=== PATIENT | female | born 1955 | race Caucasian/White ===

== ENCOUNTER 2018-03-31 10:48 | Emergency (ER) | payer MEDICAID, OTHER ==
[~2018-03-31] VITALS: Ht 165.1 cm; Wt 61.2 kg
--- NOTE | 2018-03-31 11:08 | ED General ---
General Stated Complaint: WEAKNESS Source of Information: Patient Exam Limitations: No Limitations History of Present Illness Date Seen by Provider: Mar 31, 2018 Time Seen by Provider: 11:06 Initial Comments To ER accompanied by with reports of chills and generalized weakness. This began 2 days ago. She has a chronic unchanged cough. She has not measured any fevers. She does smoke but has not smoked in about 2-3 days. Denies any abdominal pain or dysuria. She states that she's had some constipation but she does take linzess for irritable bowel syndrome with constipation. She just moved here to [place] about 2 weeks ago from [place]. She states that about one month to 6 weeks ago while in [place] she had a similar episode of chills and generalized weakness was given IV fluids and symptoms improved. Timing/Duration: 2-3 Days Severity: Moderate Associated Systoms: Cough (chronic and unchanged), Fever/Chills; No Nausea/ Vomiting (a bit worse than usual); Shortness of Air Allergies and Home Medications Allergies Uncoded Allergies: "opiates" (Allergy, Unknown, 03/31/18) Home Medications Azithromycin 250 Mg Tablet, 250 MG PO UD TAKE 2 TABLETS ON DAY ONE THEN TAKE 1 TABLET DAILY FOR FOUR MORE DAYS Prescribed by: SERAFIN ARREDONDO on 03/31/18 1213 Prednisone 20 Mg Tab, 40 MG PO DAILY Prescribed by: SERAFIN ARREDONDO on 03/31/18 1213 Patient Home Medication List Home Medication List Reviewed: Yes Review of Systems Review of Systems Constitutional: see HPI, chills, malaise, weakness EENTM: see HPI Respiratory: see HPI, cough, short of breath Cardiovascular: no symptoms reported; No chest pain Genitourinary: no symptoms reported Musculoskeletal: no symptoms reported Skin: no symptoms reported Psychiatric/Neurological: No Symptoms Reported Hematologic/Lymphatic: No Symptoms Reported Physical Exam Vital Signs Vital Signs - First Documented 03/31/18 11:13 Temp 97.8 Pulse 69 Resp 20 B/P (MAP) 97/67 (77) Pulse Ox 100 Capillary Refill : Height, Weight, BMI Height: '" Weight: lbs. oz. kg; BMI Method: General Appearance: No Apparent Distress, WD/WN, Other (keeps her eyes closed when talking) Eyes: Bilateral Eye Normal Inspection, Bilateral Eye PERRL HEENT: PERRL/EOMI, TMs Normal Neck: Full Range of Motion, Normal Inspection Respiratory: Normal Breath Sounds, No Accessory Muscle Use, No Respiratory Distress Gastrointestinal: Normal Bowel Sounds, Non Tender, Soft Extremity: Normal Capillary Refill, Normal Inspection Neurologic/Psychiatric: Alert, Oriented x3 Skin: Normal Color, Warm/Dry Progress/Results/Core Measures Suspected Sepsis SIRS Temperature: Pulse: Respiratory Rate: Laboratory Tests 03/31/18 10:54: White Blood Count 8.8 Blood Pressure / Mean: Laboratory Tests 03/31/18 10:54: Creatinine 0.98, Platelet Count 393, Total Bilirubin 0.8 Results/Orders Lab Results Laboratory Tests Test 03/31/18 10:54 03/31/18 10:59 03/31/18 13:50 Range/Units White Blood Count 8.8 4.3-11.0 10^3/uL Red Blood Count 4.42 4.35-5.85 10^6/uL Hemoglobin 14.0 11.5-16.0 G/DL Hematocrit 40 35-52 % Mean Corpuscular Volume 91 80-99 FL Mean Corpuscular Hemoglobin 32 25-34 PG Mean Corpuscular Hemoglobin Concent 35 32-36 G/DL Red Cell Distribution Width 11.7 10.0-14.5 % Platelet Count 393 130-400 10^3/uL Mean Platelet Volume 9.3 7.4-10.4 FL Neutrophils (%) (Auto) 64 42-75 % Lymphocytes (%) (Auto) 27 12-44 % Monocytes (%) (Auto) 8 0-12 % Eosinophils (%) (Auto) 0 0-10 % Basophils (%) (Auto) 1 0-10 % Neutrophils # (Auto) 5.7 1.8-7.8 X 10^3 Lymphocytes # (Auto) 2.4 1.0-4.0 X 10^3 Monocytes # (Auto) 0.7 0.0-1.0 X 10^3 Eosinophils # (Auto) 0.0 0.0-0.3 10^3/uL Basophils # (Auto) 0.0 0.0-0.1 10^3/uL Sodium Level 136 135-145 MMOL/L Potassium Level 3.3 L 3.6-5.0 MMOL/L Chloride Level 100 98-107 MMOL/L Carbon Dioxide Level 23 21-32 MMOL/L Anion Gap 13 5-14 MMOL/L Blood Urea Nitrogen 13 7-18 MG/DL Creatinine 0.98 0.60-1.30 MG/DL Estimat Glomerular Filtration Rate 58 BUN/Creatinine Ratio 13 Glucose Level 103 70-105 MG/DL Calcium Level 10.5 H 8.5-10.1 MG/DL Corrected Calcium 8.5-10.1 MG/DL Total Bilirubin 0.8 0.1-1.0 MG/DL Aspartate Amino Transf (AST/SGOT) 19 5-34 U/L Alanine Aminotransferase (ALT/SGPT) 14 0-55 U/L Alkaline Phosphatase 60 40-136 U/L Total Protein 7.5 6.4-8.2 GM/DL Albumin 4.7 H 3.2-4.5 GM/DL Thyroid Stimulating Hormone (TSH) 1.41 0.35-4.94 UIU/ML Free Thyroxine 1.26 0.70-1.48 NG/DL Micro Results Microbiology 03/31/18 Influenza Types A,B Antigen (KORTNEY) - Final, Complete My Orders Orders - SERAFIN ARREDONDO APRN Cbc With Automated Diff (03/31/18 11:03) Comprehensive Metabolic Panel (03/31/18 11:03) Ua Culture If Indicated (03/31/18 11:03) Influenza A And B Antigens (03/31/18 11:03) Chest Pa/Lat (2 View) (03/31/18 11:03) Iv Heplock-Insert (Order) (03/31/18 11:03) Ns Iv 1000 Ml (Sodium Chloride 0.9%) (03/31/18 11:15) Thyroid Stimulating Hormone (03/31/18 12:10) Free T4 (Free Thyroxine) (03/31/18 12:10) Vital Signs/I&O 03/31/18 11:13 Temp 97.8 Pulse 69 Resp 20 B/P (MAP) 97/67 (77) Pulse Ox 100 Capillary Refill : Diagnostic Imaging Diagonstic Imaging: Xray, CT Departure Impression Primary Impression: Acute exacerbation of chronic bronchitis Additional Impressions: Chills Weakness Disposition: 01 HOME, SELF-CARE Condition: Stable Departure-Patient Inst. Decision time for Depature: 12:12 Patient Instructions: Acute Bronchitis, Adult (DC) Add. Discharge Instructions: 1. Steroids and antibiotics as directed 2. Return to ER for any concerns 3. Scripts Prednisone (Prednisone) 20 Mg Tab 40 MG PO DAILY, #8 TAB Prov: SERAFIN ARREDONDO APRN 03/31/18 Azithromycin (Azithromycin) 250 Mg Tablet 250 MG PO UD, #6 TAB TAKE 2 TABLETS ON DAY ONE THEN TAKE 1 TABLET DAILY FOR FOUR MORE DAYS Prov: SERAFIN ARREDONDO APRN 03/31/18 Work/School Note: Local [employer] SERAFIN ARREDONDO APRN Mar 31, 2018 11:08
[2018-03-31 11:12] LABS: BASOPHILS % (AUTO) 1 % (0-10); EOSINOPHILS % (AUTO) 0 % (0-10); HEMATOCRIT 40 % (35-52); LYMPHOCYTES # (AUTO) 2.4 X 10^3 (1.0-4.0); LYMPHOCYTES % (AUTO) 27 % (12-44); MEAN CORPUSCULAR HEMOGLOBIN 32 PG (25-34); MEAN CORPUSCULAR HGB CONC 35 G/DL (32-36); MEAN CORPUSCULAR VOLUME 91 FL (80-99); MEAN PLATELET VOLUME 9.3 FL (7.4-10.4); MONOCYTES # (AUTO) 0.7 X 10^3 (0.0-1.0); MONOCYTES % (AUTO) 8 % (0-12); NEUTROPHILS # (AUTO) 5.7 X 10^3 (1.8-7.8); NEUTROPHILS % (AUTO) 64 % (42-75); PLATELET COUNT 393 10^3/uL (130-400); RED BLOOD COUNT 4.42 10^6/uL (4.35-5.85); RED CELL DISTRIBUTION WIDTH 11.7 % (10.0-14.5); WHITE BLOOD COUNT 8.8 10^3/uL (4.3-11.0)
[2018-03-31] MEDS ORDERED: NS IV 1000 ML 1,000 ML IV SCH (11:15)
[2018-03-31 11:33] LABS: ALANINE AMINOTRANSFERASE 14 U/L (0-55); ALBUMIN 4.7 GM/DL (3.2-4.5); ALKALINE PHOSPHATASE 60 U/L (40-136); BILIRUBIN,TOTAL 0.8 MG/DL (0.1-1.0); BUN/CREATININE RATIO 13; CALCIUM 10.5 MG/DL (8.5-10.1); CARBON DIOXIDE 23 MMOL/L (21-32); CHLORIDE 100 MMOL/L (98-107); CREATININE SERUM 0.98 MG/DL (0.60-1.30); GFR ESTIMATED 58; GLUCOSE 103 MG/DL (70-105); POTASSIUM 3.3 MMOL/L (3.6-5.0); SODIUM 136 MMOL/L (135-145); TOTAL PROTEIN 7.5 GM/DL (6.4-8.2)
--- NOTE | 2018-03-31 11:41 | Diagnostic Imaging Report ---
INDICATION: Weakness and chills and night sweats. PA and lateral chest obtained at 1:46 a.m. FINDINGS: Heart and mediastinal silhouette are normal in appearance. Lungs are clear. There is no pneumothorax or pleural fluid. There is some linear scarring or atelectasis in the right apex. IMPRESSION: Linear scarring versus atelectasis in right apex. Otherwise negative chest. Dictated by: Dictated on workstation # [id number]
[2018-03-31] MEDS ORDERED: PRD20T PO (12:13)
[2018-03-31] MEDS ORDERED: AZIT250T12 PO (12:13)
[2018-03-31 12:46] LABS: FREE T4 (FREE THYROXINE) 1.26 NG/DL (0.70-1.48)
[2018-03-31 14:00] LABS: BILIRUBIN,URINE NEGATIVE (NEGATIVE); CLARITY,URINE CLEAR; COLOR,URINE YELLOW; GLUCOSE, URINE (UA) NEGATIVE (NEGATIVE); KETONES,URINE 3+ (NEGATIVE); LEUKOCYTE ESTERASE ,URINE 1+ (NEGATIVE); NITRITE,URINE NEGATIVE (NEGATIVE); PH,URINE 6.5 (5-9); PROTEIN,URINE 1+ (NEGATIVE); UROBILINOGEN,URINE 1 MG/DL (NORMAL)
[2018-03-31 14:15] LABS: BACTERIA,URINE MODERATE /HPF; RBC,URINE 0-2 /HPF; WBC,URINE 0-2 /HPF
[2018-03-31 14:29] VITALS: BP 143/76
== END 2018-03-31 14:29 | disposition home or self-care (01) ==
LOC: EDUNIT# 10:48 → ER 10:51
DX: J20.9 Acute bronchitis, unspecified (principal); J40 Bronchitis, not specified as acute or chronic; R53.1 Weakness; R68.83 Chills (without fever); Z88.5 Allergy status to narcotic agent; Z79.52 Long term (current) use of systemic steroids
CPT/HCPCS: 36415; 71046; 80053; 81000; 84439; 84443; 85025; 87804

== ENCOUNTER 2018-09-06 09:36 | Emergency (ER) | payer BC, MEDICAID ==
[~2018-09-06] VITALS: Ht 165.1 cm; Wt 63.5 kg
[~2018-09-06 09:36] MED LIST: AZIT250T12 PO; PRD20T PO
--- NOTE | 2018-09-06 09:56 | NUR ---
SEE LIST FOR CURRENT MEDS
[2018-09-06] MEDS ORDERED: NS IV 1000 ML 1,000 ML IV ONE (10:25)
[2018-09-06] MEDS ORDERED: KETOROLAC 30 MG/ML VIAL IVP STA (10:25)
[2018-09-06 10:50] LABS: BASOPHILS % (AUTO) 0 % (0-10); EOSINOPHILS % (AUTO) 0 % (0-10); HEMATOCRIT 39 % (35-52); HEMOGLOBIN 13.6 G/DL (11.5-16.0); LYMPHOCYTES # (AUTO) 1.7 X 10^3 (1.0-4.0); LYMPHOCYTES % (AUTO) 24 % (12-44); MEAN CORPUSCULAR HEMOGLOBIN 31 PG (25-34); MEAN CORPUSCULAR HGB CONC 35 G/DL (32-36); MEAN CORPUSCULAR VOLUME 89 FL (80-99); MEAN PLATELET VOLUME 9.2 FL (7.4-10.4); MONOCYTES # (AUTO) 0.5 X 10^3 (0.0-1.0); MONOCYTES % (AUTO) 8 % (0-12); NEUTROPHILS # (AUTO) 4.7 X 10^3 (1.8-7.8); NEUTROPHILS % (AUTO) 68 % (42-75); PLATELET COUNT 381 10^3/uL (130-400); RED CELL DISTRIBUTION WIDTH 12.1 % (10.0-14.5); WHITE BLOOD COUNT 6.9 10^3/uL (4.3-11.0)
[2018-09-06 10:55] LABS: CLARITY,URINE CLEAR; COLOR,URINE YELLOW; GLUCOSE, URINE (UA) NEGATIVE (NEGATIVE); KETONES,URINE 2+ (NEGATIVE); LEUKOCYTE ESTERASE ,URINE 1+ (NEGATIVE); NITRITE,URINE NEGATIVE (NEGATIVE); PH,URINE 6 (5-9); PROTEIN,URINE 2+ (NEGATIVE); UROBILINOGEN,URINE 4 MG/DL (NORMAL)
--- NOTE | 2018-09-06 10:57 | ED General ---
General Chief Complaint: General Problems/Pain Stated Complaint: FLU SYMPTOMS Nursing Triage Note: PT TO ROOM 9 PER W/C PT STATES COLD, NO FEVER, HAS "FOAM COMING OUT OF BUTT" AND COUGH THURSDAY THAT MADE HER R SIDE HURT. Nursing Sepsis Screen: No Definite Risk Source of Information: Patient Exam Limitations: No Limitations History of Present Illness Date Seen by Provider: Sep 06, 2018 Time Seen by Provider: 10:18 Initial Comments Here with report of a variety of complaints that is somewhat difficult to follow. Initially she reported feeling like she has had the flu that started on Thursday. She states that was body aches and chills. It worsened yesterday and then overnight she had dry heaves. She also complains of vaginal fullness and feeling like something is there. She reports foul odor from the vaginal area. 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 She is also concerned that the fistula may have gone inside is a had concerns about that previously. Reports frothy diarrhea. Does have some lower abdominal pain. Reports that the diarrhea was pinkish colored. Timing/Duration: 1-2 Days Severity: Moderate Associated Systoms: No Chest Pain, No Cough; Fever/Chills, Nausea/Vomiting; No Shortness of Air; Weakness Allergies and Home Medications Allergies Coded Allergies: lisinopril (Verified Allergy, Unknown, 09/06/18) morphine (Verified Allergy, Unknown, 09/06/18) Uncoded Allergies: "opiates" (Allergy, Unknown, 03/31/18) CIPROFLOXIN (Allergy, Unknown, 09/06/18) CODIENE (Allergy, Unknown, 09/06/18) FENTYL (Allergy, Unknown, 09/06/18) HCTZ (Allergy, Unknown, 09/06/18) OPIUM (Allergy, Unknown, 09/06/18) Home Medications Azithromycin 250 Mg Tablet, 250 MG PO UD TAKE 2 TABLETS ON DAY ONE THEN TAKE 1 TABLET DAILY FOR FOUR MORE DAYS Prescribed by: SERAFIN ARREDONDO on 03/31/181212 Prednisone 20 Mg Tab, 40 MG PO DAILY Prescribed by: SERAFIN ARREDONDO on 03/31/181212 Patient Home Medication List Home Medication List Reviewed: Yes (home meds list reviewed) Review of Systems Review of Systems Constitutional: see HPI, chills; No fever EENTM: No nose congestion, No throat pain Respiratory: No cough; short of breath Cardiovascular: No chest pain, No edema Gastrointestinal: abdominal pain, diarrhea, nausea, vomiting Genitourinary: see HPI; No dysuria; pain : No Musculoskeletal: joint pain, muscle pain Skin: change in color (Ecchymosis on the hand on the right) Psychiatric/Neurological: Anxiety; Denies Headache All Other Systems Reviewed Negative Unless Noted: Yes Past [id number]-[id number]-Uyesyi Hx Past Med/Social Hx: Reviewed Nursing Past Med/Soc Hx Patient Social History Alcohol Use: Denies Use Recreational Drug Use: No Smoking Status: Current Everyday Smoker Type Used: Cigarettes Recent Foreign Travel: No Contact w/Someone Who Travel: No Recent Infectious Disease Expo: No Recent Hopitalizations: No Past Medical History Surgeries: Yes Abdominal, Appendectomy, Gallbladder, Hysterectomy, Tubal Ligation Cardiac: Yes Chronic Edema/Swelling, High Cholesterol, Hypertension Neurological: Yes Neuropathy, Seizure Disorder Genitourinary: No Gastrointestinal: Yes Gastroesophageal Reflux Musculoskeletal: Yes Osteoporosis, Arthritis Endocrine: No Cancer: Yes Cervical Psychosocial: No Integumentary: Yes (hx of skin ca) Family Medical History Reviewed Nursing Family Hx No Pertinent Family Hx Physical Exam-Suspected Sepsis Physical Exam Vital Signs Vital Signs - First Documented 09/06/18 09:50 Temp 97.9 Pulse 88 Resp 18 B/P (MAP) 147/117 (127) Pulse Ox 99 Capillary Refill : Less Than 3 Seconds Blood Pressure Mean: 127 Height, Weight, BMI Height: 5'5.00" Weight: 140lbs. oz. [id number]; BMI Method:Stated General Appearance: WD/WN, Anxious, Thin HEENT: PERRL/EOMI, Pharynx Normal Neck: Non Tender, Supple Respiratory: Lungs Clear, Normal Breath Sounds Cardiovascular: Regular Rate, Rhythm, No Murmur Gastrointestinal: Non Tender, Soft Rectal: Hemorrhoids, Tenderness, Other (unable to complete digital rectal exam due to discomfort on the patient) Genital/Rectal: Other (figueroa white vaginal discharge noted) Back: Normal Inspection, No CVA Tenderness Extremity: Normal Range of Motion, Non Tender Neurologic/Psychiatric: Alert, Oriented x3 Skin: warm/dry, ecchymosis (few small areas of ecchymosis to the right hand) Focused Exam Lactate Level 09/06/18 10:35: Lactic Acid Level 2.07*H 09/06/18 12:31: Lactic Acid Level 0.98 Lactic Acid Level Laboratory Tests Test 09/06/18 10:35 09/06/18 12:31 Lactic Acid Level 2.07 MMOL/L (0.50-2.00) *H 0.98 MMOL/L (0.50-2.00) Progress/Results/Core Measures Suspected Sepsis Recent Fever Within 48 Hours: No Infection Criteria Present: None New/Unexplained Altered Menta: No Sepsis Screen: No Definite Risk SIRS Temperature:97.9 Pulse: 88 Respiratory Rate: 18 Laboratory Tests 09/06/18 10:35: White Blood Count 6.9 Blood Pressure 147 /117 Mean: 127 09/06/18 10:35: Lactic Acid Level 2.07*H 09/06/18 12:31: Lactic Acid Level 0.98 Laboratory Tests 09/06/18 10:35: Creatinine 0.95, INR Comment 0.9, Platelet Count 381, Total Bilirubin 0.7 Results/Orders Lab Results Laboratory Tests Test 09/06/18 10:35 09/06/18 12:31 Range/Units White Blood Count 6.9 4.3-11.0 10^3/uL Red Blood Count 4.33 L 4.35-5.85 10^6/uL Hemoglobin 13.6 11.5-16.0 G/DL Hematocrit 39 35-52 % Mean Corpuscular Volume 89 80-99 FL Mean Corpuscular Hemoglobin 31 25-34 PG Mean Corpuscular Hemoglobin Concent 35 32-36 G/DL Red Cell Distribution Width 12.1 10.0-14.5 % Platelet Count 381 130-400 10^3/uL Mean Platelet Volume 9.2 7.4-10.4 FL Neutrophils (%) (Auto) 68 42-75 % Lymphocytes (%) (Auto) 24 12-44 % Monocytes (%) (Auto) 8 0-12 % Eosinophils (%) (Auto) 0 0-10 % Basophils (%) (Auto) 0 0-10 % Neutrophils # (Auto) 4.7 1.8-7.8 X 10^3 Lymphocytes # (Auto) 1.7 1.0-4.0 X 10^3 Monocytes # (Auto) 0.5 0.0-1.0 X 10^3 Eosinophils # (Auto) 0.0 0.0-0.3 10^3/uL Basophils # (Auto) 0.0 0.0-0.1 10^3/uL Prothrombin Time 12.6 12.2-14.7 SEC INR Comment 0.9 0.8-1.4 Activated Partial Thromboplast Time 26 24-35 SEC Urine Color YELLOW Urine Clarity CLEAR Urine pH 6 5-9 Urine Specific [place] 1.020 1.016-1.022 Urine Protein 2+ H NEGATIVE Urine Glucose (UA) NEGATIVE NEGATIVE Urine Ketones 2+ H NEGATIVE Urine Nitrite NEGATIVE NEGATIVE Urine Bilirubin 1+ H NEGATIVE Urine Urobilinogen 4 H NORMAL MG/DL Urine Leukocyte Esterase 1+ H NEGATIVE Urine RBC (Auto) 2+ H NEGATIVE Urine RBC NONE /HPF Urine WBC 2-5 /HPF Urine Squamous Epithelial Cells 10-25 H /HPF Urine Crystals NONE /LPF Urine Bacteria TRACE /HPF Urine Casts NONE /LPF Urine Mucus MODERATE H /LPF Urine Culture Indicated CULTURE PENDING Sodium Level 133 L 135-145 MMOL/L Potassium Level 3.7 3.6-5.0 MMOL/L Chloride Level 100 98-107 MMOL/L Carbon Dioxide Level 18 L 21-32 MMOL/L Anion Gap 15 H 5-14 MMOL/L Blood Urea Nitrogen 17 7-18 MG/DL Creatinine 0.95 0.60-1.30 MG/DL Estimat Glomerular Filtration Rate 60 BUN/Creatinine Ratio 18 Glucose Level 101 70-105 MG/DL Lactic Acid Level 2.07 *H 0.98 0.50-2.00 MMOL/L Calcium Level 10.5 H 8.5-10.1 MG/DL Corrected Calcium 8.5-10.1 MG/DL Total Bilirubin 0.7 0.1-1.0 MG/DL Aspartate Amino Transf (AST/SGOT) 17 5-34 U/L Alanine Aminotransferase (ALT/SGPT) 10 0-55 U/L Alkaline Phosphatase 79 40-136 U/L Total Protein 7.7 6.4-8.2 GM/DL Albumin 4.8 H 3.2-4.5 GM/DL Micro Results Microbiology 09/06/18 Wet Prep - Final, Complete 09/06/18 Influenza Types A,B Antigen (KORTNEY) - Final, Complete My Orders Orders - LAVON RICARDO MD Cbc With Automated Diff (09/06/18 10:25) Comprehensive Metabolic Panel (09/06/18 10:25) Blood Culture (09/06/18 10:25) Sputum Culture (09/06/18 10:25) Urinalysis (09/06/18 10:25) Urine Culture (09/06/18 10:25) Protime With Inr (09/06/18 10:25) Partial Thromboplastin Time (09/06/18 10:25) Chest 1 View, Ap/Pa Only (09/06/18 10:25) Saline Lock/Iv-Start (09/06/18 10:25) Saline Lock/Iv-Start (09/06/18 10:25) Vital Signs Adult Sepsis Patie Q15M (09/06/18 10:25) O2 (09/06/18 10:25) Remove Rings In Anticipation O (09/06/18 10:25) Lactic Acid Analyzer (09/06/18 10:25) Influenza A And B Antigens (09/06/18 10:25) Ns Iv 1000 Ml (Sodium Chloride 0.9%) (09/06/18 10:25) Ketorolac Injection (Toradol Injection) (09/06/18 10:25) Wet Prep (09/06/18 10:28) Iohexol Injection (Omnipaque 350 Mg/Ml 1 (09/06/18 11:45) Received Contrast (Contrast Received) (09/06/18 11:45) Ct Chest/Abdomen/Pelvis W (09/06/18 11:31) Medications Given in ED Current Medications Medications Dose Ordered Sig/Suresh Route Start Time Stop Time Status Last Admin Dose Admin Sodium Chloride 1,000 ml @ 0 mls/hr Q0M ONCE IV 09/06/18 10:25 09/06/18 10:29 DC 09/06/18 10:50 1,000 MLS/HR Vital Signs/I&O 09/06/18 09:50 Temp 97.9 Pulse 88 Resp 18 B/P (MAP) 147/117 (127) Pulse Ox 99 Capillary Refill : Less Than 3 Seconds Blood Pressure Mean: 127 Progress Note : Progress Note Seen and evaluated. Complicated history. We will check labs, UA, chest x-ray, blood cultures, lactic acid and influenza screen. Normal saline 1 L bolus. Toradol 15 mg IV for bodyaches. Zofran 4 mg IV for nausea. Monitor patient. 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 Patient does have bacterial vaginosis which will be treated. Urinary tract infection also suspected. Chest x-ray shows nodular structure. Given patient's history of polyps that are cancerous and nodule in the chest in the setting of a person who smokes, we will go ahead and add CT of the chest with contrast as well to rule out mass in the chest. Monitor patient. Diagnostic Imaging Diagonstic Imaging: Xray Plain Films/CT/US/NM/MRI: chest Comments [facility] [place], [place] NAME: SUGEY SOTO [facility] REC#: [id number] PT STATUS: REG ER : 1955 PHYSICIAN: LAVON RICARDO MD ADMIT DATE: 09/06/18/ER Draft Date of Exam:09/06/18 CHEST 1 VIEW, AP/PA ONLY INDICATION: Cough. COMPARISON: 03/31/2018. FINDINGS: A single frontal view of the chest demonstrates normal heart size and pulmonary vascularity. Evaluation of the lung lucas suggests a 7 mm micronodular density within the right apex. Note is made that this projects over a portion of the right first rib. Otherwise, the lungs are clear. There is no large effusion or pneumothorax on either side. The visualized osseous structures show no acute abnormalities. IMPRESSION: 1. No evidence of failure or focal infiltrate. 2. Possible 7 mm micronodule within the right apex versus artifact related to right first rib. Further evaluation with an apical lordotic view is recommended. Dictated on workstation # [id number] Dict: 09/06/18 1105 Trans: 09/06/18 1111 [id number] Interpreted by: CHENG QUIJANO MD Electronically signed by: Diagonstic Imaging: CT Plain Films/CT/US/NM/MRI: chest, abdomen, pelvis Comments [facility]. [place], [place] NAME: SUGEY SOTO [facility] REC#: [id number] PT STATUS: REG ER : 1955 PHYSICIAN: LAVON RICARDO MD ADMIT DATE: 09/06/18/ER Draft Date of Exam:09/06/18 CT CHEST/ABDOMEN/PELVIS W PROCEDURE: CT chest, abdomen, and pelvis with contrast. TECHNIQUE: Multiple contiguous axial images were obtained through the chest, abdomen, and pelvis after the administration of intravenous contrast. INDICATION: Weakness and flulike symptoms as well as chest pain and abdominal pain. COMPARISON: No prior studies are available for comparison. FINDINGS: CT CHEST: No axillary lymphadenopathy is identified. No definite mediastinal or hilar lymphadenopathy is detected. No pericardial or pleural fluid is identified. There is some linear atelectasis or scarring in the right upper lobe. No parenchymal mass, nodule, or infiltrate is identified. IMPRESSION: Essentially unremarkable CT of the chest. CT ABDOMEN AND PELVIS: No discrete liver mass is identified. The gallbladder is surgically absent. No biliary ductal dilatation is seen. The pancreas and spleen are unremarkable. There is a mass involving the right adrenal gland measuring 2.6 cm in size. This appears to be of fairly low density and may represent an adrenal adenoma. The left adrenal gland is unremarkable. The kidneys are unremarkable. The aorta is calcified but nonaneurysmal. No central retroperitoneal or mesenteric lymphadenopathy is detected. The small and large bowel loops are of normal caliber. No obstruction is seen. There is no ascites. The partially filled urinary bladder is unremarkable. No definite pelvic lymphadenopathy is seen. The uterus appears to be surgically absent. The bony structures are nonacute. IMPRESSION: 1. Right adrenal mass, suggestive of an adenoma. A followup CT to confirm stability is recommended. 2. No acute feature in the abdomen or pelvis is identified. Dictated on workstation # [id number] Dict: 09/06/18 1212 Trans: 09/06/18 1218 [id number] Interpreted by: ELSIE ADKINS MD Electronically signed by: Departure Impression Primary Impression: UTI (urinary tract infection) Qualified Codes: N30.00 - Acute cystitis without hematuria Additional Impression: Bacterial vaginosis Disposition: HOME, SELF-CARE Condition: Stable Departure-Patient Inst. Decision time for Depature: 13:24 Referrals: JULES SNYDER MD (PCP) Primary Care Physician Patient Instructions: Bacterial Vaginosis (DC), Urinary Tract Infection, Adult (DC) Add. Discharge Instructions: All discharge instructions reviewed with patient and/or family. Voiced understanding. Take medications as directed. Clear liquid diet for the next 24 hours and then advance as tolerated. Follow-up with your Dr. in a few days for recheck. You will need repeat evaluation and further evaluation including colonoscopy. You can discuss this with your DrKarine for referral. You also need to have repeat imaging of your adrenal gland at some point in the future. Discussed this with your doctor as well. Return for think, fever, vomiting, weakness, breathing problems or other concerns as needed. You may take Tylenol/acetaminophen 650 mg every 8 hours as needed for fever or pain. You may take ibuprofen 600 mg every 8 hours as needed for fever or pain. Scripts Nitrofurantoin Macrocrystal (Nitrofurantoin) 100 Mg Capsule 100 MG PO BID, #14 CAP 0 Refills Prov: LAVON RICARDO MD 09/06/18 Metronidazole (Metronidazole) 500 Mg Tablet 500 MG PO BID, #14 TAB 0 Refills Prov: LAVON RICARDO MD 09/06/18 Copy Copies To 1: JULES SNYDER MD, TIMOTHY D MD Sep 06, 2018 10:57
[2018-09-06 11:11] LABS: INR 0.9 (0.8-1.4); PROTHROMBIN TIME PATIENT 12.6 SEC (12.2-14.7)
--- NOTE | 2018-09-06 11:11 | Diagnostic Imaging Report ---
INDICATION: Cough. COMPARISON: 03/31/2018. FINDINGS: A single frontal view of the chest demonstrates normal heart size and pulmonary vascularity. Evaluation of the lung lucas suggests a 7 mm micronodular density within the right apex. Note is made that this projects over a portion of the right first rib. Otherwise, the lungs are clear. There is no large effusion or pneumothorax on either side. The visualized osseous structures show no acute abnormalities. IMPRESSION: 1. No evidence of failure or focal infiltrate. 2. Possible 7 mm micronodule within the right apex versus artifact related to right first rib. Further evaluation with an apical lordotic view is recommended. Dictated by: Dictated on workstation # [id number]
[2018-09-06 11:12] LABS: BACTERIA,URINE TRACE /HPF; BILIRUBIN,URINE 1+ (NEGATIVE)
[2018-09-06 11:19] LABS: ALANINE AMINOTRANSFERASE 10 U/L (0-55); ALBUMIN 4.8 GM/DL (3.2-4.5); ALKALINE PHOSPHATASE 79 U/L (40-136); BILIRUBIN,TOTAL 0.7 MG/DL (0.1-1.0); BUN/CREATININE RATIO 18; CALCIUM 10.5 MG/DL (8.5-10.1); CARBON DIOXIDE 18 MMOL/L (21-32); CHLORIDE 100 MMOL/L (98-107); CREATININE SERUM 0.95 MG/DL (0.60-1.30); GFR ESTIMATED 60; GLUCOSE 101 MG/DL (70-105); POTASSIUM 3.7 MMOL/L (3.6-5.0); SODIUM 133 MMOL/L (135-145); TOTAL PROTEIN 7.7 GM/DL (6.4-8.2)
[2018-09-06] MEDS ORDERED: HOLD METFORMIN - RECEIVED CONTRAST 20 ML VIAL IV SCH (11:45)
[2018-09-06] MEDS ORDERED: IOHEXOL 350 MG/ML 100 ML (OMNIPAQUE 350) VIAL IV ONE (11:45)
--- NOTE | 2018-09-06 12:19 | Diagnostic Imaging Report ---
PROCEDURE: CT chest, abdomen, and pelvis with contrast. TECHNIQUE: Multiple contiguous axial images were obtained through the chest, abdomen, and pelvis after the administration of intravenous contrast. INDICATION: Weakness and flulike symptoms as well as chest pain and abdominal pain. COMPARISON: No prior studies are available for comparison. FINDINGS: CT CHEST: No axillary lymphadenopathy is identified. No definite mediastinal or hilar lymphadenopathy is detected. No pericardial or pleural fluid is identified. There is some linear atelectasis or scarring in the right upper lobe. No parenchymal mass, nodule, or infiltrate is identified. IMPRESSION: Essentially unremarkable CT of the chest. CT ABDOMEN AND PELVIS: No discrete liver mass is identified. The gallbladder is surgically absent. No biliary ductal dilatation is seen. The pancreas and spleen are unremarkable. There is a mass involving the right adrenal gland measuring 2.6 cm in size. This appears to be of fairly low density and may represent an adrenal adenoma. The left adrenal gland is unremarkable. The kidneys are unremarkable. The aorta is calcified but nonaneurysmal. No central retroperitoneal or mesenteric lymphadenopathy is detected. The small and large bowel loops are of normal caliber. No obstruction is seen. There is no ascites. The partially filled urinary bladder is unremarkable. No definite pelvic lymphadenopathy is seen. The uterus appears to be surgically absent. The bony structures are nonacute. IMPRESSION: 1. Right adrenal mass, suggestive of an adenoma. A followup CT to confirm stability is recommended. 2. No acute feature in the abdomen or pelvis is identified. Dictated by: Dictated on workstation # [id number]
[2018-09-06] MEDS ORDERED: METR-145 PO (13:23)
[2018-09-06] MEDS ORDERED: NITR100C PO (13:23)
[2018-09-06 13:52] VITALS: BP 135/92
== END 2018-09-06 13:52 | disposition home or self-care (01) ==
LOC: EDUNIT# 09:36 → ER 09:37
DX: N39.0 Urinary tract infection, site not specified (principal); N76.0 Acute vaginitis; B96.89 Other specified bacterial agents as the cause of diseases classified elsewhere; E78.00 Pure hypercholesterolemia, unspecified; I10 Essential (primary) hypertension; G40.909 Epilepsy, unspecified, not intractable, without status epilepticus; M81.0 Age-related osteoporosis without current pathological fracture; G62.9 Polyneuropathy, unspecified; K21.9 Gastro-esophageal reflux disease without esophagitis; F17.210 Nicotine dependence, cigarettes, uncomplicated; Z85.41 Personal history of malignant neoplasm of cervix uteri; Z85.828 Personal history of other malignant neoplasm of skin; Z90.49 Acquired absence of other specified parts of digestive tract; Z98.890 Other specified postprocedural states; Z90.710 Acquired absence of both cervix and uterus; Z98.51 Tubal ligation status; Z88.5 Allergy status to narcotic agent; Z88.8 Allergy status to other drugs, medicaments and biological substances; Z88.1 Allergy status to other antibiotic agents; Z79.52 Long term (current) use of systemic steroids
CPT/HCPCS: 36415; 71045; 71260; 74177; 80053; 81000; 83605; 85025; 85610; 85730; 87040; 87088; 87210; 87804

== ENCOUNTER 2018-10-20 08:39 | Outpatient (CLI) | payer BC ==
[~2018-10-20] VITALS: Ht 165.1 cm; Wt 71.8 kg
[~2018-10-20 08:39] MED LIST changes: +METR-145 PO; +NITR100C PO
[2018-10-20] MEDS ORDERED: CYAN100088 PO (09:16)
[2018-10-20] MEDS ORDERED: CHOL10003 PO (09:16)
[2018-10-20] MEDS ORDERED: VITA-246 PO (09:16)
[2018-10-20] MEDS ORDERED: ASPI-586 PO (09:16)
[2018-10-20] MEDS ORDERED: SPIR100T4 PO (09:16)
[2018-10-20] MEDS ORDERED: OMEP20CA12 PO (09:16)
[2018-10-20] MEDS ORDERED: DICY20TA10 PO (09:16)
[2018-10-20] MEDS ORDERED: [UNRECOGNIZED DRUG - CODE] PO (09:16)
[2018-10-20] MEDS ORDERED: LEVE500T6 PO (09:16)
[2018-10-20] MEDS ORDERED: GABA800T10 PO (09:16)
[2018-10-20] MEDS ORDERED: LINA290C PO (09:16)
[2018-10-20] MEDS ORDERED: CALC600T12 PO (09:16)
[2018-10-20] MEDS ORDERED: [UNRECOGNIZED DRUG - CODE] PO (09:16)
== END 2018-10-20 09:00 | disposition home or self-care (01) ==
LOC: PREOP 08:39
PROVIDERS: ATTEND Surgery
DX: Z01.818 Encounter for other preprocedural examination (principal)

== ENCOUNTER 2018-11-02 08:14 | Day surgery (SDC) | payer BC ==
[~2018-11-02] VITALS: Ht 165.1 cm; Wt 71.8 kg
[~2018-11-02 08:14] MED LIST changes: +ASPI-586 PO; +CALC600T12 PO; +CHOL10003 PO; +CYAN100088 PO; +DICY20TA10 PO; +GABA800T10 PO; +LEVE500T6 PO; +LINA290C PO; +OMEP20CA12 PO; +SPIR100T4 PO; +VITA-246 PO; +[UNRECOGNIZED DRUG - CODE] PO; +[UNRECOGNIZED DRUG - CODE] PO
[2018-11-02] MEDS ORDERED: LACTATED RINGERS 1,000 ML IV ONE (08:22)
[2018-11-02] MEDS ORDERED: PROPOFOL INJECTION 50 ML IV ONE (08:38)
[2018-11-02] MEDS ORDERED: MIDAZOLAM 2 MG/2 ML (VERSED) VIAL ONE (08:38)
--- OUTSIDE RECORDS SUMMARY | 2018-11-02 08:44 | XMS REPORT | Continuity of Care Document ---
Author Organization Unknown Address Unknown Allergies There is no data. Medications There is no data. Problems There is no data. Procedures There is no data. Results Test Result Range CRP - 09/17/18 13:50 C-REACTIVE PROTEIN <0.2 mg/L <8.0 Encounters ACCT No. Visit Date/Time Discharge Status Pt. Type Provider Facility Loc./Unit Complaint [id number] 09/30/2018 09:40:00 09/30/2018 23:59:59 [facility] Outpatient CLAUDIO SMYTH, JULES BENTONNithin [facility] [id number] 09/17/2018 13:20:00 Document Registration
--- NOTE | 2018-11-02 08:46 | Progress Note-Pre Operative ---
Pre-Operative Progress Note H&P Reviewed The H&P was reviewed, patient examined and no changes noted. Date Seen by Provider: November 02, 2018 Time Seen by Provider: 08: Date H&P Reviewed: November 02, 2018 Time H&P Reviewed: 08: Pre-Operative Diagnosis: melana, history polyps, hx diverticulosis. KARLI SOUZA DO November 02, 2018 08:46
[2018-11-02] MEDS ORDERED: LACTATED RINGERS 1,000 ML IV STA (09:10)
[2018-11-02] MEDS ORDERED: PANT40TA2 PO (09:13)
[2018-11-02] MEDS ORDERED: HURRICAINE EXT TUBE (BENZOCAINE) XX PRN (09:15)
--- NOTE | 2018-11-02 09:15 | Discharge Inst-Simple/Standard ---
Discharge Inst-Standard Discharge Medications New, Converted or Re-Newed RX: RX on Chart Patient Instructions/Follow Up Plan of Care/Instructions/FU: 2 weeks Bassam Activity as Tolerated: Yes Discharge Diet: Regular Diet KARLI SOUZA DO November 02, 2018 09:15
[2018-11-02 09:17] VITALS: BP 138/86
[2018-11-02 09:20] VITALS: BP 122/77
--- NOTE | 2018-11-02 09:20 | Progress Note-Post Operative ---
Post-Operative Progess Note Surgeon (s)/Independent Film Maker (s) Surgeon KARLI SOUZA DO Independent Film Maker: na Pre-Operative Diagnosis melana, history polyps, hx diverticulosis. Post-Operative Diagnosis hiatal hernia, slight gastritis, colon polyps, minimal diverticulosis Procedure & Operative Findings Date of Procedure 11/02/18 Procedure Performed/Findings egd c biopsies, colonoscopy c hot bx polypectomy x 2 Anesthesia Type per foreign student adviser Estimated Blood Loss Estimated blood loss (mL): min Specimens/Packing Specimens Removed antrum, body, ge, ascending colon polyp, hepatic flexure polyp KARLI SOUZA DO November 02, 2018 09:19
[2018-11-02 09:50] VITALS: BP 137/78
--- NOTE | 2018-11-02 10:12 | Anesthesia-General Post-Op ---
MAC Patient Condition Mental Status/LOC: Same as Preop Cardiovascular: Satisfactory Nausea/Vomiting: Absent Respiratory: Satisfactory Pain: Controlled Complications: Absent Post Op Complications Complications None Follow Up Care/Instructions Patient Instructions None needed. Anesthesiology Discharge Order Discharge Order Patient is doing well, no complaints, stable vital signs, no apparent adverse anesthesia problems. No complications reported per nursing. IKE MAGALLANES CRNA November 02, 2018 10:12
[2018-11-02 11:21] VITALS: BP 137/78
--- NOTE | 2018-11-02 13:38 | OPERATIVE REPORT ---
DATE OF SERVICE: 11/02/2018 PREOPERATIVE DIAGNOSES: Melena, history of polyps history of diverticulosis. POSTOPERATIVE DIAGNOSES: Hiatal hernia, slight gastritis, colon polyps, minimal diverticulosis. PROCEDURES: EGD with biopsies, colonoscopy with hot biopsy polypectomy x2. SURGEON: Karli Banegas DO ANESTHESIA: Per NEEDLE VALVE OPERATOR. ESTIMATED BLOOD LOSS: None to scant. COMPLICATIONS: None. INDICATIONS: The patient is a 63-year-old female with history of melena, polyps and diverticulosis. She understands risks and benefits of procedure and wished to proceed with procedure. Consent was signed in the chart. DESCRIPTION OF PROCEDURE: The patient was taken to the endoscopy suite, placed in left lateral recumbent position. Timeout was performed. Scope was inserted into the mouth, down the esophagus, stomach and into the duodenum without difficulty. There were no polyps, masses or ulcerations within the duodenum. Scope was slowly retracted back into the stomach, which was further insufflated. Erythematous changes present in the antrum and some reactive changes in the body. Biopsies of the antrum and body were obtained. Scope was retroflexed noting a hiatal hernia. No other pathology. Scope was returned to its normal position, slowly withdrawn to the distal esophagus, had some slight erythematous changes. Biopsy was obtained. Scope was then slowly retracted back noting no other pathology. Digital rectal exam was performed. There were no palpable polyps, masses or ulcerations. Scope was inserted in the rectum and advanced all the way to the cecum with minimal difficulty. Prep was adequate. Scope was then slowly retracted back. There were no polyps, masses or ulcerations within the cecum. In the ascending colon, a small polyp was present, which hot biopsy polypectomy was performed. Scope was continuously retracted back to around the hepatic flexure. Another larger flat polyp was present, which hot biopsy polypectomy was performed. Scope was continuously retracted back. There were no other polyps, masses or ulcerations of the transverse, descending, sigmoid colon. Within the sigmoid colon, a very minimal amount of diverticulosis was present. Scope was continued to be retracted back into the rectum where it was also retroflexed noting no other pathology. Scope was returned to its normal position, slowly withdrawn until completely removed. The patient tolerated the procedure well without any complications. She was taken to recovery room in stable condition. RECOMMENDATIONS: The patient is to stop omeprazole, start Protonix 40 mg daily. We will have her follow up in the office in 2 weeks to discuss pathology results. The patient will need repeat colonoscopy in 5 years. Any issues before that will be seen at that time. Job ID: [id number] DocumentID: [id number] Dictated Date: 11/02/2018 09:22:37 Sign Manufacturer Date: 11/02/2018 13:38:10 Dictated By: KARLI BANEGAS DO
== END 2018-11-02 10:00 | disposition home or self-care (01) ==
LOC: ENDO 08:14
PROVIDERS: ATTEND Surgery
DX: K92.1 Melena (principal); D12.2 Benign neoplasm of ascending colon; K63.5 Polyp of colon; K57.30 Diverticulosis of large intestine without perforation or abscess without bleeding; K29.70 Gastritis, unspecified, without bleeding; K44.9 Diaphragmatic hernia without obstruction or gangrene; K21.9 Gastro-esophageal reflux disease without esophagitis; I10 Essential (primary) hypertension; R56.9 Unspecified convulsions; F17.210 Nicotine dependence, cigarettes, uncomplicated; Z79.82 Long term (current) use of aspirin; Z79.899 Other long term (current) drug therapy

== ENCOUNTER 2018-12-03 12:49 | Outpatient (CLI) | payer BC ==
[~2018-12-03] VITALS: Ht 165.1 cm; Wt 71.8 kg
[2018-12-03 10:55] VITALS: BP 115/68
[~2018-12-03 12:49] MED LIST changes: +PANT40TA2 PO
[2018-12-03] MEDS ORDERED: ZOLEDRONATE (NON-FORMULARY) 100 ML IV ONE (13:00)
== END 2018-12-03 14:00 | disposition home or self-care (01) ==
LOC: SDC 12:49
PROVIDERS: ATTEND Internal Medicine
DX: M81.0 Age-related osteoporosis without current pathological fracture (principal)
CPT/HCPCS: 96365; 96374

== ENCOUNTER → 2018-12-10 | Outpatient (CLI) | payer BC | LOC: RAD 09:23 | PROVIDERS: ATTEND Internal Medicine | DX: Z12.31 Encounter for screening mammogram for malignant neoplasm of breast (principal) | CPT/HCPCS: 77067 ==

== ENCOUNTER 2018-12-27 10:20 | Inpatient (IN) | payer BC ==
[~2018-12-27] VITALS: Ht 165.1 cm; Wt 71.8 kg
--- OUTSIDE RECORDS SUMMARY | 2018-12-27 10:27 | XMS REPORT | Continuity of Care Document ---
Author Organization Unknown Address Unknown Allergies Active Description Code Type Severity Reaction Onset Reported/Identified Relationship to Patient Clinical Status Yes "opiates" "opiates" Unknown N/A 03/31/2018 Yes CIPROFLOXIN CIPROFLOXIN Unknown N/A 09/06/2018 Yes CODIENE CODIENE Unknown N/A 09/06/2018 Yes FENTYL FENTYL Unknown N/A 09/06/2018 Yes HCTZ HCTZ Unknown N/A 09/06/2018 Yes lisinopril [id number] Drug Allergy Unknown N/A 09/06/2018 Yes morphine [id number] Drug Allergy Unknown N/A 09/06/2018 Yes OPIUM OPIUM Unknown N/A 09/06/2018 Yes ciprofloxacin [id number] Drug Allergy Unknown N/A 10/20/2018 Yes codeine [id number] Drug Allergy Unknown N/A 10/20/2018 Yes fentanyl [id number] Drug Allergy Unknown Anaphylaxis 10/20/2018 Yes hydrochlorothiazide [id number] Drug Allergy Unknown N/A 10/20/2018 Yes opium (anthroposophic) [id number] Drug Allergy Unknown N/A 10/20/2018 Medications There is no data. Problems Date Dx Coded Attending Type Code Diagnosis Diagnosed By 03/31/2018 SERAFIN ARREDONDO APRN Ot J20.9 ACUTE BRONCHITIS, UNSPECIFIED 03/31/2018 SERAFIN ARREDONDO APRN Ot J40 BRONCHITIS, NOT SPECIFIED ACUTE OR CH 03/31/2018 SERAFIN ARREDONDO APRN Ot R53.1 WEAKNESS 03/31/2018 SERAFIN ARREDONDO APRN Ot R68.83 CHILLS (WITHOUT FEVER) 03/31/2018 SERAFIN ARREDONDO APRN Ot Z79.52 COUNTY PROGRAM TECHNICIAN (CURRENT) USE OF SYSTEMIC STER 03/31/2018 SERAFIN ARREDONDO APRN Ot Z88.5 ALLERGY STATUS TO NARCOTIC AGENT STATUS 04/02/2018 ARREDONDO, PETER J CALL CENTER TRAINER Ot J20.9 ACUTE BRONCHITIS, UNSPECIFIED 04/02/2018 SERAFIN ARREDONDO CALL CENTER TRAINER Ot J40 BRONCHITIS, NOT SPECIFIED ACUTE OR CH 04/02/2018 SERAFIN ARREDONDO CALL CENTER TRAINER Ot R53.1 WEAKNESS 04/02/2018 SERAFIN ARREDONDO APRN Ot R68.83 CHILLS (WITHOUT FEVER) 04/02/2018 SERAFIN ARREDONDO APRN Ot Z79.52 COUNTY PROGRAM TECHNICIAN (CURRENT) USE OF SYSTEMIC STER 04/02/2018 SERAFIN ARREDONDO APRN Ot Z88.5 ALLERGY STATUS TO NARCOTIC AGENT STATUS 09/06/2018 LAVON RICARDO MD Ot B96.89 OTH BACTERIAL AGENTS THE CAUSE OF DIS 09/06/2018 LAVON RICARDO MD Ot E78.00 PURE HYPERCHOLESTEROLEMIA, UNSPECIFIED 09/06/2018 LAVON RICARDO MD Ot F17.210 NICOTINE DEPENDENCE, CIGARETTES, UNCOMPL 09/06/2018 LAVON RICARDO MD Ot G40.909 EPILEPSY, UNSP, NOT INTRACTABLE, WITHOUT 09/06/2018 LAVON RICARDO MD Ot G62.9 POLYNEUROPATHY, UNSPECIFIED 09/06/2018 LAVON RICARDO MD Ot I10 ESSENTIAL (PRIMARY) HYPERTENSION 09/06/2018 LAVON RICARDO MD Ot K21.9 GASTRO-ESOPHAGEAL REFLUX DISEASE WITHOUT 09/06/2018 LAVON RICARDO MD Ot M81.0 AGE-RELATED OSTEOPOROSIS W/O CURRENT PAT 09/06/2018 LAVON RICARDO MD Ot N39.0 URINARY TRACT INFECTION, SITE NOT SPECIF 09/06/2018 LAVON RICARDO MD Ot N76.0 ACUTE VAGINITIS 09/06/2018 LAVON RICARDO MD Ot R52 PAIN, UNSPECIFIED 09/06/2018 LAVON RICARDO MD Ot Z79.52 COUNTY PROGRAM TECHNICIAN (CURRENT) USE OF SYSTEMIC STER 09/06/2018 LAVON RICARDO MD Ot Z85.41 PERSONAL HISTORY OF MALIGNANT NEOPLASM O 09/06/2018 LAVON RICARDO MD Ot Z85.828 PERSONAL HISTORY OF OTHER MALIGNANT NEOP 09/06/2018 LAVON RICARDO MD Ot Z88.1 ALLERGY STATUS TO OTHER ANTIBIOTIC AGENT 09/06/2018 LAVON RICARDO MD, Ot Z88.5 ALLERGY STATUS TO NARCOTIC AGENT STATUS 09/06/2018 LAVON RICARDO MD, Ot Z88.8 ALLERGY STATUS TO OTH DRUG/MEDS/BIOL SUB 09/06/2018 LAVON RICARDO MD, Ot Z90.49 ACQUIRED ABSENCE OF OTHER SPECIFIED PART 09/06/2018 LAVON RICARDO MD Ot Z90.710 ACQUIRED ABSENCE OF BOTH CERVIX AND UTER 09/06/2018 LAVON RICARDO MD Ot Z98.51 TUBAL LIGATION STATUS 09/06/2018 LAVON RICARDO MD Ot Z98.890 OTHER SPECIFIED POSTPROCEDURAL STATES 09/08/2018 LAVON RICARDO MD, Ot B96.89 OTH BACTERIAL AGENTS THE CAUSE OF DIS 09/08/2018 LAVON RICARDO MD Ot E78.00 PURE HYPERCHOLESTEROLEMIA, UNSPECIFIED 09/08/2018 LAVON RICARDO MD Ot F17.210 NICOTINE DEPENDENCE, CIGARETTES, UNCOMPL 09/08/2018 LAVON RICARDO MD Ot G40.909 EPILEPSY, UNSP, NOT INTRACTABLE, WITHOUT 09/08/2018 LAVON RICARDO MD Ot G62.9 POLYNEUROPATHY, UNSPECIFIED 09/08/2018 LAVON RICARDO MD Ot I10 ESSENTIAL (PRIMARY) HYPERTENSION 09/08/2018 LAVON RICARDO MD Ot K21.9 GASTRO-ESOPHAGEAL REFLUX DISEASE WITHOUT 09/08/2018 LAVON RICARDO MD Ot M81.0 AGE-RELATED OSTEOPOROSIS W/O CURRENT PAT 09/08/2018 LAVON RICARDO MD Ot N39.0 URINARY TRACT INFECTION, SITE NOT SPECIF 09/08/2018 LAVON RICARDO MD Ot N76.0 ACUTE VAGINITIS 09/08/2018 LAVON RICARDO MD Ot R52 PAIN, UNSPECIFIED 09/08/2018 LAVON RICARDO MD Ot Z79.52 COUNTY PROGRAM TECHNICIAN (CURRENT) USE OF SYSTEMIC STER 09/08/2018 LAVON RICARDO MD Ot Z85.41 PERSONAL HISTORY OF MALIGNANT NEOPLASM O 09/08/2018 LAVON RICARDO MD Ot Z85.828 PERSONAL HISTORY OF OTHER MALIGNANT NEOP 09/08/2018 LAVON RICARDO MD Ot Z88.1 ALLERGY STATUS TO OTHER ANTIBIOTIC AGENT 09/08/2018 LAVON RICARDO MD Ot Z88.5 ALLERGY STATUS TO NARCOTIC AGENT STATUS 09/08/2018 LAVON RICARDO MD, Ot Z88.8 ALLERGY STATUS TO OTH DRUG/MEDS/BIOL SUB 09/08/2018 LAVON RICARDO MD Ot Z90.49 ACQUIRED ABSENCE OF OTHER SPECIFIED PART 09/08/2018 LAVON RICARDO MD Ot Z90.710 ACQUIRED ABSENCE OF BOTH CERVIX AND UTER 09/08/2018 LAVON RICARDO MD Ot Z98.51 TUBAL LIGATION STATUS 09/08/2018 LAVON RICARDO MD Ot Z98.890 OTHER SPECIFIED POSTPROCEDURAL STATES 10/21/2018 KARLI SOUZA DO Ot Z01.818 ENCOUNTER FOR OTHER PREPROCEDURAL EXAMIN 11/02/2018 KARLI SOUZA DO Ot D12.2 BENIGN NEOPLASM OF ASCENDING COLON 11/02/2018 KARLI SOUZA DO Ot F17.210 NICOTINE DEPENDENCE, CIGARETTES, UNCOMPL 11/02/2018 KARLI SOUZA DO Ot I10 ESSENTIAL (PRIMARY) HYPERTENSION 11/02/2018 KARLI SOUZA DO Ot K21.9 GASTRO-ESOPHAGEAL REFLUX DISEASE WITHOUT 11/02/2018 KARLI SOUZA DO Ot K29.70 GASTRITIS, UNSPECIFIED, WITHOUT BLEEDING 11/02/2018 KARLI SOUZA DO Ot K44.9 DIAPHRAGMATIC HERNIA WITHOUT OBSTRUCTION 11/02/2018 KARLI SOUZA DO Ot K57.30 DVRTCLOS OF LG INT W/O PERFORATION OR AB 11/02/2018 KARLI SOUZA DO Ot K63.5 POLYP OF COLON 11/02/2018 KARLI SOUZA DO Ot K92.1 MELENA 11/02/2018 KARLI SOUZA DO Ot R56.9 UNSPECIFIED CONVULSIONS 11/02/2018 KARLI SOUZA DO Ot Z79.82 COUNTY PROGRAM TECHNICIAN (CURRENT) USE OF ASPIRIN 11/02/2018 KARLI SOUZA DO Ot Z79.899 OTHER COUNTY PROGRAM TECHNICIAN (CURRENT) DRUG THERAPY 11/08/2018 KARLI SOUZA DO Ot D12.2 BENIGN NEOPLASM OF ASCENDING COLON 11/08/2018 KARLI SOUZA DO Ot F17.210 NICOTINE DEPENDENCE, CIGARETTES, UNCOMPL 11/08/2018 KARLI SOUZA DO Ot I10 ESSENTIAL (PRIMARY) HYPERTENSION 11/08/2018 KARLI SOUZA DO Ot K21.9 GASTRO-ESOPHAGEAL REFLUX DISEASE WITHOUT 11/08/2018 KARLI SOUZA DO Ot K29.70 GASTRITIS, UNSPECIFIED, WITHOUT BLEEDING 11/08/2018 KARLI SOUZA DO Ot K44.9 DIAPHRAGMATIC HERNIA WITHOUT OBSTRUCTION 11/08/2018 KARLI SOUZA DO Ot K57.30 DVRTCLOS OF LG INT W/O PERFORATION OR AB 11/08/2018 KARLI SOUZA DO Ot K63.5 POLYP OF COLON 11/08/2018 KARLI SOUZA DO Ot K92.1 MELENA 11/08/2018 KARLI SOUZA DO Ot R56.9 UNSPECIFIED CONVULSIONS 11/08/2018 KARLI SOUZA DO Ot Z79.82 COUNTY PROGRAM TECHNICIAN (CURRENT) USE OF ASPIRIN 11/08/2018 KARLI SOUZA DO Ot Z79.899 OTHER RETIREMENT (CURRENT) DRUG THERAPY 12/03/2018 JULES SNYDER MD Ot M81.0 AGE-RELATED OSTEOPOROSIS W/O CURRENT PAT 12/07/2018 JULES SNYDER MD, Ot M81.0 AGE-RELATED OSTEOPOROSIS W/O CURRENT PAT 12/13/2018 JULES SNYDER MD, Ot Z12.31 ENCNTR SCREEN MAMMOGRAM FOR MALIGNANT NE 12/21/2018 JULES SNYDER MD, Ot Z12.31 ENCNTR SCREEN MAMMOGRAM FOR MALIGNANT NE Procedures There is no data. Results Test Result Range Complete blood count (CBC) with automated white blood cell (WBC) differential - 03/31/18 10:54 Blood leukocytes automated count (number/volume) 8.8 10*3/uL 4.3-11.0 Blood erythrocytes automated count (number/volume) 4.42 10*6/uL 4.35-5.85 Venous blood hemoglobin measurement (mass/volume) 14.0 g/dL 11.5-16.0 Blood hematocrit (volume fraction) 40 % 35-52 Automated erythrocyte mean corpuscular volume 91 [foz_us] 80-99 Automated erythrocyte mean corpuscular hemoglobin (mass per erythrocyte) 32 pg 25-34 Automated erythrocyte mean corpuscular hemoglobin concentration measurement (mass/volume) 35 g/dL 32-36 Automated erythrocyte distribution width ratio 11.7 % 10.0- 14.5 Automated blood platelet count (count/volume) 393 10*3/uL 130-400 Automated blood platelet mean volume measurement 9.3 [foz_us] 7.4-10.4 Automated blood neutrophils/100 leukocytes 64 % 42-75 Automated blood lymphocytes/100 leukocytes 27 % 12-44 Blood monocytes/100 leukocytes 8 % 0-12 Automated blood eosinophils/100 leukocytes 0 % 0-10 Automated blood basophils/100 leukocytes 1 % 0-10 Blood neutrophils automated count (number/volume) 5.7 10*3 1.8-7.8 Blood lymphocytes automated count (number/volume) 2.4 10*3 1.0-4.0 Blood monocytes automated count (number/volume) 0.7 10*3 0.0- 1.0 Automated eosinophil count 0.0 10*3/uL 0.0-0.3 Automated blood basophil count (count/volume) 0.0 10*3/uL 0.0-0.1 Comprehensive metabolic panel - 03/31/18 10:54 Serum or plasma sodium measurement (moles/volume) 136 mmol/L 135-145 Serum or plasma potassium measurement (moles/volume) 3.3 mmol/L 3.6-5.0 Serum or plasma chloride measurement (moles/volume) 100 mmol/L 98-107 Carbon dioxide 23 mmol/L 21-32 Serum or plasma anion gap determination (moles/volume) 13 mmol/L 5-14 Serum or plasma urea nitrogen measurement (mass/volume) 13 mg/dL 7-18 Serum or plasma creatinine measurement (mass/volume) 0.98 mg/dL 0.60-1.30 Serum or plasma urea nitrogen/creatinine mass ratio 13 NRG Serum or plasma creatinine measurement with calculation of estimated glomerular filtration rate 58 NRG Serum or plasma glucose measurement (mass/volume) 103 mg/dL 70-105 Serum or plasma calcium measurement (mass/volume) 10.5 mg/dL 8.5-10.1 Serum or plasma total bilirubin measurement (mass/volume) 0.8 mg/dL 0.1-1.0 Serum or plasma alkaline phosphatase measurement (enzymatic activity/volume) 60 U/L 40-136 Serum or plasma aspartate aminotransferase measurement (enzymatic activity/volume) 19 U/L 5-34 Serum or plasma alanine aminotransferase measurement (enzymatic activity/volume) 14 U/L 0-55 Serum or plasma protein measurement (mass/volume) 7.5 g/dL 6.4-8.2 Serum or plasma albumin measurement (mass/volume) 4.7 g/dL 3.2-4.5 THYROID STIMULATING HORMONE - 03/31/18 10:59 THYROID STIMULATING HORMONE 1.41 u[iU]/mL 0.35-4.94 Serum or plasma thyroxine (T4) free measurement (mass/volume) - 03/31/18 10:59 Serum or plasma thyroxine (T4) free measurement (mass/volume) 1.26 ng/dL 0.70-1.48 Influenza virus A and B antigen detection - 03/31/18 12:23 FLU RESULT NEGATIVE FOR INFLUENZA A AND B ANTIGENS BY IA NRG Complete urinalysis with reflex to culture - 03/31/18 13:50 Urine color determination YELLOW NRG Urine clarity determination CLEAR NRG Urine pH measurement by test strip 6.5 5-9 Specific gravity of urine by test strip 1.015 1.016-1.022 Urine protein assay by test strip, semi-quantitative 1+ NEGATIVE Urine glucose detection by automated test strip NEGATIVE NEGATIVE Erythrocytes detection in urine sediment by light microscopy NEGATIVE NEGATIVE Urine ketones detection by automated test strip 3+ NEGATIVE Urine nitrite detection by test strip NEGATIVE NEGATIVE Urine total bilirubin detection by test strip NEGATIVE NEGATIVE Urine urobilinogen measurement by automated test strip (mass/volume) 1 mg/dL NORMAL Urine leukocyte esterase detection by dipstick 1+ NEGATIVE Automated urine sediment erythrocyte count by microscopy (number/high power field) [HPF] NRG Automated urine sediment leukocyte count by microscopy (number/high power field) [HPF] NRG Bacteria detection in urine sediment by light microscopy MODERATE NRG Squamous epithelial cells detection in urine sediment by light microscopy 5-10 NRG Crystals detection in urine sediment by light microscopy NONE NRG Casts detection in urine sediment by light microscopy PRESENT NRG Mucus detection in urine sediment by light microscopy MODERATE NRG Complete urinalysis with reflex to culture NO NRG Hyaline casts detection in urine sediment by light microscopy 2-5 NRG Complete blood count (CBC) with automated white blood cell (WBC) differential - 09/06/18 10:35 Blood leukocytes automated count (number/volume) 6.9 10*3/uL 4.3-11.0 Blood erythrocytes automated count (number/volume) 4.33 10*6/uL 4.35-5.85 Venous blood hemoglobin measurement (mass/volume) 13.6 g/dL 11.5-16.0 Blood hematocrit (volume fraction) 39 % 35-52 Automated erythrocyte mean corpuscular volume 89 [foz_us] 80-99 Automated erythrocyte mean corpuscular hemoglobin (mass per erythrocyte) 31 pg 25-34 Automated erythrocyte mean corpuscular hemoglobin concentration measurement (mass/volume) 35 g/dL 32-36 Automated erythrocyte distribution width ratio 12.1 % 10.0- 14.5 Automated blood platelet count (count/volume) 381 10*3/uL 130-400 Automated blood platelet mean volume measurement 9.2 [foz_us] 7.4-10.4 Automated blood neutrophils/100 leukocytes 68 % 42-75 Automated blood lymphocytes/100 leukocytes 24 % 12-44 Blood monocytes/100 leukocytes 8 % 0-12 Automated blood eosinophils/100 leukocytes 0 % 0-10 Automated blood basophils/100 leukocytes 0 % 0-10 Blood neutrophils automated count (number/volume) 4.7 10*3 1.8-7.8 Blood lymphocytes automated count (number/volume) 1.7 10*3 1.0-4.0 Blood monocytes automated count (number/volume) 0.5 10*3 0.0- 1.0 Automated eosinophil count 0.0 10*3/uL 0.0-0.3 Automated blood basophil count (count/volume) 0.0 10*3/uL 0.0-0.1 Microscopic examination by wet preparation - 09/06/18 10:35 WET PREP RESULTS NO WBC'S OBSERVED NRG Complete urinalysis with reflex to culture - 09/06/18 10:35 Urine color determination YELLOW NRG Urine clarity determination CLEAR NRG Urine pH measurement by test strip 6 5-9 Specific gravity of urine by test strip 1.020 1.016-1.022 Urine protein assay by test strip, semi-quantitative 2+ NEGATIVE Urine glucose detection by automated test strip NEGATIVE NEGATIVE Erythrocytes detection in urine sediment by light microscopy 2+ NEGATIVE Urine ketones detection by automated test strip 2+ NEGATIVE Urine nitrite detection by test strip NEGATIVE NEGATIVE Urine total bilirubin detection by test strip 1+ NEGATIVE Urine urobilinogen measurement by automated test strip (mass/volume) 4 mg/dL NORMAL Urine leukocyte esterase detection by dipstick 1+ NEGATIVE Automated urine sediment erythrocyte count by microscopy (number/high power field) NONE NRG Automated urine sediment leukocyte count by microscopy (number/high power field) [HPF] NRG Bacteria detection in urine sediment by light microscopy TRACE NRG Squamous epithelial cells detection in urine sediment by light microscopy 10-25 NRG Crystals detection in urine sediment by light microscopy NONE NRG Casts detection in urine sediment by light microscopy NONE NRG Mucus detection in urine sediment by light microscopy MODERATE NRG Complete urinalysis with reflex to culture CULTURE PENDING NRG PT panel in platelet poor plasma by coagulation assay - 09/06/18 10:35 Prothrombin time (PT) in platelet poor plasma by coagulation assay 12.6 s 12.2-14.7 INR in platelet poor plasma or blood by coagulation assay 0.9 0.8-1.4 Activated partial thromboplastin time (aPTT) in platelet poor plasma bycoagulation assay - 09/06/18 10:35 Activated partial thromboplastin time (aPTT) in platelet poor plasma bycoagulation assay 26 s 24-35 Blood lactic acid measurement (moles/volume) - 09/06/18 10:35 Blood lactic acid measurement (moles/volume) 2.07 mmol/L 0.50- 2.00 Comprehensive metabolic panel - 09/06/18 10:35 Serum or plasma sodium measurement (moles/volume) 133 mmol/L 135-145 Serum or plasma potassium measurement (moles/volume) 3.7 mmol/L 3.6-5.0 Serum or plasma chloride measurement (moles/volume) 100 mmol/L 98-107 Carbon dioxide 18 mmol/L 21-32 Serum or plasma anion gap determination (moles/volume) 15 mmol/L 5-14 Serum or plasma urea nitrogen measurement (mass/volume) 17 mg/dL 7-18 Serum or plasma creatinine measurement (mass/volume) 0.95 mg/dL 0.60-1.30 Serum or plasma urea nitrogen/creatinine mass ratio 18 NRG Serum or plasma creatinine measurement with calculation of estimated glomerular filtration rate 60 NRG Serum or plasma glucose measurement (mass/volume) 101 mg/dL 70-105 Serum or plasma calcium measurement (mass/volume) 10.5 mg/dL 8.5-10.1 Serum or plasma total bilirubin measurement (mass/volume) 0.7 mg/dL 0.1-1.0 Serum or plasma alkaline phosphatase measurement (enzymatic activity/volume) 79 U/L 40-136 Serum or plasma aspartate aminotransferase measurement (enzymatic activity/volume) 17 U/L 5-34 Serum or plasma alanine aminotransferase measurement (enzymatic activity/volume) 10 U/L 0-55 Serum or plasma protein measurement (mass/volume) 7.7 g/dL 6.4-8.2 Serum or plasma albumin measurement (mass/volume) 4.8 g/dL 3.2-4.5 Bacterial urine culture - 09/06/18 10:35 Bacterial urine culture SEE REPORT NRG COLONY COUNT . [facility] Bacterial blood culture - 09/06/18 10:35 Bacterial blood culture NG NR Influenza virus A and B antigen detection - 09/06/18 10:50 FLU RESULT NEGATIVE FOR INFLUENZA A AND B ANTIGENS BY IA [facility] Bacterial blood culture - 09/06/18 10:50 Bacterial blood culture NG NR Serum or plasma lactate measurement (moles/volume) - 09/06/18 12:31 Serum or plasma lactate measurement (moles/volume) 0.98 mmol/L 0.50-2.00 CRP - 09/17/18 13:50 C-REACTIVE PROTEIN <0.2 mg/L <8.0 Encounters ACCT No. Visit Date/Time Discharge Status Pt. Type Provider Facility Loc./Unit Complaint [id number] 11/29/2018 11:00:00 11/29/2018 23:59:59 CLS Outpatient JULES SNYDER MD [facility] [id number] 09/17/2018 13:20:00 Document Registration [id number] 12/10/2018 09:23:00 12/10/2018 23:59:59 CLS Outpatient JULES SNYDRE MD [facility] RAD SCREENING [id number] 12/03/2018 12:49:00 12/03/2018 14:00:00 DIS Outpatient JULES SNYDER MD [facility] SDC OSTEOPENIA [id number] 11/02/2018 08:14:00 11/02/2018 10:00:00 DIS Outpatient KARLI SOUZA DO [facility] ENDO MELENA/REFLUX [id number] 10/20/2018 08:39:00 10/20/2018 09:00:00 DIS Outpatient KARLI SOUZA DO [facility] PREOP COLONOSCOPY/EGD [id number] 09/06/2018 09:37:00 09/06/2018 13:52:00 DIS Emergency LAVON RICARDO MD [facility] ER FLU SYMPTOMS [id number] 03/31/2018 10:51:00 03/31/2018 14:29:00 DIS Emergency SERAFIN ARREDONDO APRN [facility] ER WEAKNESS
[2018-12-27] MEDS ORDERED: LACTATED RINGERS 1,000 ML IV ONE (10:42)
[2018-12-27] MEDS ORDERED: PANTOPRAZOLE 40 MG (PROTONIX) VIAL IV ONE (10:45)
[2018-12-27] MEDS ORDERED: ONDANSETRON 4 MG/2 ML (SDV) Z0FRAN IVP ONE (10:45)
[2018-12-27 11:00] LABS: BASOPHILS % (AUTO) 0 % (0-10); EOSINOPHILS % (AUTO) 0 % (0-10); HEMATOCRIT 41 % (35-52); HEMOGLOBIN 13.9 G/DL (11.5-16.0); LYMPHOCYTES # (AUTO) 1.2 X 10^3 (1.0-4.0); LYMPHOCYTES % (AUTO) 11 % (12-44); MEAN CORPUSCULAR HEMOGLOBIN 31 PG (25-34); MEAN CORPUSCULAR HGB CONC 34 G/DL (32-36); MEAN CORPUSCULAR VOLUME 90 FL (80-99); MEAN PLATELET VOLUME 9.9 FL (7.4-10.4); MONOCYTES # (AUTO) 0.9 X 10^3 (0.0-1.0); MONOCYTES % (AUTO) 9 % (0-12); NEUTROPHILS # (AUTO) 8.4 X 10^3 (1.8-7.8); NEUTROPHILS % (AUTO) 80 % (42-75); PLATELET COUNT 279 10^3/uL (130-400); WHITE BLOOD COUNT 10.5 10^3/uL (4.3-11.0)
[2018-12-27] MEDS ORDERED: HOLD METFORMIN - RECEIVED CONTRAST 20 ML VIAL IV SCH (11:00)
[2018-12-27] MEDS ORDERED: IOHEXOL 350 MG/ML 100 ML (OMNIPAQUE 350) VIAL IV ONE (11:00)
[2018-12-27] MEDS ORDERED: NS 100 ML (IVPB) BAG IV ONE (11:00)
[2018-12-27 11:17] LABS: PROTHROMBIN TIME PATIENT 13.4 SEC (12.2-14.7)
[2018-12-27 11:18] LABS: ALBUMIN 4.5 GM/DL (3.2-4.5); BILIRUBIN,TOTAL 0.4 MG/DL (0.1-1.0); CALCIUM 10.2 MG/DL (8.5-10.1); CREATININE SERUM 1.16 MG/DL (0.60-1.30); MAGNESIUM 1.2 MG/DL (1.8-2.4); POTASSIUM 2.8 MMOL/L (3.6-5.0); TOTAL PROTEIN 8.4 GM/DL (6.4-8.2)
[2018-12-27] MEDS ORDERED: D5 1/2 NS W/KCL 20 MEQ/L 1,000 ML IV SCH (11:30)
--- NOTE | 2018-12-27 11:33 | Diagnostic Imaging Report ---
Indication: Abdominal pain and bloating. Time is 11:23 AM Correlation is made with prior chest from 09/06/2018. The heart size is stable. There is some minimal density in the right base which may represent some minimal infiltrate. Otherwise the lungs are clear. Pulmonary vascularity is normal. No effusion or pneumothorax is seen. Impression: Right basilar density perhaps owing to some mild patchy pneumonia. Dictated by: Dictated on workstation # [id number]
--- NOTE | 2018-12-27 12:24 | Diagnostic Imaging Report ---
PROCEDURE: CT abdomen and pelvis with contrast. TECHNIQUE: Multiple contiguous axial images were obtained through the abdomen and pelvis after administration of intravenous contrast. Auto Exposure Controls were utilized during the CT exam to meet ALARA standards for radiation dose reduction. INDICATION: Abdominal and pelvic pain. Nausea and vomiting. History of colon cancer. COMPARISON: CT chest, abdomen and pelvis of 09/06/2018. FINDINGS: Lower chest: A 1.6 cm nodular consolidation is present in the right lower lobe and surrounded by groundglass attenuation. There are subpleural triangular consolidations within the lingula. Another focus of subpleural irregular consolidation is present in the right lower lobe. Peritoneum: No free intraperitoneal air or fluid. Liver and biliary system: Hypoattenuation of the liver suggests hepatic steatosis. No focal hepatic lesion. Cholecystectomy. No biliary duct dilatation. Spleen and Pancreas: The pancreas enhances normally without mass lesion or peripancreatic inflammatory changes. Adrenals: Unchanged 2.6 x 2.6 cm right adrenal nodule most compatible with adenoma. No left adrenal mass. tract: The kidneys enhance normally without suspicious mass or obstruction. Urinary bladder is distended without wall thickening. Status post hysterectomy. No adnexal mass. GI tract: Stomach is decompressed. No bowel obstruction. Postoperative changes at the level of the cecum could relate to prior appendectomy. No features of appendicitis if the patient has not had appendectomy. Vasculature and Lymph nodes: Normal caliber aorta. No abdominal or pelvic lymphadenopathy. Musculoskeletal: No concerning osseous lesion. IMPRESSION: 1. Scattered basilar pulmonary nodular consolidations are likely due to multifocal pneumonia. Advise followup PA and lateral chest radiographs in 4 weeks after appropriate medical management to ensure resolution. 2. No acute obstructive or inflammatory process in the abdomen or pelvis. 3. Unchanged right adrenal nodule, likely due to lipid-rich adenoma. 4. Potential diffuse hepatic steatosis. Dictated by: Dictated on workstation # [id number]
[2018-12-27] MEDS ORDERED: cefTRIAXone FOR IV USE 1,000 MG in WATER (STERILE) FOR INJECTION 10 ML IV ONE (12:30)
[2018-12-27] MEDS ORDERED: AZITHROMYCIN INJECTION 500 MG in NS (IVPB) 250 ML IV ONE (12:30)
--- OUTSIDE RECORDS SUMMARY | 2018-12-27 12:49 | XMS REPORT | Continuity of Care Document ---
Author Organization Unknown Address Unknown Allergies Active Description Code Type Severity Reaction Onset Reported/Identified Relationship to Patient Clinical Status Yes "opiates" "opiates" Unknown N/A 03/31/2018 Yes CIPROFLOXIN CIPROFLOXIN Unknown N/A 09/06/2018 Yes CODIENE CODIENE Unknown N/A 09/06/2018 Yes FENTYL FENTYL Unknown N/A 09/06/2018 Yes HCTZ HCTZ Unknown N/A 09/06/2018 Yes lisinopril [id number] Drug Allergy Unknown N/A 09/06/2018 Yes morphine [id number] Drug Allergy Unknown N/A 09/06/2018 Yes OPIUM OPIUM Unknown N/A 09/06/2018 Yes ciprofloxacin [id number] Drug Allergy Unknown N/A 10/20/2018 Yes codeine [id number] Drug Allergy Unknown N/A 10/20/2018 Yes fentanyl [id number] Drug Allergy Unknown Anaphylaxis 10/20/2018 Yes hydrochlorothiazide [id number] Drug Allergy Unknown N/A 10/20/2018 Yes opium (anthroposophic) [id number] Drug Allergy Unknown N/A 10/20/2018 Medications There is no data. Problems Date Dx Coded Attending Type Code Diagnosis Diagnosed By 03/31/2018 SERAFIN ARREDONDO APRN Ot J20.9 ACUTE BRONCHITIS, UNSPECIFIED 03/31/2018 SERAFIN ARREDONDO APRN Ot J40 BRONCHITIS, NOT SPECIFIED ACUTE OR CH 03/31/2018 SERAFIN ARREDONDO APRN Ot R53.1 WEAKNESS 03/31/2018 SERAFIN ARREDONDO APRN Ot R68.83 CHILLS (WITHOUT FEVER) 03/31/2018 SERAFIN ARREDONDO APRN Ot Z79.52 CURATOR HORTICULTURAL MUSEUM (CURRENT) USE OF SYSTEMIC STER 03/31/2018 SERAFIN ARREDONDO APRN Ot Z88.5 ALLERGY STATUS TO NARCOTIC AGENT STATUS 04/02/2018 ARREDONDO, PETER J GOVERNMENT RELATIONS DIRECTOR Ot J20.9 ACUTE BRONCHITIS, UNSPECIFIED 04/02/2018 SERAFIN ARREDONDO GOVERNMENT RELATIONS DIRECTOR Ot J40 BRONCHITIS, NOT SPECIFIED ACUTE OR CH 04/02/2018 SERAFIN ARREDONDO GOVERNMENT RELATIONS DIRECTOR Ot R53.1 WEAKNESS 04/02/2018 SERAFIN ARREDONDO APRN Ot R68.83 CHILLS (WITHOUT FEVER) 04/02/2018 SERAFIN ARREDONDO APRN Ot Z79.52 CURATOR H[employer]IC[employer] MUSEUM (CURRENT) USE OF SYSTEMIC STER 04/02/2018 SERAFIN [...] Ot K21.9 GASTRO-ESOPHAGEAL REFLUX DISEASE WITHOUT 09/06/2018 LAVNO RICARDO MD Ot M81.0 AGE-RELATED OSTEOPOROSIS W/O CURRENT PAT 09/06/2018 LAVON RICARDO MD Ot N39.0 URINARY TRACT INFECTION, SITE NOT SPECIF 09/06/2018 LAVON RICARDO MD Ot N76.0 ACUTE VAGINITIS 09/06/2018 LAVON RICARDO MD Ot R52 PAIN, UNSPECIFIED 09/06/2018 LAVON RICARDO MD Ot Z79.52 CURATOR [employer]USE[employer] (CURRENT) USE OF SYSTEMIC STER 09/06/2018 LAVON [...] UNSPECIFIED 09/08/2018 LAVON RICARDO MD Ot Z79.52 CURATOR [employer]IC[employer] MUSEUM (CURRENT) USE OF SYSTEMIC STER 09/08/2018 LAVON [...] CONVULSIONS 11/02/2018 KARLI SOUZA DO Ot Z79.82 [employer] (CURRENT) USE OF ASPIRIN 11/02/2018 KARLI SOUZA DO Ot Z79.899 OTHER [employer] (CURRENT) DRUG THERAPY 11/08/2018 KARLI SOUZA DO [...] CONVULSIONS 11/08/2018 KARLI SOUZA DO Ot Z79.82 [employer]USE[employer] (CURRENT) USE OF ASPIRIN 11/08/2018 KARLI SOUZA DO Ot Z79.899 OTHER NURSING HOME (CURRENT) DRUG THERAPY 12/03/2018 JULES SNYDER MD [...] culture SEE REPORT NRG COLONY COUNT . [facility] Bacterial blood culture - 09/06/18 10:35 Bacterial blood culture NG NR Influenza virus A and B antigen detection - 09/06/18 10:50 FLU RESULT NEGATIVE FOR INFLUENZA A AND B ANTIGENS BY IA [facility] Bacterial blood culture - 09/06/18 10:50 Bacterial blood culture NG NR Serum or plasma lactate measurement (moles/volume) - 09/06/18 12:31 Serum or plasma lactate measurement (moles/volume) 0.98 mmol/L 0.50-2.00 CRP - 09/17/18 13:50 C-REACTIVE PROTEIN <0.2 mg/L <8.0 Encounters ACCT No. Visit Date/Time Discharge Status Pt. Type Provider Facility Loc./Unit Complaint [id number] 11/29/2018 11:00:00 11/29/2018 23:59:59 CLS Outpatient JULES SNYDER MD [facility] [id number] 09/17/2018 13:20:00 Document Registration [id number] 12/10/2018 09:23:00 12/10/2018 23:59:59 CLS Outpatient JULES SNYDER MD [facility] RAD SCREENING [id number] 12/03/2018 12:49:00 12/03/2018 14:00:00 DIS Outpatient JULES SNYDER MD [facility] SDC OSTEOPENIA [id number] 11/02/2018 08:14:00 11/02/2018 10:00:00 DIS Outpatient KARLI SOUZA DO [facility] ENDO MELENA/REFLUX [id number] 10/20/2018 08:39:00 10/20/2018 09:00:00 DIS Outpatient KARLI SOUZA DO [facility] PREOP COLONOSCOPY/EGD [id number] 09/06/2018 09:37:00 09/06/2018 13:52:00 DIS Emergency LAVON RICARDO MD [facility] ER FLU SYMPTOMS [id number] 03/31/2018 10:51:00 03/31/2018 14:29:00 DIS Emergency SERAFIN ARREDONDO APRN [facility] ER WEAKNESS
[2018-12-27] MEDS ORDERED: cefTRIAXone 1,000 MG IV (ROCEPHIN) VIAL ONE (13:14)
[2018-12-27] MEDS ORDERED: AZITHROMYCIN 500 MG (ZITHROMAX) VIAL ONE (13:15)
[2018-12-27] MEDS ORDERED: NS (IVPB) 250 ML ONE (13:15)
[2018-12-27] MEDS ORDERED: WATER (STERILE) FOR INJECTION 10 ML ONE (13:15)
[2018-12-27] MEDS: MAGNESIUM 1 GM/100 ML IVPB 100 ML IV SCH ×2 (13:27→16:00)
[2018-12-27 15:32] LABS: BILIRUBIN,URINE NEGATIVE (NEGATIVE); CLARITY,URINE CLEAR; COLOR,URINE YELLOW; GLUCOSE, URINE (UA) NEGATIVE (NEGATIVE); KETONES,URINE 2+ (NEGATIVE); LEUKOCYTE ESTERASE ,URINE NEGATIVE (NEGATIVE); NITRITE,URINE NEGATIVE (NEGATIVE); PH,URINE 6.5 (5-9); PROTEIN,URINE 3+ (NEGATIVE); UROBILINOGEN,URINE NORMAL (NORMAL)
[2018-12-27] MEDS ORDERED: MAGNESIUM 1 GM/100 ML IVPB 100 ML IV ONE (15:46)
[2018-12-27] MEDS ORDERED: ACETAMINOPHEN 500 MG TAB (TYLENOL) ONE (15:57)
[2018-12-27 16:02] LABS: BACTERIA,URINE NEGATIVE /HPF; GRANULAR CASTS,URINE 0-2 /LPF; HYALINE CASTS, URINE 0-2 /LPF
[2018-12-27] MEDS ORDERED: ACETAMINOPHEN 500 MG TAB (TYLENOL) PO ONE (16:15)
--- NOTE | 2018-12-27 16:20 | NUR ---
SUGEY SOOT admitted to room 428-1, with an admitting diagnosis of PNA,electrolyte imbalance, on 12/27/18 from ER via bed, accompanied by staff.SUGEY SOTO introduced to surroundings, call light, bed controls, phone, TV, temperature control, lights, meal times, smoking policy, visitor policy, side rail policy, bathrooms and showers. Patient Rights given to patient in the handbook. SUGEY SOTO verbalizes understanding that [facility] is not responsible for the loss or damage to any personal effects or valuables that are kept in the patients posession during their hospitalization. The Patient's Care Plans were discussed with the patient as well as Discharge Planning. SUGEY SOTO verbalizes understanding of Interdisciplinary Patient Education. Patient and/or family were informed about the Rapid Response Team and its purpose.
[2018-12-27] MEDS ORDERED: ACETAMINOPHEN 500 MG TAB (TYLENOL) PO PRN (16:30)
[2018-12-27] MEDS ORDERED: CATHETER FLUSH 10 ML SYR IV PRN (16:30)
[2018-12-27] MEDS ORDERED: ONDANSETRON 4 MG/2 ML (SDV) Z0FRAN IV PRN (16:30)
[2018-12-27 16:47] VITALS: BP 116/54
[2018-12-27] MEDS: POTASSIUM CHLORIDE INJ 30 MEQ in D5 1/2 NS 1000 ML IV SOLUTION 1,000 ML IV SCH ×2 (16:48→21:12)
[2018-12-27 16:49] VITALS: BP 116/54
[2018-12-27] MEDS ORDERED: KCL 20 MEQ TAB (K-DUR) PO NR (19:15)
[2018-12-27 20:00] VITALS: BP 114/58
[2018-12-27] MEDS ORDERED: RT-ALBUTEROL SULF 2.5 MG/3 ML PRE-MIX VIAL INH PRN (21:30)
[2018-12-28 00:30] VITALS: BP 120/56
[2018-12-28 03:55] VITALS: BP 115/69
[2018-12-28 06:10] LABS: BASOPHILS % (AUTO) 1 % (0-10); EOSINOPHILS # (AUTO) 0.2 10^3/uL (0.0-0.3); EOSINOPHILS % (AUTO) 2 % (0-10); HEMATOCRIT 34 % (35-52); HEMOGLOBIN 11.4 G/DL (11.5-16.0); LYMPHOCYTES # (AUTO) 0.9 X 10^3 (1.0-4.0); LYMPHOCYTES % (AUTO) 13 % (12-44); MEAN CORPUSCULAR HEMOGLOBIN 30 PG (25-34); MEAN CORPUSCULAR HGB CONC 34 G/DL (32-36); MEAN CORPUSCULAR VOLUME 90 FL (80-99); MEAN PLATELET VOLUME 10.1 FL (7.4-10.4); MONOCYTES # (AUTO) 0.9 X 10^3 (0.0-1.0); MONOCYTES % (AUTO) 14 % (0-12); NEUTROPHILS # (AUTO) 4.6 X 10^3 (1.8-7.8); NEUTROPHILS % (AUTO) 70 % (42-75); PLATELET COUNT 211 10^3/uL (130-400); RED CELL DISTRIBUTION WIDTH 11.8 % (10.0-14.5); WHITE BLOOD COUNT 6.6 10^3/uL (4.3-11.0)
[2018-12-28] MEDS: POTASSIUM CHLORIDE INJ 30 MEQ in D5 1/2 NS 1000 ML IV SOLUTION 1,000 ML IV SCH ×2 (06:20→12:28)
[2018-12-28 06:29] LABS: ALANINE AMINOTRANSFERASE 11 U/L (0-55); ALBUMIN 3.5 GM/DL (3.2-4.5); ALKALINE PHOSPHATASE 53 U/L (40-136); BILIRUBIN,TOTAL 0.2 MG/DL (0.1-1.0); BUN/CREATININE RATIO 11; CALCIUM 8.6 MG/DL (8.5-10.1); CARBON DIOXIDE 21 MMOL/L (21-32); CHLORIDE 102 MMOL/L (98-107); CREATININE SERUM 0.75 MG/DL (0.60-1.30); GFR ESTIMATED > 60; GLUCOSE 120 MG/DL (70-105); MAGNESIUM 1.9 MG/DL (1.8-2.4); POTASSIUM 3.8 MMOL/L (3.6-5.0); SODIUM 134 MMOL/L (135-145); TOTAL PROTEIN 6.3 GM/DL (6.4-8.2)
[2018-12-28 08:00] VITALS: BP 103/62
[2018-12-28] MEDS ORDERED: AZITHROMYCIN 250 MG TAB (ZITHROMAX) PO SCH (09:00)
[2018-12-28] MEDS ORDERED: PANT40TA3 PO (09:24)
[2018-12-28] MEDS ORDERED: DICY10CA12 PO (09:24)
[2018-12-28] MEDS ORDERED: OMEP20CA12 PO (09:24)
[2018-12-28] MEDS ORDERED: VITA40TA PO (09:37)
[2018-12-28] MEDS ORDERED: DICY20TA10 PO (09:37)
[2018-12-28] MEDS ORDERED: DIPH-757 PO (09:37)
--- NOTE | 2018-12-28 09:43 | NUR ---
SPOKE WITH THE PATIENT ABOUT HER MEDICATIONS. SHE HAD A DETAILED LIST WITH HER BUT A FEW CHANGES NEEDED TO BE MADE TO IT. WE COMPARED HER LIST WITH THE EXT MED HX AND SHE VERIFIED HOW SHE TAKES EVERYTHING. SHE STATES SHE IS NO LONGER TAKING THE CARTIA OR PROTONIX THAT HAVE BEEN FILLED RECENTLY. SHE FILLED DICYCLOMINE 10MG IN JUNE ACCORDING TO THE EXT MED HX HOWEVER THE BOTTLE SHE HAS WITH HER IS THE 20MG TABLETS FILLED #90 2-5-18 AT [facility]. SHE STATES THIS IS WHAT SHE TAKES NEEDED FOR STOMACH DISCOMFORT. HER LIST HAD KEPPRA BID HOWEVER IT WAS FILLED TID, SHE VERIFIED SHE IS TAKING IT TID NOW. HER LIST STATES SPIRONOLACTONE 100MG 2 BID HOWEVER SHE VERIFIED SHE IS ONLY TAKING 100MG BID LIKE IT IS PRESCRIBED. IN THE PAST SHE HAD 50MG TABS AND TOOK 2 BID OF THAT, SHE UPDATED HER LIST. OTC MEDS: ASPIRIN 81MG DAILY BACK AND BODY PAIN 1-2 HS PRN CALCIUM 600MG BID VITAMIN D3 1000 IU DAILY B 12 1000MCG DAILY BENADRYL 25MG DAILY VITAMIN K2 100MCG DAILY
[2018-12-28 11:39] VITALS: BP 114/71
[2018-12-28] MEDS ORDERED: cefTRIAXone 1,000 MG/SWFI 10 ML IV PUSH IV SCH ×2 (13:00)
--- NOTE | 2018-12-28 14:20 | NUR ---
Patient ambulated for 5 minutes and maintained Sp02 of 96%, rested in sitting position for 1 minute after walking and Sp02 was 98%. Dr. Pettit notified of results.
--- NOTE | 2018-12-28 14:26 | Short Stay Summary ---
HPI History of Present Illness: 63 yo F that had about 1 week of increasing shortness of breath and generalize fatigue. Patient states that she feels more fatigued over the last week. She has not missed any of her medicine in the last week. She has had fever the last 48hrs. She is hungry and would like to try regular food. She is off oxygen and has been up walking around the room with less shortness of breath. Source: patient Exam Limitations: no limitations Date seen by provider: Dec 28, 2018 Time Seen by Provider: 13:15 Attending Physician Lola Pettit MD PCP Dudley Francis MD Consult Date of Admission Dec 27, 2018 at 12:45 Home Medications Home Medications Reviewed patient Home Medication Reconciliation performed by pharmacy medication reconciliations commercial hvac service technician and/or nursing. Patients Allergies have been reviewed. Allergies Coded Allergies: Opioids - Morphine Analogues (Verified Allergy, Unknown, DEEP SLEEP, PURPLE BLOTCHES, 12/28/18) ciprofloxacin (Verified Allergy, Unknown, RASH/BUMPS/PAIN, 12/28/18) codeine (Verified Allergy, Unknown, 10/20/18) fentanyl (Verified Allergy, Unknown, Anaphylaxis, 10/20/18) hydrochlorothiazide (Verified Allergy, Unknown, 10/20/18) lisinopril (Verified Allergy, Unknown, 09/06/18) morphine (Verified Allergy, Unknown, 09/06/18) opium (anthroposophic) (Verified Allergy, Unknown, 10/20/18) Uncoded Allergies: "opiates" (Allergy, Unknown, 03/31/18) LIP-Jikyyj-Dgpynl Hx Patient Social History Alcohol Use: Denies Use Recreational Drug Use: No Smoking Status: Current Everyday Smoker Type Used: Cigarettes Recent Foreign Travel: No Contact w/other who traveled: No Recent Hopitalizations: No Recent Infectious Disease Expo: No Immunizations Up To Date Date of Pneumonia Vaccine: Apr 29, 2018 Past Medical History COPD Family Medical History Significant Family History: No Pertinent Family Hx Family History: Patient reports no known family medical history. Review of Systems ([facility]) Constitutional: fever, malaise EENTM: no symptoms reported; No nose congestion Respiratory: cough, dyspnea on exertion Cardiovascular: no symptoms reported; No chest pain, No edema, No palpitations Gastrointestinal: no symptoms reported, abdominal pain; No constipation, No diarrhea, No nausea, No vomiting Genitourinary: no symptoms reported; No dysuria, No frequency, No hematuria Skin: no symptoms reported Psychiatric/Neurological: No Symptoms Reported Reviewed Test Results Reviewed Test Results Lab Laboratory Tests Test 12/28/18 05:40 12/28/18 05:45 Range/Units White Blood Count 6.6 4.3-11.0 10^3/uL Red Blood Count 3.79 L 4.35-5.85 10^6/uL Hemoglobin 11.4 L 11.5-16.0 G/DL Hematocrit 34 L 35-52 % Mean Corpuscular Volume 90 80-99 FL Mean Corpuscular Hemoglobin 30 25-34 PG Mean Corpuscular Hemoglobin Concent 34 32-36 G/DL Red Cell Distribution Width 11.8 10.0-14.5 % Platelet Count 211 130-400 10^3/uL Mean Platelet Volume 10.1 7.4-10.4 FL Neutrophils (%) (Auto) 70 42-75 % Lymphocytes (%) (Auto) 13 12-44 % Monocytes (%) (Auto) 14 H 0-12 % Eosinophils (%) (Auto) 2 0-10 % Basophils (%) (Auto) 1 0-10 % Neutrophils # (Auto) 4.6 1.8-7.8 X 10^3 Lymphocytes # (Auto) 0.9 L 1.0-4.0 X 10^3 Monocytes # (Auto) 0.9 0.0-1.0 X 10^3 Eosinophils # (Auto) 0.2 0.0-0.3 10^3/uL Basophils # (Auto) 0.0 0.0-0.1 10^3/uL Sodium Level 134 L 135-145 MMOL/L Potassium Level 3.8 3.6-5.0 MMOL/L Chloride Level 102 98-107 MMOL/L Carbon Dioxide Level 21 21-32 MMOL/L Anion Gap 11 5-14 MMOL/L Blood Urea Nitrogen 8 7-18 MG/DL Creatinine 0.75 0.60-1.30 MG/DL Estimat Glomerular Filtration Rate > 60 BUN/Creatinine Ratio 11 Glucose Level 120 H 70-105 MG/DL Calcium Level 8.6 8.5-10.1 MG/DL Corrected Calcium 9.0 8.5-10.1 MG/DL Magnesium Level 1.9 1.8-2.4 MG/DL Total Bilirubin 0.2 0.1-1.0 MG/DL Aspartate Amino Transf (AST/SGOT) 19 5-34 U/L Alanine Aminotransferase (ALT/SGPT) 11 0-55 U/L Alkaline Phosphatase 53 40-136 U/L Total Protein 6.3 L 6.4-8.2 GM/DL Albumin 3.5 3.2-4.5 GM/DL Physical Exam-([facility]) Physical Exam Vital Signs VS - Last 72 Hours, by Label 12/27/18 12/27/18 12/27/18 12/27/18 10:45 11:05 11:15 16:20 Temp 99.1 99.3 Pulse 99 94 Resp 20 B/P (MAP) 112/92 (99) 115/58 Pulse Ox 96 94 96 O2 Delivery Nasal Cannula Nasal Cannula O2 Flow Rate 2.00 2.00 12/27/18 12/27/18 12/27/18 12/27/18 16:27 16:35 16:47 16:49 Temp 102.5 100.5 100.5 Pulse 92 87 87 Resp B/P (MAP) 114/63 (80) 116/54 (74) 116/54 Pulse Ox 97 97 97 O2 Delivery Nasal Cannula Nasal Cannula O2 Flow Rate 2.00 2.00 12/27/18 12/27/18 12/27/18 12/27/18 17:24 19:00 19:42 19:42 Pulse 83 77 80 Pulse Ox 98 98 O2 Delivery Nasal Cannula O2 Flow Rate 2.00 12/27/18 12/27/18 12/27/18 12/27/18 20:00 20:00 22:06 22:12 Temp 98.6 100.8 Pulse 70 Resp 20 B/P (MAP) 114/58 (76) Pulse Ox 98 O2 Delivery Nasal Cannula Nasal Cannula Nasal Cannula O2 Flow Rate 2.00 2.00 2.00 12/28/18 12/28/18 12/28/18 12/28/18 00:30 01:00 03:55 07:00 Temp 98.2 97.7 Pulse 78 62 84 70 Resp 18 B/P (MAP) 120/56 (77) 115/69 (84) Pulse Ox 98 98 O2 Delivery Nasal Cannula Nasal Cannula O2 Flow Rate 2.00 2.00 12/28/18 12/28/18 12/28/18 12/28/18 08:00 08:00 09:17 11:39 Temp 98.7 99.9 Pulse 78 76 Resp 18 20 B/P (MAP) 103/62 (76) 114/71 (85) Pulse Ox 100 97 98 O2 Delivery Nasal Cannula Nasal Cannula Nasal Cannula Room Air O2 Flow Rate 2.00 2.00 2.00 12/28/18 12:26 Pulse 80 Capillary Refill : Less Than 3 Seconds General Appearance: WD/WN, no apparent distress HEENT: PERRL/EOMI Neck: non-tender, full range of motion, supple Respiratory: chest non-tender, lungs clear, normal breath sounds, no respiratory distress, no accessory muscle use Cardiovascular: normal peripheral pulses, regular rate, rhythm, no edema, no murmur Gastrointestinal: normal bowel sounds, non tender, soft, no organomegaly Back: no CVA tenderness, no vertebral tenderness Extremities: no pedal edema, no calf tenderness, normal capillary refill Neurologic/Psychiatric: operational trainer II-XII nml as tested, no motor/sensory deficits, alert, normal mood/affect, oriented x 3 Skin: normal color, warm/dry Lymphatic: no adenopathy Short Stay Diagnosis Discharge Diagnosis-Short Stay Admission Diagnosis Left Lower Lobe PNA Hypoxia Final Discharge Diagnosis See Above Conclusion Plan See Assessment and Plan Was the Problem List Reviewed?: Yes Clinical Quality Measures DVT/VTE Risk/Contraindication: Risk Factor Score Per Nursin RFS Level Per Nursing on Admit: 4+=Very High Assessment/Plan Assessment/Plan Admission Status: Observation (1) Left lower lobe pneumonia Status: Acute Assessment & Plan: - Patient feeling much better after starting antibiotics and oxygen, will d/c home with PO antibiotics Qualifiers: Qualified Codes: J18.1 - Lobar pneumonia, unspecified organism (2) Hypoxemia Status: Acute LOLA PETTIT MD Dec 28, 2018 14:26
[2018-12-28] MEDS ORDERED: AZIT250T12 PO (14:32)
[2018-12-28] MEDS ORDERED: CEFD300C3 PO (14:32)
--- NOTE | 2018-12-28 14:34 | Discharge Instructions ---
Discharge [facility] Discharge Medications New, Converted or Re-Newed RX: Transmitted to Pharmacy New Medications: Cefdinir (Cefdinir) 300 Mg Capsule 300 MG PO BID, #14 CAP Azithromycin (Azithromycin) 250 Mg Tablet 250 MG PO DAILY, #5 TAB Continued Medications: Aspirin (Aspir 81) 81 Mg Tablet.dr 81 MG PO DAILY, TAB Aspirin/Caffeine (Back & Body Pain Reliever Cplt) 1 Each Tablet 1-2 TAB PO HS PRN for BACK PAIN, TAB Calcium Carbonate (Calcium) 600 Mg Tablet 600 MG PO BID, TAB Cholecalciferol (Vitamin D3) (Vitamin D3) 1,000 Unit Tablet 1000 UNIT PO DAILY, TAB Cyanocobalamin (Vitamin B-12) (B-12) 1,000 Mcg Tablet 1000 MCG PO DAILY, TAB Dicyclomine HCl (Dicyclomine HCl) 20 Mg Tablet 20 MG PO Q4H PRN for STOMACH UPSET, TAB Diphenhydramine HCl (Allergy) 25 Mg Tablet 25 MG PO DAILY, TAB Gabapentin (Gabapentin) 800 Mg Tablet 800 MG PO TID, TAB Levetiracetam (Levetiracetam) 500 Mg Tablet 500 MG PO TID, TAB Linaclotide (Linzess) 290 Mcg Capsule 290 MG PO HS, CAP Omeprazole (Omeprazole) 20 Mg Capsule.dr 20 MG PO BID, CAP Spironolactone (Spironolactone) 100 Mg Tablet 100 MG PO BID, TAB Vitamin K2 (Vitamin K2) 40 Mcg Tablet 100 MCG PO DAILY, TAB Patient Instructions Goal/Follow Up Appt: Follow up with Dr Snyder on 01/06 @ 320PM Patient Instructions: - Make sure to complete your antibiotics Activity & Diet Discharge Diet: No Restrictions Activity as Tolerated: Yes Copy Copies To 1: JULES SNYDER MD, HOLLY R MD Dec 28, 2018 14:34
== END 2018-12-28 15:50 | disposition home or self-care (01) | DRG 195 ==
LOC: EDUNIT# 10:20 → ER 10:21 → 4TH 12:45
PROVIDERS: ADMIT Family Medicine; ATTEND Family Medicine
DX: J18.1 Lobar pneumonia, unspecified organism (principal); R09.02 Hypoxemia; F17.210 Nicotine dependence, cigarettes, uncomplicated; Z88.1 Allergy status to other antibiotic agents; Z88.5 Allergy status to narcotic agent
CPT/HCPCS: 36415; 71045; 74177; 80053; 81000; 82150; 83605; 83690; 83735; 85025; 85610; 85730; 87040; 87088; 93041; 94664; 94760; 96361; 96365; 96366; 96367; 96375

== ENCOUNTER → 2019-03-10 | Outpatient (CLI) | payer BC ==
[~2019-03-10] MED LIST changes: +CATHETER FLUSH 10 ML SYR IV PRN; +CEFD300C3 PO; +DICY10CA12 PO; +DIPH-757 PO; +HOLD METFORMIN - RECEIVED CONTRAST 20 ML VIAL IV SCH; +IOHEXOL 350 MG/ML 100 ML (OMNIPAQUE 350) VIAL IV ONE; +NS 100 ML (IVPB) BAG IV ONE; -OMEP20CA12 PO; +OMEP20CA13 PO; +PANT40TA3 PO; +VITA40TA PO
[2019-03-10 09:06] LABS: CREATININE SERUM 0.96 MG/DL (0.60-1.30)
--- NOTE | 2019-03-10 09:49 | Diagnostic Imaging Report ---
PROCEDURE: CT abdomen and pelvis with contrast. TECHNIQUE: Multiple contiguous axial images were obtained through the abdomen and pelvis after administration of intravenous contrast. Auto Exposure Controls were utilized during the CT exam to meet ALARA standards for radiation dose reduction. INDICATION: Bloating as well as mid and upper abdominal pain. Correlation is made with prior CT from 12/27/2018. FINDINGS: The previously noted airspace infiltrates bilateral lung bases have resolved. Generalized low density throughout the liver is again noted consistent with hepatic steatosis. The gallbladder is surgically absent. No biliary ductal dilatation is seen. The pancreas and spleen are unremarkable. Left adrenal gland is unremarkable. Low density mass involving the right adrenal gland is stable and again most consistent with a lipid rich adenoma. Kidneys are unremarkable. Aorta is nonaneurysmal. The bowel loops are normal caliber. There is no obstruction. No free fluid or loculated fluid collection is identified. There is no free air. No inflammatory process is detected. Bladder is unremarkable. IMPRESSION: 1. Resolution of previously noted bibasilar pulmonary infiltrates. 2. Hepatic steatosis. 3. Stable low-density right adrenal mass. 4. No acute feature in the abdomen or pelvis is identified. Dictated by: Dictated on workstation # [id number]
== END ==
LOC: RAD 08:26
PROVIDERS: ATTEND Surgery
DX: K76.0 Fatty (change of) liver, not elsewhere classified (principal); E27.8 Other specified disorders of adrenal gland; R91.8 Other nonspecific abnormal finding of lung field
CPT/HCPCS: 36415; 74177; 82565; 84520

== ENCOUNTER 2020-01-13 12:58 | Outpatient (CLI) | payer BC ==
[~2020-01-13] VITALS: Ht 160 cm; Wt 77.0 kg
[~2020-01-13 12:58] MED LIST changes: -CATHETER FLUSH 10 ML SYR IV PRN; -HOLD METFORMIN - RECEIVED CONTRAST 20 ML VIAL IV SCH; -IOHEXOL 350 MG/ML 100 ML (OMNIPAQUE 350) VIAL IV ONE; -NS 100 ML (IVPB) BAG IV ONE; -OMEP20CA13 PO; +OMEP20CA18 PO
[2020-01-13 13:06] VITALS: BP 128/78
[2020-01-13] MEDS ORDERED: ZOLEDRONATE (RECLAST) 5 MG/100 ML IV ONE (13:45)
== END 2020-01-13 14:35 | disposition home or self-care (01) ==
LOC: SDC 12:58
PROVIDERS: ATTEND Internal Medicine
DX: M81.0 Age-related osteoporosis without current pathological fracture (principal)
CPT/HCPCS: 96365

== ENCOUNTER 2020-03-31 13:14 | Emergency (ER) | payer BC ==
[~2020-03-31] VITALS: Ht 165 cm; Wt 77.0 kg
[~2020-03-31 13:14] MED LIST changes: -CALC600T12 PO; +CLC600T PO; -PANT40TA3 PO; +PANT40TA52 PO
--- NOTE | 2020-03-31 13:51 | ED Abdominal Pain ---
General Stated Complaint: VOMITING/NAUSEA Source of Information: Patient Exam Limitations: No Limitations History of Present Illness Date Seen by Provider: Mar 31, 2020 Time Seen by Provider: 13:49 Initial Comments This is a 65-year-old female who presents for nausea, vomiting and dizziness. States she ate soup 2 days ago, and is concerned that this may be causing her symptoms. Reports TNC episodes of emesis, which was accompanied by dizziness. Had a history of chronic constipation, which she attributes to her reported history of colon cancer. Denies fevers, chills, cough, shortness of breath, chest pain, abdominal pain, hematochezia. Allergies and Home Medications Allergies Coded Allergies: Opioids - Morphine Analogues (Verified Allergy, Unknown, DEEP SLEEP, PURPLE BLOTCHES, 12/28/18) ciprofloxacin (Verified Allergy, Unknown, RASH/BUMPS/PAIN, 12/28/18) codeine (Verified Allergy, Unknown, 10/20/18) fentanyl (Verified Allergy, Unknown, Anaphylaxis, 10/20/18) hydrochlorothiazide (Verified Allergy, Unknown, 10/20/18) lisinopril (Verified Allergy, Unknown, 09/06/18) morphine (Verified Allergy, Unknown, 09/06/18) opium (anthroposophic) (Verified Allergy, Unknown, 10/20/18) Uncoded Allergies: "opiates" (Allergy, Unknown, 03/31/18) Home Medications Aspirin 81 Mg Tablet.dr, 81 MG PO DAILY, (Reported) Aspirin/Caffeine 1 Each Tablet, 1-2 TAB PO HS PRN for BACK PAIN, (Reported) Azithromycin 250 Mg Tablet, 250 MG PO DAILY Prescribed by: EDWARD GORE on 12/28/18 1432 Calcium Carbonate 600 Mg Tablet, 600 MG PO BID, (Reported) Cefdinir 300 Mg Capsule, 300 MG PO BID Prescribed by: EDWARD GORE on 12/28/18 1432 Cholecalciferol (Vitamin D3) 1,000 Unit Tablet, 1,000 UNIT PO DAILY, (Reported) Cyanocobalamin (Vitamin B-12) 1,000 Mcg Tablet, 1,000 MCG PO DAILY, (Reported) Dicyclomine HCl 20 Mg Tablet, 20 MG PO Q4H PRN for STOMACH UPSET, (Reported) Diphenhydramine HCl 25 Mg Tablet, 25 MG PO DAILY, (Reported) Gabapentin 800 Mg Tablet, 800 MG PO TID, (Reported) Levetiracetam 500 Mg Tablet, 500 MG PO TID, (Reported) Linaclotide 290 Mcg Capsule, 290 MG PO HS, (Reported) Omeprazole 20 Mg Capsule.dr, 20 MG PO BID, (Reported) Ondansetron 4 Mg Tab.rapdis, 4 MG PO Q6H PRN for NAUSEA/VOMITING Prescribed by: JAMEY GOMEZ on 03/31/20 7507 Spironolactone 100 Mg Tablet, 100 MG PO BID, (Reported) Vitamin K2 40 Mcg Tablet, 100 MCG PO DAILY, (Reported) Patient Home Medication List Home Medication List Reviewed: Yes Review of Systems Review of Systems Constitutional: see HPI EENTM: No Symptoms Reported Respiratory: No Symptoms Reported Cardiovascular: No Symptoms Reported Gastrointestinal: See HPI Genitourinary: No Symptoms Reported Musculoskeletal: no symptoms reported Skin: no symptoms reported Psychiatric/Neurological: No Symptoms Reported Endocrine: No Symptoms Reported Hematologic/Lymphatic: No Symptoms Reported Past Ckadnfw-Kzzywv-Shxdmh Hx Patient Social History Type Used: Cigarettes Recent Foreign Travel: No Contact w/Someone Who Travel: No Recent Hopitalizations: No Immunizations Up To Date Date of Pneumonia Vaccine: Apr 29, 2018 Seasonal Allergies Seasonal Allergies: No Past Medical History Surgeries: Yes Abdominal, Appendectomy, Gallbladder, Hysterectomy, Oophorectomy, Tubal Ligation Respiratory: No Cardiac: Yes Chronic Edema/Swelling, High Cholesterol, Hypertension Neurological: Yes Neuropathy, Seizure Disorder Reproductive Disorders: Yes Female Reproductive Disorders: Endometriosis [employer] History: Hysterectomy Genitourinary: No Gastrointestinal: Yes (PT STATES "CANCEROUS POLYPS REMOVED" ; HEPATIC STEATOSIS NOTED ON CT SCAN; ) Gastroesophageal Reflux, Liver Disease/Jaundice, Chronic Constipation, Polyps, Hiatal Hernia, Irritable Bowel Musculoskeletal: Yes Osteoporosis, Arthritis Endocrine: No (RIGHT ADRENAL NODULE NOTED ON CT SCAN. ) HEENT: No Cancer: Yes (THESE ARE ALL SELF-REPORTED BY PT, WITH NO VERIFICATION OF ANY OF THESE) Skin, Cervical, Colon, Ovarian, Uterine Did You Recieve Any Treatments: Yes What Type of Treatment Did You: Surgical Intervention Psychosocial: No Integumentary: Yes (hx of skin ca) Blood Disorders: No Family Medical History Patient reports no known family medical history. No Pertinent Family Hx Physical Exam Vital Signs Vital Signs - First Documented 03/31/20 03/31/20 13:54 17:10 Temp 36.2 Pulse 77 Resp 18 B/P (MAP) 156/99 (118) Pulse Ox 100 Capillary Refill : Height/Weight/BMI Height: 5'5.00" Weight: 158lbs. 4.0oz. 71.295600yn; 26.0 BMI Method:Stated General Appearance: WD/WN, no apparent distress HEENT: PERRL/EOMI, normal ENT inspection, pharynx normal Neck: full range of motion, supple, normal inspection Respiratory: chest non-tender, lungs clear, normal breath sounds Cardiovascular: normal peripheral pulses, regular rate, rhythm, no edema Gastrointestinal: normal bowel sounds, non tender, soft Extremities: normal range of motion, non-tender, normal inspection Neurologic/Psychiatric: no motor/sensory deficits, alert, normal mood/affect, oriented x 3 Skin: normal color, warm/dry Progress/Results/Core Measures Results/Orders Lab Results Laboratory Tests Test 03/31/20 13:45 03/31/20 16:00 Range/Units White Blood Count 8.0 4.3-11.0 10^3/uL Red Blood Count 4.43 3.80-5.11 10^6/uL Hemoglobin 13.9 11.5-16.0 g/dL Hematocrit 40 35-52 % Mean Corpuscular Volume 91 80-99 fL Mean Corpuscular Hemoglobin 31 25-34 pg Mean Corpuscular Hemoglobin Concent 35 32-36 g/dL Red Cell Distribution Width 11.6 10.0-14.5 % Platelet Count 352 130-400 10^3/uL Mean Platelet Volume 9.6 9.0-12.2 fL Immature Granulocyte % (Auto) 0 % Neutrophils (%) (Auto) 71 42-75 % Lymphocytes (%) (Auto) 22 12-44 % Monocytes (%) (Auto) 6 0-12 % Eosinophils (%) (Auto) 0 0-10 % Basophils (%) (Auto) 1 0-10 % Neutrophils # (Auto) 5.7 1.8-7.8 10^3/uL Lymphocytes # (Auto) 1.8 1.0-4.0 10^3/uL Monocytes # (Auto) 0.5 0.0-1.0 10^3/uL Eosinophils # (Auto) 0.0 0.0-0.3 10^3/uL Basophils # (Auto) 0.0 0.0-0.1 10^3/uL Immature Granulocyte # (Auto) 0.0 0.0-0.1 10^3/uL Sodium Level 139 135-145 MMOL/L Potassium Level 3.3 L 3.6-5.0 MMOL/L Chloride Level 104 98-107 MMOL/L Carbon Dioxide Level 18 L 21-32 MMOL/L Anion Gap 17 H 5-14 MMOL/L Blood Urea Nitrogen 13 7-18 MG/DL Creatinine 0.98 0.60-1.30 MG/DL Estimat Glomerular Filtration Rate 57 BUN/Creatinine Ratio 13 Glucose Level 122 H 70-105 MG/DL Calcium Level 10.7 H 8.5-10.1 MG/DL Corrected Calcium 8.5-10.1 MG/DL Total Bilirubin 0.6 0.1-1.0 MG/DL Aspartate Amino Transf (AST/SGOT) 19 5-34 U/L Alanine Aminotransferase (ALT/SGPT) 15 0-55 U/L Alkaline Phosphatase 88 40-136 U/L Total Protein 7.8 6.4-8.2 GM/DL Albumin 4.8 H 3.2-4.5 GM/DL Lipase 9 8-78 U/L Urine Color YELLOW Urine Clarity CLEAR Urine pH 6.0 5-9 Urine Specific [place] 1.025 H 1.016-1.022 Urine Protein TRACE H NEGATIVE Urine Glucose (UA) NEGATIVE NEGATIVE Urine Ketones TRACE H NEGATIVE Urine Nitrite NEGATIVE NEGATIVE Urine Bilirubin 1+ H NEGATIVE Urine Urobilinogen 0.2 < = 1.0 MG/DL Urine Leukocyte Esterase NEGATIVE NEGATIVE Urine RBC (Auto) 1+ H NEGATIVE Urine RBC 2-5 H /HPF Urine WBC NONE /HPF Urine Squamous Epithelial Cells 10-25 H /HPF Urine Crystals NONE /LPF Urine Bacteria FEW H /HPF Urine Casts NONE /LPF Urine White Blood Cell Casts 5-10 H /LPF Urine Mucus NEGATIVE /LPF Urine Culture Indicated NO My Orders Orders - JAMEY GOMEZ MACHINE ROOM OPERATOR Comprehensive Metabolic Panel (03/31/20 13:39) Lipase (03/31/20 13:39) Ua Culture If Indicated (03/31/20 13:39) Cbc With Automated Diff (03/31/20 13:39) Ed Iv/Invasive Line Start (03/31/20 13:39) Ns Iv 1000 Ml (Sodium Chloride 0.9%) (03/31/20 13:52) Promethazine Injection (Phenergan Injec (03/31/20 14:00) Ct Head Wo (03/31/20 13:55) Ns (Ivpb) (Sodium Chloride 0.9% Ivpb Bag (03/31/20 14:29) Medications Given in ED Current Medications Medications Dose Ordered Sig/Suresh Route Start Time Stop Time Status Last Admin Dose Admin Promethazine HCl 25 mg ONCE ONCE IVP 03/31/20 14:00 03/31/20 14:01 DC 03/31/20 14:32 25 MG Sodium Chloride 50 ml @ ud STK-MED ONCE .ROUTE 03/31/20 14:29 03/31/20 14:34 DC 03/31/20 15:10 50 MLS/HR Vital Signs/I&O 03/31/20 03/31/20 03/31/20 13:54 17:10 17:12 Temp 36.2 36.2 36.2 Pulse 77 77 77 Resp 18 16 16 B/P (MAP) 156/99 (118) 150/90 150/70 Pulse Ox 100 100 Progress Progress Note : Progress Note Basic labs and UA obtained. Head CT ordered due to reported dizziness and history of colon cancer. Labs reviewed and are unremarkable. . Head CT shows no acute diagnosis. Received 1 L of normal saline with Phenergan 25 mg IV with no subsequent episodes of dry heaving or vomiting. Reported feeling much improved. Reviewed POC, and she is agreeable with plan. Diagnostic Imaging Diagonstic Imaging: CT Plain Films/CT/US/NM/MRI: head Comments NAME: SUGEY SOTO [facility] REC#: [id number] PT STATUS: REG ER : 1955 PHYSICIAN: JAMEY GOMEZ APRN ADMIT DATE: 03/31/20/ER Signed Date of Exam:03/31/20 CT HEAD WO EXAMINATION: CT head without contrast. TECHNIQUE: Multiple contiguous axial images were obtained through the brain without the use of intravenous contrast. All CT scans use one or more of the following dose optimizing techniques: automated exposure control, MA and/or KvP adjustment based on a patient size and exam type, or iterative reconstruction. HISTORY: Dizziness, vomiting COMPARISON: None available. FINDINGS: The ventricles and sulci are normal. No abnormal attenuation of brain parenchyma is present. No acute intracranial hemorrhage or abnormal extra-axial fluid collections are present. Calcification of the intracranial ICAs. No hyperdense vessel. The calvarium is intact. The mastoid air cells are clear. The visualized paranasal sinuses are clear. The orbits are normal. IMPRESSION: 1. No acute intracranial abnormality. Dictated by: Dictated on workstation # [id number] Dict: 03/31/20 1523 Trans: 03/31/20 1526 [facility] [id number] Interpreted by: ZAKI FARLEY DO Electronically signed by: ZAKI FARLEY DO 03/31/20 1526 Departure Impression Primary Impression: Acute gastroenteritis Disposition: 01 HOME, SELF-CARE Condition: Improved Departure-Patient Inst. Decision time for Depature: 16:56 Referrals: JULES SNYDER MD (PCP/Family) Primary Care Physician Patient Instructions: [id number] Add. Discharge Instructions: Plan: 1. Drink clear liquids the rest of the day and advance diet slowly as tolerated. 2. May take Zofran 4 mg as needed every 4 hours for nausea. 3. Follow-up with your primary care provider for any persistent symptoms. 4. Return to the ER for any new, worsening, or concerning symptoms. Scripts Ondansetron (Ondansetron Odt) 4 Mg Tab.rapdis 4 MG PO Q6H PRN for NAUSEA/VOMITING, #8 TAB 0 Refills Prov: JAMEY GOMEZ MACHINE ROOM OPERATOR 03/31/20 JAMEY GOMEZ MACHINE ROOM OPERATOR Mar 31, 2020 13:51
[2020-03-31] MEDS ORDERED: NS IV 1000 ML 1,000 ML IV SCH (13:52)
[2020-03-31 13:57] LABS: BASOPHILS % (AUTO) 1 % (0-10); EOSINOPHILS % (AUTO) 0 % (0-10); HEMATOCRIT 40 % (35-52); HEMOGLOBIN 13.9 g/dL (11.5-16.0); LYMPHOCYTES # (AUTO) 1.8 10^3/uL (1.0-4.0); LYMPHOCYTES % (AUTO) 22 % (12-44); MEAN CORPUSCULAR HEMOGLOBIN 31 pg (25-34); MEAN CORPUSCULAR HGB CONC 35 g/dL (32-36); MEAN CORPUSCULAR VOLUME 91 fL (80-99); MEAN PLATELET VOLUME 9.6 fL (9.0-12.2); MONOCYTES # (AUTO) 0.5 10^3/uL (0.0-1.0); MONOCYTES % (AUTO) 6 % (0-12); NEUTROPHILS # (AUTO) 5.7 10^3/uL (1.8-7.8); NEUTROPHILS % (AUTO) 71 % (42-75); PLATELET COUNT 352 10^3/uL (130-400)
[2020-03-31] MEDS ORDERED: PROMETHAZINE INJ 25 MG/ML (PHENERGAN) AMP IVP ONE (14:00)
[2020-03-31 14:07] LABS: ALBUMIN 4.8 GM/DL (3.2-4.5); CHLORIDE 104 MMOL/L (98-107); POTASSIUM 3.3 MMOL/L (3.6-5.0); SODIUM 139 MMOL/L (135-145)
[2020-03-31 14:08] LABS: CALCIUM 10.7 MG/DL (8.5-10.1)
[2020-03-31 14:09] LABS: GLUCOSE 122 MG/DL (70-105)
[2020-03-31 14:10] LABS: TOTAL PROTEIN 7.8 GM/DL (6.4-8.2)
[2020-03-31 14:11] LABS: BILIRUBIN,TOTAL 0.6 MG/DL (0.1-1.0); CARBON DIOXIDE 18 MMOL/L (21-32)
[2020-03-31 14:13] LABS: ALKALINE PHOSPHATASE 88 U/L (40-136); CREATININE SERUM 0.98 MG/DL (0.60-1.30); GFR ESTIMATED 57
[2020-03-31 14:14] LABS: BUN/CREATININE RATIO 13
[2020-03-31 14:16] LABS: ALANINE AMINOTRANSFERASE 15 U/L (0-55); LIPASE 9 U/L (8-78)
[2020-03-31] MEDS ORDERED: NS (IVPB) 50 ML ONE (14:29)
--- NOTE | 2020-03-31 15:27 | Diagnostic Imaging Report ---
EXAMINATION: CT head without contrast. TECHNIQUE: Multiple contiguous axial images were obtained through the brain without the use of intravenous contrast. All CT scans use one or more of the following dose optimizing techniques: automated exposure control, MA and/or KvP adjustment based on a patient size and exam type, or iterative reconstruction. HISTORY: Dizziness, vomiting COMPARISON: None available. FINDINGS: The ventricles and sulci are normal. No abnormal attenuation of brain parenchyma is present. No acute intracranial hemorrhage or abnormal extra-axial fluid collections are present. Calcification of the intracranial ICAs. No hyperdense vessel. The calvarium is intact. The mastoid air cells are clear. The visualized paranasal sinuses are clear. The orbits are normal. IMPRESSION: 1. No acute intracranial abnormality. Dictated by: Dictated on workstation # [id number]
[2020-03-31 16:12] LABS: BILIRUBIN,URINE 1+ (NEGATIVE); CLARITY,URINE CLEAR; COLOR,URINE YELLOW; GLUCOSE, URINE (UA) NEGATIVE (NEGATIVE); KETONES,URINE TRACE (NEGATIVE); LEUKOCYTE ESTERASE ,URINE NEGATIVE (NEGATIVE); NITRITE,URINE NEGATIVE (NEGATIVE); PROTEIN,URINE TRACE (NEGATIVE)
[2020-03-31 16:50] LABS: BACTERIA,URINE FEW /HPF
[2020-03-31] MEDS ORDERED: ONDA4TAB11 PO (16:59)
[2020-03-31 17:12] VITALS: BP 150/70
== END 2020-03-31 17:10 ==
LOC: EDUNIT# 13:14 → ER 13:15
DX: K52.9 Noninfective gastroenteritis and colitis, unspecified (principal); K21.9 Gastro-esophageal reflux disease without esophagitis; G40.909 Epilepsy, unspecified, not intractable, without status epilepticus; K59.09 Other constipation; Z85.828 Personal history of other malignant neoplasm of skin; Z85.41 Personal history of malignant neoplasm of cervix uteri; Z85.038 Personal history of other malignant neoplasm of large intestine; Z85.43 Personal history of malignant neoplasm of ovary; Z85.42 Personal history of malignant neoplasm of other parts of uterus; Z88.5 Allergy status to narcotic agent; Z88.1 Allergy status to other antibiotic agents; Z88.8 Allergy status to other drugs, medicaments and biological substances; Z79.82 Long term (current) use of aspirin
CPT/HCPCS: 36415; 70450; 80053; 81000; 83690; 85025

== ENCOUNTER → 2020-04-24 | Outpatient (CLI) | payer BC ==
[~2020-04-24] MED LIST changes: +ONDA4TAB11 PO
[2020-04-24 10:50] LABS: HEMOGLOBIN 13.2 g/dL (11.5-16.0); MEAN PLATELET VOLUME 9.5 fL (9.0-12.2); WHITE BLOOD COUNT 7.3 10^3/uL (4.3-11.0)
[2020-04-24 11:13] LABS: ALANINE AMINOTRANSFERASE 14 U/L (0-55); ALBUMIN 4.7 GM/DL (3.2-4.5); ALKALINE PHOSPHATASE 76 U/L (40-136); BILIRUBIN,TOTAL 0.5 MG/DL (0.1-1.0); BUN/CREATININE RATIO 16; CALCIUM 10.7 MG/DL (8.5-10.1); CARBON DIOXIDE 25 MMOL/L (21-32); CHLORIDE 102 MMOL/L (98-107); CREATININE SERUM 0.99 MG/DL (0.60-1.30); GFR ESTIMATED 57; GLUCOSE 98 MG/DL (70-105); POTASSIUM 3.7 MMOL/L (3.6-5.0); SODIUM 136 MMOL/L (135-145); TOTAL PROTEIN 7.6 GM/DL (6.4-8.2)
== END ==
LOC: LAB 10:20
PROVIDERS: ATTEND Internal Medicine
DX: R07.9 Chest pain, unspecified (principal)
CPT/HCPCS: 36415; 80053; 84484; 85027

== ENCOUNTER → 2020-05-03 | Outpatient (CLI) | payer BC | LOC: CARD 10:54 | PROVIDERS: ATTEND Internal Medicine Cardiovascular Disease | DX: I11.9 Hypertensive heart disease without heart failure (principal); C18.9 Malignant neoplasm of colon, unspecified; R56.9 Unspecified convulsions | CPT/HCPCS: 93306 ==

== ENCOUNTER → 2020-05-09 | Outpatient (CLI) | payer BC ==
[~2020-05-09] VITALS: Ht 165 cm; Wt 76.0 kg
[~2020-05-09] MED LIST changes: +CATHETER FLUSH 10 ML SYR IV PRN; +NITROGLYCERIN 0.4 MG SL TABS BTL 25'S SL ONE; +REGADENOSON 0.4 MG/5 ML SYR (LEXISCAN) IV ONE
[2020-05-09 08:45] VITALS: BP 124/73
[2020-05-09 08:51] VITALS: BP 119/55
[2020-05-09 09:24] VITALS: BP 106/76
[2020-05-09 09:26] VITALS: BP 97/74
--- NOTE | 2020-05-09 14:25 | Cardiology Stress Test Report ---
Stress Test Report Date of Procedure/Referring: Date of Procedure: May 09, [address] Gray MD Admitting Physician Dudley Francis MD Indications: Chest pain, hypertension Baseline Heart Rate: 72 Baseline Blood Pressure: Blood Pressure Systolic: 97 Blood Pressure Diastolic: 74 Baseline Vitals Vital Signs Date Time Temp Pulse Resp B/P (MAP) Pulse Ox O2 Delivery O2 Flow Rate FiO2 05/09/20 08:45 69 18 124/73 (90) 98 Room Air Baseline EKG: Baseline EKG: normal sinus rhythm Summary After explaining the procedure to the patient, she signed a consent and then brought to the stress nuclear laboratory. Patient received 0.4 mg Lexiscan for stress test, ECG, heart rate and blood pressure were monitored continuously. Resting and stress dose of radio tracer were injected, imaging was acquired and reviewed in short axis, horizontal long axis and vertical long axis views. TID: 1.01 SSS: 9 SDS: 4 EF: 24 1. Patient tolerated Lexiscan well, required nitroglycerin due to multiple episodes of chest pain 2. Left bundle branch block persisted during test 3. Reversible ischemia involving the mid to apical anterior wall and anterior septum 4. Dilated left ventricle with diffuse left ventricular hypokinesia involving the anterior wall and anterior septum, EF [address] GRAY MD May 09, 2020 14:25
== END ==
LOC: CARD 07:30
PROVIDERS: ATTEND Internal Medicine Cardiovascular Disease
DX: R07.9 Chest pain, unspecified (principal); I10 Essential (primary) hypertension; C18.9 Malignant neoplasm of colon, unspecified; R56.9 Unspecified convulsions
CPT/HCPCS: 78452; 93017; A9502

== ENCOUNTER 2020-05-16 14:00 | Day surgery (SDC) | payer BC ==
[~2020-05-16] VITALS: Ht 165.1 cm; Wt 79.1 kg
[2020-05-16 12:20] VITALS: BP 116/67
[2020-05-16 12:31] LABS: HEMOGLOBIN 12.6 g/dL (11.5-16.0); MEAN PLATELET VOLUME 9.5 fL (9.0-12.2); WHITE BLOOD COUNT 7.9 10^3/uL (4.3-11.0)
[2020-05-16 12:42] LABS: INR 0.9 (0.8-1.4); PROTHROMBIN TIME PATIENT 12.5 SEC (12.2-14.7)
--- NOTE | 2020-05-16 12:43 | Diagnostic Imaging Report ---
CLINICAL INDICATION: Pre-heart cath with possible coronary angioplasty/stent. EXAM: Portable chest x-ray upright view. COMPARISONS: Chest x-ray dated 12/25/2018. FINDINGS: Lungs/pleura: Stable minimal discoid scarring in the right upper lobe. Otherwise, the lungs are clear. There is improved aeration of both lungs compared to the prior study. There is no pneumothorax. There is no pleural effusion. Mediastinum: Unremarkable. Pulmonary vasculature: Unremarkable. Heart: There is upper limits of normal heart size for portable projection. Bones/extrathoracic soft tissue: There are degenerative spurs involving the thoracic spine. IMPRESSION: 1. Upper limits of normal heart size. There is no radiographic evidence of acute cardiopulmonary process. 2. Stable minimal discoid scarring in the right upper lobe. Dictated by: Dictated on workstation # [id number]
[2020-05-16 13:00] LABS: ALBUMIN 4.5 GM/DL (3.2-4.5); BILIRUBIN,TOTAL 0.3 MG/DL (0.1-1.0); CALCIUM 9.8 MG/DL (8.5-10.1); CREATININE SERUM 1.01 MG/DL (0.60-1.30); POTASSIUM 3.7 MMOL/L (3.6-5.0); TOTAL PROTEIN 7.4 GM/DL (6.4-8.2)
--- NOTE | 2020-05-16 13:13 | NUR ---
I SPOKE WITH THE PATIENT, WENT THROUGH THE MEDICATIONS BROUGHT FROM HOME AND CALLED [facility] TO COMPLETE THIS MED REC. 04/10/2020 LINZESS 290MCG #30/30DS 04/12/2020 SPIRONOLACTONE 100MG #60/30DS 04/12/2020 OMEPRAZOLE 20MG #60/30DS 05/01/2020 LEVETIRACETAM 1000MG #90/30DS 05/11/2020 GABAPENTIN 800MG #90/30DS OTC: VITAMIN D3 VITAMIN B12 CALCIUM KS BENADRL ASPIRIN EC AUSTYN BACK AND BODY
[~2020-05-16 14:00] MED LIST changes: +ASPI-1238 PO; -CATHETER FLUSH 10 ML SYR IV PRN; +CHOL100045 PO; +HEParin (CATH LAB) 2,000 ML IV ONE; +LEVE10006 PO; +LIDOCAINE 1% INJ 20 ML 20 ML VIAL ONE; -NITROGLYCERIN 0.4 MG SL TABS BTL 25'S SL ONE; +NS IV 1000 ML 1,000 ML IV SCH; +NS IV 1000 ML 1,000 ML ONE; -REGADENOSON 0.4 MG/5 ML SYR (LEXISCAN) IV ONE
[2020-05-16] MEDS ORDERED: MIDAZOLAM 5 MG/5 ML (VERSED) VIAL ONE (15:13)
[2020-05-16] MEDS ORDERED: VERAPAMIL 5 MG/2 ML (CALAN) VIAL IV ONE (15:14)
[2020-05-16] MEDS ORDERED: HEParin 1000 UNIT/ML (10ML VIAL) FOR BOLUS ONE (15:15)
[2020-05-16] MEDS ORDERED: NITRO DRIP 25000 MCG/D5W 250 ML IV ONE (15:15)
[2020-05-16] MEDS ORDERED: MIDAZOLAM 2 MG/2 ML (VERSED) VIAL ONE (16:13)
[2020-05-16] MEDS ORDERED: ASPIRIN 325 MG (5 GR) TABLET ONE (16:21)
[2020-05-16] MEDS ORDERED: TICAGRELOR 90 MG TABLET (BRILINTA) PO ONE (16:22)
--- NOTE | 2020-05-16 16:25 | Cardiac Procedure Note-CS/ASA ---
Pre-Procedure Note Pre-Op Procedure Note H&P Reviewed The H&P was reviewed, patient examined and no changes noted. Date H&P Reviewed: May 16, 2020 Time H&P Reviewed: 16:24 Conscious Sedation Pre-Proced Time 16:24 ASA Score 3 For ASA 3 and 4: Consider anesthesia and medical clearance. Also, for patients with a history of failed moderate sedation consider anesthesia. Airway Lungs Heart ASA score ASA 1: a normal healthy patient ASA 2: a patient with a mild systemic disease (mid diabetes, controlled hypertension, obesity x ASA 3: a patient with a severe systemic disease that limits activity (angina, COPD, prior Myocardial infarction) ASA 4: a patient with an incapacitating disease that is a constant threat to life (CHF, renal failure) ASA 5: a moribund patient not expected to survive 24 hrs. (ruptured aneurysm) ASA 6: a declared brain- patient whose organs are being harvested. For emergent operations, add the letter E after the classification Mallampati Classification Grade 3 Sedation Plan Analgesia, Amnesia, Plan communicated to team members, Discussed options with patient/fam, Discussed risks with patient/fam The patient is an appropriate candidate to undergo the planned procedure, sedation, and anesthesia. The patient immediately re-assessed prior to indication. LANE SIMONS MD May 16, 2020 4:25 pm
--- NOTE | 2020-05-16 16:34 | Cardiac Cath Report ---
Cardiac Cath Report Physician (s)/Plush Cutter (s) Physician LANE SIMONS MD Pre-Procedure Diagnosis Pre-Procedure Diagnosis: coronary artery disease Post-Procedure Note Procedure Start Date: May 16, 2020 Name of Procedure: Left heart catheterization Stent to the LAD Findings/Procedure Note PROCEDURE NOTE: 65-year-old lady with history of recurrent chest pain, hypertension hyperlipidemia, had an abnormal stress test, scheduled for cardiac catheteriza tion. After explaining the procedure to the patient, all pros and cons were explained, all questions were answered. The patient signed the consent and then she was placed on the cardiac catheterization laboratory. Groin was prepped SL fashion local anesthesia was used. Sheath placed in the right radial artery, Shedd catheter was used advanced to the left ventricular cavity, left ventricular gram was done, pulled to the left and right coronary system selective angiogram was done. Next Patient has severe stenosis in the LAD. I attempted with a EBU catheter without success I used FL guide after giving total of 7000 units of heparin. Advanced at the left coronary system and BMW wire was advanced and parked distally. I had significant difficulty advancing the stent through the proximal lesion, there is moderate disease with consultation in the proximal and midportion, at the distal portion after the second diagonal there is an area of severe stenosis with primary stenting using 2.5 x 15 mm Karen stent deployed with excellent results. At the end of the procedure the sheath was removed. Vascular band deployed FINDINGS: Hemodynamics LV 144/16, end-diastolic pressure of 16 Aorta 136/72 mean of 94 ANATOMY: Left Main is moderate in size with no obstructive disease Left Anterior Descending is calcified artery with moderate stenosis extending from the proximal to midportion. After the second diagonal artery there is an area of 85-90 percent stenosis, I proceeded with difficult intervention with primary stenting using Karen 2.5 x 15 mm with excellent results. The area in the proximal and midportion will need close monitoring and probably will need an intervention in the future Left Circumflex is moderate in size, no significant obstructive disease was noted Ramus intermedius/high obtuse marginal is small artery with 80 percent stenosis at the ostium Right Coronory Artery is moderate in size with no obstructive disease LV Gram was done showing normal left ventricular size, EF 60 percent CONCLUSION: 1. Heavily calcified LAD with moderate stenosis diffusely, after the second diagonal branch there is an area of severe stenosis, primary stenting was fairly difficult to advance the stent, placement of Karen stent 2.5 x 15 mm with excellent results. The area in the proximal and mid portions need close monitoring 2. Severe ostial stenosis at the ramus intermedius/high obtuse marginal branch, smaller artery will be monitored 3. Otherwise mild to moderate disease nonobstructive disease 4. Normal left ventricular size and systolic fraction estimated ejection fraction 60 percent DISCUSSION AND RECOMMENDATION: Patient was loaded with aspirin and Brilinta. We'll continue monitoring closely, started on statin Anesthesia Type: Conscious Sedation Estimated blood loss (mL): 25 ml Contrast Amount: 160 ml Total Radiation Dose: 963 mGy Post-Procedure Diagnosis Post-operative diagnosis: Chest pain Coronary artery disease Hypertension Hyperlipidemia LANE SIMONS MD May 16, 2020 4:34 pm
[2020-05-16] MEDS: NS IV 1000 ML 1,000 ML IV SCH (16:40)
[2020-05-16] MEDS: PANTOPRAZOLE 20 MG TABLET (PROTONIX) PO SCH (20:38)
[2020-05-16] MEDS: TICAGRELOR 90 MG TABLET (BRILINTA) PO SCH (20:38)
[2020-05-16] MEDS: SPIRONOLACTONE 100 MG (ALDACTONE) TABLET PO SCH (20:39)
[2020-05-16] MEDS ORDERED: OMEPRAZOLE 20 MG (PriLOSEC) CAP NON-FORMULARY PO SCH (21:00)
[2020-05-17 03:33] LABS: HEMOGLOBIN 11.6 g/dL (11.5-16.0); MEAN PLATELET VOLUME 9.4 fL (9.0-12.2); WHITE BLOOD COUNT 6.9 10^3/uL (4.3-11.0)
[2020-05-17 03:43] LABS: ALBUMIN 3.7 GM/DL (3.2-4.5)
[2020-05-17 03:44] LABS: CHLORIDE 106 MMOL/L (98-107); POTASSIUM 3.3 MMOL/L (3.6-5.0); SODIUM 139 MMOL/L (135-145)
[2020-05-17 03:45] LABS: CALCIUM 8.5 MG/DL (8.5-10.1)
[2020-05-17 03:46] LABS: GLUCOSE 92 MG/DL (70-105); TOTAL PROTEIN 6.1 GM/DL (6.4-8.2)
[2020-05-17 03:47] LABS: CARBON DIOXIDE 22 MMOL/L (21-32)
[2020-05-17 03:48] LABS: BILIRUBIN,TOTAL 0.4 MG/DL (0.1-1.0)
[2020-05-17 03:49] LABS: ALKALINE PHOSPHATASE 55 U/L (40-136)
[2020-05-17 03:50] LABS: GFR ESTIMATED > 60
[2020-05-17 03:51] LABS: BUN/CREATININE RATIO 12
[2020-05-17 03:52] LABS: ALANINE AMINOTRANSFERASE 10 U/L (0-55)
[2020-05-17] MEDS: NS IV 1000 ML 1,000 ML IV SCH ×3 (04:09→21:50)
[2020-05-17] MEDS: ASPIRIN E.C. 81 MG (ECOTRIN) TAB PO SCH (08:46)
[2020-05-17] MEDS: SPIRONOLACTONE 100 MG (ALDACTONE) TABLET PO SCH ×2 (08:46→23:13)
[2020-05-17] MEDS: TICAGRELOR 90 MG TABLET (BRILINTA) PO SCH ×2 (08:46→23:13)
[2020-05-17] MEDS: PANTOPRAZOLE 20 MG TABLET (PROTONIX) PO SCH ×2 (08:46→23:12)
[2020-05-17] MEDS ORDERED: ASPIRIN E.C. 81 MG (ECOTRIN) TAB PO SCH (09:00)
[2020-05-17] MEDS ORDERED: ATOR40TA PO (09:04)
[2020-05-17] MEDS ORDERED: TICA90TA PO (09:04)
--- NOTE | 2020-05-17 09:04 | Discharge Inst-Post CATH ---
Discharge Inst-CATH/EP Problems Reviewed?: Yes Post Cardiac Cath/EP D/C Inst Follow Up/Plan Appointment with Dr. SIMONS's office in 2 weeks <b>CARDIAC CATH/EP PROCEDURE DISCHARGE INSTRUCTIONS</b> ACTIVITY * Go Home directly and rest. * Limit activity of the leg (or wrist if it was used) for 7 days including aerobics, swimming, jogging, bicycling, etc. * Restrict stair-climbing for 7 days if possible, if not, climb up with your non-cath leg, then bring together on the same step. * Avoid lifting, pushing, pulling or excessive movement of the affected extremity for 7 days. * Customary sexual activity may be resumed after 2 days-use caution not to use a position that strains or causes pain to the affected extremity. * No driving for 24 hours. * NO SMOKING. * Avoid straining for bowel movements for 7 days. * Gentle walking on level ground is allowed. * Returning to work will depend on the type of procedure and the results. Your doctor will discuss this with you. CALL YOUR DOCTOR FOR ANY OF THE FOLLOWING: *If bleeding from the puncture site occurs- Apply gentle pressure to site with clean cloth and call your doctor or EMS. * If a knot or lump forms under the skin, increases in size, or causes pain. * If bruising appears to be worsening or moving further down your leg instead of disappearing. * Temperature above 101 F. CARE OF YOUR GROIN INCISION; * Bruising or purple discoloration of the skin near the puncture site is common. * You may shower only, no bathtub bathing for 5 days. Be careful to avoid slipping as your leg may feel stiff. * If a closure device was used on your femoral artery, please see the attached guide regarding care of the device and your leg. * Leave dressing on FOR 24 hours. CARE OF YOUR WRIST INCISION; * Bruising or purple discoloration of the skin near the puncture site is common. * You may shower. * DO NOT submerge wrist. * Leave dressing on FOR [address] SIMONS MD May 17, 2020 09:04
--- NOTE | 2020-05-17 09:05 | Cardiology Progress Note ---
Subjective Date Seen by Provider: May 17, 2020 Time Seen by Provider: 09:41 Subjective/Events-last exam Patient was seen at bedside, sitting comfortably, no new complaint. Review of Systems General: No Chills, No Night Sweats, No Fatigue, No Malaise, No Appetite, No Other HEENT: No Head Aches, No Visual Changes, No Eye Pain, No Ear Pain, No Dysphasia, No Sinus Congestion, No Post Nasal Drip, No Sore Throat, No Other Pulmonary: No Dyspnea, No Cough, No Pleuritic Chest Pain, No Other Cardiovascular: No: Chest Pain, Palpitations, Orthopnea, Paroxysmal Noc. Dyspnea, Edema, Lt Headedness, Other Objective-Cardiology Exam Last Set of Vital Signs Vital Signs 05/18/20 10:20 Temp 36.8 Pulse 78 Resp 18 B/P (MAP) 144/59 Pulse Ox 99 O2 Delivery Room Air Capillary Refill : Less Than 3 Seconds I&O Intake and Output 05/18/20 00:00 Intake Total 250 ml Output Total 300 ml Balance -50 ml Intake Oral 250 ml Output Urine Total 300 ml # Voids 1 General: Alert, Oriented X3, Cooperative HEENT: Atraumatic, PERRLA Neck: Supple, No JVD, No Thyromegaly Lungs: Clear to Auscultation, Normal Air Movement Heart: Regular Rate, Normal S1, Normal S2, No Murmurs Abdomen: Normal Bowel Sounds, Soft, No Tenderness, No Hepatosplenomegaly, No Masses Extremities: No Clubbing, No Cyanosis, No Edema, Normal Pulses, No Tend erness/Swelling Skin: No Rashes, No Breakdown, No Significant Lesion Neuro: Normal Gait, Normal Speech, Strength at 5/5 X4 Ext, Normal Tone, Sensation Intact Psych/Mental Status: Mental Status NL, Mood NL Results Lab Laboratory Tests 05/18/20 03:08 A/P-Cardiology Admission Diagnosis Coronary artery disease Hypertension Hyperlipidemia Assessment/Plan Coronary artery disease, status post stenting, educated in length about aspirin and Brilinta. 1. Heavily calcified LAD with moderate stenosis diffusely, after the second diagonal branch there is an area of severe stenosis, primary stenting was fairly difficult to advance the stent, placement of Karen stent 2.5 x 15 mm with excellent results. The area in the proximal and mid portions need close monitoring 2. Severe ostial stenosis at the ramus intermedius/high obtuse marginal branch, smaller artery will be monitored 3. Otherwise mild to moderate disease nonobstructive disease 4. Normal left ventricular size and systolic fraction estimated ejection fraction 60 percent Hypertension, monitor blood pressure Hyperlipidemia, started on statin Addendum, patient was ready for discharge started to have chest pain. I dissected take her back to the catheter lab for reevaluation due to the known significant disease LANE SIMONS MD May 17, 2020 09:05
[2020-05-17] MEDS ORDERED: FUROSEMIDE 40 MG/4 ML INJ (LASIX) ONE (11:37)
--- NOTE | 2020-05-17 12:21 | Cardiac Procedure Note-CS/ASA ---
Pre-Procedure Note Pre-Op Procedure Note H&P Reviewed The H&P was reviewed, patient examined and no changes noted. Date H&P Reviewed: May 17, 2020 Time H&P Reviewed: 12:20 Conscious Sedation Pre-Proced Time 12:20 ASA Score 3 For ASA 3 and 4: Consider anesthesia and medical clearance. Also, for patients with a history of failed moderate sedation consider anesthesia. Airway Lungs Heart ASA score ASA 1: a normal healthy patient ASA 2: a patient with a mild systemic disease (mid diabetes, controlled hypertension, obesity x ASA 3: a patient with a severe systemic disease that limits activity (angina, COPD, prior Myocardial infarction) ASA 4: a patient with an incapacitating disease that is a constant threat to life (CHF, renal failure) ASA 5: a moribund patient not expected to survive 24 hrs. (ruptured aneurysm) ASA 6: a declared brain- patient whose organs are being harvested. For emergent operations, add the letter E after the classification Mallampati Classification Grade 3 Sedation Plan Analgesia, Amnesia, Plan communicated to team members, Discussed options with patient/fam, Discussed risks with patient/fam The patient is an appropriate candidate to undergo the planned procedure, sedation, and anesthesia. The patient immediately re-assessed prior to indication. LANE SIMONS MD May 17, 2020 12:21 pm
[2020-05-17] MEDS ORDERED: LIDOCAINE 1% INJ 20 ML 20 ML VIAL ONE ×2 (12:30→13:02)
[2020-05-17] MEDS ORDERED: MIDAZOLAM 5 MG/5 ML (VERSED) VIAL ONE (12:31)
[2020-05-17] MEDS ORDERED: HEParin (CATH LAB) 2,000 ML IV ONE (12:31)
--- NOTE | 2020-05-17 12:32 | NUR ---
UPON ENTERING PATIENTS ROOM TO GO THROUGH DISCHARGE INSTRUCTIONS. PATIENT STATED SHE WAS HAVING CHEST PAIN, SOA, AND VERY TIRED. EKG TAKEN PER PROTOCOL. DR SIMONS NOTIFIED. ORDERS RECEIVED.
--- NOTE | 2020-05-17 12:44 | NUR ---
TO HEART CATH VIA BED ACCOMPANIED BY SADIE PRICE.
[2020-05-17] MEDS ORDERED: NITROGLYCERIN 0.4 MG SL TABS BTL 25'S SL PRN (12:45)
[2020-05-17] MEDS ORDERED: FUROSEMIDE 40 MG/4 ML INJ (LASIX) IVP NR (12:45)
[2020-05-17] MEDS ORDERED: HEParin 1000 UNIT/ML (10ML VIAL) FOR BOLUS ONE (12:55)
[2020-05-17] MEDS ORDERED: NITRO DRIP 25000 MCG/D5W 250 ML IV ONE (12:55)
[2020-05-17] MEDS ORDERED: EPTIFIBATIDE BOLUS 20 ML IV ONE (13:12)
[2020-05-17] MEDS ORDERED: meTOprolol 5 MG/5 ML (LOPRESSOR) VIAL ONE (13:45)
[2020-05-17] MEDS ORDERED: ONDANSETRON 4 MG/2 ML (SDV) Z0FRAN ONE (13:50)
--- NOTE | 2020-05-17 13:59 | Cardiac Cath Report ---
Cardiac Cath Report Physician (s)/Bereavement Program Coordinator (s) Physician LANE SIMONS MD Pre-Procedure Diagnosis Pre-Procedure Diagnosis: coronary artery disease Post-Procedure Note Procedure Start Date: May 17, 2020 Name of Procedure: Stenting to the LAD Findings/Procedure Note PROCEDURE NOTE: 65-year-old lady with coronary artery disease, had a stent placed to the mid to distal LAD yesterday, had heavy calcification in the proximal LAD. With moderate stenosis involving the ostium of the diagonal artery, I decided to stage it and bring her back in the future for reevaluation and close monitoring possible intervention. Prior to discharge today she started to have chest pain and had left bundle branch block on EKG, patient is known to have intermittent left bundle branch block. Had some shortness of breath. Discussed the management plan recommended cardiac catheterization. After explaining the procedure to the patient, all pros and cons were explained, all questions were answered. The patient signed the consent and then she was placed on the cardiac catheterization laboratory. Groin was prepped SL fashion local anesthesia was used. Sheath placed in the left femoral artery, FL4 guide advanced to the left coronary system BMW wire was advanced and parked in the distal LAD and another BMW wire was parked in the diagonal artery. I had diff iculty with predilatation of the LAD due to the heavy calcification used 2.5 x 20 mm balloon then I retrieved the balloon and advanced it in the diagonal artery and did balloon dilatation to the ostium of the diagonal artery. I was satisfied with the results then I proceeded with deployment of a long Karen stent 2.5 x 33 mm expanded to 2.8 mm. In the midportion there was heavy c alcification of resistant to expansion of the stent I used short noncompliant balloon 2.75 x 12 mm and went up to 16 atmosphere which fully dilated the stent. Angiogram was satisfactory showing excellent flow in the LAD and the diagonal artery. At that time I removed the guide and closure device deployed. Patient was having nausea during and after the procedure FINDINGS: ANATOMY: Left Main has no obstructive disease Left Anterior Descending has a patent stent in the midportion, heavily calcified proximal and midportion, complex intervention with balloon angioplasty then stenting of the proximal and mid LAD using a long Karen 2.5 x 33 mm stent expanded to 2.75 mm. One area in the midportion was resistant, noncompliant balloon was used for full expansion of the stent. The diagonal artery had ostia l stenosis, balloon angioplasty was done, there was slight plaque shift. Left Circumflex is moderate in size with mild disease nonobstructive disease CONCLUSION: 1. Complex intervention with dual wiring of the LAD and diagonal artery with ballooning of the LAD and diagonal artery then deployment of a long stent in the LAD from the ostium to the midportion using 2.5 x 33 mm expanded to 2.75 mm and using noncompliant balloon in the midportion with excellent results 2. The diagonal artery had improvement in the ostial lesion and then slight plaque shifting with residual 60 percent ostial stenosis. DISCUSSION AND RECOMMENDATION: Continue to maximize therapy with aspirin and Brilinta, started Lipitor and monitor Anesthesia Type: Conscious Sedation Estimated blood loss (mL): 25 ml Contrast Amount: 163 ml Total Radiation Dose: 692 mGy Post-Procedure Diagnosis Post-operative diagnosis: Coronary artery disease Hypertension Hyperlipidemia Chest pain LANE SIMONS MD May 17, 2020 13:59
[2020-05-17] MEDS ORDERED: PATIENT MAY USE OWN MEDS, ALL PO SCH (14:00)
[2020-05-17] MEDS ORDERED: KETOROLAC 30 MG/ML VIAL IVP ONE (14:15)
[2020-05-17] MEDS ORDERED: KETOROLAC 30 MG/ML VIAL ONE (17:09)
--- NOTE | 2020-05-17 22:55 | NUR ---
PT IS S/P HEARTH CATH WITH INSERTION SITE OF LEFT GROIN. HIWOT RN REPORTED THAT PATIENT WAS NONCOMPLIANT WITH BEDREST. THIS RN NOTIFIED DR. SIMONS OF PATIENT'S LEFT GROIN DRESSING HAVING SOME BLOODY SHADOWING, THIS RN WANTED TO CONFIRM DR. SIMONS STILL WANTED PATIENT TO RECEIVE PM DOSE OF BRILINTA. ORDER RECEIVED TO GIVE SCHEDULED DOSE. SEE EMAR.
[2020-05-18 03:46] LABS: MEAN PLATELET VOLUME 9.9 fL (9.0-12.2)
[2020-05-18 03:59] LABS: POTASSIUM 3.2 MMOL/L (3.6-5.0)
[2020-05-18 04:00] LABS: CALCIUM 8.1 MG/DL (8.5-10.1)
[2020-05-18 04:05] LABS: CREATININE SERUM 1.16 MG/DL (0.60-1.30)
[2020-05-18] MEDS: TICAGRELOR 90 MG TABLET (BRILINTA) PO SCH (08:01)
[2020-05-18] MEDS: ASPIRIN E.C. 81 MG (ECOTRIN) TAB PO SCH (08:01)
[2020-05-18] MEDS: SPIRONOLACTONE 100 MG (ALDACTONE) TABLET PO SCH (08:01)
[2020-05-18] MEDS: PANTOPRAZOLE 20 MG TABLET (PROTONIX) PO SCH (08:01)
[2020-05-18] MEDS ORDERED: KCL 20 MEQ TAB (K-DUR) PO ONE ×2 (08:30→09:59)
[2020-05-18 10:20] VITALS: BP 144/59
--- NOTE | 2020-05-18 11:18 | Cardiology History & Physical ---
HPI-Cardiology Cardiology Consultation Date of Consultation 05/16/20 Date of Admission Time Seen by Provider: 12:00 Indication: coronary artery disease HPI 65-year-old lady with abnormal stress test, she was scheduled for admission for cardiac catheterization as an outpatient PM-Cardiology Immunizations Up To Date Date of Pneumonia Vaccine: Apr 29, 2018 Seasonal Allergies Seasonal Allergies: No Surgeries Yes Respiratory No Cardiovascular Yes Neurological Yes Concussion, Neuropathy, Seizure Disorder Reproductive System Hx Reproductive Disorders: Yes Female Reproductive Disorders: Endometriosis Hysterectomy Genitourinary No Gastrointestinal Yes (PT STATES "CANCEROUS POLYPS REMOVED" ; HEPATIC STEATOSIS NOTED ON CT SCAN; ) Gastroesophageal Reflux, Liver Disease/Jaundice, Chronic Constipation, Polyps, Hiatal Hernia, Irritable Bowel Musculoskeletal Yes Osteoporosis, Arthritis Endocrine No (RIGHT ADRENAL NODULE NOTED ON CT SCAN. ) HEENT No Cancer Yes (THESE ARE ALL SELF-REPORTED BY PT, WITH NO VERIFICATION OF ANY OF THESE) Skin, Cervical, Colon, Ovarian, Uterine Did You Recieve Any Treatments: Yes Type of Treatment: Surgical Intervention Psychosocial No Integumentary Yes (hx of skin ca) Blood Transfusions No Social History Patient Social History Alcohol Use: Denies Use Recreational Drug Use: No Recent Foreign Travel: No Family Hx Significant Family History: No Pertinent Family Hx Family History: Patient reports no known family medical history. ROS-Cardiology Review of Systems General: No Chills, No Night Sweats, No Fatigue, No Malaise, No Appetite HEENT: No Head Aches, No Visual Changes, No Eye Pain, No Ear Pain, No Dysphasia, No Sinus Congestion, No Post Nasal Drip, No Sore Throat Pulmonary: Dyspnea; No Cough, No Pleuritic Chest Pain Cardiovascular: Chest Pain; No: Palpitations, Orthopnea, Paroxysmal Noc. Dyspnea, Edema, Lt Headedness Gastrointestinal: No: Nausea, Vomiting, Abdominal Pain, Diarrhea, Constipation, Melena, Hematochezia Genitourinary: No Dysuria, No Frequency, No Incontinence, No Hematuria, No Retention Musculoskeletal: neck pain, back pain; No: shoulder pain, arm pain, hand pain, leg pain, foot pain Neurological: No: Weakness, Numbness, Incoordination, Change in speech, Confusion, Seizures Home Medications & Allergies Allergies: Coded Allergies: Opioids - Morphine Analogues (Verified Allergy, Unknown, DEEP SLEEP, PURPLE BLOTCHES, 12/28/18) ciprofloxacin (Verified Allergy, Unknown, RASH/BUMPS/PAIN, 12/28/18) codeine (Verified Allergy, Unknown, 10/20/18) fentanyl (Verified Allergy, Unknown, Anaphylaxis, 10/20/18) hydrochlorothiazide (Verified Allergy, Unknown, 10/20/18) lisinopril (Verified Allergy, Unknown, 09/06/18) morphine (Verified Allergy, Unknown, 09/06/18) opium (anthroposophic) (Verified Allergy, Unknown, 10/20/18) Uncoded Allergies: "opiates" (Allergy, Unknown, 03/31/18) Home Medication List Reviewed: Yes Exam-Cardiology Vital Signs Vital Signs Date Time Temp Pulse Resp B/P (MAP) Pulse Ox O2 Delivery O2 Flow Rate FiO2 05/18/20 10:20 36.8 78 18 144/59 99 Room Air Exam General Appearance: Alert, Oriented X3, Cooperative, No Acute Distress HEENT: Atraumatic, PERRLA Respiratory: Clear to Auscultation, Normal Air Movement Cardiovascular: Regular Rate, Normal S1, Normal S2, No Murmurs Abdominal: Normal Bowel Sounds, Soft, No Tenderness, No Hepatosplenomegaly, No Masses Extremities: No Clubbing, No Cyanosis, No Edema, Normal Pulses, No Tenderness/Swelling Skin: No Rashes, No Breakdown, No Significant Lesion Neuro: Normal Gait, Normal Speech, Strength at 5/5 X4 Ext, Normal Tone, Sensation Intact Psych/Mental Status: Mental Status NL, Mood NL Results Labs Labs Laboratory Tests 05/18/20 03:08: White Blood Count 8.0, Red Blood Count 3.47L, Hemoglobin 11.0L, Hematocrit 32L, Mean Corpuscular Volume 93, Mean Corpuscular Hemoglobin 32, Mean Corpuscular Hemoglobin Concent 34, Red Cell Distribution Width 11.9, Platelet Count 355, Mean Platelet Volume 9.9, Sodium Level 138, Potassium Level 3.2L, Chloride Level 104, Carbon Dioxide Level 18L, Anion Gap 16H, Blood Urea Nitrogen 15, Creatinine 1.16, Estimat Glomerular Filtration Rate 47, BUN/Creatinine Ratio 13, Glucose Level 100, Calcium Level 8.1L Microbiology 05/16/20 MRSA Screen - Final, Complete MRSA not isolated A/P-Cardiology Admission Diagnosis Coronary artery disease Hypertension Hyperlipidemia Admission Status: Inpatient Order (span 2 midnights) Reason for Inpatient Admission: Artery artery disease, patient developed chest pain prior to discharge which require keeping her in the hospital Assessment/Plan Coronary artery disease, status post stenting, educated in length about aspirin and Brilinta. 1. Heavily calcified LAD with moderate stenosis diffusely, after the second diagonal branch there is an area of severe stenosis, primary stenting was fairly difficult to advance the stent, placement of Karen stent 2.5 x 15 mm with excellent results. The area in the proximal and mid portions need close monitoring 2. Severe ostial stenosis at the ramus intermedius/high obtuse marginal branch, smaller artery will be monitored 3. Otherwise mild to moderate disease nonobstructive disease 4. Normal left ventricular size and systolic fraction estimated ejection fraction 60 percent Hypertension, monitor blood pressure Hyperlipidemia, started on statin Addendum, patient was ready for discharge started to have chest pain. I dissected take her back to the catheter lab for reevaluation due to the known significant disease LANE SIMONS MD May 18, 2020 11:18
--- NOTE | 2020-05-18 11:23 | Cardiology Discharge Summary ---
Discharge Summary Hospital Course Problems Reviewed?: Yes Hospital Course Date of Admission: Admission Diagnosis : Family Physician/Provider: Dudley Francis MD Date of Discharge: 05/18/20 Discharge Diagnosis: [ Unstable angina Coronary artery disease Hypertension Hyperlipidemia] Hospital Course: [ Coronary artery disease, status post stenting, cardiac catheterization carried out on May 16, 2020 showing heavily calcified LAD with moderate stenosis in the proximal to mid portion and severe stenosis distally. Complex intervention with deployment of Karen stent 2.5 x 15 mm in the mid to distal LAD with excellent results. I decided to continue monitoring the patient has an outpatient and consider cardiac catheterization and stenting the proximal portion if needed in the future. Prior to discharge patient started to have chest pain, had left bundle branch block which was intermittent in the past. I was concerned due to her extensive disease. Back to the [facility] on May 17, 2020 put 2 wires through the LAD and diagonal arteries then did balloon angioplasty in the proximal LAD which was very resistant lesion then ballooned the diagonal artery that is almost the same size as the LAD then proceeded with deployment of 2.5 x 33 mm drug-eluting stent extending from the ostium of the LAD to the midportion overlapping with the old stent and postdilated with noncompliant 2.75 balloon under high pressure due to the fact that the area was resistant. Postintervention patient had some nausea and vomiting. Today she was feeling well. No further episodes were reported. The rest of her coronary has mild to moderate disease. Educated in length about aspirin and Brilinta. Chest pain, unstable angina, improved. X Intermittent left bundle branch block Hypertension, monitor blood pressure Hyperlipidemia, started on statin Strong family history of heart disease] Labs and Pending Lab Test: Laboratory Tests 05/18/20 03:08: White Blood Count 8.0, Red Blood Count 3.47L, Hemoglobin 11.0L, Hematocrit 32L, Mean Corpuscular Volume 93, Mean Corpuscular Hemoglobin 32, Mean Corpuscular Hemoglobin Concent 34, Red Cell Distribution Width 11.9, Platelet Count 355, Mean Platelet Volume 9.9, Sodium Level 138, Potassium Level 3.2L, Chloride Level 104, Carbon Dioxide Level 18L, Anion Gap 16H, Blood Urea Nitrogen 15, Creatinine 1.16, Estimat Glomerular Filtration Rate 47, BUN/Creatinine Ratio 13, Glucose Level 100, Calcium Level 8.1L Microbiology 05/16/20 MRSA Screen - Final, Complete MRSA not isolated Home Meds Active Lipitor (Atorvastatin Calcium) 40 Mg Tablet 40 Mg PO HS Brilinta (Ticagrelor) 90 Mg Tablet 90 Mg PO BID Reported Aspirin EC (Aspirin) 81 Mg Tablet.dr 81 Mg PO DAILY Vitamin D3 (Cholecalciferol (Vitamin D3)) 25 Mcg Tablet 25 Mcg PO DAILY Levetiracetam 1,000 Mg Tablet 1,000 Mg PO TID Vitamin K2 40 Mcg Tablet 100 Mcg PO DAILY Allergy (Diphenhydramine HCl) 25 Mg Tablet 25 Mg PO DAILY Omeprazole 20 Mg Capsule.dr 20 Mg PO BID Calcium (Calcium Carbonate) 600 Mg Tablet 600 Mg PO BID B-12 (Cyanocobalamin (Vitamin B-12)) 1,000 Mcg Tablet 1,000 Mcg PO DAILY Gabapentin 800 Mg Tablet 800 Mg PO TID Linzess (Linaclotide) 290 Mcg Capsule 290 Mg PO HS Spironolactone 100 Mg Tablet 100 Mg PO BID Assessment/Pt DC Instructions Appointment with Dr. Gray as an outpatient Post cardiac catheter instruction were given, educated on taking aspirin and Brilinta Discharge Physical Examination Allergies: Coded Allergies: Opioids - Morphine Analogues (Verified Allergy, Unknown, DEEP SLEEP, PURPLE BLOTCHES, 12/28/18) ciprofloxacin (Verified Allergy, Unknown, RASH/BUMPS/PAIN, 12/28/18) codeine (Verified Allergy, Unknown, 10/20/18) fentanyl (Verified Allergy, Unknown, Anaphylaxis, 10/20/18) hydrochlorothiazide (Verified Allergy, Unknown, 10/20/18) lisinopril (Verified Allergy, Unknown, 09/06/18) morphine (Verified Allergy, Unknown, 09/06/18) opium (anthroposophic) (Verified Allergy, Unknown, 10/20/18) Uncoded Allergies: "opiates" (Allergy, Unknown, 03/31/18) General Appearance: No Apparent Distress, WD/WN HEENT: PERRL/EOMI, TMs Normal, Normal ENT Inspection, Pharynx Normal Respiratory: Chest Non Tender, Lungs Clear, Normal Breath Sounds, No Accessory Muscle Use, No Respiratory Distress Cardiovascular: Regular Rate, Rhythm, No Edema, No Gallop, No JVD, No Murmur, Normal Peripheral Pulses Gastrointestinal: Normal Bowel Sounds, No Organomegaly, No Pulsatile Mass, Non Tender, Soft Extremity: Normal Capillary Refill, Normal Inspection, Normal Range of Motion, Non Tender, No Calf Tenderness Skin: Normal Color, Warm/Dry Neurologic/Psychiatric: Alert, Oriented x3, No Motor/Sensory Deficits, Normal Mood/Affect Clinical Quality Measures Admission Status Admission Status: Inpatient Order (span 2 midnights) Reason for Inpatient Admission: Patient developed chest pain prior to discharge, resulted in repeating cardiac catheterization and stenting of the proximal LAD AMI/AHF: Ejection Fraction: Normal LVSF LANE GARY MD May 18, 2020 11:23
== END 2020-05-18 10:20 | disposition home or self-care (01) ==
LOC: CATH 14:00 → CSD 16:40 → CATH 05-18 10:20
PROVIDERS: ATTEND Internal Medicine Cardiovascular Disease
DX: I25.10 Atherosclerotic heart disease of native coronary artery without angina pectoris (principal); I10 Essential (primary) hypertension; E78.5 Hyperlipidemia, unspecified; K21.9 Gastro-esophageal reflux disease without esophagitis; K44.9 Diaphragmatic hernia without obstruction or gangrene; M81.0 Age-related osteoporosis without current pathological fracture; Z79.899 Other long term (current) drug therapy; Z88.5 Allergy status to narcotic agent; Z88.1 Allergy status to other antibiotic agents; Z88.8 Allergy status to other drugs, medicaments and biological substances; Z90.710 Acquired absence of both cervix and uterus
CPT/HCPCS: 71045; 80048; 80053; 80061; 85027 ×2; 85347; 85610; 85730; 87081; 93458; C1725 ×3; C1760; C1769 ×2; C1874 ×2; C1887 ×2; C1894 ×2; C9600 ×2; 36415; 93005

== ENCOUNTER → 2020-06-27 | Outpatient (CLI) | payer BC ==
[~2020-06-27] MED LIST changes: +ATOR40TA PO; -HEParin (CATH LAB) 2,000 ML IV ONE; -LIDOCAINE 1% INJ 20 ML 20 ML VIAL ONE; -NS IV 1000 ML 1,000 ML IV SCH; -NS IV 1000 ML 1,000 ML ONE; +TICA90TA PO
--- NOTE | 2020-06-27 11:03 | Diagnostic Imaging Report ---
PROCEDURE: US left lower extremity venous. TECHNIQUE: Multiple real-time grayscale images were obtained over the left lower extremity in various projections. Additional duplex Doppler and color Doppler images were also obtained. INDICATION: Left leg swelling The veins of the left leg have good color filling and compressibility. There is phasic flow and a normal response to augmentation. IMPRESSION: Negative venous Doppler left leg. Dictated by: Dictated on workstation # [id number]
== END ==
LOC: RAD 10:06
PROVIDERS: ATTEND Physician Assistant
DX: M79.89 Other specified soft tissue disorders (principal)

== ENCOUNTER → 2020-11-13 | Outpatient (CLI) | payer BC ==
[~2020-11-13] MED LIST changes: +CALC600T91 PO; +CATHETER FLUSH 10 ML SYR IV PRN; -CLC600T PO; +HOLD METFORMIN - RECEIVED CONTRAST 20 ML VIAL IV SCH; +IOHEXOL 350 MG/ML 150 ML (OMNIPAQUE 350) VIAL IV ONE; +NS 100 ML (IVPB) BAG IV ONE
[2020-11-13 09:48] LABS: BUN/CREATININE RATIO 13; CREATININE SERUM 0.89 MG/DL (0.60-1.30); GFR ESTIMATED > 60
--- NOTE | 2020-11-13 14:55 | Diagnostic Imaging Report ---
CTA AORTA W NASIR RUNOFF W/WO TECHNIQUE: CTA imaging of the abdomen, pelvis, and bilateral lower extremities was performed with IV contrast. 3D MIP reformats are created and submitted. All CT scans use one or more of the following dose optimizing techniques: automated exposure control, MA and/or KvP adjustment based on a patient size and exam type, or iterative reconstruction. INDICATION: Right leg pain with prior stents. Hypertension. COMPARISON: None available. FINDINGS: Aorta and iliac arteries: The abdominal aorta is normal in caliber with extensive atherosclerotic plaquing present but no luminal narrowing. Atherosclerotic plaquing is present in the bilateral common and external iliac arteries, resulting in less than 50% luminal narrowing on both sides. Atherosclerotic plaquing in the internal carotid arteries results in up to 50% luminal narrowing on the left. The celiac, superior mesenteric, and bilateral renal arteries are patent without stenosis. There are two left-sided renal arteries. Right lower extremity: The common femoral artery is patent with a small amount of calcified plaquing. The profunda femoris branches are patent. There is atherosclerotic plaquing at the origin of the right superficial femoral artery resulting in 25% luminal narrowing. The remainder of the superficial femoral artery is patent without high-grade luminal narrowing. The popliteal artery is normal. There is a three-vessel runoff to the level of the ankle. Left lower extremity: Common femoral artery is patent with mild atherosclerotic plaquing, resulting in no more than 25% luminal narrowing. Profunda femoris branches are patent proximally. Atherosclerotic plaquing at the origin of the superficial femoral artery results in up to 25% luminal narrowing. Superficial femoral arteries are otherwise patent. There is atherosclerotic plaquing within the popliteal artery which does not result in more than 25% luminal narrowing. The posterior tibial and peroneal arteries opacify to the level of the ankle. The anterior tibial artery is very small and does not opacify to the level of the ankle. Other: Lung bases are clear. Heart is borderline enlarged. No pericardial effusion. The liver, spleen, and pancreas are normal. Status post cholecystectomy. No left adrenal mass. There is a stable right adrenal nodule measuring 2.6 x 2.2 cm that is most compatible with adenoma. No solid renal mass or obstructive uropathy. Urinary bladder is partially filled without wall thickening. No pericolonic inflammatory change. Sigmoid colon diverticulosis without diverticulitis. No abdominal or pelvic lymphadenopathy. No concerning focal osseous lesions. IMPRESSION: 1. No abdominal aortic aneurysm. 2. Atherosclerotic plaquing within the common and external iliac arteries causes no more than 25% luminal narrowing. 3. No occlusion or high-grade stenosis of the arteries in the bilateral thighs. 4. Three-vessel runoff in the right lower leg. Two-vessel runoff in the left lower leg with the left anterior tibial artery nonopacifying. Dictated by: Dictated on workstation # [id number]
== END ==
LOC: CARD 09:30
PROVIDERS: ATTEND Internal Medicine Cardiovascular Disease
DX: I34.0 Nonrheumatic mitral (valve) insufficiency (principal); I25.10 Atherosclerotic heart disease of native coronary artery without angina pectoris; E78.2 Mixed hyperlipidemia; I11.9 Hypertensive heart disease without heart failure; M79.604 Pain in right leg; Z95.5 Presence of coronary angioplasty implant and graft
CPT/HCPCS: 36415; 75635; 82565; 84520; 93306

== ENCOUNTER → 2021-01-14 | Outpatient (CLI) | payer BC ==
[~2021-01-14] MED LIST changes: -CATHETER FLUSH 10 ML SYR IV PRN; -HOLD METFORMIN - RECEIVED CONTRAST 20 ML VIAL IV SCH; -IOHEXOL 350 MG/ML 150 ML (OMNIPAQUE 350) VIAL IV ONE; -NS 100 ML (IVPB) BAG IV ONE; +ZOLEDRONATE (RECLAST) 5 MG/100 ML IV ONE
[2021-01-14 09:00] VITALS: BP 135/75
== END ==
LOC: SDC 08:54
PROVIDERS: ATTEND Internal Medicine
DX: M81.0 Age-related osteoporosis without current pathological fracture (principal)
CPT/HCPCS: 96365

== ENCOUNTER → 2021-01-28 | Outpatient (CLI) | payer BC ==
[~2021-01-28] MED LIST changes: +REGADENOSON 0.4 MG/5 ML SYR (LEXISCAN) IV ONE; -ZOLEDRONATE (RECLAST) 5 MG/100 ML IV ONE
[2021-01-28] MEDS: CATHETER FLUSH 10 ML SYR IV PRN ×2 (08:14→09:41)
[2021-01-28 09:40] VITALS: BP 172/80
--- NOTE | 2021-01-28 12:30 | Cardiology Stress Test Report ---
Stress Test Report Date of Procedure/Referring: Date of Procedure: Jan 28, [address] Gray MD Admitting Physician Dudley Francis MD Indications: CP Baseline Heart Rate: 62 Baseline Blood Pressure: Blood Pressure Systolic: 172 Blood Pressure Diastolic: 80 Baseline Vitals Vital Signs Date Time Temp Pulse Resp B/P (MAP) Pulse Ox O2 Delivery O2 Flow Rate FiO2 01/28/21 09:40 62 14 172/80 (110) 97 Room Air Baseline EKG: Baseline EKG: NSR Summary After explaining the procedure to the patient, she signed a consent and then brought to the stress nuclear laboratory. Patient received 0.4 mg Lexiscan for stress test, ECG, heart rate and blood pressure were monitored continuously. Resting and stress dose of radio tracer w ere injected, imaging was acquired and reviewed in short axis, horizontal long axis and vertical long axis views. TID: 0.97 SSS: 19 SDS: 11 EF: 24 1. Patient developed chest pain with Lexiscan injection required multiple doses of nitroglycerin 2. Patient developed left bundle branch block after Lexiscan injection with chest pain 3. Baseline atrial fibrillation persisted during test 4. Decreased uptake involving the whole anterior wall, anterior apex and anterior septum with mild reversibility involving the basal to mid anterior wall and anteroseptum 5. Dilated left ventricle with diffuse left ventricular hypokinesia more pronounced at the anterior wall and apex with ejection fraction 24%, gated images are unreliable due to underlying atrial fibrillation LANE GARY MD Jan 28, 2021 12:30
== END ==
LOC: CARD 08:00
PROVIDERS: ATTEND Internal Medicine Cardiovascular Disease
DX: I25.10 Atherosclerotic heart disease of native coronary artery without angina pectoris (principal); I10 Essential (primary) hypertension
CPT/HCPCS: 78452; 93017; A9502

== ENCOUNTER 2021-03-27 09:13 | Outpatient (RCR) | payer BC ==
[~2021-03-27 09:13] MED LIST changes: +CHOL10004 PO; -CHOL100045 PO; +DICY20TA PO; -DICY20TA10 PO; -REGADENOSON 0.4 MG/5 ML SYR (LEXISCAN) IV ONE
[2021-03-30] MEDS ORDERED: LOSA25TA41 PO (14:54)
[2021-03-30] MEDS ORDERED: SACU1TAB7 PO (14:54)
[2021-03-30] MEDS ORDERED: ATOR80TA76 PO (14:54)
[2021-03-30] MEDS ORDERED: MTP25TSR PO (14:54)
[2021-03-30] MEDS ORDERED: TRAM50TA3 PO (14:54)
[2021-03-30] MEDS ORDERED: SPIR50TA4 PO (14:54)
[2021-03-30] MEDS ORDERED: ISOS30TA82 PO (14:54)
[2021-03-30] MEDS ORDERED: MECL-149 PO (14:54)
[2021-03-30] MEDS ORDERED: POTA-179 PO (14:54)
[2021-03-31] MEDS ORDERED: APIX5TAB PO (11:54)
[2021-03-31] MEDS ORDERED: METO50TA7 PO (11:54)
[2021-04-28] MEDS ORDERED: MGX400T PO (12:00)
== END 2021-06-21 | disposition home or self-care (01) ==
LOC: CR 09:13
PROVIDERS: ATTEND Internal Medicine
DX: I25.118 Atherosclerotic heart disease of native coronary artery with other forms of angina pectoris (principal); I10 Essential (primary) hypertension
CPT/HCPCS: 93798

== ENCOUNTER 2021-03-30 08:29 | Observation (INO) | payer BC ==
[~2021-03-30] VITALS: Ht 165 cm; Wt 86.3 kg
[~2021-03-30 08:29] MED LIST changes: -DICY20TA PO; +DICY20TA10 PO
[2021-03-30] MEDS ORDERED: ONDANSETRON 4 MG/2 ML (SDV) Z0FRAN ONE (08:33)
--- OUTSIDE RECORDS SUMMARY | 2021-03-30 08:33 | XMS REPORT | Encounter Summary ---
Author Author [facility] Organization [facility] Address Unknown Phone Unavailable Care Team Providers Care Potato Seed Cutter Name Role Phone Dudley Francis MD PCP Teddy Gray MD Unavailable Harjit Banegas DO Unavailable Reason for Referral * Consult, Test & Treat (Routine) Referred By Contact Referred To Contact Status Reason Specialty Diagnoses / Procedures Gomez Nye MD [address] [facility] [address] [place] [address] New Request Specialty Services Diagnoses Required Coronary artery disease of [place] artery of [place] heart with stable angina pectoris (HCC) Essential (primary) hypertension Answer Question CHF with EF <35% Diagnosis Information: Number not on file Pager # of the requesting provider if a ny questions? Comments Cardiac Rehab: Phase II, advance as tolerated, times 36 sessions. Patient prefers [facility] in [place], [place] Electronically signed by Gomez Nye MD at * Consult, Test & Treat (Routine) Referred By Contact Referred To Contact Status Reason Specialty Diagnoses / Procedures Gomez Nye MD [address] [facility] [address] [place] [address] New Request Procedures REQUEST FOR CARDIOLOGY APPOINTMENT Electronically signed by Gomez Nye MD at * Radiology Services (Routine) Referred By Contact Referred To Contact Status Reason Specialty Diagnoses / Procedures Gomez Nye MD [address] [facility] [address] [place] [address] [facility] [address] [facility] [place] [address] Authorized Radiology Diagnoses Coronary artery disease of [place] artery of [place] heart with stable angina pectoris (HCC) Essential (primary) hypertension P rocedures MRI CARD MORPH FXN WO/W Electronically signed by Gomez Nye MD at Reason for Visit * Reason Comments New To Provider 1 week post cath 02/26/21 * Consultation (Discharge Pending) Referred By Contact Referred To Contact Status Reason Specialty Diagnoses / Procedures Leigh Ann Park PA-C [address] [facility] [id number] [place] [address] [address] [address] [facility] [address] [address], [address] [place] [address] New Request Cardiology Diagnoses Cardiomyopathy, unspecified type (HCC) Nonrheumatic mitral valve regurgitation P rocedures APPOINTMENT REQUEST: CARDIOLOGY HEART FAILURE Encounter Details Care Team Description Date Type Department Barbara Stephens, LEAD PASTOR-STARTER CUP POWDER MIXER [address] [place], [place] [id number] Gomez Nye MD [address] [facility] [address] [place] [address] [phone] New To Provider (1 week post cath 02/26/21 ) 03/04/2021 Office Visit Cardiology: [facility] [address] [address], [address] [place] [address] Social History Date Tobacco Use Types Packs/Day Years Used Former Smoker Smokeless Tobacco: Never Used Comments: quit several years ago Comments Alcohol Use Standard Drinks/Week Not Currently 0 (1 standard drink = 0.6 o z pure alcohol) Sex Assigned at Date Recorded Female 02/21/2021 12:16 PM CDT Date Recorded COVID-19 Exposure Response 03/04/2021 1:53 PM CDT In the last month, have you been in contact with No / Unsure someone who was confirmed or suspected to have Coronavirus / COVID-19? documented as of this encounter Last Filed Vital Signs Reading Time Taken Comments Vital Sign 129/71 03/04/2021 2:10 PM CDT Blood Pressure 68 03/04/2021 2:10 PM CDT Pulse - - Temperature - - Respiratory Rate 100% 03/04/2021 2:10 PM CDT Oxygen Saturation - - Inhaled Oxygen Concentration 80.3 kg (177 lb) 03/04/2021 2:10 PM CDT Weight 165.1 cm (5' 5") 03/04/2021 2:10 PM CDT Height 29.45 03/04/2021 2:10 PM CDT Body Mass Index documented in this encounter Functional Status Date of Assessment Functional Status Response 03/04/2021 Does the patient have a hearing impairment: No 03/04/2021 Does the patient have a visual impairment: Yes 03/04/2021 Does the patient have impaired ambulation: No 03/04/2021 Does the patient have an activity of daily living No (ADL) impairment: 03/04/2021 Does the patient have an instrumental activity of No daily living (IADL) impairment: Date of Assessment Cognitive Status Response 03/04/2021 Does the patient have a cognitive impairment: No documented as of this encounter Patient Instructions * Patient Instructions* Myesha Mike - 03/04/2021 2:00 PM CDT - Stop taking Cozaar. - [facility]. - Cardican MRI with Gd in 1 month. Please have patient or staff call Radiology a t to schedule the appointment. - Start Entrest Medium dose (49/51 mg). - BMP in 2 weeks. - See DM in 2 weeks via Tele health - See me after MRI. For up to date information on the COVID-19 virus, visit the CDC website. General supportive care during cold and flu season and infection prevention reminders: o Wash hands often with soap and water for at least 20 seconds o Cover your mouth and nose o Stay home if sick and symptoms mild or manageable - If you must be around people wear a mask If you are having symptoms of a lower respiratory infection (cough, shortnes s of breath) and/or fever AND either traveled in last 30 days (internationally o r to region of exposure) OR known exposure to patient with COVID19: o Call your primary care provider for questions or health needs. - Tell your doctor about your recent travel and your symptoms o In a medical emergency, call 911 or go to the nearest emergency room. If you wish to contact us, please call and leave a message for the heart failure nurses at [phone] during regular office hours Mon-Fri, 8am-4pm. After hours and on holidays and weekends, please call: [phone] to reach the dehydrogenation converter helper c ardiologist for non urgent questions or issues. To schedule or change an appointment call [phone]. MD Pam Doherty APRN Mary Beth Meier, SADIE [place], SADIE [place] [facility] Your Heart Failure Symptom Awareness and Action Plan Every Day Action Plan Weigh yourself in the morning before breakfast. Write it down and compare it to yesterday's weight. Take your medicine, as prescribed. Please call if you have concerns about the side effects, cost or refills. Check for worsened swelling in your feet, ankles and stomach Follow a 2000mg salt diet. Keep all healthcare appointments Green Zone Good! Symptoms are under control No shortness of breath No increase in ankle swelling No weight gain No chest pain No change in your usual activity Continue to follow your everyday action plan. Yellow Zone If you have any of these symptoms, please call the heart failure nurses: Increased shortness of breath with activity Weight gain of 3 pounds in one day or 5 pounds in a week Increased swelling in your ankles or legs Increased swelling in your stomach Increasing fatigue You may need an adjustment of your medications. Red Zone These are urgent symptoms. Please call the heart failure nurses: [phone] Shortness of breath at rest or waking up at night feeling short of breath or co ughing Increased number of pillows used or needing to sit upright to sleep Chest tightness at rest Dizziness, lightheadedness or feeling faint You need to schedule an appointme nt Emergency Zone call 911 Worsening chest tightness or pain that is not rel ieved by medication Severe shortness of breath and a cough with pink, frothy sputum documented in this encounter Ordered Prescriptions Start Date End Date Prescription Sig Dispensed Refills 03/04/2021 sacubitriL-valsartan Take one 180 tablet 3 (ENTRESTO) 49-51 mg tablet by tablet mouth twice daily. documented in this encounter Progress Notes * Gomez Nye MD - 03/04/2021 2:00 PM CDT Date of Service: 03/04/2021 Sary Paige is a 66 y.o. female. HPI I had opportunity of seeing Ambreen at [facility] cardiomyopathy/heart failure clinic. She is an exceptionally pleasant 66-year-old female with past medical history of coronary artery disease status post PCI x2 in April 2020, hypertension, dyslipidemia and severe mitral regurgitation. Patient has been a smoker in the past and quit few months ago. She tells me she was admitted in April of this year after having chest pain. She got stent in her proximal LAD in April 2020.LC last right heart catheter the stent was done on Nov after the stent was done he started having more chest pain and had new left bundle branch block. It appears 1 more stent was deployed next day on May 18, 2020 with excellent flow results. latest echocardiogram on 11/13/2020 from outside hospital has revealed LVEF of 20 to 25% ember 2020. He has regional wall motion abnormalities with akinesis of mid anterior, basal mid anteroseptal, basal mid inferoseptal, mid inferior, apical septal and apical myocardium. RV size and function appear within normal limits. Echocardiogram also reports severe mitral valve regurgitation. His LV end-diastolic diameter was reported at 6.3 cm with LV end-diastolic volume of 21 5 mL indicating severely dilated LV. Records also indicate MPI stress test done recently that led to chest pain with Lexiscan injection. She developed left bu ndle branch block. Patient had dilated left ventricle with hypokinesia of anter ior wall and apex with decreased perfusion at both rest and after Lexiscan injec tion involving the whole anterior wall, anterior apex and anterior septum with v darron minimal reversibility. Patient ultimately had coronary angiogram on 02/26/[address] Zepeda with followin g results FINAL IMPRESSION: 1. Mild nonobstructive coronary disease as described above. 2. Patent stent in the proximal LAD extending to the 1st diagonal artery. 3. Low LVEDP. 4. No aortic gradient on pullback. She has been put on GDMT for some time. GDMT includes metoprolol XL 50 mg daily , spironolactone 50 mg daily and losartan 25 mg daily. She has been tolerating them well. Blood pressure today is 129/71 mmHg and heart rate 68 bpm. From symptom standpoint of view she describes NYHA class III symptoms. He is ab le to do daily chores of life however gets easily short of breath on minimal exe rtion. She was able to walk from parking to our clinic however had to stop a fe w times. Denies any chest pain or chest pressure recently, shortness of breath at rest, lightheadedness, dizziness, palpitations or passing out episodes. She is giving positive history of orthopnea and is using elevation when she is sleep ing. Social/family history; strong family history of coronary artery disease with bot h parents having [place]. She lives with her . 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 She has 2 kids both in their 40s. Used to smoke all life however quit few month s ago Vitals: 03/04/21 1410 BP: 129/71 BP Source: Arm, Left Upper Patient Position: Sitting Pulse: 68 SpO2: 100% Weight: 80.3 kg (177 lb) Height: 1.651 m (5' 5") PainSc: Zero Body mass index is 29.45 kg/m. Past Medical History Patient Active Problem List Diagnosis Date Noted Coronary artery disease of [place] artery of [place] heart with stable angina pectoris (HCC) 02/26/2021 Essential (primary) hypertension 02/26/2021 Dyslipidemia 02/26/2021 Nonrheumatic mitral valve regurgitation 02/26/2021 Nonischemic cardiomyopathy (HCC) 02/26/2021 Review of Systems Constitutional: Positive for malaise/fatigue. HENT: Negative. Eyes: Negative. Cardiovascular: Negative. Respiratory: Positive for shortness of breath. Endocrine: Negative. Hematologic/Lymphatic: Negative. Skin: Negative. Musculoskeletal: Negative. Gastrointestinal: Negative. Genitourinary: Negative. Neurological: Negative. Psychiatric/Behavioral: Negative. Allergic/Immunologic: Negative. Physical Exam General Appearance: resting comfortably, no acute distress Skin: warm, moist, no evident rashes Digits and Nails: no clubbing Eyes: conjunctivae and lids normal, pupils are equal and round Lips & Oral Mucosa: no pallor or cyanosis Ear, Nose, Throat: No deformities Neck veins: neck veins are distended with JVP of around 9 cm Carotid Arteries: normal carotid upstroke bilaterally, no bruits Chest Inspection: chest is normal in appearance Lung Auscultation: lungs with normal breath sounds, no rhonchi, and and expirato ry wheezes PMI: PMI not enlarged or displaced Cardiac Rhythm: regular rhythm and normal rate Cardiac Auscultation: Normal S1 & S2, no S3 or S4, no rubs or clicks Murmurs: Holosystolic murmur in the mitral area consistent with MR. Abdominal Exam: soft, non-tender, no masses, bowel sounds normal Pedal Pulses: normal symmetric pedal pulses Lower Extremities: no lower extremity edema Muscle Strength: grossly normal Neurologic Exam: neurological assessment grossly intact Orientation: oriented to time, place and person Affect & Mood: appropriate and sustained affect Cardiovascular Studies Problems Addressed Today No diagnosis found. Assessment and Plan #1. Heart failure with reduced ejection fraction/dilated cardiomyopathy with LV end-diastolic diameter 6.3 cm and volume of 215 mL from latest echocardiogram in October 2020. Etiology appears to be ischemic since she has segmental wall motion abnormalities and scar on stress test. Patient describes NYHA class III sympto ms. #2. Severe mitral valve regurgitation #3. Coronary artery disease status post PCI x2 in April 2020. Would recommend to continue her aspirin, statin and beta-dallin as well as Bril inta for recently placed stents. For heart failure we will continue metoprolol XL and spironolactone however I wi ll change her losartan to medium dose Entresto. Unsure if her cardiac function will improve since she has scarred her left ventr icle mainly the anterior wall possibly due to [place]. Try GDMT for some time (1 to 2 months) and if EF does not improve options are mitral clip versus advanced the rapies. We will get a cardiac MRI once she has been on Entresto for a month. We will ge t BMP in 2 weeks. She should see Pam Rowell in 2 weeks and will see me after M RI is done. 60 minutes of time spent with patient and family. Greater than 30 minutes of th is time spent counseling regarding heart failure with reduced ejection fraction, need for cardiac MRI, GDMT, need to be active, medications and volume control. Gomez Nye M.D [facility] Supervisor Current Medications (including today's revisions) aspirin 81 mg chewable tablet Chew 81 mg by mouth daily. Take with food. atorvastatin (LIPITOR) 80 mg tablet Take one tablet by mouth daily. calcium carbonate (CALCIUM 500 PO) Take 500 mg by mouth twice daily. Cholecalciferol (Vitamin D3) (VITAMIN D-3) 50 mcg (2,000 unit) cap Take by mouth. gabapentin (NEURONTIN) 800 mg tablet Take 800 mg by mouth three times daily. levETIRAcetam (KEPPRA) 1,000 mg tablet Take 1,000 mg by mouth three times da leobardo. linaclotide (LINZESS) 290 mcg capsule Take 290 mcg by mouth daily. losartan (COZAAR) 25 mg tablet Take 25 mg by mouth daily. meclizine (ANTIVERT) 25 mg tablet Take 25 mg by mouth three times daily as n eeded. metoprolol XL (TOPROL XL) 50 mg extended release tablet Take one tablet by m outh daily. omeprazole DR (PRILOSEC) 20 mg capsule Take 20 mg by mouth twice daily. spironolactone (ALDACTONE) 50 mg tablet Take 50 mg by mouth daily. Take with food. ticagrelor (BRILINTA) 90 mg tablet Take 90 mg by mouth twice daily. traMADoL (ULTRAM) 50 mg tablet Take 50 mg by mouth every 6 hours. Take 0.33 tablets every 6 hours as needed documented in this encounter Plan of Treatment Order Schedule Name Type Priority Associated Diag noses Expected: 04/03/2021 (Approximate), Expi res: 03/04/2022 MRI CARD MORPH FXN WO/W Imaging Routine [place] artery disease of [place] artery of [place] heart with stable angina pectoris (HCC) Essential (primary) hypertension Order Schedule Name Type Priority Associated Diag noses Ordered: 03/04/2021 AMB REFERRAL TO CARDIAC Outpatient Routine [place] artery disease REHAB Referral of [place] artery of [place] heart with stable angina pectoris (HCC) Essential (primary) hypertension documented as of this encounter Results * BASIC METABOLIC PANEL (03/15/2021) Sodium 136 [facility] Potassium 3.3 (L) 3.5 - 5.3 [facility] Chloride 108 [facility] CO2 19 (L) 20 - 32 [facility] Blood Urea 22 [facility] Nitrogen Creatinine 1.12 (H) 0.50 - 0.99 [facility] Glucose 111 (H) 65 - 99 [facility] Calcium 10.3 [facility] eGFR Non 52 (L) >OR=60 [facility] eGFR 60 [facility] Stateless Anion Gap [facility] BUN/Creatinine 20 [facility] Ratio Specimen Blood - Blood Narrative Performed At This result has an attachment that is n ot available. Performing Organization Address City/State/ZIP Code P chilo Number [facility] [address] [place] [address] documented in this encounter Visit Diagnoses Diagnosis Coronary artery disease of [place] arter y of [place] heart with stable angina pectoris (HCC) - Primary Essential (primary) hypertension Unspecified essential hypertension Low left ventricular ejection fraction documented in this encounter Discontinued Medications Start Date End Date Medication Sig Discontinue Reason 03/04/2021 losartan (COZAAR) 25 mg Take 25 mg Per Provider tablet by mouth daily. documented as of this encounter Orders First Ordered Date Appointment Count Last Ordered Date REQUEST FOR CARDIOLOGY APPOINTMENT 1 documented in this encounter Additional Health Concerns Assessment Noted Time A fall risk assessment has been completed for the pat ient 03/04/2021 2:10 PM CDT PHQ-2 Depression Total Score: 0 02/26/2021 8:22 AM CDT documented as of this encounter
--- OUTSIDE RECORDS SUMMARY | 2021-03-30 08:33 | XMS REPORT | Encounter Summary ---
Author Author [facility] Organization [facility] Address Unknown Phone Unavailable Care Team Providers Care Hemodialysis Rn Name Role Phone Dudley Francis MD PCP Teddy Gray MD Unavailable Harjit Banegas DO Unavailable Pam Rowell HAND SINGER-VICE PRESIDENT QUALITY ASSURANCE 7 Reason for Visit * Reason Onset Date Comments Lab Request 03/15/2021 [facility] c Encounter Details Care Team Description Date Type Department Laura Cruz Lab Request ([facility]) 03/15/2021 Telephone Cardiology: [facility] [address] [facility] [address], [address] [place] [address] Social History Date Tobacco Use [...] / COVID-19? documented as of this encounter Functional Status Date of Assessment [...] impairment: No documented as of this encounter Miscellaneous Notes * Telephone Encounter - Laura Cruz - 03/15/2021 4:16 PM CDT Pt reports at today's telehealth appt with KIM VICE PRESIDENT QUALITY ASSURANCE she had lab drawn locally at [facility] PCP office, [facility] in [place], [place]. Called and spoke with gretchen lara; they confirm lab drawn and they have correct HF clinic fax number. Lab is sen t out for processing so results not yet available. Informed KIM, VICE PRESIDENT QUALITY ASSURANCE. WIll review when results available. Also updated pt that since she is already on prilosec, will discontinue pepcid o rdered today. documented in this encounter Plan of Treatment Not on filedocumented as of this encounter Visit Diagnoses Not on filedocumented in this encounter Additional Health Concerns Assessment Noted Time A fall risk assessment has been completed for the pat ient 03/04/2021 2:10 PM CDT PHQ-2 Depression Total Score: 0 02/26/2021 8:22 AM CDT documented as of this encounter
--- OUTSIDE RECORDS SUMMARY | 2021-03-30 08:33 | XMS REPORT | Encounter Summary ---
Author Author [facility] Organization [facility] Address Unknown Phone Unavailable Care Team Providers Care Lab Support Technician Name Role Phone Dudley Francis MD PCP Teddy Gray MD Unavailable Harjit Banegas DO Unavailable Pam Rowell NAPHTHA WASHING SYSTEM OPERATOR-BEATER MACHINE OPERATOR 7 Reason for Visit * Reason Onset Date Comments Resource Information 03/18/2021 Encounter Details Care Team Description Date Type Department Gladys Cuello Resource Information 03/18/2021 Telephone Cardiology: [facility] [address] [place] [address] [address], [address] [place] [address] Social History Date Tobacco Use [...] encounter Miscellaneous Notes * Telephone Encounter - Gladys Cuello - 03/18/2021 9:35 AM CDT Progress Note [facility] Medical Office Specialist Plan: Provide lodging resources near [facility]. Intervention: SW made out bound call to patient and self-disclosed identity/ rol e in clinic. Patient acknowledged the need for lodging resources near [facility] for upcoming MRI. SW provided community lodging list to patient via email at [email or web address]. No further needs were identified at this time. Gladys Cuello [facility] Outpatient Heart Failure Rounding Machine Tender Office: [phone] documented in this encounter Plan of Treatment [...]
--- OUTSIDE RECORDS SUMMARY | 2021-03-30 08:33 | XMS REPORT | Encounter Summary ---
Author Author [facility] Organization [facility] Address Unknown Phone Unavailable Care Team Providers Care Zipper Trimmer Name Role Phone Dudley Francis MD PCP Teddy Gray MD Unavailable Harjit Banegas DO Unavailable Encounter Details Care Team Description Date Type Department 03/04/2021 Travel Social History Date Tobacco Use Types Packs/Day [...] impairment: No documented as of this encounter Plan of Treatment Not on filedocumented as of this encounter Visit Diagnoses Not on filedocumented in this encounter Additional Health Concerns Assessment Noted Time A fall risk assessment has been completed for the pat ient 03/04/2021 2:10 PM CDT PHQ-2 Depression Total Score: 0 02/26/2021 8:22 AM CDT documented as of this encounter
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
--- OUTSIDE RECORDS SUMMARY | 2021-03-30 08:33 | XMS REPORT | Encounter Summary ---
Author Author [facility] Organization [facility] Address Unknown Phone Unavailable Care Team Providers Care Console Operator Name Role Phone Dudley Francis MD PCP Reason for Visit * Auth/Cert Referred By Contact Referred To Contact Status Reason Specialty Diagnoses / Procedures Diagnoses Abnormal stress test Procedures IN CATH PLMT L HRT & ARTS W/NJX & ANGIO IMG S&I IN PRQ TRLUML CORONARY STENT W/ANGIO ONE ART/BRNCH ANGIOGRAPHY CORONARY ARTERY WITH LEFT HEART CATHETERIZATION POSSIBLE PERCUTANEOUS CORONARY STENT PLACEMENT WITH ANGIOPLASTY Encounter Details Care Team Description Date Type Department Alan Zepeda MD [address] [place] [address] [phone] 02/26/2021 Hospital Cardiology: [facility] for [facility] [address], [address] [place] [id number] Social History Date Tobacco Use Types Packs/Day Years Used Former Smoker Smokeless Tobacco: Never Used Comments: quit several years ago Comments Alcohol Use Standard Drinks/Week Not Currently 0 (1 standard drink = 0.6 o z pure alcohol) Sex Assigned at Date Recorded Female 02/21/2021 12:16 PM CDT Date Recorded COVID-19 Exposure Response 02/26/2021 7:30 AM CDT In the last month, have you been in contact with No / Unsure someone who was confirmed or suspected to have Coronavirus / COVID-19? documented as of this encounter Medications at Time of Discharge Start Date End Date Medication Sig Dispensed Refills aspirin 81 mg chewable Chew 81 mg by 0 tablet mouth daily. Take with food. 02/26/2021 atorvastatin (LIPITOR) 80 Take one 90 tablet 3 mg tablet tablet by mouth daily. calcium carbonate Take 500 mg 0 (CALCIUM 500 PO) by mouth twice daily. Cholecalciferol (Vitamin Take by 0 D3) (VITAMIN D-3) 50 mcg mouth. (2,000 unit) cap gabapentin (NEURONTIN) Take 800 mg 0 800 mg tablet by mouth three times daily. levETIRAcetam (KEPPRA) Take 1,000 mg 0 1,000 mg tablet by mouth three times daily. linaclotide (LINZESS) 290 Take 290 mcg 0 mcg capsule by mouth daily. meclizine (ANTIVERT) 25 Take 25 mg by 0 mg tablet mouth three times daily as needed. omeprazole DR (PRILOSEC) Take 20 mg by 0 20 mg capsule mouth twice daily. ticagrelor (BRILINTA) 90 Take 90 mg by 0 mg tablet mouth twice daily. traMADoL (ULTRAM) 50 mg Take 50 mg by 0 tablet mouth every 6 hours. Take 0.33 tablets every 6 hours as needed 03/04/2021 losartan (COZAAR) 25 mg Take 25 mg by 0 tablet mouth daily. 02/26/2021 03/15/2021 metoprolol XL (TOPROL XL) Take one 90 tablet 3 50 mg extended release tablet by tablet mouth daily. 03/08/2021 spironolactone Take 50 mg by 0 (ALDACTONE) 50 mg tablet mouth daily. Take with food. documented as of this encounter Discharge Disposition Code Departure Means Destination Disposition Home Home or Self Care documented in this encounter Plan of Treatment Not on filedocumented as of this encounter Procedures Comments Procedure Name Priority Date/Time Associated Diag nosis HC CBC,AUTOMATED Routine 02/26/2021 Abnormal stre ss test 8:50 AM CDT Pre-procedure lab exam HC Add on 02/26/2021 LIPID-5:CHOL/TRG/HDL/LDL+ 8:50 AM CDT VLDL HC BASIC METABOLIC PANEL Routine 02/26/2021 Abnor mal stress test 8:50 AM CDT Pre-procedure lab exam documented in this encounter Results * LIPID PROFILE (02/26/2021 8:50 AM CDT) Pathologist [facility] Cholesterol 187 <200 MG/DL [facility] [...] than 130 mg/dL. Specimen Performing Organization Address City/[facility]/ZIP Code P chilo Number [facility] [address] [place] [address] * CBC (02/26/2021 8:50 AM CDT) White Blood 9.7 4.5 - 11.0 K/UL [facility] Cells RBC 3.67 (L) 4.0 - 5.0 M/UL [facility] Hemoglobin 11.6 (L) 12.0 - 15.0 GM/DL [facility] Hematocrit 33.8 (L) 36 - 45 % [facility] MCV 92.0 80 - 100 FL [facility] MCH 31.6 26 - 34 PG [facility] MCHC 34.3 32.0 - 36.0 G/DL [facility] RDW 12.9 11 - 15 % [facility] Platelet Count 348 150 - 400 K/UL [facility] MPV 7.9 7 - 11 FL [facility] Specimen Blood Performing Organization Address City/[facility] P chilo Number [facility] [address] [place] [address] * BASIC METABOLIC PANEL (02/26/2021 8:50 AM CDT) Sodium 144 137 - 147 MMOL/L [facility] Potassium 3.1 (L) 3.5 - 5.1 MMOL/L [facility] Chloride 106 98 - 110 MMOL/L [facility] CO2 27 21 - 30 MMOL/L [facility] Anion Gap 11 3 - 12 [facility] Glucose 97 70 - 100 MG/DL [facility] Blood Urea 9 7 - 25 MG/DL [facility] Nitrogen Creatinine 0.95 0.4 - 1.00 MG/DL [facility] Calcium 8.9 8.5 - 10.6 MG/DL [facility] eGFR Non 59 (L) >60 mL/min [facility] Comment: [place] The eGFR is not validated f or use in drug dosing adjustments. Continue to use estimated creatinine clearance per dosing reference text. Please contact the Clinical Pharmacist for questions. eGFR >60 >60 mL/min [facility] [place] Comment: The eGFR is not validated for use in drug dosing adjustments. Continue to use estimated creatinine clearance per dosing reference text. Please contact the Clinical Pharmacist for questions. Specimen Blood Performing Organization Address City/State/ZIP Code P chilo Number [facility] [address] [place] [address] documented in this encounter Visit Diagnoses Diagnosis Abnormal stress test Other nonspecific abnormal cardiovascul ar system function study Pre-procedure lab exam Pre-procedural laboratory examination documented in this encounter Additional Health Concerns Assessment Noted Time A fall risk assessment has been completed for the pat ient 02/26/2021 9:31 AM CDT PHQ-2 Depression Total Score: 0 02/26/2021 8:22 AM CDT documented as of this encounter
--- OUTSIDE RECORDS SUMMARY | 2021-03-30 08:33 | XMS REPORT | Encounter Summary ---
Author Author [facility] Organization [facility] Address Unknown Phone Unavailable Care Team Providers Care Ice Cream Server Name Role Phone Dudley Francis MD PCP Teddy Gray MD Unavailable Harjit Banegas DO Unavailable Pam Rowell POST CLOSING SPECIALIST-TRANSIT BUS OPERATOR 7 Reason for Visit * Reason Comments Heart Failure Follow Up * Consult, Test & Treat (Routine) Referred By Contact Referred To Contact Status Reason Specialty Diagnoses / Procedures Gomez Nye MD [address] [facility] [address] [place] [address] New Request Procedures REQUEST FOR CARDIOLOGY APPOINTMENT Encounter Details Care Team Description Date Type Department Pam Rowell, POST CLOSING SPECIALIST-TRANSIT BUS OPERATOR [address] [facility] [id number] [place], [place] [id number] Heart Failure; Follow Up 03/15/2021 Office Visit Cardiology: [facility] [address] [facility] [address], [address] [place] [address] Social History Date Tobacco Use [...] this encounter Patient Instructions * Patient Instructions* Anjelica Rouse MA - 03/15/2021 2:30 PM CDT Thank you for coming to [facility]. Your instructions tod ay: 1. Recommendations: Change the metoprolol to 25 mg and start taking it at bedtime on 03/16 Start Imdur 30 mg once a day to see if that helps with the chest pain 2. Next follow up appointment: You have a cardiac MRI scheduled on April 08 a t 415. Will see if Dr. Nye can see you the next day or if that is not possible will ask for a nurse practitioner visit in the afternoon before the cardiac MRI. Gladys or Whit will call you with Lodging options if you are spending the n ight on Apr 08 For up to date information on the [...] message for the heart failure nurses at [phone] during regular office hours Mon-Fri, 8am-4pm. After hours and on holidays and weekends, please call: [phone] to reach the circulation crew leader c ardiologist for non urgent questions or issues. To schedule or change an appointment call [phone]. MD Pam Doherty APRN Mary Beth Meier, RN Tamara Amick, RN [place] [facility] Your Heart Failure Symptom Awareness and Action [...] symptoms. Please call the heart failure nurses: [phone] Shortness of breath at rest or waking up at night feeling short of breath or co ughing Increased number of pillows used or needing to sit upright to sleep Chest tightness at rest Dizziness, lightheadedness or feeling faint You need to schedule an appointme nt Emergency Zone call 910 Worsening chest tightness or pain that is not rel ieved by medication Severe shortness of breath and a cough with pink, frothy sputum documented in this encounter Ordered Prescriptions Start Date End Date Prescription Sig Dispensed Refills 03/15/2021 isosorbide mononitrate ER Take one 90 tablet 1 (IMDUR) 30 mg tablet tablet by mouth every morning. 03/16/2021 metoprolol XL (TOPROL XL) Take one-half 90 tablet 3 50 mg extended release tablet by tablet mouth at bedtime daily. 03/15/2021 03/15/2021 famotidine (PEPCID) 20 mg Take one 180 tablet 3 tablet tablet by mouth twice daily. documented in this encounter Progress Notes * Pam Rowell Elo, POST CLOSING SPECIALIST-TRANSIT BUS OPERATOR - 03/15/2021 2:30 PM CDT Date of Service: 03/15/2021 Obtained patient's verbal consent to treat them and their agreement to [facility] and NPP via this telehealth visit during the Coronavirus Public He alth Emergency. This video home visit was conducted via communication between the patient and ysician/provider due to COVID-19. We have found that certain health care needs can be provided without an in-person visit.. This service lets us provide the ca re patients' need. If a prescription is necessary we can send it directly to [facility]. If testing is necessary this can be arranged. Sary Paige (Debbie) is a 66 y.o. female. HPI At the pleasure of seeing Ambreen Paige today in cardiovascular medicine clinic for heart failure follow-up. She was last seen in clinic on March [address] Nye. She has medical history significant for coronary artery disease s tatus post PCI x2 in April 2020, hypertension, hyperlipidemia, previous tobac coism and severe mitral regurgitation. At the last office visit her losartan wa s changed to moderate dose Entresto and work on increasing GDMT for 1 to 2 month s and if EF does not improve will consider MitraClip versus advanced therapies. She is scheduled to have a cardiac MRI on 04/08/2021. Today she reports that she is fatigued. She reports that she states that she fe els congested and has a cough, and sometimes feels like she is waking up choking . She states that she will try to walk about 4 [address] down [address] [facility] she has to stop twice. She states her home weight has been 171 pounds for t he past 2 days, she reports that she feels hungry but is only able to eat a nelli le bit. She has had some heartburn. She feels like she has had pain in her dorcas st and jaw when she lays down at night. She states her blood pressure in the mo rning is 118/73 to a high of 135/60 however in the afternoon her blood pressure will drop to 88/59 with a pulse of 70. She denies any peripheral edema. She te lls me that she had labs drawn this morning which include fasting labs. Telehealth Patient Reported Vitals Row Name 03/15/21 1426 BP: 135/60 BP Source: Arm, Left Lower BP Position: Sitting BP Method: Automatic/Digital Reading Pulse: 70 Weight: 77.6 kg (171 lb) Height: 1.651 m (5' 5") Pain Score: Zero There is no height or weight on file to calculate BMI. 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 HENT: Negative. Eyes: Negative. Cardiovascular: Negative. Respiratory: Positive for cough. Endocrine: Negative. Hematologic/Lymphatic: Negative. Skin: Negative. Musculoskeletal: Negative. Gastrointestinal: Negative. Genitourinary: Negative. Neurological: Positive for dizziness. Psychiatric/Behavioral: Negative. Allergic/Immunologic: Negative. All other systems reviewed and are negative. Physical exam limited d/t video tele health visit: General Appearance: patient in no apparent distress. Skin: pink, no jaundice, exposed skin is intact Eyes: conjunctivae and lids normal, pupils are equal and round Lips: no pallor or cyanosis Neck Veins: Respiratory Effort: breathing comfortably, no respiratory distress Lower extremities: Orientation: oriented to time, place and person PSYCH: Appropriate Language and Memory: patient responsive and seems to comprehend information NEURO: Alert and conversant Cardiovascular Studies Problems Addressed Today No diagnosis found. Assessment and Plan 1. Coronary artery disease status post PCI x2 on 02/26/2021. I discussed with Dr. Nye, will plan to have her reduce the metoprolol to 25 mg and have her take it at bedtime and then start Imdur 30 mg once a day. She continues to take aspirin 81 mg daily, Lipitor 80 mg daily, ticagrelor 90 mg daily. In case this is GI type symptoms she is already on omeprazole 20 mg twice daily. 2. Severe Mitral regurgitation. She had an echocardiogram in November 13 at outside hospital that showed an EF of 20 to 25% with diffuse hypokinesis and apical kin esis involving the mid anterior, basal mid anteroseptal, basal mid inferoseptal, mid inferior, apical septal and apical myocardium with severe mitral regurgitat ion (reviewed Dr. Zepeda's office visit on 02/26 close parentheses. 3. Heart failure with reduced ejection fraction: Her GDMT includes Entresto 49/ 51 mg tablet p.o. twice daily, spironolactone 25 mg daily, Toprol-XL. 4. Hyperlipidemia: Her last fasting lipid panel on 02/26/2021 revealed total chol esterol 187, triglycerides 271, HDL 45 and LDL 103. She is on atorvastatin 80 m g daily. 5. Anemia: Last hemoglobin was 11.6, hematocrit was 33.8. She is getting labs drawn today. 6. Hypokalemia: Last chemistry on 02/26 showed a potassium of 3.1 and creatinine 0.95. Awaiting repeat BMP results. I have personally documented the HPI, exam and medical decision making. Patient education: I reviewed recent lab results and current medications, medication in structions, discussed heart failure signs & symptoms, low sodium diet, fluid restriction and daily weights.I have instructed the patient on the plan of care and they verbalize understanding of the plan. Please see AVS for full patient teaching. Patient advised to call our office if s/he has any problems, questions, worsening symptoms, or concerns prior to the next appointment. Thanks for allowing me to see this nice patient. If I can be of additional assistance, please don't hesitate to contact me. Pam Rowell [facility] Pager [phone] Collaborating physician: Dr. Gomez Nye Total Time Today was 40 min utes in the following activities: Preparing to see t he patient, Obtaining and/or reviewing separately obtained history, Ordering med ications, tests, or procedures and Referring and communication with other health director long term care (when not separately reported) Current Medications (including today's revisions) aspirin 81 [...] capsule Take 290 mcg by mouth daily. meclizine (ANTIVERT) 25 mg tablet Take 25 mg by mouth three times daily as n eeded. metoprolol XL (TOPROL XL) 50 mg extended release tablet Take one tablet by m outh daily. omeprazole DR (PRILOSEC) 20 mg capsule Take 20 mg by mouth twice daily. sacubitriL-valsartan (ENTRESTO) 49-51 mg tablet Take one tablet by mouth twi ce daily. spironolactone (ALDACTONE) 50 mg tablet Take one-half tablet by mouth daily. Take with food. ticagrelor (BRILINTA) 90 mg tablet Take 90 mg by mouth twice daily. traMADoL (ULTRAM) 50 mg tablet Take 50 mg by mouth every 6 hours. Take 0.33 tablets every 6 hours as needed Telehealth Patient Reported Vitals Row Name 03/15/21 1426 BP: 135/60 BP Source: Arm, Left Lower BP Position: Sitting BP Method: Automatic/Digital Reading Pulse: 70 Weight: 77.6 kg (171 lb) Height: 1.651 m (5' 5") Pain Score: Zero documented in this encounter Plan of Treatment Not on filedocumented as of this encounter Visit Diagnoses Diagnosis Systolic heart failure, unspecified HF chronicity (HCC) Other iron deficiency anemia Hypokalemia Hypopotassemia documented in this encounter Discontinued Medications Start Date End Date Medication Sig Discontinue Reason 02/26/2021 03/15/2021 metoprolol XL (TOPROL XL) Take one 50 mg extended release tablet by tablet mouth daily. 03/15/2021 03/15/2021 famotidine (PEPCID) 20 mg Take one tablet tablet by mouth twice daily. documented as of this encounter Orders [...]
--- OUTSIDE RECORDS SUMMARY | 2021-03-30 08:33 | XMS REPORT | Encounter Summary ---
Author Author [facility] Organization [facility] Address Unknown Phone Unavailable Care Team Providers Care Bin Operator Name Role Phone Dudley Francis MD PCP Reason for Referral * Consultation (Discharge Pending) Referred By Contact Referred To Contact Status Reason Specialty Diagnoses / Procedures Leigh Ann Park PA-C [address] [place] [address] [place] [address] [facility] [address] [place] [address] [address], [address] [place] [address] New Request Cardiology Diagnoses Cardiomyopathy, unspecified type (HCC) Nonrheumatic mitral valve regurgitation P rocedures APPOINTMENT REQUEST: CARDIOLOGY HEART FAILURE Electronically signed by Leigh Ann Park PA-C at Encounter Details Care Team Description Date Type Department Leigh Ann Park PA-C [address] [place] [id number] [phone] Cardiomyopathy, unspecified type (HCC) ( Primary Dx); Nonrheumatic mitral valve regurgitation 02/26/2021 Orders Only XDD CARDIOLOGY Social History Date Tobacco Use Types Packs/Day [...] / COVID-19? documented as of this encounter Plan of Treatment Not on filedocumented as of this encounter Visit Diagnoses Diagnosis Cardiomyopathy, unspecified type (HCC) - Primary Nonrheumatic mitral valve regurgitation documented in this encounter Orders First Ordered Date Appointment Request Count Last Ordered Date APPOINTMENT REQUEST: CARDIOLOGY HEART 1 02/26/2021 FAILURE documented in this encounter Additional Health Concerns Assessment Noted Time A fall risk assessment has been completed for the pat ient 02/26/2021 9:31 AM CDT PHQ-2 Depression Total Score: 0 02/26/2021 8:22 AM CDT documented as of this encounter
--- OUTSIDE RECORDS SUMMARY | 2021-03-30 08:33 | XMS REPORT | Encounter Summary ---
Author Author [facility] Organization [facility] Address Unknown Phone Unavailable Care Team Providers Care Cashier Courtesy Booth Name Role Phone Dudley Francis MD PCP Reason for Visit * Reason Onset Date Comments Post-hospital Follow Up 02/27/2021 72 hour post h ospital follow up call Encounter Details Care Team Description Date Type Department Jes Gloria LPN Post-hospital Follow Up (72 hour post ho spital follow up call) 02/27/2021 Telephone Cardiology: [facility] [address] [place] [address] [address], [address] [place] [address] Social History Date Tobacco Use [...] / COVID-19? documented as of this encounter Miscellaneous Notes * Telephone Encounter - Jes Gloria LPN - 02/27/2021 3:25 PM CDT Patient Discharge Date from hospital: 02/26/21 Date Call Attempted: 02/27/21 Number of Attempts: 1 Date Call Completed: 02/27/21 Next Appointment Next follow-up appointment has not been scheduled. Pt agreed to OV on 03/13/21 at 1000 with Tifafni Stephens APRN. OV scheduled. Directions to clinic provided. Transportation Yes Home Health No Medications Pt states she has all her medications and has no questions at this time. Diet 200 mg cholesterol, 2 G Na Scale/Weight Yes, pt was not asked Signs and Symptoms Pt reports the following symptoms: No BLE edema or abdominal bloating. Pt states she does have HARRELL and occasionally has SOA at rest. No PND that she knows about. Pt stated her has woke her up at night the last couple of weeks saying it seemed like she was having trou ble breathing. R wrist puncture site remains swollen and bruised d/t previous he matoma. No drainage, or pain. No fever. Pt verbalized understanding for physical restrictions. Pt verbalized understanding of signs and symptoms of HF and when to contact a pr ovider or seek immediate assistance at the ER. Intervention(s) Encouraged pt to set up [employer] account. Pt states her phone or laptop won't wor k for deltamethodt. Pt educated on the importance of weighing daily first thing in the morning after voiding using the same scale in the same location and write results down in note pad or log. Notify us for weight gains of 3 lbs in one day or 5 lbs in one week. Notify us for increased SOA. Notify us for swelling or increased swelling in BLE or abdominal fullness/bloating. Call 911 for sudden, severe chest/pain pres sure/SOA develops. Be sure to make your follow up appointment and bring your rebeca ght logs, B/P logs, and medication list with you to your appointment. Call us at [phone] if you have any questions. Plan of Care Continued education needed for heart failure symptom management and when to cont act our office. documented in this encounter Plan of Treatment [...]
--- OUTSIDE RECORDS SUMMARY | 2021-03-30 08:33 | XMS REPORT | Encounter Summary ---
Author Author [facility] Organization [facility] Address Unknown Phone Unavailable Care Team Providers Care Marketing Operations Analyst Name Role Phone Dudley Francis MD PCP Teddy Gray MD Unavailable Harjit Banegas DO Unavailable Pam Rowell CLOTH OPENER HAND-SYSTEMS LEAD 7 Reason for Referral * Consult, Test & Treat (Routine) Referred By Contact Referred To Contact Status Reason Specialty Diagnoses / Procedures Alan Zepeda MD [address] [place], [place] [id number] [place] [address] Pending Review Diagnoses Nonrheumatic mitral valve regurgitation P rocedures REQUEST FOR CARDIOLOGY APPOINTMENT Electronically signed by Alan Zepeda MD at * Test (Routine) Referred By Contact Referred To Contact Status Reason Specialty Diagnoses / Procedures Alan Zepeda MD [address] [place] [address] New Request Diagnoses Nonrheumatic mitral valve regurgitation P rocedures 2D + DOPPLER ECHO Electronically signed by Alan Zepeda MD at Reason for Visit * Reason Comments Navigation Assessment MR/MItraclip eval Encounter Details Care Team Description Date Type Department Magali Contreras RN Navigation Assessment (MR/MItraclip eval ) 03/04/2021 Patient Profile Cardiology: [facility] [address] [place] [address], [address] [place] [address] Social History Date Tobacco Use [...] as of this encounter Plan of Treatment Order Schedule Name Type Priority Associated Diag noses Expected: 03/05/2021, Expires: 2 2D + DOPPLER ECHO ECHO Routine Nonrheumatic mitral valve regurgitation documented as of this encounter Visit Diagnoses Diagnosis Nonrheumatic mitral valve regurgitation - Primary documented in this encounter Orders First Ordered [...]
--- OUTSIDE RECORDS SUMMARY | 2021-03-30 08:33 | XMS REPORT | Encounter Summary ---
Author Author [facility] Organization [facility] Address Unknown Phone Unavailable Care Team Providers Care Team Cdl Driver Name Role Phone Dudley Francis MD PCP Teddy Gray MD Unavailable Harjit Banegas DO Unavailable Pam Rowell HAT CONE INSPECTOR-PLASTICS SEASONER OPERATOR 7 Reason for Visit * Reason Comments Labs Only Encounter Details Care Team Description Date Type Department Cee, Myesha Labs Only 03/21/2021 Documentation Cardiology: [facility] [address] [facility] [address], [address] [place] [address] Social History Date Tobacco Use [...] Date/Time Associated Diag nosis CBC Routine 03/15/2021 documented in this encounter Results * CBC (03/15/2021) White Blood 8.1 OTHER OUTSIDE Cells LAB [...] Code P chilo Number OTHER OUTSIDE LAB documented in this encounter Visit Diagnoses Not on filedocumented in this encounter Additional Health Concerns Assessment Noted Time A fall risk assessment has been completed for the pat ient 03/04/2021 2:10 PM CDT PHQ-2 Depression Total Score: 0 02/26/2021 8:22 AM CDT documented as of this encounter
--- OUTSIDE RECORDS SUMMARY | 2021-03-30 08:33 | XMS REPORT | Encounter Summary ---
Author Author [facility] Organization [facility] Address Unknown Phone Unavailable Care Team Providers Care Stablehand Name Role Phone Dudley Francis MD PCP Teddy Gray MD Unavailable Harjit Banegas DO Unavailable Reason for Visit * Reason Onset Date Comments Cardiac Rehab 03/06/2021 Referral Encounter Details Care Team Description Date Type Department Whit Willingham RN Cardiac Rehab (Referral) 03/06/2021 Telephone Cardiology: [facility] [address] [place] [address] [address], [address] [place] [address] Social History Date Tobacco Use Types [...] encounter Miscellaneous Notes * Telephone Encounter - Whit Willingham RN - 03/06/2021 2:09 PM CDT Progress Note Nurse Laborer Wrecking And Salvaging Plan: Cardiac Rehab Intervention: NCM received the request below. Reviewed chart Faxed order and supportive documentation to [facility] in [facility] at fax# [phone] Fax confirmation received. No additional case management needs at this time. Whit Willingham RN-BSN Nurse Laborer Wrecking And SalvagingWelt Insole [facility] Ext. [phone] ----- Message from Supriya Xavier RN sent at 03/04/2021 3:23 PM CDT ----- Regarding: Cardiac Rehab; EF 20-25% Whit, I spoke with patient in clinic today, seen by [facility]. She would like to do cardiac rehab at [facility] in [place], [place]. EF 20-25% I put the external order in her chart. Let me know if I can further assist. Thank you!Supriya documented in this encounter Plan of Treatment [...]
--- OUTSIDE RECORDS SUMMARY | 2021-03-30 08:33 | XMS REPORT | Encounter Summary ---
Author Author [facility] Organization [facility] Address Unknown Phone Unavailable Care Team Providers Care Engineering Professionals Name Role Phone Dudley Francis MD PCP Teddy Gray MD Unavailable Harjit Banegas DO Unavailable Reason for Visit * Reason Onset Date Comments Shortness of Breath 03/08/2021 Encounter Details Care Team Description Date Type Department Cadence Arthur RN Shortness of Breath 03/08/2021 Telephone Cardiology: [facility] [address] [place] [address], [address] [place] [id number] Social History Date Tobacco Use Types [...] impairment: No documented as of this encounter Ordered Prescriptions Start Date End Date Prescription Sig Dispensed Refills 03/08/2021 spironolactone Take one-half 45 tablet 3 (ALDACTONE) 50 mg tablet tablet by mouth daily. Take with food. documented in this encounter Miscellaneous Notes * Telephone Encounter - Jenn Vegas BSN - 03/11/2021 3:05 PM CDT Gomez Nye MD defer to pcp Call to pt no answer LVM with recs from Dr Nye PCP for O2 and keenan, CB # give n * Telephone Encounter - Jomar Arambula LPN - 03/11/2021 1:21 PM CDT Pt called reporting that her symptoms are much improved since Thursday. Pt states she does not need a call back. * Addendum Note - Cadence Arthur RN - 03/08/2021 3:27 PM CDT Addended by: CADENCE ARTHUR on: 03/08/2021 03:27 PM Modules accepted: Orders * Telephone Encounter - Cadence Arthur RN - 03/08/2021 3:16 PM CDT Images from the original note were not included. oGmez Nye MD P Cvm Nurse Hf Team Coral Caller: Unspecified (Today, 11:00 AM) decrease spironolactone to 25mg. If she still has symptoms go to ER Returned call to patient to review. She denies any new or worsening symptoms. Nandini barr has been sleeping most of the day in her recliner. She wrote down instructions for the medication change and repeated back. Patient asks about adjustable walk er for height and home O2 for PRN use w/ SOB. Message routed back to Dr. Nye to advise. * Telephone Encounter - Cadence Arthur RN - 03/08/2021 11:01 AM CDT Received call from patient reporting worsening SOB and "pounding heart". She had worsening nocturnal dyspnea last night and tried putting her bed as high as it would go and still felt SOB and couldn't sleep. She feels intermittent dizziness and "foggy" today. Today's VS: Weight 175lbs (down from 183lbs Thursday) Blood pressure 119/71 - she reports yesterday afternoon feeling acute SOB, pain , dizziness --> BP 70s/50s, then improved HR 73 - she does not feel like she is A Fib, states she can feel when she is in the rhythm Patient was seen in clinic yesterday by her primary perfusionist Dr. Gray. She states the only change to Dr. Nye's plan that he recommended was also referring her to a pool for exercise. No other changes made. Instructed patient to call 911 or go to the ER if she develops chest pain or if her SOB/dizziness worsen/don't go away with rest. Patient is agreeable to plan. Routed to Dr. Nye for review. documented in this encounter Plan of Treatment Not on filedocumented as of this encounter Visit Diagnoses Not on filedocumented in this encounter Discontinued Medications Start Date End Date Medication Sig Discontinue Reason 03/08/2021 spironolactone Take 50 mg (ALDACTONE) 50 mg tablet by mouth daily. Take with food. documented as of this encounter Additional Health Concerns Assessment Noted Time A fall risk assessment has been completed for the pat ient 03/04/2021 2:10 PM CDT PHQ-2 Depression Total Score: 0 02/26/2021 8:22 AM CDT documented as of this encounter
--- OUTSIDE RECORDS SUMMARY | 2021-03-30 08:33 | XMS REPORT | Encounter Summary ---
Author Author [facility] Organization [facility] Address Unknown Phone Unavailable Care Team Providers Care Bow Maker Production Name Role Phone Dudley Francis MD PCP Teddy Gray MD Unavailable Harjit Banegas DO Unavailable Pam Rowell HYDROMETEOROLOGICAL TECHNICIAN-SHELLFISH GROWER 7 Reason for Visit * Reason Comments Labs Only Encounter Details Care Team Description Date Type Department Anjelica Rouse MA Labs Only 03/19/2021 Documentation Cardiology: [facility] [address], [address] [place] [address] Social History Date Tobacco Use [...] Procedure Name Priority Date/Time Associated Diag nosis BASIC METABOLIC PANEL Routine 03/15/2021 Coronary artery disease of [place] artery of [place] heart with stable angina pectoris (HCC) Essential (primary) hypertension documented in this encounter Results * BASIC METABOLIC PANEL [...] MAIN LAB eGFR 60 [facility] [place] Anion Gap [facility] BUN/Creatinine 20 [facility] Ratio Specimen Blood - Blood Narrative Performed At This result has an attachment that is n ot available. Performing Organization Address City/State/ZIP Code P chilo Number [facility] [address] [place] [address] documented in this encounter Visit Diagnoses Diagnosis Coronary artery disease of [place] arter y of [place] heart with stable angina pectoris (HCC) Essential (primary) hypertension Unspecified essential hypertension documented in this encounter Additional Health Concerns Assessment Noted Time A fall risk assessment has been completed for the pat ient 03/04/2021 2:10 PM CDT PHQ-2 Depression Total Score: 0 02/26/2021 8:22 AM CDT documented as of this encounter
--- OUTSIDE RECORDS SUMMARY | 2021-03-30 08:33 | XMS REPORT | Encounter Summary ---
Author Author [facility] Organization [facility] Address Unknown Phone Unavailable Care Team Providers Care Product Support Representative Name Role Phone Dudley Francis MD PCP Teddy Gray MD Unavailable Harjit Banegas DO Unavailable Reason for Visit * Reason Onset Date Comments Follow Up 03/14/2021 Encounter Details Care Team Description Date Type Department Jomar Arambula LPN Follow Up 03/14/2021 Telephone Cardiology: [facility] [address] [place] [address] [address], [address] [place] [phone] Social History Date Tobacco Use Types [...] encounter Miscellaneous Notes * Telephone Encounter - Jomar Arambula LPN - 03/14/2021 11:31 AM CDT Per last OV with Dr. Nye: "- See me after MRI." Pt states she has scheduled this for 04/08 and asks when she can be seen afterwa rds by Dr. Nye. Pt has OV tomorrow with NARAYAN Peralta documented in this encounter Plan of Treatment [...]
--- OUTSIDE RECORDS SUMMARY | 2021-03-30 08:33 | XMS REPORT | Encounter Summary ---
Author Author [facility] Organization [facility] Address Unknown Phone Unavailable Care Team Providers Care Black Ash Burner Operator Name Role Phone Dudley Francis MD PCP Teddy Gray MD Unavailable Harjit Banegas DO Unavailable Pam Rowell REGISTER OF WILLS-ADULT NURSE PRACTITIONER 7 Reason for Visit * Reason Onset Date Comments Lab Results W/medication 03/19/2021 Changes Encounter Details Care Team Description Date Type Department Sena Ortiz RN Lab Results W/medication Changes 03/19/2021 Telephone Cardiology: [facility] [address] [facility] [address], [address] [place] [address] Social History Date Tobacco Use [...] Date End Date Prescription Sig Dispensed Refills 03/19/2021 potassium chloride SR Take one 90 tablet 3 (K-DUR) 20 mEq tablet by tabletIndications: mouth daily. Systolic heart failure, Take with a unspecified HF chronicity meal and a (HCC) full glass of water. documented in this encounter Miscellaneous Notes * Telephone Encounter - Sena Ortiz RN - 03/19/2021 4:58 PM CDT Images from the original note were not included. Called and spoke with patient regarding the recommendations below. Pt verbalized understanding and stated she will get her labs drawn at PCP office next week. W juan manuel fax lab order to PCP at [phone]. No further questions at this time. Pam Rowell, REGISTER OF WILLS-ADULT NURSE PRACTITIONER P Cvm Nurse Hf Team Coral Her repeat BMP still shows hypokalemia with potassium of 3.3. In addition to h er spironolactone 25 mg daily which you please start her on potassium 20 mEq ab ly and get a repeat BMP in 1 week. Thank you, DM. documented in this encounter Plan of Treatment Order Schedule Name Type Priority Associated Diag noses Expected: 03/26/2021 (Approximate), Expi res: 03/19/2022 BASIC METABOLIC PANEL Lab Routine Systolic heart failure, unspecified HF chronicity (HCC) documented as of this encounter Visit Diagnoses Diagnosis Systolic heart failure, unspecified HF chronicity (HCC) - Primary documented in this encounter Additional Health Concerns Assessment Noted Time A fall risk assessment has been completed for the pat ient 03/04/2021 2:10 PM CDT PHQ-2 Depression Total Score: 0 02/26/2021 8:22 AM CDT documented as of this encounter
--- OUTSIDE RECORDS SUMMARY | 2021-03-30 08:33 | XMS REPORT | Encounter Summary ---
Author Author [facility] Organization [facility] Address Unknown Phone Unavailable Care Team Providers Care Operations Controller Name Role Phone Dudley Francis MD PCP Encounter Details Care Team Description Date Type Department 02/26/2021 Travel Social History Date Tobacco Use Types [...]
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
--- OUTSIDE RECORDS SUMMARY | 2021-03-30 08:34 | XMS REPORT | Encounter Summary ---
Author Author [facility] Organization [facility] Address Unknown Phone Unavailable Care Team Providers Care Urologist Physician Name Role Phone Dudley Francis MD PCP Teddy Gray MD Unavailable Harjit Banegas DO Unavailable Reason for Visit * Reason Comments New Patient here to discuss a heart cat h * Auth/Cert Referred By Contact Referred To Contact Status Reason Specialty Diagnoses / Procedures Diagnoses Abnormal stress test Procedures NY CATH PLMT L HRT & ARTS W/NJX & ANGIO IMG S&I NY PRQ TRLUML CORONARY STENT W/ANGIO ONE ART/BRNCH ANGIOGRAPHY CORONARY ARTERY WITH LEFT HEART CATHETERIZATION POSSIBLE PERCUTANEOUS CORONARY STENT PLACEMENT WITH ANGIOPLASTY Encounter Details Care Team Description Date Type Department Alan Zepeda MD [address] [facility] [place] [address] New Patient (here to discuss a heart cat h ) 02/26/2021 Office Visit Cardiology: [facility] [address] [facility], [address] [place] [address] Social History Date Tobacco Use [...] Signs Reading Time Taken Comments Vital Sign 144/70 02/26/2021 8:21 AM CDT Blood Pressure 65 02/26/2021 8:21 AM CDT Pulse - - Temperature - - Respiratory Rate 98% 02/26/2021 8:21 AM CDT Oxygen Saturation - - Inhaled Oxygen Concentration 83.1 kg (183 lb 4.8 oz) 02/26/2021 8:21 AM CDT Weight 165.1 cm (5' 5") 02/26/2021 8:21 AM CDT Height 30.5 02/26/2021 8:21 AM CDT Body Mass Index documented in this encounter Progress Notes * Alan Zepeda MD - 02/26/2021 8:00 AM CDT Date of Service: 02/26/2021 Sary Paige is a 66 y.o. female. RONY Crook is a 66-year-old female who I am seeing in the office today for evaluati on of exertional chest discomfort. She states that she will intermittently get some left-sided discomfort that she typically associates with stress however it goes away when she will take a break. She has a prior history of coronary arter y disease and had 2 stents placed a little less than a year ago. She stated veena t she initially had a stent placed a day before and had to be taken back to the Office Associate the following day for an additional stent. Since that sada e, she has been doing pretty well and is really not had any recurrent cardiac is sues. She had a recent stress test that she reports was abnormal which is promp marion her cardiac catheterization. Her baseline ECG does demonstrate a normal sin us rhythm with a left bundle branch block. She is currently on dual antiplatele t therapy with aspirin and Brilinta and has not had any active bleeding problems at the current time. Reviewing her recent echocardiogram from November 13, she had an ejection fraction of 20 to 25% with diffuse hypokinesis with akinesis involving the mid anterior, ba sakshi mid anteroseptal, basal mid inferoseptum, mid inferior, apical septal and ap ical myocardium. Additionally, she had severe mitral insufficiency. Cardiac Cath 05/15/20 pLAD - 2.5X15 Karen 05/16/20 mLAD - 2.5X33 Karen Echocardiogram 11/13/20 EF 2-25% with severe diffuse HK with regional AK, severe MR Vitals: 02/26/21 0821 BP: (!) 144/70 BP Source: Arm, Left Upper Patient Position: Sitting Pulse: 65 SpO2: 98% Weight: 83.1 kg (183 lb 4.8 oz) Height: 1.651 m (5' 5") PainSc: Zero Body mass index is 30.5 kg/m. 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 HENT: Negative. Eyes: Negative. Cardiovascular: Positive for chest pain (Thinks it is because she iss nervous ). Respiratory: Negative. Endocrine: Negative. Hematologic/Lymphatic: Negative. Skin: Negative. Musculoskeletal: Negative. Gastrointestinal: Negative. Genitourinary: Negative. Neurological: Negative. Psychiatric/Behavioral: Negative. Allergic/Immunologic: Negative. Physical Exam Physical Exam GEN: alert and oriented, no acute distress HEENT: unremarkable, EOMI, PERRL CHEST: Clear to auscultation bilaterally without focal rales, wheezes or rhonchi CV: Reg rhythm, nml rate; nml S1 & S2, no S3 or S4; no rub; no murmurs ABD: soft, nontender, BS+, no masses or bruits, no organomegaly EXT: no c/c/e, 2+ distal pulses NEURO: nonfocal Mood and Affect: appropriate Cardiovascular Studies ECG - NSR, LBBB Problems Addressed Today Encounter Diagnoses Name Primary? Abnormal stress test Yes Pre-procedure lab exam Coronary artery disease of [place] artery of [place] heart with stable angina pectoris (HCC) Essential (primary) hypertension Dyslipidemia Nonrheumatic mitral valve regurgitation Assessment and Plan 1. Coronary artery disease-she has had an abnormal stress test suggestive of isc hemia. She is having symptoms of left-sided chest discomfort which improves if she slows down or rests. We discussed the risks and benefits of proceeding with a cardiac catheterization and I have had a chance to review her previous cardiac catheterization from last April. She is currently on dual antiplatelet the rapy with aspirin and Brilinta and has not had any active bleeding problems. We will plan to proceed with coronary angiography and possible intervention today. 2. Severe cardiomyopathy with concurrent severe mitral insufficiency-depending o n the coronary angiograms, we will want to further evaluate her mitral insuffici ency. We will need to optimize her pharmacotherapy and repeat her echocardiogra m to further define the etiology. 3. hypertension-overall, her blood pressures have been under good control. She is currently on losartan and Toprol-XL. Not can make any changes to her current regimen. 4. Dyslipidemia-she is on atorvastatin 40 mg daily and follows with meghan Vaughn primary manuscript reader, for risk factor optimization. Thank you for allowing us to participate in her care and we will keep you inform ed as to her upcoming cardiac catheterization. Current Medications (including today's revisions) aspirin 81 mg chewable tablet Chew 81 mg by mouth daily. Take with food. atorvastatin (LIPITOR) 40 mg tablet Take 40 mg by mouth daily. calcium carbonate (CALCIUM 500 [...] as n eeded. metoprolol XL (TOPROL XL) 25 mg extended release tablet Take 25 mg by mouth daily. omeprazole DR (PRILOSEC) 20 mg capsule [...] Name Type Priority Associated Diag noses Ordered: 02/26/2021 ECG 12-LEAD ECG Routine Abnormal stress test Pre-procedure lab exam documented as of this encounter Results * BASIC METABOLIC PANEL (02/26/2021 8:50 AM CDT) Pathologist [facility] Sodium 144 137 - 147 MMOL/L [facility] [...] (L) >60 mL/min [facility] Comment: [place] The eGFR is not validated f or use in drug dosing adjustments. Continue to use estimated creatinine clearance per dosing reference text. Please contact the Clinical Pharmacist for questions. eGFR >60 >60 mL/min [facility] Comment: The eGFR is not validated for use in drug dosing adjustments. Continue to use estimated creatinine clearance per dosing reference text. Please contact the Clinical Pharmacist for questions. Specimen Blood Performing Organization Address City/State/ZIP Code P chilo Number [facility] [address] [place] [address] * CBC (02/26/2021 8:50 AM CDT) [facility] White Blood 9.7 4.5 - 11.0 K/UL [...] MAIN LAB Specimen Blood Performing Organization Address City/State/ZIP Code P chilo Number [facility] [address] [facility] [place] [address] documented in this encounter Visit Diagnoses Diagnosis Abnormal stress test - Primary Other nonspecific abnormal cardiovascul ar system function study Pre-procedure lab exam Pre-procedural laboratory examination Coronary artery disease of [place] arter y of [place] heart with stable angina pectoris (HCC) Essential (primary) hypertension Unspecified essential hypertension Dyslipidemia Other and unspecified hyperlipidemia Nonrheumatic mitral valve regurgitation documented in this encounter Additional Health Concerns Assessment Noted Time A fall risk assessment has been completed for the pat ient 02/26/2021 9:31 AM CDT PHQ-2 Depression Total Score: 0 02/26/2021 8:22 AM CDT documented as of this encounter
--- OUTSIDE RECORDS SUMMARY | 2021-03-30 08:34 | XMS REPORT | Encounter Summary ---
Author Author [facility] Organization [facility] Address Unknown Phone Unavailable Care Team Providers Care Manager Of Planning Name Role Phone PCP Unavailable Reason for Visit * Reason Comments Lab Request CBC, BMP and COVID PCR swab pre procedure Encounter Details Care Team Description Date Type Department Angie Trevino RN Lab Request (CBC, BMP and COVID PCR swab pre procedure) 02/12/2021 Documentation Cardiology: [facility] [address] [place] [address] Social History Date Tobacco Use Types Packs/Day Years Used Never Assessed Sex Assigned at Date Recorded Female 02/21/2021 12:16 PM CDT documented as of this encounter Progress Notes * Angie Trevino RN - 02/12/2021 12:44 PM CDT Re-faxed lab orders to [phone] per pt request. * Angie Trevino RN - 02/12/2021 12:44 PM CDT Pre procedural labs including COVID- PCR swab orders faxed to [facility] enter fax: [phone]; . Turn around time 24-72 hrs. Appt n eeded- pt will call and schedule for 02/22. Weekend times not available. documented in this encounter Plan of Treatment Order Schedule Name Type Priority Associated Diag noses Expected: 02/22/2021 (Approximate), Expi res: 02/12/2022 BASIC METABOLIC PANEL Lab Routine Abnormal stress test Pre-procedure lab exam Expected: 02/22/2021 (Approximate), Expi res: 02/12/2022 CBC Lab Routine Abnormal stress test Pre-procedure lab exam documented as of this encounter Visit Diagnoses Diagnosis Abnormal stress test - Primary Other nonspecific abnormal cardiovascul ar system function study Pre-procedure lab exam Pre-procedural laboratory examination documented in this encounter
--- OUTSIDE RECORDS SUMMARY | 2021-03-30 08:34 | XMS REPORT | Encounter Summary ---
Author Author [facility] Organization [facility] Address Unknown Phone Unavailable Care Team Providers Care Racking Technician Name Role Phone Dudley Francis MD PCP Reason for Visit * Reason Onset Date Comments Results 02/23/2021 Encounter Details Care Team Description Date Type Department Alan Zepeda MD [address] [facility] [address] [place] [address] [phone] Results 02/23/2021 Telephone Specialty Screening : [facility] [address] [place] [address] Social History Date Tobacco Use Types Packs/Day Years Used Former Smoker Smokeless Tobacco: Never Used Sex Assigned at Date Recorded Female 02/21/2021 12:16 PM CDT documented as of this encounter Miscellaneous Notes * Telephone Encounter - John Escamilla RN - 02/23/2021 7:17 PM CDT Spoke with patient and confirmed name and . Patient advised that COVID-19 elias t results are NEGATIVE. Advised that patient can continue with the procedure and should follow pre-procedure instructions. Advised patient to continue with home quarantine until procedure. Advised that if they develop any concerning symptoms prior to the procedure to contact their procedure team, specialist, and/or PCP for assistance. documented in this encounter Plan of Treatment Not on filedocumented as of this encounter Visit Diagnoses Not on filedocumented in this encounter
--- OUTSIDE RECORDS SUMMARY | 2021-03-30 08:34 | XMS REPORT | Encounter Summary ---
Author Author [facility] Organization [facility] Address Unknown Phone Unavailable Care Team Providers Care Helmet Binder Name Role Phone Dudley Francis MD PCP Reason for Visit * Auth/Cert Referred By Contact Referred To Contact Status Reason Specialty Diagnoses / Procedures Diagnoses Abnormal stress test Procedures AZ CATH PLMT L HRT & ARTS W/NJX & ANGIO IMG S&I AZ PRQ TRLUML CORONARY STENT W/ANGIO ONE ART/BRNCH ANGIOGRAPHY CORONARY ARTERY WITH LEFT HEART CATHETERIZATION POSSIBLE PERCUTANEOUS CORONARY STENT PLACEMENT WITH ANGIOPLASTY Encounter Details Care Team Description Date Type Department Nelly Zepeda MD [address] [facility] [place] [address] [phone] Coronary artery disease of [place] artery of [place] heart with stable angina pectoris (HCC) 02/26/2021 Hospital Laboratory: [facility] [address] [facility] [address], [address] [place] [address] Social History Date [...] Signs Reading Time Taken Comments Vital Sign 99/76 02/26/2021 7:45 PM CDT Blood Pressure 70 02/26/2021 7:45 PM CDT Pulse 37 C (98.6 F) 02/26/2021 9:31 AM CDT Temperature - - Respiratory Rate 97% 02/26/2021 7:45 PM CDT Oxygen Saturation - - Inhaled Oxygen Concentration 84.3 kg (185 lb 13.6 oz) 02/26/2021 9:31 AM CDT Weight 165.1 cm (5' 5") 02/26/2021 9:31 AM CDT Height 30.93 02/26/2021 9:31 AM CDT Body Mass Index documented in this encounter Discharge Instructions * Patient Instructions* Audrey Smith RN - 02/26/2021 5:13 PM CDT Images from the original note were not included. Post Procedure Radial Access Discharge Instructions-[place] When you go home: You may shower 24 hours after your procedure. Keep your puncture sites clean. Do not submerge your arm in a hot tub, pool, puckett or tub for 1 week. Keep the area clean and dry for one week (except for daily showers). Be sure your hands are clean when touching near the site. If a band-aid or dressing is still in place remove it before showering. Wash and dry thoroughly but gently. If needed, for your comfort, you may place a clean band-aid over the puncture site after you are clean and dry. It is best to leave it open to air as soon as it is comfortable to do so. Do not use ointments, creams, or powders on puncture site. Inspect site daily. Activity: (Unless otherwise instructed or unable to perform) Avoid any exertion for one week. Exertion is lifting over 5 lbs, or pushing a nd pulling with the affected arm. Do not take blood pressure or have blood drawn from the affected arm for 3 da ys. No straining for one week. You may be up and about while relaxing at home as you recover. You may resume sexual activity in one week. You may begin driving 2 days after your procedure if you are otherwise able t o drive. ---It is common to have mild soreness and/or a small, soft bruise around the sit e that can take up to two weeks to go away. A small amount of blood (not more than a teaspoon) from the site is also common. WHEN TO CALL THE DOCTOR: Complications are rare but can happen. If you have significant bleeding (more than a teaspoon) sit down, apply firm pressure at the site and call 911. Bleeding from a large vessel needs profession al help. If you have a lump underneath the skin (more than a pea size) at the site. If you have signs of infection at the site such as: redness, warm to touch, d rainage, increasing soreness, a fever (100 degrees or more) and/or chills. Soreness that continues more than a week or unusual pain at the puncture site . Numbness, tingling, weakness in the affected arm. If your arm becomes cold and pale. If you have changes of vision, slurred speech or one-sided weakness. Who do I contact if I need to speak with someone? During Business Hours: [facility] Cardiology Office at the [facility]: [phone] (Thursday-Thursday) [place]:[phone] (Thursday-Thursday) [place]: [phone] (Thursday-Thursday) [place]: [phone] (Thursday and ) [place]: [phone] (Thursday-Thursday) [facility]: [phone] (Thursday, Thursday and Thursday) [place]:[phone] (Thursday, Thursday and Thursday) Nights and Weekends [facility] Cardiology Office at the [facility]: [phone] Thisinformation is meant to serve as a resource to you and your family. It i s not meant to be all inclusive. The members of the [facility] at [facility]iology, , will be glad to answe r any questions you may have about this booklet or your procedure. documented in this encounter Medications at Time of Discharge [...] with food. documented as of this encounter Ordered Prescriptions Start Date End Date Prescription Sig Dispensed Refills 02/26/2021 atorvastatin (LIPITOR) 80 Take one 90 tablet 3 mg tablet tablet by mouth daily. 02/26/2021 03/15/2021 metoprolol XL (TOPROL XL) Take one 90 tablet 3 50 mg extended release tablet by tablet mouth daily. documented in this encounter Discharge Disposition Code Departure Means Destination Disposition Car Home or Self Care documented in this encounter Progress Notes * Lisa Martin RN - 02/26/2021 7:47 PM CDT Patient discharged to home with all belongings. Discharge instructions, med rec onciliation and home wound care instructions given and explained to patient and family both verbally and written. Accompanied by . No complaints of skye n or discomfort. Right wrist remains clean, dry, and intact with no evidence of a hematoma or bleeding post TR band removal. Patient escorted to lobby via w heelchair by this RN. Patient to follow up with [facility]iology ([facility]) or on-call physician with any additional questions or concerns. All contact numbe rs provided. Patient and family acceptant of DC instuctions and report understa nding to all information. * Leigh Ann Park PA-C - 02/26/2021 10:30 AM CDT Post Cardiac Procedure Progress Note Name: Sary Paige : 1955 Age: 66 y.o. Admit Date: 02/26/2021 Discharge Date: 02/26/2021 Attending Physician: Nelly Zepeda MD Service: Med-Cardiovascular Reason for hospitalization: cardiac catheterization Brief Hospital Course: Sary Paige is a 66 y.o. female with hypertension, dyslipidemia, mitral r egurgitation, LBBB, and CAD with prior stenting of the LAD on 05/15/20 and 05/16. She had an echocardiogram in October 2020 that revealed LVEF 20-25% with diffus e hypokinesis, with akinesis involving the mid anterior, basal mid anteroseptal, basal mid inferoseptum, mid inferior, apical septal and apical myocardium, as w ell as severe mitral insufficiency. She has been noting left sided chest discomfort with exertion which resolves wit h rest. The patient presented on 02/26/2021 for a cardiac catheterization which revealed p atent stents and no other flow limiting CAD. Medical management was recommended. She reports she was started on Losartan a few weeks ago. She will increase Topr ol to 50mg daily and be evaluated in the heart failure clinic soon for medicatio n optimization for her cardiomyopathy. She will follow up in valve clinic in 3 [facility]. The patient was monitored post procedure, with no complications. Upon discharge the patient and family were given post procedure instructions/restrictions as we ll as written instructions (see Discharge instructions). Significant Diagnostic Studies and Procedures: Cardiac Catheterization 02/26/2021 LEFT HEART CATHETERIZATION: Hemodynamics: 1. Aortic pressure 135/62, mean 88 mmHg. 2. Left ventricular systolic pressure was 142 mmHg with an end-diastolic pressur e of 6 mmHg. The patient received 250 mL of normal saline due to low LVEDP. 3. There was no gradient detected across the aortic valve on pullback. SELECTIVE CORONARY CINEANGIOGRAPHY 1. Left main coronary artery: The left main coronary artery arises normally fro m left coronary sinus. It trifurcates distally into a left anterior descending artery, a left circumflex artery, and a ramus intermedius artery. The distal le ft main has a 30% stenosis. 2. Left anterior descending artery: Left anterior descending artery is a large vessel that gives rise to 2 diagonal vessels. There is a stent extending from t he proximal LAD into the 1st major diagonal artery that has some mild luminal ir regularities. The proximal LAD has mild luminal irregularities as well. The re mainder of the diagonal artery and mid and distal LAD are angiographically free of significant disease. This is a type 3 LAD. 3. Left circumflex artery: Left circumflex artery is a large-caliber nondominan t vessel. It gives rise to 3 obtuse marginal arteries. The proximal mid portio n has some luminal irregularities, but there is no angiographic evidence of sign ificant disease. 4. Ramus intermedius artery is a medium-sized vessel with some proximal 30% sten osis. 5. Right coronary artery: The right coronary artery is a large dominant vessel that arises normally from the coronary sinus. It bifurcates early in its course into a right PDA and right PLV. In the mid portion of the RCA, there is a long tubular segment of 20% stenosis. The right PLV has a tubular 50% stenosis. Re mainder of the right coronary artery and RPDA are free of significant angiograph ic disease. CONTRAST: 47 mL, Isovue. AIR KERMA: 204 mGy. Hospital Problems Principal Problem: Coronary artery disease of [place] artery of [place] heart with stable angina pe ctoris (HCC) Active Problems: Essential (primary) hypertension Dyslipidemia Nonrheumatic mitral valve regurgitation Discharge Plan/Recommendations: Follow up: an appointment with the heart failure team will be scheduled in the n ext few weeks. She will also follow up with Dr. Zepeda in valve clinic in 3 month s. Increase Toprol from 25 to 50mg daily BMP in 1 week to recheck K (3.1 today) Disease Prevention: Lipid management: Her LDL was 103 and Atorvastatin 40mg was increased to 80 mg daily. A lipid panel should be repeated in 3 months. Hypertension: BP mildly elevated on current regimen Diabetes: denies Tobacco: quit smoking Obesity: BMI is 30.93. Heart healthy diet, exercise and weight loss encouraged Physical Exam: BP 113/69 | Pulse 63 | Temp 37 C (98.6 F) | Ht 1.651 m (5' 5") | Wt 84.3 kg (185 lb 13.6 oz) | SpO2 98% | BMI 30.93 kg/m Right wrist without swelling/hematoma; Right radial and ulnar pulses intact with good capillary refill. Admission Lab/Radiology studies notable for: Hematology: Lab Results Component Value Date HGB 11.6 02/26/2021 HCT 33.8 02/26/2021 PLTCT 348 02/26/2021 WBC 9.7 02/26/2021 MCV 92.0 02/26/2021 MCHC 34.3 02/26/2021 MPV 7.9 02/26/2021 RDW 12.9 02/26/2021 , General Chemistry: Lab Results Component Value Date NA 144 02/26/2021 K 3.1 02/26/2021 CL 106 02/26/2021 GAP 11 02/26/2021 BUN 9 02/26/2021 CR 0.95 02/26/2021 GLU 97 02/26/2021 CA 8.9 02/26/2021 and Lipid Profile: Lab Results Component Value Date CHOL 187 02/26/2021 TRIG 271 02/26/2021 HDL 45 02/26/2021 LDL 103 02/26/2021 VLDL 54 02/26/2021 Patient instructions/medications: BASIC METABOLIC PANEL Standing Status: Future Standing Exp. Date: 02/26/22 Which provider would you like to CC? NELLY ZEPEDA [[id number]] Release to patient Immediate Cardiac Diet Limiting unhealthy fats and cholesterol is the most important step you can take in reducing your risk for cardiovascular disease. Unhealthy fats include satur ated and trans fats. Monitor your sodium and cholesterol intake. Restrict your sodium to 2g (grams) or 2000mg (milligrams) daily, and your cholesterol to 200m g daily. If you have questions regarding your diet at home, you may contact a dietitian jose catherine . Report These Signs and Symptoms Please contact your doctor if you have any of the following symptoms: Chest skye n, shortness of breath, lightheadedness, dizziness, near fainting, palpitations, abd pain, back pain, or bleeding. Risk Reduction Plan Cardiac Event Personal Risk Factor Reduction Plan Take this sheet to your physician to show treatment recommendations Sary Paige Admission Date: 02/26/2021 LOS: @LOS@ Blood Pressure Risk Goal: Keep blood pressure below 130/80 Your Numbers: BP Readings from Last 1 Encounters: 02/26/21 : 124/69 Plan: High blood pressure is the single most important risk factor for cardiac e vents because it's the #1 cause of cardiac events. Take medication as prescribe d and monitor your blood pressure. Abnormal lipids (fats in blood) Risk Goal: Total Cholesterol: <200 LDL (bad cholesterol): primary prevention <100 LDL (bad cholesterol): secondary prevention < 70 HDL ("good" cholesterol): >40 for men, >50 for women Triglycerides: <150 Your Numbers: Cholesterol Date Value Ref Range Status 02/26/2021 187 <200 MG/DL Final LDL Date Value Ref Range Status 02/26/2021 103 (H) <100 mg/dL Final HDL Date Value Ref Range Status 02/26/2021 45 >40 MG/DL Final Triglycerides Date Value Ref Range Status 02/26/2021 271 (H) <150 MG/DL Final Plan: Diets high in saturated fat, trans fat and cholesterol can raise blood cho lesterol levels increasing your risk of having a cardiac event. Take medication as prescribed and eat a heart healthy, low sodium diet. Smoking Risk Goals: If you smoke, STOP! Plan: Smoking DOUBLES your risk of having a cardiac event. Quitting can greatly reduce your risk. To register for smoking cessation program call [phone] or visit www.smokefree.gov Diabetes Risk Goal: Non-diabetic: Below 5.7% Goal for diabetic: Less than 7% Your Numbers: No results found for: HGBA1C Plan: If you have diabetes, even if treated, you are at an increased risk of hav ing a cardiac event. Alcohol Use Risk Goal: Alcohol use can lead to a cardiac event. Plan: For men, limit intake to no more than 2 drinks per day. For women, limit intake to no more than one drink per day. Weight Management Risk Goal: Healthy: BMI is 18.5 to 24.9 Overweight: BMI is 25 to 29.9 Obese: BMI is 30 or higher Morbid Obesity: BMI [...] Your Numbers: Your BMI (Calculated): 30.93 Plan: If you have questions about your diet after you go home, you can call a marcos verdin at [phone] Physical Activity Risk Goal: Patients should have approval by a physician prior to beginning an exercis e program. Plan: Try to get at least 30 minutes of moderate physical activity five days a w [place] or 20 minutes of vigorous physical activity three days a week with your doct or's approval. To the Neurology and the NeuroSurg Discharge order sets set add a new order in t he education section titled "Risk Reduction Plan", in the comments section add t he following (default select this new order for neuro and neuro surg and ensure this information is added to the AVS). Procedure Specific Activity *May return to work/school in 2 days. *May shower after discharge. *NO lifting, pushing or pulling more than 5 pounds for one week to affected hand . You may use your wrist splint for a reminder! *NO strenuous activity for 1 week. *NO driving for 2 days. *NO baths or swimming for 1 week. *NO sexual activity for 1 week. Incision Care *Call if there is an increase in pain, swelling, or redness. *DO NOT soak incision in water. *NO tub baths, hot tubs, or swimming. *You may shower after discharge. Questions About Your Stay For questions or concerns regarding your hospital stay: - DURING BUSINESS HOURS (8:00 AM - 4:30 PM): Call [phone] and asked to be transferred to your discharge attending physic tasha. - AFTER BUSINESS HOURS (4:30 PM - 8:00 AM, on weekends, or holidays): Call [phone] and ask the solvent plant operator to page the on-call doctor for the discha rge attending physician. Discharging attending physician: NELLY ZEPEDA [[id number]] Return Appointment The valve team nurse will call you with an appointment to follow up with Dr. Ashley tellez in valve clinic in 3 months. A radiology scheduler should call you regarding an appointment with the heart failure team in the next few weeks. If you do not receive a call, call Lorri at . [facility] Provider NELLY ZEPEDA [[id number]] Current Discharge Medication List CONTINUE these medications which have been CHANGED or REFILLED Details atorvastatin (LIPITOR) 80 mg tablet Take one tablet by mouth daily. Qty: 90 tablet, Refills: 3 PRESCRIPTION TYPE: Normal metoprolol XL (TOPROL XL) 50 mg extended release tablet Take one tablet by mouth daily. Qty: 90 tablet, Refills: 3 PRESCRIPTION TYPE: Normal CONTINUE these medications which have NOT CHANGED Details aspirin 81 mg chewable tablet Chew 81 mg by mouth daily. Take with food. PRESCRIPTION TYPE: Historical Med calcium carbonate (CALCIUM 500 PO) Take 500 mg by mouth twice daily. PRESCRIPTION TYPE: Historical Med Cholecalciferol (Vitamin D3) (VITAMIN D-3) 50 mcg (2,000 unit) cap Take by mout h. PRESCRIPTION TYPE: Historical Med gabapentin (NEURONTIN) 800 mg tablet Take 800 mg by mouth three times daily. PRESCRIPTION TYPE: Historical Med levETIRAcetam (KEPPRA) 1,000 mg tablet Take 1,000 mg by mouth three times daily. PRESCRIPTION TYPE: Historical Med linaclotide (LINZESS) 290 mcg capsule Take 290 mcg by mouth daily. PRESCRIPTION TYPE: Historical Med losartan (COZAAR) 25 mg tablet Take 25 mg by mouth daily. PRESCRIPTION TYPE: Historical Med meclizine (ANTIVERT) 25 mg tablet Take 25 mg by mouth three times daily as neede d. PRESCRIPTION TYPE: Historical Med omeprazole DR (PRILOSEC) 20 mg capsule Take 20 mg by mouth twice daily. PRESCRIPTION TYPE: Historical Med spironolactone (ALDACTONE) 50 mg tablet Take 50 mg by mouth daily. Take with trevon d. PRESCRIPTION TYPE: Historical Med ticagrelor (BRILINTA) 90 mg tablet Take 90 mg by mouth twice daily. PRESCRIPTION TYPE: Historical Med traMADoL (ULTRAM) 50 mg tablet Take 50 mg by mouth every 6 hours. Take 0.33 tabl ets every 6 hours as needed PRESCRIPTION TYPE: Historical Med Signed: Leigh Ann Park PA-C cc: Primary Care Physician: Dudley Francis Additional provider(s): Teddy Gray MD * Audrey Smith RN - 02/26/2021 9:15 AM CDT Patient arrived on unit via ambulation accompanied by RN. Patient transferred to the bed without assistance. Frailty score equals 4 Assessment completed, refer to flowsheet for details. Orders released, reviewed, and implemented as appropr iate. Oriented to surroundings, call light within reach. Plan of care reviewed. Will continue to monitor and assess. * Aisha Gilmore RN - 02/22/2021 11:10 AM CDT Cardiovascular Labs Scheduling Checklist 1. Date of procedure:02/26 2. Arrival time:0800 OV/CVM 3. Patient instructed NPO after MN; clear liquids until: 0800 4. Instructed to check-in at the [facility] registration desk and bring phot o id, insurance cards and a current list of home medications. Pack an overnight bag in the event you are admitted overnight: Y 5. If you have a history of sleep apnea and use a C-Pap or Bi-Pap machine, pleas e bring it with you to the hospital: N 6. Have a otr driver available upon discharge as you may not be cleared to drive for 24 or 48 hours post procedure. (exception is RHC/biopsy patient with internal j ugular approach not receiving sedation): Y 7. If the patient's language preference is other than [place], please indicated [place] language and need for chemical engineering professor: N 8. Patient instructed to drink 64 oz water the day before their procedure if salom[place] licable and not contraindicated: Y 9. Patient instructed no caffeine for 24 hours before procedure: Y 10. Pre-procedure medications reviewed: Y-PER PRE PROC INSTRUCTIONS 02/12 Hold the following Medications: Continue to take the followin. General Anesthesia/MAC and/or PVC ablations: Type and Cross required: N 12. Contrast allergy with need for contrast allergy prophylaxis: N 13. Patient instructed to bath with antibacterial soap or surgical scrub: Y 14. List all same day pre-procedure requirements, i.e. Labs/H&P/EKG: N 15. List any same day pre-procedure appointments:N 16. List any isolation precautions and organism:N 17. List any special considerations: N 18. Patient instructed to prepare for delays as there may be urgent or emergent cases: Y 19. Updated visitor guidelines reviewed (1 visitor allowed in CVLPP: must wear a mask, Not permitted to stay the night and must leave by 1800):Y 20. Patient acknowledges understanding of pre-procedure instructions: Y-KERMIT ZHU AB 02/22 NEGATIVE 21. documented in this encounter H&P Notes * Leigh Ann Park PA-C - 02/26/2021 10:29 AM CDT Patient presents for procedure. Please see History and Physical copied below. Leigh Ann Park PA-C Interventional Cardiology Pager [phone] Progress Notes Nelly Zepeda MD (Physician) Interventional Cardiology Creation Time: 02/26/21827 Signed Date of Service: 02/26/2021 Sary Paige is [...] had to be taken back to the [facility] the following day for an additional stent. [...] Diagnosis Date Noted Coronary artery disease of [place] artery of [place] heart with stable angina pectoris (HCC) 02/26/2021 Essential (primary) hypertension 02/26/2021 Dyslipidemia 02/26/2021 Nonrheumatic mitral valve regurgitation 02/26/2021 Allergies Allergen Reactions Ciprofloxacin UNKNOWN Codeine UNKNOWN Fentanyl SEE COMMENTS Pt reports "it puts me in a deep sleep for days" Hydrochlorothiazide UNKNOWN Lisinopril UNKNOWN Morphine UNKNOWN Opium (Anthroposophic) UNKNOWN Social History Socioeconomic History Marital status: Spouse [...] file Social History Narrative Not on file History reviewed. No pertinent surgical history. History reviewed. No pertinent family history. Review of Systems Constitutional: Negative. HENT: Negative. [...] Pre-procedure lab exam Coronary artery disease of [place] artery of [place] heart with stable angina pectoris (HCC) Essential [...] had a chance to review her previous cardia c catheterization from last April. She is currently [...] daily and follows with meghan Vaughn primary washer carcass, for risk factor optimization. Thank you for [...] hours as needed documented in this encounter Procedure Notes * Barney Jaramillo DO - 02/26/2021 4:05 PM CDT Associated Order(s): CARDIAC CATH REPORT [facility] CARDIAC CATHETERIZATION REPORT Page 2 SARY Almanzar : 1955 #: [id number] MR #/Billing ID #: [id number] / [id number] DATE: 02/26/2021 INTERNET SECURITY SPECIALIST: Nelly Zepeda MD DICTATING PROVIDER: Barnye Jaramillo MD REFERRING PHYSICIAN: Dudley Francis MD COAL LOADER: Nelly Zepeda MD. INDICATION FOR PROCEDURE: Ms. Paige [...] obtained from the patient after a thorough discus deanna of risks, benefits, and potential complications. The patient verbalized un derstanding and agreed to undergo the procedure. PROCEDURAL DETAILS: The patient was brought to the cardiac catheterization area in a fasting, nonsedated state. A total of 1 mg of Versed and 50 mg of Benad[place] l were administered intravenously throughout the procedure. Moderate conscious sedation was maintained for 18 minutes, which was monitored throughout the proce dure by myself, my attending, and labor delivery specialist staff. Blood pressure, oxygen level, heart rate, and level of consciousness were assessed throughout the procedure a nd at its conclusion. LEFT HEART CATHETERIZATION VIA RADIAL ACCESS: The right wrist area was draped a nd prepped in the usual sterile fashion. Barbeau test deemed acceptable for a r adial approach. After this, we utilized 1 mL of 1% lidocaine and a microaccess kit to access the right radial artery. Over a wire, a 6 Slender sheath was intr oduced and 5000 units of heparin were administered intravenously and then 200 mc g of nitroglycerin and 2.5 mg of verapamil were administered intra-arterially on ce access was obtained. Subsequently, we utilized a 5-[place] TIG catheter and p erformed a standard left heart catheterization and selective angiography. All t catheters and wires were removed at the completion of the procedure. The pat ient did have a TR Band in the right wrist area. Hemostasis was achieved after pulling the sheath using patent hemostasis technique. The patient was transferr ed back to the holding area in a hemodynamically stable and pain-free state. LEFT HEART CATHETERIZATION: Hemodynamics: 1. Aortic pressure 135/62, mean 88 mmHg. 2. Left ventricular systolic pressure was 142 mmHg with an end-diastolic pressur e of 6 mmHg. The patient received 250 mL of normal saline due to low LVEDP. 3. There was no gradient detected across the aortic valve on pullback. SELECTIVE CORONARY CINEANGIOGRAPHY 1. Left main coronary artery: The left main coronary artery arises normally fro m left coronary sinus. It trifurcates distally into a left anterior descending artery, a left circumflex artery, and a ramus intermedius artery. The distal le ft main has a 30% stenosis. 2. Left anterior descending artery: Left anterior descending artery is a large vessel that gives rise to 2 diagonal vessels. There is a stent extending from t he proximal LAD into the 1st major diagonal artery that has some mild luminal ir regularities. The proximal LAD has mild luminal irregularities as well. The re mainder of the diagonal artery and mid and distal LAD are angiographically free of significant disease. This is a type 3 LAD. 3. Left circumflex artery: Left circumflex artery is a large-caliber nondominan t vessel. It gives rise to 3 obtuse marginal arteries. The proximal mid portio n has some luminal irregularities, but there is no angiographic evidence of sign ificant disease. 4. Ramus intermedius artery is a medium-sized vessel with some proximal 30% sten osis. 5. Right coronary artery: The right coronary artery is a large dominant vessel that arises normally from the coronary sinus. It bifurcates early in its course into a right PDA and right PLV. In the mid portion of the RCA, there is a long tubular segment of 20% stenosis. The right PLV has a tubular 50% stenosis. Re mainder of the right coronary artery and RPDA are free of significant angiograph ic disease. CONTRAST: 47 mL, Isovue. AIR KERMA: 204 mGy. FLUOROSCOPY TIME: 3.3 minutes. My attending, Dr. Zepeda, was present for the entirety of the case performing, wh en necessary, chu portions of the procedure. FINAL IMPRESSION: 1. Mild nonobstructive coronary disease as described above. 2. Patent stent in the proximal LAD extending to the 1st diagonal artery. 3. Low LVEDP. 4. No aortic gradient on pullback. Nelly Zepeda MD TB/MedQ /[id number] cc: - Dudley Francis MD documented in this encounter Plan of Treatment Order Schedule Name Type Priority Associated Diag noses Expected: 03/05/2021 (Approximate), Expi res: 02/26/2022 BASIC METABOLIC PANEL Lab Routine Nonische melo cardiomyopathy (HCC) Nonrheumatic mitral valve regurgitation Coronary artery disease of [place] artery of [place] heart with stable angina pectoris (HCC) Hypokalemia documented as of this encounter Procedures Comments Procedure Name Priority Date/Time Associated Diag nosis CARDIAC CATH REPORT 02/26/2021 4:05 PM CDT CARDIAC CATH REPORT Routine 02/26/2021 Abnormal s tress test 9:09 AM CDT PROCEDURE RECORD-SCAN 02/26/2021 12:00 AM CDT PROCEDURE RECORD-SCAN 02/26/2021 12:00 AM CDT CARDIAC CATH REPORT Routine 02/12/2021 Abnormal s tress test 10:14 AM CDT documented in this encounter Results * CARDIAC CATH REPORT (02/26/2021 4:05 PM CDT) Procedure Note Barney Jaramillo, - 02/26/2021 4:05 PM CDT [facility] CARDIAC CATHETERIZATION REPORT Page 2 SARY Almanzar : 1955 KU#: [id number] KU MR #/Billing ID #: [id number] / [id number] DATE: 02/26/2021 INTERNET SECURITY SPECIALIST: Nelly Zepeda MD DICTATING PROVIDER: Barney Jaramillo MD REFERRING PHYSICIAN: Dudley Francis MD COAL LOADER: Nelly Zepeda MD. INDICATION FOR PROCEDURE: Ms. Paige [...] the procedure by myself, my attending, and labor delivery specialist staff. Blood pressure, oxygen level, heart rate, [...] access was obtained. Subsequently, we utilized a 5-Bangladeshi TIG catheter and performed a standard left heart catheterization and selective angiography. All the catheters and wires were removed at the completion of the procedure. The patient did have a TR Band in the right wrist area. Hemostasis was achieved after pulling the sheath using patent hemostasis technique. The patient was transferred back to the [facility] area in a hemodynamically stable and [...] LVEDP. 4. No aortic gradient on pullback. Nelly Zepeda MD TB/MedQ /[id number] cc: - Dudley Francis MD Performing Organization Address City/State/ZIP Code P chilo Number OTHER OUTSIDE LAB * PROCEDURE RECORD-SCAN (02/26/2021 12:00 AM CDT) Narrative Performed At This result has an attachment that is n ot available. Ordered by an unspecified provider. * PROCEDURE RECORD-SCAN (02/26/2021 12:00 AM CDT) Narrative Performed At This result has an attachment that is n ot available. Ordered by an unspecified provider. documented in this encounter Visit Diagnoses Diagnosis Coronary artery disease of [place] arter y of [place] heart with stable angina pectoris (HCC) - Primary Abnormal stress test Other nonspecific abnormal cardiovascul ar system function study Nonischemic cardiomyopathy (HCC) Other primary cardiomyopathies Nonrheumatic mitral valve regurgitation Hypokalemia Hypopotassemia Dyslipidemia Other and unspecified hyperlipidemia Essential (primary) hypertension Unspecified essential hypertension documented in this encounter Administered Medications Action Date Dose Rate Site Medication Order MAR Action acetaminophen (TYLENOL) tablet 650 mg 650 mg, Oral, EVERY 4 HOURS PRN, Starting on Thu02/26/21 at 1549, Until Thu02/26/21 at 2221, Pain non-opioid: ma y be used alone or in combination with opioid analgesia, TOTAL ACETAMINOPHEN DOSE NOT TO EXCEED 4GM DAILY aluminum/magnesium hydroxide (MAALOX) oral suspension 30 mL 30 mL, Oral, EVERY 4 HOURS PRN, Starting on Thu02/26/21 at 1549, Until Thu02/26/21 at 2221, Indigestion/Heartburn 02/26/2021 9:40 AM CDT 325 mg aspirin tablet 325 mg Given 325 mg, Oral, ONCE, 1 dose, On Thu02/26/21 at 0915, Give NOW prior to CV procedure., Pre-Op diphenhydrAMINE HCL (BENADRYL) capsule 25 mg 25 mg, Oral, EVERY 4 HOURS PRN, Starting on Thu02/26/21 at 1549, Until Thu02/26/21 at 2221, Rash diphenhydrAMINE HCL (BENADRYL) injectio n 25 mg 25 mg, Intravenous, EVERY 4 HOURS PRN, Starting on Thu02/26/21 at 1549, Until Thu02/26/21 at 222, Rash docusate (COLACE) capsule 100 mg 100 mg, Oral, DAILY PRN, Starting on Thu02/26/21 at 0909, Until Thu02/26/21 at 2220, Constipation PO, Hold for loose stools., Pre-Op nitroglycerin (NITROSTAT) tablet 0.4 mg 0.4 mg, Sublingual, EVERY 5 MIN PRN, Starting on Thu02/26/21 at 0909, Until Thu02/26/21 at 222, Chest Pain, Not to exceed 3 doses per incident of chest pain. Notify physician if chest pain persists after 3 doses., Pre-Op ondansetron (ZOFRAN) injection 4 mg 4 mg, Intravenous, EVERY 6 HOURS PRN, Starting on Thu02/26/21 at 1549, Until Thu02/26/21 at 222, Nausea/Vomiting Injectable 02/26/2021 11:36 AM CDT 60 mEq potassium chloride SR (K-DUR) tablet 60 Given mEq 60 mEq, Oral, ONCE, 1 dose, On Thu02/26/21 at 1115, Do NOT break or devonte h tablet Give with meal or full glass of water sodium chloride 0.9 % infusion 1,000 mL, Intravenous, at 50 mL/hr, CONTINUOUS, Starting on Thu02/26/21 at 1600, Until Thu02/26/21 at 2159, Run at 2 mL/kg/hr x 6 hours, then 30 mL/hr. Onc e patient is out of bed, then saline lock and discontinue IV fluid. For early discharge, ensure IV fluids for minimum of 2 hours, then encourage oral fluids for 24 hours. temazepam (RESTORIL) capsule 15 mg 15 mg, Oral, AT BEDTIME PRN, Starting o n Thu02/26/21 at 0909, Until Thu02/26/21 at 2221, Insomnia, Pre-Op documented in this encounter Discontinued Medications Start Date End Date Medication Sig Discontinue Reason 02/26/2021 atorvastatin (LIPITOR) 40 Take 40 mg Reorder mg tablet by mouth daily. 02/26/2021 metoprolol XL (TOPROL XL) Take 25 mg Reorder 25 mg extended release by mouth tablet daily. documented as of this encounter Active and Recently Administered Medications Times are shown in CDT. 02/25/2021 02/26/2021 Medication Order 02/24/2021 0940 (Given - Provider: Audrey Smith RN) aspirin tablet 325 mg (COMPLETED) 325 mg, Oral, ONCE, 1 dose, On Thu02/26/21 at 0915, Give NOW prior to CV procedure., Pre-Op 1136 (Given - Provider: Audrey Smith RN) potassium chloride SR (K-DUR) tablet 60 mEq (COMPLETED) 60 mEq, Oral, ONCE, 1 dose, On Thu02/26/21 at 1115, Do NOT break or devonte h tablet Give with meal or full glass of water 02/25/2021 02/26/2021 Medication Order 02/24/2021 1600 (Due) sodium chloride 0.9 % infusion 1,000 mL, Intravenous, at 50 mL/hr, CONTINUOUS, Starting on Thu02/26/21 at 1600, Until Thu02/26/21 at 2159, Run at 2 mL/kg/hr x 6 hours, then 30 mL/hr. Onc e patient is out of bed, then saline lock and discontinue IV fluid. For early discharge, ensure IV fluids for minimum of 2 hours, then encourage oral fluids for 24 hours. 02/25/2021 02/26/2021 Medication Order 02/24/2021 acetaminophen (TYLENOL) tablet 650 mg 650 mg, Oral, EVERY 4 HOURS PRN, Starting on Thu02/26/21 at 1549, Until Thu02/26/21 at 2221, Pain non-opioid: ma y be used alone or in combination with opioid analgesia, TOTAL ACETAMINOPHEN DOSE NOT TO EXCEED 4GM DAILY aluminum/magnesium hydroxide (MAALOX) oral suspension 30 mL 30 mL, Oral, EVERY 4 HOURS PRN, Starting on Thu02/26/21 at 1549, Until Thu02/26/21 at 222, Indigestion/Heartburn diphenhydrAMINE HCL (BENADRYL) capsule 25 mg(Linked Group 1) 25 mg, Oral, EVERY 4 HOURS PRN, Starting on Thu02/26/21 at 1549, Until Thu02/26/21 at 222, Rash diphenhydrAMINE HCL (BENADRYL) injectio n 25 mg(Linked Group 1) 25 mg, Intravenous, EVERY 4 HOURS PRN, Starting on Thu02/26/21 at 1549, Until Thu02/26/21 at 2220, Rash docusate (COLACE) capsule 100 mg 100 mg, Oral, DAILY PRN, Starting on Thu02/26/21 at 0909, Until Thu02/26/21 at 2220, Constipation PO, Hold for loose stools., Pre-Op nitroglycerin (NITROSTAT) tablet 0.4 mg 0.4 mg, Sublingual, EVERY 5 MIN PRN, Starting on Thu02/26/21 at 0909, Until Thu02/26/21 at 2220, Chest Pain, Not to exceed 3 doses per incident of chest pain. Notify physician if chest pain persists after 3 doses., Pre-Op ondansetron (ZOFRAN) injection 4 mg 4 mg, Intravenous, EVERY 6 HOURS PRN, Starting on Thu02/26/21 at 1549, Until Thu02/26/21 at 2220, Nausea/Vomiting Injectable temazepam (RESTORIL) capsule 15 mg 15 mg, Oral, AT BEDTIME PRN, Starting o n Thu02/26/21 at 0909, Until Thu02/26/21 at 2220, Insomnia, Pre-Op Order Group 1: diphenhydrAMINE HCL (BENADRYL) capsule 25 mgJump to med 25 mg, Oral, EVERY 4 HOURS PRN, Starti ng on Thu02/26/21 at 1549, Until Thu02/26/21 at 2221, Rash Or diphenhydrAMINE HCL (BENADRYL) injectio n 25 mgJump to med 25 mg, Intravenous, EVERY 4 HOURS PRN, Starting on Thu02/26/21 at 1549, Until Thu02/26/21 at 2221, Rash documented in this encounter Orders First Ordered Date Medications Ordered That Might Not Have Count Last Ordered Date Been Administered acetaminophen (TYLENOL) tablet 650 mg 2 02/26/2021 aluminum/magnesium hydroxide (MAALOX) 2 02/26/2021 oral suspension 30 mL diphenhydrAMINE HCL (BENADRYL) capsule 1 02/26/2021 25 mg diphenhydrAMINE HCL (BENADRYL) injection 1 02/26/2021 25 mg docusate (COLACE) capsule 100 mg 1 02/26 nitroglycerin (NITROSTAT) tablet 0.4 mg 1 02/26/2021 ondansetron (ZOFRAN) injection 4 mg 1 sodium chloride 0.9 % infusion 1 02/26 temazepam (RESTORIL) capsule 15 mg 1 12/2020 First Ordered Date Lab Orders Without Results Count Last Ordere d Date BASIC METABOLIC PANEL 1 02/26/2021 CBC 1 02/26/2021 First Ordered Date Diet Count Last Ordered Date DISCHARGE DIET CARDIAC 1 02/26/2021 First Ordered Date Nursing Count Last Ordered Date DISCHARGE ACTIVITY OTHER 1 02/26/2021 DISCHARGE CONTACT 1 02/26/2021 DISCHARGE RETURN APPOINTMENT 1 DISCHARGE SIGNS/SYMPTOMS 1 02/26/2021 DISCHARGE WOUND CARE 1 02/26/2021 RISK REDUCTION PLAN 1 02/26/2021 First Ordered Date Discharge Count Last Ordered Date DISCHARGE PATIENT NOW 1 02/26/2021 First Ordered Date Vital Signs Count Last Ordered Date VITAL SIGNS 1 02/26/2021 First Ordered Date Cardiac Cath Count Last Ordered Date 02/12/2021 CARDIAC CATH REPORT 2 02/26/2021 First Ordered Date Intake & Output Count Last Ordered Date INTAKE AND OUTPUT 1 02/26/2021 documented in this encounter Additional Health Concerns Assessment Noted Time A fall risk assessment has been completed for the pat ient 02/26/2021 9:31 AM CDT PHQ-2 Depression Total Score: 0 02/26/2021 8:22 AM CDT documented as of this encounter
--- OUTSIDE RECORDS SUMMARY | 2021-03-30 08:34 | XMS REPORT | Encounter Summary ---
Author Author [facility] Organization [facility] Address Unknown Phone Unavailable Care Team Providers Care Medical Data Entry Clerk Name Role Phone PCP Unavailable Reason for Visit * Reason Comments Precertification Approval for LVCORS through [facility] Encounter Details Care Team Description Date Type Department Torsten Crump RN Precertification (Approval for LVCORS th [facility]) 02/13/2021 Documentation Cardiology: [facility] [address], [address] [place] [address] Social History Date Tobacco Use Types Packs/Day Years Used Never Assessed Sex Assigned at Date Recorded Female 02/21/2021 12:16 PM CDT documented as of this encounter Progress Notes * Torsten Crump RN - 02/13/2021 8:44 AM CDT website with [facility] confirmed benefits and eligibility: Current and active since 06/22/2018, $1000 deductible with required co-insurance of 20% to max OOP $2 000, then plan will pay 100% of allowable charges. No pre-certification is requ ired for LVCORS or PCI if indicated [phone]. Reference #[id number] documented in this encounter Plan of Treatment Not on filedocumented as of this encounter Visit Diagnoses Not on filedocumented in this encounter
--- OUTSIDE RECORDS SUMMARY | 2021-03-30 08:34 | XMS REPORT | Encounter Summary ---
Author Author [facility] Organization [facility] Address Unknown Phone Unavailable Care Team Providers Care Hand Glass Cutter Name Role Phone Dudley Francis MD PCP Reason for Visit * Auth/Cert Referred By Contact Referred To Contact Status Reason Specialty Diagnoses / Procedures Diagnoses Abnormal stress test Procedures NJ CATH PLMT L HRT & ARTS W/NJX & ANGIO IMG S&I NJ PRQ TRLUML CORONARY STENT W/ANGIO ONE ART/BRNCH ANGIOGRAPHY CORONARY ARTERY WITH LEFT HEART CATHETERIZATION POSSIBLE PERCUTANEOUS CORONARY STENT PLACEMENT WITH ANGIOPLASTY Encounter Details Care Team Description Date Type Department Nelly Zepeda MD [address] [place], [place] [id number] [place], [place] [id number] ANGIOGRAPHY CORONARY ARTERY WITH LEFT HE ART CATHETERIZATION 02/26/2021 Surgery Laboratory: [facility] [address] [place] [address] [address], [address] [place] [id number] Surgery Details Trauma Case? Date/Time Status Location OR Service Patient Class Case Class Case Type 02/26/21 Posted HC2 EP LAB CV Lab 08 Interventi Planned Elec tive - 3:15 PM onal Extended Treating Cardiology Recovery conditions that are not life or limb threatenin g Panel 1 Procedure LRB Anes Op Region Wound Class Com ments ANGIOGRAPHY CORONARY N/A Sedation ARTERY WITH LEFT HEART CATHETERIZATION POSSIBLE PERCUTANEOUS N/A Sedation CORONARY STENT PLACEMENT WITH ANGIOPLASTY Panel Surgeon Surgeon Role Service 1 Nelly Zepeda MD Primary Interventional Card iology Special Needs 02/12 [place], [place], [address] H&P MJK (1013) Social History Date Tobacco Use Types Packs/Day [...] Signs Reading Time Taken Comments Vital Sign 128/56 02/26/2021 4:00 PM CDT Blood Pressure 65 02/26/2021 4:00 PM CDT Pulse 37 C (98.6 F) 02/26/2021 9:31 AM CDT Temperature - - Respiratory Rate 99% 02/26/2021 4:00 PM CDT Oxygen Saturation - - Inhaled [...] to speak with someone? During Business Hours: [facility] Cardiology Office at the [facility]: [phone] (Thursday-Thursday) [place]:[phone] (Thursday-Thursday) [place]: [phone] (Thursday-Thursday) [place]: [phone] (Thursday and ) [place]: [phone] (Thursday-Thursday) [facility]: [phone] (Thursday, Thursday and Thursday) [place]:[phone] (Thursday, Thursday and Thursday) Nights and Weekends [facility] Cardiology Office at the [facility]: [phone] Thisinformation is meant to serve as a resource to you and your family. It i s not meant to be all inclusive. The members of the [facility] at [facility] Cardiology, , will be glad to [...] this RN. Patient to follow up with [facility] Cardiology (MAC) or on-call physician with [...] follow up in valve clinic in 3 [facility]. The patient was monitored post procedure, [...] Problems Principal Problem: Coronary artery disease of [place] artery of [place] heart with stable angina pe ctoris (HCC) [...] would you like to CC? NELLY ZEPEDA [[id number]] Release to patient Immediate Cardiac Diet Limiting [...] To register for smoking cessation program call [phone] or visit www.smokefree.gov Diabetes Risk Goal: Non-diabetic: [...] you can call a marcos verdin at [phone] Physical Activity Risk Goal: Patients should have approval by a physician prior to beginning an exercis e program. Plan: Try to get at least 30 minutes of moderate physical activity five days a w [place] or 20 minutes of vigorous physical activity [...] HOURS (8:00 AM - 4:30 PM): Call [phone] and asked to be transferred to your discharge attending henrietta cordova. - AFTER BUSINESS HOURS (4:30 PM - 8:00 AM, on weekends, or holidays): Call [phone] and ask the process control board operator to page the on-call doctor for the discha rge attending physician. Discharging attending physician: NELLY ZEPEDA [[id number]] Return Appointment The valve team nurse will call you with an appointment to follow up with Dr. Ashley tellez in valve clinic in 3 months. A electronic assembler should call you regarding an appointment with the heart failure team in the next few weeks. If you do not receive a call, call Lorri at . [facility] Provider NELLY ZEPEDA [[id number]] Current Discharge Medication List CONTINUE these medications [...] 0800 4. Instructed to check-in at the [facility] registration desk and bring phot o id, insurance cards and a current list of home medications. Pack an overnight bag in the event you are admitted overnight: Y 5. If you have a history of sleep apnea and use a C-Pap or Bi-Pap machine, pleas e bring it with you to the hospital: N 6. Have a superintendent drivers available upon discharge as you may not be cleared to drive for 24 or 48 hours post procedure. (exception is RHC/biopsy patient with internal j ugular approach not receiving sedation): Y 7. If the patient's language preference is other than Portuguese, please indicated [place] language and need for journeyman powerhouse operator: N 8. Patient instructed to drink 64 [...] [place] PA-C Interventional Cardiology Pager [phone] Progress Notes Nelly Zepeda MD (Physician) Interventional [...] had to be taken back to the Supervisor Sewer Maintenance the following day for an additional stent. [...] Diagnosis Date Noted Coronary artery disease of [place] artery of [place] heart with stable angina pectoris (HCC) 02/26/2021 [...] Pre-procedure lab exam Coronary artery disease of [place] artery of [place] heart with stable angina pectoris (HCC) Essential [...] daily and follows with meghan Vaughn primary lead die molder, for risk factor optimization. Thank you for [...] REPORT [facility] CARDIAC CATHETERIZATION REPORT Page 2 SARY Almanzar : 1955 #: [id number] DIANA MR #/Billing ID #: [id number] / [id number] DATE: 02/26/2021 SUPERVISOR LIQUID YEAST: Nelly Zepeda MD DICTATING PROVIDER: Barney Jaramillo MD REFERRING PHYSICIAN: Dudley Francis MD PROPERTY MAN: Nelly Zepeda MD. INDICATION FOR PROCEDURE: Ms. [...] proce dure by myself, my attending, and label maker staff. Blood pressure, oxygen level, heart rate, [...] access was obtained. Subsequently, we utilized a 5-Korean TIG catheter and p erformed a standard left heart catheterization and selective angiography. All t he catheters and wires were removed at the [...] aortic gradient on pullback. Nelly Zepeda MD TB/Damari /[id number] cc: - Dudley Francis MD documented in this encounter Plan of Treatment Order Schedule Name Type Priority Associated Diag noses Expected: 03/05/2021 (Approximate), Expi res: 02/26/2022 BASIC METABOLIC PANEL Lab Routine Nonische melo cardiomyopathy (HCC) Nonrheumatic mitral valve regurgitation Coronary artery disease of [place] artery of [place] heart with stable angina pectoris (HCC) Hypokalemia [...] CDT [facility] CARDIAC CATHETERIZATION REPORT Page 2 SARY Almanzar : 1955 KU#: [id number] MR #/Billing ID #: [id number] / [id number] DATE: 02/26/2021 SUPERVISOR LIQUID YEAST: Nelly Zepeda MD DICTATING PROVIDER: Barney Jaramillo MD REFERRING PHYSICIAN: Dudley Francis MD PROPERTY MAN: Nelly Zepeda MD. INDICATION FOR PROCEDURE: Ms. [...] the procedure by myself, my attending, and label maker staff. Blood pressure, oxygen level, heart rate, [...] access was obtained. Subsequently, we utilized a 5-Korean TIG catheter and performed a standard left heart catheterization and selective angiography. All the catheters and wires were removed at the completion of the procedure. The patient did have a TR Band in the right wrist area. Hemostasis was achieved after pulling the sheath using patent hemostasis technique. The patient was transferred back [facility] area in a hemodynamically stable and pain-free [...] gradient on pullback. Nelly Zepeda MD TB/MedQ /[id number] cc: - Dudley Francis MD Performing Organization [...] nonspecific abnormal cardiovascul ar system function study documented in this encounter Administered Medications Action [...] at 1549, Until Thu02/26/21 at 222, Indigestion/Heartburn 02/26/2021 9:40 AM CDT 325 mg [...] Thu02/26/21 at 1549, Until Thu02/26/21 at 222, Pain non-opioid: ma y be used alone or in combination with opioid analgesia, TOTAL ACETAMINOPHEN DOSE NOT TO EXCEED 4GM DAILY aluminum/magnesium hydroxide (MAALOX) oral suspension 30 mL 30 mL, Oral, EVERY 4 HOURS PRN, Starting on Thu02/26/21 at 1549, Until Thu02/26/21 at 2220, Indigestion/Heartburn diphenhydrAMINE HCL (BENADRYL) capsule 25 mg(Linked Group 1) 25 mg, Oral, EVERY 4 HOURS PRN, Starting on Thu02/26/21 at 1549, Until Thu02/26/21 at 2220, Rash diphenhydrAMINE HCL (BENADRYL) injectio n 25 [...]
--- OUTSIDE RECORDS SUMMARY | 2021-03-30 08:34 | XMS REPORT | Encounter Summary ---
Author Author [facility] Organization [facility] Address Unknown Phone Unavailable Care Team Providers Care Barrel Builder Name Role Phone Dudley Francis MD PCP Reason for Visit * Reason Onset Date Comments Patient Questions 02/22/2021 Encounter Details Care Team Description Date Type Department Chanell Bender RN Patient Questions 02/22/2021 Telephone Cardiology: [facility] [address], [address] [place] [address] Social History Date Tobacco Use Types Packs/Day Years Used Former Smoker Smokeless Tobacco: Never Used Sex Assigned at Date Recorded Female 02/21/2021 12:16 PM CDT documented as of this encounter Miscellaneous Notes * Telephone Encounter - Chanell Bender RN - 02/22/2021 9:32 AM CDT Patient had COVID swab today for test/procedure Thursday (negative result). Reques ting our fax number, called back with information. Will look out for results. Al so wondering if brother can come for procedure, informed her one visitor allowed and has to wait in waiting room. No further questions. documented in this encounter Plan of Treatment Not on filedocumented as of this encounter Visit Diagnoses Not on filedocumented in this encounter
--- OUTSIDE RECORDS SUMMARY | 2021-03-30 08:34 | XMS REPORT | Encounter Summary ---
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[employer]BER 7 Encounter Details Care Team Description Date Type Department Angie Trevino RN Abnormal stress test (Primary Dx); Encounter for screening laboratory testing for COVID-19 virus in asymptomatic patient 02/12/2021 Prep for Case Cardiology: [facility] [address] [place] [address] Social History Date Tobacco Use Types Packs/Day Years Used Never Assessed Sex Assigned at Date Recorded Female 02/21/2021 12:16 PM CDT documented as of this encounter Plan of Treatment Not on filedocumented as of this encounter Results * COVID-19 (SARS-COV-2) PCR (02/22/2021) COVID-19 negative OTHER OUTSIDE (SARS-CoV-2) LAB PCR COVID-19 OTHER OUTSIDE (SARS-CoV-2) LAB PCR Source Specimen Flocked Swab - Nasopharyngeal Narrative Performed At This result has an attachment that is n ot available. 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
--- OUTSIDE RECORDS SUMMARY | 2021-03-30 08:34 | XMS REPORT | Encounter Summary ---
Author Author [facility] Organization [facility] Address Unknown Phone Unavailable Care Team Providers Care Health Information Administrator Name Role Phone Dudley Francis MD PCP Reason for Visit * Reason Comments New Patient Encounter Details Care Team Description Date Type Department Angie Trevino RN New Patient 02/20/2021 Patient Profile Cardiology: [facility] [address], [address] [place] [address] Social History Date Tobacco Use Types Packs/Day Years Used Former Smoker Smokeless Tobacco: Never Used Sex Assigned at Date Recorded Female 02/21/2021 12:16 PM CDT documented as of this encounter Plan of Treatment Not on filedocumented as of this encounter Visit Diagnoses Not on filedocumented in this encounter Historical Medications * This list may reflect changes made after this encounter. Start Date End Date Medication Sig Dispensed Refills traMADoL (ULTRAM) 50 mg Take 50 mg by 0 tablet mouth every 6 hours. Take 0.33 tablets every 6 hours as needed omeprazole DR (PRILOSEC) Take 20 mg by 0 20 mg capsule mouth twice daily. levETIRAcetam (KEPPRA) Take 1,000 mg 0 1,000 mg tablet by mouth three times daily. linaclotide (LINZESS) 290 Take 290 mcg 0 mcg capsule by mouth daily. meclizine (ANTIVERT) 25 Take 25 mg by 0 mg tablet mouth three times daily as needed. gabapentin (NEURONTIN) Take 800 mg 0 800 mg tablet by mouth three times daily. Cholecalciferol (Vitamin Take by 0 D3) (VITAMIN D-3) 50 mcg mouth. (2,000 unit) cap calcium carbonate Take 500 mg 0 (CALCIUM 500 PO) by mouth twice daily. ticagrelor (BRILINTA) 90 Take 90 mg by 0 mg tablet mouth twice daily. aspirin 81 mg chewable Chew 81 mg by 0 tablet mouth daily. Take with food. 03/08/2021 spironolactone Take 50 mg by 0 (ALDACTONE) 50 mg tablet mouth daily. Take with food. 02/26/2021 metoprolol XL (TOPROL XL) Take 25 mg by 0 25 mg extended release mouth daily. tablet 03/04/2021 losartan (COZAAR) 25 mg Take 25 mg by 0 tablet mouth daily. 02/26/2021 atorvastatin (LIPITOR) 40 Take 40 mg by 0 mg tablet mouth daily. added in this encounter
--- OUTSIDE RECORDS SUMMARY | 2021-03-30 08:34 | XMS REPORT | Encounter Summary ---
Author Author [facility] Organization [facility] Address Unknown Phone Unavailable Care Team Providers Care Director Education Name Role Phone PCP Unavailable Reason for Visit * Reason Comments Referral Referral from Dr. Tadeo pitts for [facility] Encounter Details Care Team Description Date Type Department Angie Trevino RN Referral (Referral from Dr. Tadeo briceno for [facility]) 02/12/2021 Documentation Cardiology: [facility] [address], [address] [place] [address] Social History Date Tobacco Use Types Packs/Day Years Used Never Assessed Sex Assigned at Date Recorded Female 02/21/2021 12:16 PM CDT documented as of this encounter Progress Notes * Angie Trevino RN - 02/12/2021 10:01 AM CDT Reviewed heart cath images with Dr. Zepeda. Per Dr. Zepeda- pt to be set up with O V appt and same day cath. documented in this encounter Plan of Treatment Not on filedocumented as of this encounter Visit Diagnoses Not on filedocumented in this encounter
[2021-03-30 08:57] LABS: BASOPHILS # (AUTO) 0.1 10^3/uL (0.0-0.1); BASOPHILS % (AUTO) 1 % (0-10); EOSINOPHILS % (AUTO) 0 % (0-10); HEMATOCRIT 35 % (35-52); HEMOGLOBIN 12.2 g/dL (11.5-16.0); LYMPHOCYTES # (AUTO) 1.9 10^3/uL (1.0-4.0); LYMPHOCYTES % (AUTO) 19 % (12-44); MEAN CORPUSCULAR HEMOGLOBIN 31 pg (25-34); MEAN CORPUSCULAR HGB CONC 35 g/dL (32-36); MEAN CORPUSCULAR VOLUME 90 fL (80-99); MEAN PLATELET VOLUME 10.4 fL (9.0-12.2); MONOCYTES # (AUTO) 0.5 10^3/uL (0.0-1.0); MONOCYTES % (AUTO) 5 % (0-12); NEUTROPHILS # (AUTO) 7.5 10^3/uL (1.8-7.8); NEUTROPHILS % (AUTO) 75 % (42-75); PLATELET COUNT 346 10^3/uL (130-400); WHITE BLOOD COUNT 9.9 10^3/uL (4.3-11.0)
--- NOTE | 2021-03-30 08:57 | ED Chest Pain ---
General Chief Complaint: Chest Pain Stated Complaint: DIZZINESS,NAUSEA Nursing Triage Note: TO ED PER [facility] FROM HOME WITH C/O CHEST PAIN AND DIZZY SINCE YESTERDAY.HAS PMH OF BEING DIZZY TAKES MEDS FOR IS TO SEE [facility] ON MAY 09 FOR LEAKING VALVE. VOMITING ON ADMIT TO ED. Source: patient, EMS, old records Exam Limitations: no limitations History of Present Illness Date Seen by Provider: Mar 30, 2021 Time Seen by Provider: 08:40 Initial Comments Patient is a 66-year-old female who presents to the emergency department today by ambulance with a chief complaint of diffuse chest pain, dizziness, nausea. Patient initially states that her symptoms started 2 days ago however on further questioning she started having some exercise-induced chest pain a week ago on Thursday at cardiac rehab. Patient states anytime she gets up and moves around she has chest pain. 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 In the last 48 hours the patient has started experiencing symptoms of dizziness, she states she is taken meclizine "every 2 hours or so". She is not had any relief. She states she has never had dizziness this bad, she believes Dr. Gray gave her a prescription for meclizine a couple of months ago. She states she had mild headache earlier none now. No recent febrile illnesses. She is not Covid vaccinated. She denies sick contacts. She was just nauseous in the ambulance prior to arrival and started vomiting when she got here. Initially stated her chest pain was "10 out of 10" currently rates it a "5". She also endorses diarrhea, watery. Patient tells me that she is allergic to "all opiate medications". She also states she is allergic to Valium although she cannot remember what the side effect is. Patient was given 8 mg of Zofran IV on arrival. She is scheduled to follow-up with [facility] within the next month for evaluation for "heart transplant". Per review of the medical record she had an echo done in January here which showed an ejection fraction of 23%. Patient has had multiple prior stents placed. Chronically anticoagulated on Brilinta. She did have 4 baby aspirin prior to arrival. All other review of systems reviewed and negative except as stated. 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 NTG SL SAIL FINISHER HAND: No Associated Symptoms: dizziness, nausea/vomiting Allergies and Home Medications Allergies Coded Allergies: Opioids - Morphine Analogues (Verified Allergy, Unknown, DEEP SLEEP, PURPLE BLOTCHES, 12/28/18) ciprofloxacin (Verified Allergy, Unknown, RASH/BUMPS/PAIN, 12/28/18) codeine (Verified Allergy, Unknown, 10/20/18) fentanyl (Verified Allergy, Unknown, Anaphylaxis, 10/20/18) hydrochlorothiazide (Verified Allergy, Unknown, 10/20/18) lisinopril (Verified Allergy, Unknown, 09/06/18) morphine (Verified Allergy, Unknown, 09/06/18) opium (anthroposophic) (Verified Allergy, Unknown, 10/20/18) Uncoded Allergies: "opiates" (Allergy, Unknown, 03/31/18) Patient Home Medication List Home Medication List Reviewed: Yes Aspirin (Aspirin EC) 81 Mg Tablet.dr, 81 MG PO DAILY, (Reported) Entered as Reported by: ZANDER CAMPBELL on 05/16/20 1304 Last Action: Continued Atorvastatin Calcium (Atorvastatin Calcium) 80 Mg Tablet, 80 MG PO HS, ( Reported) Entered as Reported by: AMAN MONTEZ on 03/30/21 1454 Last Action: Held Calcium Carbonate (Calcium) 600 Mg Tablet, 600 MG PO BID, (Reported) Entered as Reported by: NICHO VO on 10/20/18 0916 Last Action: Continued Cholecalciferol (Vitamin D3) (Vitamin D3) 25 Mcg Tablet, 25 MCG PO DAILY, (Reported) Entered as Reported by: ZANDER CAMPBELL on 05/16/20 1304 Last Action: Held Cyanocobalamin (Vitamin B-12) (B-12) 1,000 Mcg Tablet, 1,000 MCG PO DAILY, (Reported) Entered as Reported by: NICHO VO on 10/20/1816 Last Action: Held Diphenhydramine HCl (Allergy) 25 Mg Tablet, 25 MG PO DAILY, (Reported) Entered as Reported by: WAYNE HUNTLEY on 12/28/18 0937 Last Action: Held Gabapentin (Gabapentin) 800 Mg Tablet, 800 MG PO TID, (Reported) Entered as Reported by: NICHO VO on 10/20/18915 Last Action: Converted Isosorbide Mononitrate (Isosorbide Mononitrate ER) 30 Mg Tab.er.24h, 30 MG PO D AILY, (Reported) Entered as Reported by: AMAN MONTEZ on 03/30/211453 Last Action: Held Levetiracetam (Levetiracetam) 1,000 Mg Tablet, 1,000 MG PO TID, (Reported) Entered as Reported by: ZANDER CAMPBELL on 05/16/20 130 Last Action: Continued Linaclotide (Linzess) 290 Mcg Capsule, 290 MG PO HS, (Reported) Entered as Reported by: NICHO VO on 10/20/18915 Last Action: Converted Losartan Potassium (Losartan Potassium) 25 Mg Tablet, 25 MG PO DAILY, (Reported) Entered as Reported by: AMAN MONTEZ on 03/30/211453 Last Action: Held Meclizine HCl (Meclizine HCl) 25 Mg Tablet, 25 MG PO Q6H PRN for DIZZINESS, (Reported) Entered as Reported by: AMAN MONTEZ on 03/30/211453 Last Action: Continued Metoprolol Succinate (Metoprolol Succinate) 25 Mg Tab.er.24h, 25 MG PO DAILY, (Reported) Entered as Reported by: AMAN MONTEZ on 03/30/211453 Last Action: Continued Omeprazole (Omeprazole) 20 Mg Capsule.dr, 20 MG PO BID, (Reported) Entered as Reported by: WAYNE HUNTLEY on 12/28/18923 Last Action: Continued Potassium Chloride (Potassium Chloride) 20 Meq Tab.er.prt, 20 MEQ PO DAILY, (Reported) Entered as Reported by: AMAN MONTEZ on 03/30/211453 Last Action: Held Sacubitril/Valsartan (Entresto 49 mg-51 mg Tablet) 1 Each Tablet, 49-51 MG PO BID, (Reported) Entered as Reported by: MAAN MONTEZ on 03/30/211453 Last Action: Converted Spironolactone (Spironolactone) 50 Mg Tablet, 50 MG PO DAILY, (Reported) Entered as Reported by: AMAN MONTEZ on 03/30/211453 Last Action: Held Ticagrelor (Brilinta) 90 Mg Tablet, 90 MG PO BID Prescribed by: LANE GRAY on 05/17/20903 Last Action: Held Tramadol HCl (Tramadol HCl) 50 Mg Tablet, 25-50 MG PO DAILY PRN for PAIN-MILD (1-4), (Reported) Entered as Reported by: AMAN MONTEZ on 03/30/211453 Last Action: Held Discontinued Medications Atorvastatin Calcium (Lipitor) 40 Mg Tablet, 40 MG PO HS Discontinued Reason: No Longer Taking Prescribed by: LANE GRAY on 05/17/20903 Last Action: Discontinued Spironolactone (Spironolactone) 100 Mg Tablet, 100 MG PO BID, (Reported) Discontinued Reason: No Longer Taking Entered as Reported by: NICHO VO on 10/20/18915 Last Action: Discontinued Vitamin K2 (Vitamin K2) 40 Mcg Tablet, 100 MCG PO DAILY, (Reported) Discontinued Reason: No Longer Taking Entered as Reported by: WAYNE HUNTLEY on 12/28/18936 Last Action: Discontinued Review of Systems Review of Systems Constitutional: see HPI EENTM: No Symptoms Reported Respiratory: No Symptoms Reported Cardiovascular: Chest Pain Gastrointestinal: Diarrhea, Nausea, Vomiting Genitourinary: No Symptoms Reported Musculoskeletal: no symptoms reported Skin: no symptoms reported Psychiatric/Neurological: Headache, Weakness (General), Other (Dizziness) All Other Systems Reviewed Negative Unless Noted: Yes Past Jmzmssw-Aewhfp-Obhgdg Hx Seasonal Allergies Seasonal Allergies: No Past Medical History Surgeries: Yes Abdominal, Appendectomy, Gallbladder, Hysterectomy, Oophorectomy, Tubal Ligation Respiratory: No Cardiac: Yes Chronic Edema/Swelling, High Cholesterol, Hypertension Neurological: Yes Concussion, Neuropathy, Seizure Disorder Reproductive Disorders: Yes Female 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 ) HEENT: No Cancer: Yes (THESE ARE ALL SELF-REPORTED BY PT, WITH NO VERIFICATION OF ANY OF THESE) Skin, Cervical, Colon, Ovarian, Uterine Did You Recieve Any Treatments: Yes What Type of Treatment Did You: Surgical Intervention Psychosocial: No Integumentary: Yes (hx of skin ca) Blood Disorders: No Family Medical History Patient reports no known family medical history. No Pertinent Family Hx Physical Exam Vital Signs Vital Signs - First Documented 03/30/21 03/30/21 08:29 09:13 Temp 35.8 Pulse 80 Resp 18 B/P (MAP) 149/103 (118) Pulse Ox 97 O2 Delivery Room Air Capillary Refill : Less Than 3 Seconds Height, Weight, BMI Height: 5'5.00" Weight: 158lbs. 4.0oz. 71.183170fn; 31.00 BMI Method:Stated General Appearance: Chronically ill, Moderate Distress HEENT: PERRL/EOMI Neck: Normal Inspection Respiratory: Lungs Clear, Normal Breath Sounds, No Accessory Muscle Use, No Respiratory Distress Cardiovascular: Regular Rate, Rhythm, Normal Peripheral Pulses Gastrointestinal: Normal Bowel Sounds, Soft, Tenderness (Mild diffuse tenderness without rebound or guarding) Extremity: Normal Capillary Refill, Normal Inspection, Normal Range of Motion, Non Tender, No Pedal Edema Neurologic/Psychiatric: Alert, Oriented x3, No Motor/Sensory Deficits, Normal Mood/Affect Skin: Normal Color, Cool, Pallor (Slight pallor noted) Focused Exam Lactate Level 03/30/21 10:38: Lactic Acid Level 2.32*H Lactic Acid Level Laboratory Tests Test 03/30/21 10:38 Lactic Acid Level 2.32 MMOL/L (0.50-2.00) *H Progress/Results/Core Measures Results/Orders Lab Results Laboratory Tests Test 03/30/21 08:41 03/30/21 10:38 Range/Units White Blood Count 9.9 4.3-11.0 10^3/uL Red Blood Count 3.92 3.80-5.11 10^6/uL Hemoglobin 12.2 11.5-16.0 g/dL Hematocrit 35 35-52 % Mean Corpuscular Volume 90 80-99 fL Mean Corpuscular Hemoglobin 31 25-34 pg Mean Corpuscular Hemoglobin Concent 35 32-36 g/dL Red Cell Distribution Width 12.1 10.0-14.5 % Platelet Count 346 130-400 10^3/uL Mean Platelet Volume 10.4 9.0-12.2 fL Immature Granulocyte % (Auto) 0 % Neutrophils (%) (Auto) 75 42-75 % Lymphocytes (%) (Auto) 19 12-44 % Monocytes (%) (Auto) 5 0-12 % Eosinophils (%) (Auto) 0 0-10 % Basophils (%) (Auto) 1 0-10 % Neutrophils # (Auto) 7.5 1.8-7.8 10^3/uL Lymphocytes # (Auto) 1.9 1.0-4.0 10^3/uL Monocytes # (Auto) 0.5 0.0-1.0 10^3/uL Eosinophils # (Auto) 0.0 0.0-0.3 10^3/uL Basophils # (Auto) 0.1 0.0-0.1 10^3/uL Immature Granulocyte # (Auto) 0.0 0.0-0.1 10^3/uL Sodium Level 139 135-145 MMOL/L Potassium Level 2.8 L 3.6-5.0 MMOL/L Chloride Level 109 H 98-107 MMOL/L Carbon Dioxide Level 14 L 21-32 MMOL/L Anion Gap 16 H 5-14 MMOL/L Blood Urea Nitrogen 22 H 7-18 MG/DL Creatinine 1.15 0.60-1.30 MG/DL Estimat Glomerular Filtration Rate 48 BUN/Creatinine Ratio 19 Glucose Level 133 H 70-105 MG/DL Calcium Level 9.6 8.5-10.1 MG/DL Corrected Calcium 8.5-10.1 MG/DL Magnesium Level < 0.6 *L 1.6-2.4 MG/DL Total Bilirubin 0.6 0.1-1.0 MG/DL Aspartate Amino Transf (AST/SGOT) 21 5-34 U/L Alanine Aminotransferase (ALT/SGPT) 21 0-55 U/L Alkaline Phosphatase 85 40-136 U/L Total Creatine Kinase 155 29-168 U/L Troponin I < 0.028 <0.028 NG/ML B-Type Natriuretic Peptide 80.6 <100.0 PG/ML Total Protein 7.6 6.4-8.2 GM/DL Albumin 4.6 H 3.2-4.5 GM/DL Lactic Acid Level 2.32 *H 0.50-2.00 MMOL/L My Orders Orders - ALEX LEHMAN MD Ondansetron Injection (Zofran Injectio (03/30/21 08:33) Ed Iv/Invasive Line Start (03/30/21 08:50) Cbc With Automated Diff (03/30/21 08:50) Comprehensive Metabolic Panel (03/30/21 08:50) Ua Culture If Indicated (03/30/21 08:50) Ekg Tracing (03/30/21 08:50) Chest 1 View, Ap/Pa Only (03/30/21 08:50) Troponin I (03/30/21 08:50) Creatine Kinase (03/30/21 08:50) Ondansetron Injection (Zofran Injectio (03/30/21 09:00) Magnesium (03/30/21 09:00) Ns (Ivpb) (Sodium Chloride 0.9%) (03/30/21 09:15) Magnesium 1 Gm/100 Ml Ivpb (Magnesium Soler (03/30/21 09:45) Potassium Cl 10meq/50ml Ivpb (Kcl 10 Meq (03/30/21 09:45) Ekg Tracing (03/30/21 09:46) Covid 19 Inhouse Test (03/30/21 10:10) Blood Culture (03/30/21 10:10) Lactic Acid Analyzer (03/30/21 10:10) Parasite Scrn Stool Giard Cryp (03/30/21 10:10) Stool Culture (03/30/21 10:10) Fecal Wbc (03/30/21 10:10) C Difficile Ag + Toxin A/B. (03/30/21 10:10) BNP (03/30/21 10:10) Isolation Central Supply Req (03/30/21 10:10) Ns (Ivpb) (Sodium Chloride 0.9%) (03/30/21 10:15) Medications Given in ED Vital Signs/I&O 03/30/21 03/30/21 03/30/21 08:29 09:13 10:54 Temp 35.8 Pulse 80 84 60 Resp 18 18 18 B/P (MAP) 149/103 (118) 108/73 107/48 Pulse Ox 97 100 99 O2 Delivery Room Air Room Air Blood Pressure Mean: 118 Progress Progress Note : Time: 08:59 Progress Note Watching the patient's telemetry while at the bedside shortly after her EKG was obtained it is of note that the patient converted out of the couplet rhythm into a normal sinus at 79 bpm. She did appear to be in atrial fibrillation with controlled ventricular response on EKG per EMS prior to arrival. 1055 Case discussed with both Dr. Parra as well as Dr. Granda, recommend magnesium total replacement of 5 g, 70 mEq replacement potassium. We will continue Brilinta, aspirin and her Keppra. Will supplement with Zofran every 8 hours as needed nausea. We will recheck mag and potassium at 6 PM tonight and also trend troponin. Blood cultures, stool cultures, lactic acid, BNP is elevated indicating increased left ventricular end diastolic dilatation which may be seen in CHF. And Covid test added to her work-up. Initial ECG Impression Date: Mar 30, 2021 Initial ECG Impression Time: 08:40 Initial ECG Rate: 83 Initial ECG Rhythm: Normal Sinus Initial ECG Intervals MN 148 QRS 110 QTc 441 Comment Couplets noted every third beat, underlying sinus rhythm, hint of ST elevation in leads V1 and V2 with nonspecific ST-T wave changes inferiorly. Diagnostic Imaging Diagonstic Imaging: Xray Plain Films/CT/US/NM/MRI: chest Comments NAME: [facility] REC#: [id number] PT STATUS: REG ER : 1955 PHYSICIAN: ALEX LEHMAN MD ADMIT DATE: 03/30/21/ER Draft Date of Exam:03/30/21 CHEST 1 VIEW, AP/PA ONLY EXAMINATION: Chest 1 view HISTORY: Chest pain COMPARISON: 05/16/2020 FINDINGS: The lungs are clear without edema or pneumonia. No pleural effusion or pneumothorax. Heart size is normal. IMPRESSION: 1. Clear lungs. Dictated on workstation # [id number] Dict: 03/30/21919 Trans: 03/30/21921 [facility] [id number] Interpreted by: GISELLE CISNEROS MD Electronically signed by: Departure Communication (Admissions) Time/Spoke to Admitting Phy: 10:[address] Parra Time/Spoke to Consulting Phy: 10:01 Dr Granda Impression Primary Impression: Chest pain Qualified Codes: R07.9 - Chest pain, unspecified Additional Impressions: Arrhythmia Qualified Codes: I49.9 - Cardiac arrhythmia, unspecified Hypomagnesemia Hypokalemia Disposition: ADMITTED INPATIENT Condition: Stable Admissions Decision to Admit Reason: Admit from ER (General) Decision to Admit/Date: Mar 30, 2021 Time/Decision to Admit Time: 10:55 Departure-Patient Inst. Referrals: JULES SNYDER MD (PCP/Family) Primary Care Physician Copy Copies To 1: JULES SNYDER MD; LANE GRAY MD, KATHRYN M MD Mar 30, 2021 08:57
[2021-03-30] MEDS ORDERED: ONDANSETRON 4 MG/2 ML (SDV) Z0FRAN IVP ONE (09:00)
[2021-03-30 09:02] LABS: ALBUMIN 4.6 GM/DL (3.2-4.5); CHLORIDE 109 MMOL/L (98-107); POTASSIUM 2.8 MMOL/L (3.6-5.0); SODIUM 139 MMOL/L (135-145)
[2021-03-30 09:03] LABS: CALCIUM 9.6 MG/DL (8.5-10.1)
[2021-03-30 09:04] LABS: GLUCOSE 133 MG/DL (70-105); TOTAL PROTEIN 7.6 GM/DL (6.4-8.2)
[2021-03-30 09:05] LABS: CARBON DIOXIDE 14 MMOL/L (21-32)
[2021-03-30 09:06] LABS: BILIRUBIN,TOTAL 0.6 MG/DL (0.1-1.0)
[2021-03-30 09:08] LABS: ALKALINE PHOSPHATASE 85 U/L (40-136); CREATININE SERUM 1.15 MG/DL (0.60-1.30); GFR ESTIMATED 48
[2021-03-30 09:09] LABS: BUN/CREATININE RATIO 19
[2021-03-30 09:11] LABS: ALANINE AMINOTRANSFERASE 21 U/L (0-55); CREATINE KINASE 155 U/L (29-168)
[2021-03-30] MEDS ORDERED: NS (IVPB) 250 ML IV ONE ×2 (09:15→10:15)
--- NOTE | 2021-03-30 09:22 | Diagnostic Imaging Report ---
EXAMINATION: Chest 1 view HISTORY: Chest pain COMPARISON: 05/16/2020 FINDINGS: The lungs are clear without edema or pneumonia. No pleural effusion or pneumothorax. Heart size is normal. IMPRESSION: 1. Clear lungs. Dictated by: Dictated on workstation # [email or web address]
[2021-03-30] MEDS ORDERED: MAGNESIUM 1 GM/100 ML IVPB 100 ML IV ONE (09:45)
[2021-03-30] MEDS ORDERED: POTASSIUM CL 10MEQ/50ML IVPB 50 ML IV ONE (09:45)
[2021-03-30] MEDS: KCL 20 MEQ TAB (K-DUR) PO SCH (13:04)
[2021-03-30] MEDS: POTASSIUM CL 10MEQ/50ML IVPB 50 ML IV SCH ×7 (13:05→18:59)
[2021-03-30] MEDS: MAGNESIUM 1 GM/100 ML IVPB 100 ML IV SCH ×4 (13:05→15:22)
[2021-03-30] MEDS: NS IV 1000 ML 1,000 ML IV SCH (14:07)
[2021-03-30] MEDS ORDERED: ONDANSETRON 4 MG/2 ML (SDV) Z0FRAN IV PRN (14:15)
[2021-03-30] MEDS ORDERED: TRAM50TA3 PO (14:54)
[2021-03-30] MEDS ORDERED: SACU1TAB7 PO (14:54)
[2021-03-30] MEDS ORDERED: SPIR50TA4 PO (14:54)
[2021-03-30] MEDS ORDERED: ISOS30TA82 PO (14:54)
[2021-03-30] MEDS ORDERED: MTP25TSR PO (14:54)
[2021-03-30] MEDS ORDERED: MECL-149 PO (14:54)
[2021-03-30] MEDS ORDERED: POTA20TA15 PO (14:54)
[2021-03-30] MEDS ORDERED: ATOR80TA76 PO (14:54)
[2021-03-30] MEDS ORDERED: LOSA25TA41 PO (14:54)
--- NOTE | 2021-03-30 15:34 | Consultation-Cardiology ---
HPI-Cardiology Cardiology Consultation: Date of Consultation 03/30/21 Time Seen by a Provider: 14:15 Date of Admission Attending Physician Asuncion Parra MD Admitting Physician Dudley Francis MD Consulting Physician ANTONIO PEREYRA MD, MA, FACP, FACC, FSCAI, CCDS HPI: Chief Complaint: CC: Nausea, vomiting, watery diarrhea, chest discomfort HPI 66 yo woman with two days of profound diarrhea and vomiting and gen abd discomfort. Had also had a feeling of rapid heart beat and chest discomfort this am when she presented to the ER. Denies syncope. Denies swelling. Was found have marked electrolyte imbalance in the ER and she was in A Fib with RVR. There was evidence of sepsis (elevated lactic acid). Electrolytes are being replaced. She has been hydrated. She feels somewhat better now. No cp at the time of my interview and exam. Review of Systems-Cardiology Review of Systems Constitutional: malaise, tiredness; No weight loss, No weight gain Eyes: No vision change Ears/Nose/Throat: No ear discharge, No nasal drainage, No recent hearing loss Respiratory: As described under HPI Cardiovascular: As described under HPI Gastrointestinal: As described under HPI Genitourinary: No dysuria, No hematuria, No urine frequency changes Musculoskeletal: back pain (chronic) Skin: rash, ulcerations Psychiatric/Neurological: No seizure, No focal weakness, No syncope Hematologic: No bleeding abnormalities All Other Systems Reviewed Negative Unless Noted: Yes ZOL-Tikppi-Oekvdo Hx Patient Social History Smoking Status: Former Smoker Have you traveled recently?: No Alcohol Use?: No Pt feels they are or have been: No Immunizations Up To Date Date of Pneumonia Vaccine: Apr 29, 2018 Past Medical History PMH As described under Assessment. Family Medical History Family Medical History: She does not report fam h/o early CAD or SCD Family History: Patient reports no known family medical history. Allergies and Home Medications Allergies Coded Allergies: Opioids - Morphine Analogues (Verified Allergy, Unknown, DEEP SLEEP, PURPLE BLOTCHES, 12/28/18) ciprofloxacin (Verified Allergy, Unknown, RASH/BUMPS/PAIN, 12/28/18) codeine (Verified Allergy, Unknown, 10/20/18) fentanyl (Verified Allergy, Unknown, Anaphylaxis, 10/20/18) hydrochlorothiazide (Verified Allergy, Unknown, 10/20/18) lisinopril (Verified Allergy, Unknown, 09/06/18) morphine (Verified Allergy, Unknown, 09/06/18) opium (anthroposophic) (Verified Allergy, Unknown, 10/20/18) Uncoded Allergies: "opiates" (Allergy, Unknown, 03/31/18) Patient Home Medication List Home Medication List Reviewed: Yes Aspirin (Aspirin EC) 81 Mg Tablet.dr, 81 MG PO DAILY, (Reported) Entered as Reported by: ZANDER CAMPBELL on 05/16/20 130 Last Action: Reviewed Atorvastatin Calcium (Atorvastatin Calcium) 80 Mg Tablet, 80 MG PO HS, (Reported) Entered as Reported by: AMAN MONTEZ on 03/30/211453 Last Action: Reviewed Calcium Carbonate (Calcium) 600 Mg Tablet, 600 MG PO BID, (Reported) Entered as Reported by: NICHO VO on 10/20/18915 Last Action: Reviewed Cholecalciferol (Vitamin D3) (Vitamin D3) 25 Mcg Tablet, 25 MCG PO DAILY, (Repor marion) Entered as Reported by: ZANDER CAMPBELL on 05/16/201303 Last Action: Reviewed Cyanocobalamin (Vitamin B-12) (B-12) 1,000 Mcg Tablet, 1,000 MCG PO DAILY, (Reported) Entered as Reported by: NICHO VO on 10/20/18915 Last Action: Reviewed Diphenhydramine HCl (Allergy) 25 Mg Tablet, 25 MG PO DAILY, (Reported) Entered as Reported by: WAYNE HUNTLEY on 12/28/18 09 Last Action: Reviewed Gabapentin (Gabapentin) 800 Mg Tablet, 800 MG PO TID, (Reported) Entered as Reported by: NICHO VO on 10/20/18915 Last Action: Reviewed Isosorbide Mononitrate (Isosorbide Mononitrate ER) 30 Mg Tab.er.24h, 30 MG PO D AILY, (Reported) Entered as Reported by: AMAN MONTEZ on 03/30/211453 Last Action: Reviewed Levetiracetam (Levetiracetam) 1,000 Mg Tablet, 1,000 MG PO TID, (Reported) Entered as Reported by: ZANDER CAMPBELL on 05/16/20 130 Last Action: Reviewed Linaclotide (Linzess) 290 Mcg Capsule, 290 MG PO HS, (Reported) Entered as Reported by: NICHO VO on 10/20/18915 Last Action: Reviewed Losartan Potassium (Losartan Potassium) 25 Mg Tablet, 25 MG PO DAILY, (Reported) Entered as Reported by: AMAN MONTEZ on 03/30/211453 Last Action: Reviewed Meclizine HCl (Meclizine HCl) 25 Mg Tablet, 25 MG PO Q6H PRN for DIZZINESS, (Reported) Entered as Reported by: AMAN MONTEZ on 03/30/211453 Last Action: Reviewed Metoprolol Succinate (Metoprolol Succinate) 25 Mg Tab.er.24h, 25 MG PO DAILY, (Reported) Entered as Reported by: AMAN MONTEZ on 03/30/211453 Last Action: Reviewed Omeprazole (Omeprazole) 20 Mg Capsule.dr, 20 MG PO BID, (Reported) Entered as Reported by: WAYNE HUNTLEY on 12/28/18923 Last Action: Reviewed Potassium Chloride (Potassium Chloride) 20 Meq Tab.er.prt, 20 MEQ PO DAILY, (Reported) Entered as Reported by: AMAN MONTEZ on 03/30/211453 Last Action: Reviewed Sacubitril/Valsartan (Entresto 49 mg-51 mg Tablet) 1 Each Tablet, 49-51 MG PO BID, (Reported) Entered as Reported by: AMAN MONTEZ on 03/30/211453 Last Action: Reviewed Spironolactone (Spironolactone) 50 Mg Tablet, 50 MG PO DAILY, (Reported) Entered as Reported by: AMAN MONTEZ on 03/30/211453 Last Action: Reviewed Ticagrelor (Brilinta) 90 Mg Tablet, 90 MG PO BID Prescribed by: LANE GRAY on 05/17/20 09 Last Action: Reviewed Tramadol HCl (Tramadol HCl) 50 Mg Tablet, 25-50 MG PO DAILY PRN for PAIN-MILD (1-4), (Reported) Entered as Reported by: AMAN MONTEZ on 03/30/211453 Last Action: Reviewed Discontinued Medications Atorvastatin Calcium (Lipitor) 40 Mg Tablet, 40 MG PO HS Discontinued Reason: No Longer Taking Prescribed by: LANE GRAY on 05/17/20 0904 Last Action: Discontinued Spironolactone (Spironolactone) 100 Mg Tablet, 100 MG PO BID, (Reported) Discontinued Reason: No Longer Taking Entered as Reported by: NICHO VO on 10/20/18 0916 Last Action: Discontinued Vitamin K2 (Vitamin K2) 40 Mcg Tablet, 100 MCG PO DAILY, (Reported) Discontinued Reason: No Longer Taking Entered as Reported by: WAYNE HUNTLEY on 12/28/18 0937 Last Action: Discontinued Physical Exam-Cardiology Physical Exam Vital Signs/I&O 03/30/21 03/30/21 03/30/21 03/30/21 08:29 09:13 10:54 11:26 Temp 35.8 Pulse 80 84 60 62 Resp 18 18 18 18 B/P (MAP) 149/103 (118) 108/73 107/48 100/53 Pulse Ox 97 100 99 99 O2 Delivery Room Air Room Air Room Air 03/30/21 03/30/21 03/30/21 03/30/21 12:30 13:00 13:08 13:42 Temp 36.1 Pulse 71 75 Resp 21 B/P (MAP) 127/68 Pulse Ox 99 98 O2 Delivery Room Air Room Air Capillary Refill : Less Than 3 Seconds Constitutional: well-developed, well-nourished HEENT: EOMI, hearing is well preserved; No xanthelasmas are seen Neck: carotid pulses are 2 + bilaterally, with good upstrokes Respiratory: No accessory muscle use; other (fair to good, bilateral air entry) Cardiovascular: irregularly irregular, S1 and S2, systolic murmur (soft MAYELIN at card basee) Gastrointestinal: No tender; soft; No guarding, No rebound; audible bowel sounds Extremities: No clubbing, No cyanosis, No significant edema Neurologic/Psychiatric: oriented x 3, other (moves all limbs equally) Skin: No rash on exposed areas, No ulcerations on exposed areas Data Review Labs Laboratory Tests 03/30/21 08:41: White Blood Count 9.9, Red Blood Count 3.92, Hemoglobin 12.2, Hematocrit 35, Mean Corpuscular Volume 90, Mean Corpuscular Hemoglobin 31, Mean Corpuscular Hemoglobin Concent 35, Red Cell Distribution Width 12.1, Platelet Count 346, Mean Platelet Volume 10.4, Immature Granulocyte % (Auto) 0, Neutrophils (%) (Auto) 75, Lymphocytes (%) (Auto) 19, Monocytes (%) (Auto) 5, Eosinophils (%) (Auto) 0, Basophils (%) (Auto) 1, Neutrophils # (Auto) 7.5, Lymphocytes # (Auto) 1.9, Monocytes # (Auto) 0.5, Eosinophils # (Auto) 0.0, Basophils # (Auto) 0.1, Immature Granulocyte # (Auto) 0.0, Sodium Level 139, Potassium Level 2.8L, Chloride Level 109H, Carbon Dioxide Level 14L, Anion Gap 16H, Blood Urea Ni trogen 22H, Creatinine 1.15, Estimat Glomerular Filtration Rate 48, BUN/Creatinine Ratio 19, Glucose Level 133H, Calcium Level 9.6, Corrected Calcium , Magnesium Level < 0.6*L, Total Bilirubin 0.6, Aspartate Amino Transf (AST/SGOT) 21, Alanine Aminotransferase (ALT/SGPT) 21, Alkaline Phosphatase 85, Total Creatine Kinase 155, Troponin I < 0.028, B-Type Natriuretic Peptide 80.6, Total Protein 7.6, Albumin 4.6H 03/30/21 10:38: Lactic Acid Level 2.32*H 03/30/21 11:05: SARS-CoV-2 RNA (RT-PCR) Not Detected 03/30/21 15:00: A/P-Cardiology Assessment/Admission Diagnosis Severe vomiting and watery diarrhea of undetermined etiology, leading to elec abnormalities and dehydration Coronary artery disease, multivessel disease, -Cardiac cath 05/16/20: stenting to LAD using 2.5 x 15 mm. Card cath 05/17/20: complex intervention to prox LAD (HARITHA 2.5 x 33) and diag (balloon angioplasty), severe ostial stenosis of a small caliber ramus intermedius/high obtuse marginal branch that is a smaller artery, mild to mod disease elsewhere. - MPI 01/28/21: decreased uptake involving the whole anterior wall, anterior apex and anteroseptum with mild reversibility with dilated left ventricle, stress score 19, SDS 11, ejection fraction 24%. Was referred by Dr Gray to [facility] where repeat cath on 02/26/21 showed patent LAD stents and where she is currently being evaluated for possible cardiac transplant at the [facility] Congestive heart failure, chronic, systolic Severe mitral regurgitation, being followed and treated at the [facility] Failure clinic H/o intermittent LBBB Hypertension Hyperlipidemia History of colon cancer, followed by Dr. Banegas Discussion and Recomendations * We recommend GI eval, given profound vomiting and watery diarrhea and patient's h/o colon CA * Replenish electrolytes * Slow and careful hydration * Continue Brilinta * Add Eliquis, if ok with the Hospitalist service, given her A Fib * Continue beta-dallin and Entresto if bp allows * Monitor labs closely Clinical Quality Measures AMI/AHF: ASA po Prior to arrival: Yes ANTONIO PEREYRA MD FACP FAC CCDS Mar 30, 2021 15:34
[2021-03-30 15:55] VITALS: BP 114/85
[2021-03-30] MEDS ORDERED: RT-ALBUTEROL SULF 2.5 MG/3 ML PRE-MIX VIAL INH PRN (16:00)
[2021-03-30] MEDS ORDERED: MECLIZINE 25 MG (ANTIVERT) TAB PO PRN (16:15)
[2021-03-30] MEDS ORDERED: meTOproloL SUCCINATE 50 MG (TOPROL XL) TAB PO ONE (16:30)
[2021-03-30 18:37] LABS: POTASSIUM 3.6 MMOL/L (3.6-5.0)
[2021-03-30 18:44] LABS: MAGNESIUM 2.1 MG/DL (1.6-2.4)
[2021-03-30] MEDS: PANTOPRAZOLE 20 MG TABLET (PROTONIX) PO SCH (20:43)
[2021-03-30] MEDS: SACUBITRIL/VALSARTAN 24/26 MG (ENTRESTO) TABLET PO SCH (20:43)
[2021-03-30] MEDS: APIXABAN 5 MG (ELIQUIS) TABLET PO SCH (20:43)
[2021-03-30] MEDS: TICAGRELOR 90 MG TABLET (BRILINTA) PO SCH (20:47)
[2021-03-30] MEDS: CALCIUM CARBONATE 600 MG (CALCARB) TAB PO SCH (20:47)
[2021-03-30] MEDS: GABAPENTIN 400 MG (NEURONTIN) CAP PO SCH (20:47)
[2021-03-30] MEDS ORDERED: [UNRECOGNIZED DRUG - OTHER] PO SCH (21:00)
[2021-03-30] MEDS ORDERED: LINACLOTIDE 290 MCG (LINZESS) CAPSULE PO SCH (21:00)
[2021-03-30] MEDS ORDERED: VALSARTAN PO SCH (21:00)
[2021-03-30] MEDS ORDERED: SACUBITRIL PO SCH (21:00)
[2021-03-31 05:35] LABS: CALCIUM 8.8 MG/DL (8.5-10.1)
[2021-03-31 05:40] LABS: CREATININE SERUM 0.92 MG/DL (0.60-1.30); PHOSPHORUS 1.6 MG/DL (2.3-4.7)
[2021-03-31 05:42] LABS: MAGNESIUM 1.7 MG/DL (1.6-2.4)
[2021-03-31] MEDS: MAGNESIUM 1 GM/100 ML IVPB 100 ML IV SCH ×3 (06:00→06:20)
[2021-03-31] MEDS: KCL 20 MEQ TAB (K-DUR) PO SCH ×2 (06:00→06:14)
[2021-03-31] MEDS: POTASSIUM CL 10MEQ/50ML IVPB 50 ML IV SCH (06:15)
[2021-03-31] MEDS ORDERED: KCL 20 MEQ TAB (K-DUR) PO ONE ×2 (06:20→08:20)
[2021-03-31] MEDS: APIXABAN 5 MG (ELIQUIS) TABLET PO SCH (08:17)
[2021-03-31] MEDS: CALCIUM CARBONATE 600 MG (CALCARB) TAB PO SCH (08:17)
[2021-03-31] MEDS: SACUBITRIL/VALSARTAN 24/26 MG (ENTRESTO) TABLET PO SCH (08:18)
[2021-03-31] MEDS: TICAGRELOR 90 MG TABLET (BRILINTA) PO SCH (08:18)
[2021-03-31] MEDS: PANTOPRAZOLE 20 MG TABLET (PROTONIX) PO SCH (08:18)
[2021-03-31] MEDS: GABAPENTIN 400 MG (NEURONTIN) CAP PO SCH ×2 (08:18→13:25)
[2021-03-31] MEDS ORDERED: ASPIRIN 81 MG CHEW (CHILDREN'S ASA) PO SCH (09:00)
[2021-03-31] MEDS ORDERED: ASPIRIN E.C. 81 MG (ECOTRIN) TAB PO SCH (09:00)
[2021-03-31] MEDS ORDERED: meTOproloL SUCCINATE 50 MG (TOPROL XL) TAB PO SCH (09:00)
[2021-03-31] MEDS ORDERED: POTASSIUM PHOSPHATE INJ 15 MM in NS (IVPB) 250 ML IV ONE (09:00)
[2021-03-31 10:39] VITALS: BP 93/53
[2021-03-31 10:41] VITALS: BP 119/73
[2021-03-31 10:43] VITALS: BP 98/67
[2021-03-31] MEDS ORDERED: APIX5TAB PO (11:54)
[2021-03-31] MEDS ORDERED: METO50TA7 PO (11:54)
[2021-03-31] MEDS ORDERED: NS (IVPB) 250 ML IV ONE (12:00)
--- NOTE | 2021-03-31 12:05 | Discharge Summary ---
Discharge Summary Hospital Course Problems/Dx: (1) Dehydration Status: Acute (2) Hypokalemia Status: Acute (3) Hypomagnesemia Status: Acute (4) Hypophosphatemia Status: Acute (5) A-fib Status: Acute Qualifiers: Qualified Codes: I48.0 - Paroxysmal atrial fibrillation (6) Chest pain Status: Acute Qualifiers: Qualified Codes: R07.9 - Chest pain, unspecified (7) Lactic acidosis Status: Acute Hospital Course Date of Admission: Mar 30, 2021 at 10:54 Admission Diagnosis : Chest pain Family Physician/Provider: Dudley Snyder MD Date of Discharge: 03/31/21 Discharge Diagnosis: Chest pain, dehydration, atrial fibrillation Hospital Course: Sary Paige is a 66-year-old female with past medical history of coronary artery disease, heart failure, mitral regurgitation, who presented with chest pain. Cardiology was consulted and assisted with her care. Her troponin r emained normal. Her chest pain resolved. She was found to have atrial fibrillation. She was started on Eliquis. Her heart rate was well controlled. Her course was complicated by dehydration likely due to recent diarrhea. She had some issues with orthostasis and dizziness. She was given IV fluids and her electrolytes were replaced. She had no further issues with diarrhea at the time of discharge. She should follow-up with her primary care physician in about a week. She should follow-up with cardiology as directed. She should follow-up with her heart failure doctor at [facility] as scheduled on April 08. She was discharged home in stable condition. Labs and Pending Lab Test: Laboratory Tests 03/30/21 15:00: Lactic Acid Level 0.98, Troponin I < 0.028 03/30/21 18:20: Potassium Level 3.6, Magnesium Level 2.1 03/31/21 05:03: Potassium Level 3.0L, Magnesium Level 1.7, Sodium Level 138, Chloride Level 112H , Carbon Dioxide Level 16L, Anion Gap 10, Blood Urea Nitrogen 17, Creatinine 0.92, Estimat Glomerular Filtration Rate 61, BUN/Creatinine Ratio 18, Glucose Level 95, Calcium Level 8.8, Phosphorus Level 1.6L Home Meds Active Metoprolol Succinate 50 Mg Tab.er.24h 50 Mg PO DAILY 30 Days Eliquis (Apixaban) 5 Mg Tablet 5 Mg PO BID 30 Days Brilinta (Ticagrelor) 90 Mg Tablet 90 Mg PO BID Reported Tramadol HCl 50 Mg Tablet 25-50 Mg PO DAILY PRN Losartan Potassium 25 Mg Tablet 25 Mg PO DAILY Spironolactone 50 Mg Tablet 50 Mg PO DAILY Atorvastatin Calcium 80 Mg Tablet 80 Mg PO HS Potassium Chloride 20 Meq Tab.er.prt 20 Meq PO DAILY Meclizine HCl 25 Mg Tablet 25 Mg PO Q6H PRN Isosorbide Mononitrate ER (Isosorbide Mononitrate) 30 Mg Tab.er.24h 30 Mg PO DAILY Entresto 49 mg-51 mg Tablet (Sacubitril/Valsartan) 1 Each Tablet 49-51 Mg PO BID Metoprolol Succinate 25 Mg Tab.er.24h 25 Mg PO DAILY Aspirin EC (Aspirin) 81 Mg Tablet.dr 81 Mg PO DAILY Vitamin D3 (Cholecalciferol (Vitamin D3)) 25 Mcg Tablet 25 Mcg PO DAILY Levetiracetam 1,000 Mg Tablet 1,000 Mg PO TID Allergy (Diphenhydramine HCl) 25 Mg Tablet 25 Mg PO DAILY Omeprazole 20 Mg Capsule.dr 20 Mg PO BID Calcium (Calcium Carbonate) 600 Mg Tablet 600 Mg PO BID B-12 (Cyanocobalamin (Vitamin B-12)) 1,000 Mcg Tablet 1,000 Mcg PO DAILY Gabapentin 800 Mg Tablet 800 Mg PO TID Linzess (Linaclotide) 290 Mcg Capsule 290 Mg PO HS Assessment/Pt Instructions Take medications as prescribed. Follow-up with your primary care physician. Follow-up at the heart failure clinic on April 08. Return with worsening chest pain, dehydration, or if you feel like you are getting worse. Discharge Planning: <30 minutes discharge planning Discharge Instructions Discharge Diet: Low Sodium Diet Activity as Tolerated: Yes Consultations Cardiology Discharge Physical Examination Vital Signs Vital Signs Date Time Temp Pulse Resp B/P (MAP) Pulse Ox O2 Delivery O2 Flow Rate FiO2 03/31/21 10:43 85 98/67 (77) Sitting 03/31/21 09:40 Room Air 03/31/21 08:00 96 03/31/21 07:42 36.0 14 03/30/21 15:55 21 General Appearance: No Apparent Distress, Chronically ill, Obese Respiratory: Lungs Clear, Normal Breath Sounds, No Respiratory Distress Cardiovascular: Regular Rate, Rhythm, No Edema, No Murmur Gastrointestinal: Normal Bowel Sounds, Non Tender, Soft Extremity: Normal Inspection, Non Tender, No Pedal Edema Skin: Normal Color, Warm/Dry Neurologic/Psychiatric: Alert, Oriented x3, Normal Mood/Affect Allergies: Coded Allergies: Opioids - Morphine Analogues (Verified Allergy, Unknown, DEEP SLEEP, PURPLE BLOTCHES, 12/28/18) ciprofloxacin (Verified Allergy, Unknown, RASH/BUMPS/PAIN, 12/28/18) codeine (Verified Allergy, Unknown, 10/20/18) fentanyl (Verified Allergy, Unknown, Anaphylaxis, 10/20/18) hydrochlorothiazide (Verified Allergy, Unknown, 10/20/18) lisinopril (Verified Allergy, Unknown, 09/06/18) morphine (Verified Allergy, Unknown, 09/06/18) opium (anthroposophic) (Verified Allergy, Unknown, 10/20/18) Uncoded Allergies: "opiates" (Allergy, Unknown, 03/31/18) Copy Copies To 1: DUDLEY SNYDER MD Discharge Summary Date of Admission Mar 30, 2021 at 10:54 Date of Discharge Discharge Date: Mar 31, 2021 Discharge Time: 10:45 Admission Diagnosis Chest pain Consults/Procedures Consulations Cardiology Discharge Diagnosis (1) Chest pain Status: Acute Qualifiers: Qualified Codes: R07.9 - Chest pain, unspecified (2) A-fib Status: Acute Qualifiers: Qualified Codes: I48.0 - Paroxysmal atrial fibrillation (3) Dehydration Status: Acute (4) Hypokalemia Status: Acute (5) Hypomagnesemia Status: Acute (6) Hypophosphatemia Status: Acute (7) Lactic acidosis Status: Acute Clinical Quality Measures AMI/AHF: ASA po Prior to arrival: BETTINA Wadsworth MD Mar 31, 2021 12:03
[2021-03-31] MEDS: NS IV 1000 ML 1,000 ML IV SCH (14:21)
--- NOTE | 2021-03-31 16:06 | Progress Note - Cardiology ---
Cardiology SOAP Progress Note Subjective: Feels better today Less weak No cp or palp or syncope or shortness of breath Vomiting and diarrhea have subsided Objective: I&O/Vital Signs 03/31/21 03/31/21 03/31/21 03/31/21 07:00 07:42 08:00 08:20 Temp 36.0 Pulse 73 61 78 Resp 14 B/P (MAP) 105/80 110/57 Pulse Ox 98 96 O2 Delivery Room Air Room Air 03/31/21 03/31/21 03/31/21 03/31/21 09:40 10:39 10:41 10:43 Pulse 83 85 85 B/P (MAP) 93/53 (66) 119/73 (88) 98/67 (77) Supine Sitting O2 Delivery Room Air 03/31/21 03/31/21 11:54 15:30 Temp 36.5 Pulse 67 Resp 12 B/P (MAP) 113/67 Pulse Ox 98 O2 Delivery Room Air 03/31/21 00:00 Intake Total 1690 ml Output Total 850 ml Balance 840 ml Weight (Pounds): 158 Weight (Ounces): 4.0 Weight (Calculated Kilograms): 71.483663 Constitutional: well-developed, well-nourished Respiratory: No accessory muscle use; other (fair to good, bilateral air entry) Cardiovascular: irregularly irregular, S1 and S2, systolic murmur (soft MAYELIN at card basee) Gastrointestional: No tender; soft; No guarding, No rebound; audible bowel sounds Extremities: No clubbing, No cyanosis, No significant edema Neurologic/Psychiatric: oriented x 3, other (moves all limbs equally) Skin: No rash on exposed areas, No ulcerations on exposed areas Results/Procedures: Labs Laboratory Tests 03/30/21 18:20: Potassium Level 3.6, Magnesium Level 2.1 03/31/21 05:03: Potassium Level 3.0L, Magnesium Level 1.7, Sodium Level 138, Chloride Level 112H , Carbon Dioxide Level 16L, Anion Gap 10, Blood Urea Nitrogen 17, Creatinine 0.92, Estimat Glomerular Filtration Rate 61, BUN/Creatinine Ratio 18, Glucose Level 95, Calcium Level 8.8, Phosphorus Level 1.6L Microbiology 03/30/21 Blood Culture - Preliminary, Resulted No growth Laboratory Tests 03/30/21 08:41 03/30/21 18:20 03/31/21 05:03 A/P: Assessment: Severe vomiting and watery diarrhea of undetermined etiology, leading to elec abnormalities and dehydration - managed by the Hospitalist Debbie, improving Coronary artery disease, multivessel disease, -Cardiac cath 05/16/20: stenting to LAD using 2.5 x 15 mm. Card cath 05/17/20: complex intervention to prox LAD (HARITHA 2.5 x 33) and diag (balloon angioplasty), severe ostial stenosis of a small caliber ramus intermedius/high obtuse marginal branch that is a smaller artery, mild to mod disease elsewhere. - MPI 01/28/21: decreased uptake involving the whole anterior wall, anterior apex and anteroseptum with mild reversibility with dilated left ventricle, stress score 19, SDS 11, ejection fraction 24%. Was referred by Dr Gray to [facility] where repeat cath on 02/26/21 showed patent LAD stents and where she is currently being evaluated for possible cardiac transplant at the [facility] Congestive heart failure, chronic, systolic Severe mitral regurgitation, being followed and treated at the Heart Failure clinic H/o intermittent LBBB Hypertension Hyperlipidemia History of colon cancer, followed by Dr. Banegas Plan: * Replenish electrolytes. Ok to d/c from cardiac standpoint after that * Continue Brilinta * Add Eliquis * Stop ASA after adding Eliquis and continuing Brilinta * Continue beta-dallin and Entresto if bp allows * Monitor labs * I answered her CV-related questions. F/u advised with Dr Gray Clinical Quality Measures AMI/AHF: ASA po Prior to arrival: Yes ANTONIO PEREYRA MD FACP [facility] CCDS Mar 31, 2021 16:06
[2021-04-10] MEDS ORDERED: KCL 20 MEQ TAB (K-DUR) PO ONE (07:15)
== END 2021-03-31 11:51 | disposition home or self-care (01) ==
LOC: ER 08:29 → CSD 10:54 → UNDOADMOB 10:54 → CSD 12:40 → UNDODISOB 03-31 15:30
PROVIDERS: ADMIT Internal Medicine; ATTEND Internal Medicine
DX: R07.9 Chest pain, unspecified (principal); I49.9 Cardiac arrhythmia, unspecified; E86.0 Dehydration; I48.0 Paroxysmal atrial fibrillation; E83.42 Hypomagnesemia; E83.39 Other disorders of phosphorus metabolism; E87.6 Hypokalemia; I10 Essential (primary) hypertension; E78.00 Pure hypercholesterolemia, unspecified; G40.909 Epilepsy, unspecified, not intractable, without status epilepticus; K21.9 Gastro-esophageal reflux disease without esophagitis; K59.09 Other constipation; K58.9 Irritable bowel syndrome, unspecified; Z85.038 Personal history of other malignant neoplasm of large intestine; Z79.82 Long term (current) use of aspirin; Z79.899 Other long term (current) drug therapy; Z90.710 Acquired absence of both cervix and uterus; Z90.89 Acquired absence of other organs; Z85.43 Personal history of malignant neoplasm of ovary; Z85.41 Personal history of malignant neoplasm of cervix uteri
CPT/HCPCS: 71045; 80048; 80053; 82550; 83605; 83735 ×2; 83880; 84100; 84132; 84484; 85025; 87040; 87328; 87636; 93005; 96361; 96365; 96375; 99284; G0378; 36415

== ENCOUNTER 2021-04-27 14:29 | Observation (INO) | payer BC ==
[~2021-04-27] VITALS: Ht 165 cm; Wt 76.2 kg
[~2021-04-27 14:29] MED LIST changes: +APIX5TAB PO; +ATOR80TA76 PO; +ISOS30TA82 PO; +LOSA25TA41 PO; +MECL-149 PO; +METO50TA7 PO; +MTP25TSR PO; +POTA20TA15 PO; +SACU1TAB7 PO; +SPIR50TA4 PO; +TRAM50TA3 PO
--- OUTSIDE RECORDS SUMMARY | 2021-04-27 14:35 | XMS REPORT | Encounter Summary ---
Author Author [facility] Organization [facility] Address Unknown Phone Unavailable Care Team Providers Care Ct Scan Special Procedures Technologist Name Role Phone Dudley Francis MD PCP Teddy Gray MD Unavailable Harjit Banegas DO Unavailable Pam Rowell FILTER CLEANER-ASSOCIATE BUSINESS ANALYST 7 Reason for Referral * Radiology Services (Routine) Referred By Contact Referred To Contact Status Reason Specialty Diagnoses / Procedures Hermelindo Lopez MD [address] [facility] [address] [place] [id number] [place] [id number] Authorized Radiology Diagnoses Lung nodule P rocedures CT CHEST W CONTRAST Electronically signed by Hermelindo Lopez MD at Reason for Visit * Reason Onset Date Comments Referral 04/09/2021 Encounter Details Care Team Description Date Type Department Hermelindo Lopez MD [address] [facility] [address] [place] [id number] [phone] Referral 04/09/2021 Telephone Pulmonology: Vivienne Alamo [address] [address] Social History Date Tobacco Use Types Packs/Day Years Used Former Smoker Smokeless Tobacco: Never Used Comments: quit several years ago Comments Alcohol Use Standard Drinks/Week Not Currently 0 (1 standard drink = 0.6 o z pure alcohol) Sex Assigned at Date Recorded Female 02/21/2021 12:16 PM CDT Date Recorded COVID-19 Exposure Response 04/09/2021 11:29 AM CDT In the last month, have you been in contact with No / Unsure someone who was confirmed or suspected to have Coronavirus / COVID-19? documented as of this encounter Functional Status Date of Assessment Functional Status Response 04/09/2021 Does the patient have a hearing impairment: No 04/09/2021 Does the patient have a visual impairment: Yes 04/09/2021 Does the patient have impaired ambulation: No 04/09/2021 Does the patient have an activity of daily living No (ADL) impairment: 04/09/2021 Does the patient have an instrumental activity of No daily living (IADL) impairment: Date of Assessment Cognitive Status Response 04/09/2021 Does the patient have a cognitive impairment: No documented as of this encounter Miscellaneous Notes * Telephone Encounter - Edie May RN - 04/09/2021 1:53 PM CDT Images from the original note were not included. Patient will need to be scheduled to see Gen Pul in 2-[address] Chest. Order entered. Email sent to Ian Morgan with scheduling request. Edie May RN Referred: 04/09/21 from Gomez Walker MD Reason: Nodule on cardiac MRI Imaging: MRI 04/08 Cable Puller: Yohan Lopez MD documented in this encounter Plan of Treatment Order Schedule Name Type Priority Associated Diag noses Expected: 04/24/2021 (Approximate), Expi res: 04/10/2022 CT CHEST W CONTRAST Imaging Routine Lung nodul e documented as of this encounter Visit Diagnoses Diagnosis Lung nodule - Primary Solitary pulmonary nodule documented in this encounter Additional Health Concerns Assessment Noted Time A fall risk assessment has been completed for the pat ient 04/09/2021 11:54 AM CDT PHQ-2 Depression Total Score: 0 02/26/2021 8:22 AM CDT documented as of this encounter
--- OUTSIDE RECORDS SUMMARY | 2021-04-27 14:35 | XMS REPORT | Encounter Summary ---
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 artery [place] heart with stable angina pectoris (HCC) Essential (primary) hypertension P rocedures MRI CARD MORPH FXN WO/W Encounter Details Care Team Description Date Type Department Gomez Nye MD [address] [facility] [address] [place] [id number] 04/08/2021 Hospital Imaging, MRI: Main Encounter [place] [address] [place] [address] Social History Date Tobacco Use Types Packs/Day Years Used Former Smoker Smokeless Tobacco: Never Used Comments: quit several years ago Comments Alcohol Use Standard Drinks/Week Not Currently 0 (1 standard drink = 0.6 o z pure alcohol) Sex Assigned at Date Recorded Female 02/21/2021 12:16 PM CDT Date Recorded COVID-19 Exposure Response 04/08/2021 2:35 PM CDT In the last month, have you been in contact with [place] to assess someone who was confirmed or suspected to [...] impairment: No documented as of this encounter Medications at Time of Discharge Start Date End Date Medication Sig Dispensed Refills aspirin 81 mg chewable Chew 81 mg by 0 tablet mouth daily. Take with food. 02/26/2021 atorvastatin (LIPITOR) 80 Take one 90 tablet 3 mg tablet tablet by mouth daily. Cholecalciferol (Vitamin Take by 0 D3) (VITAMIN D-3) 50 mcg mouth. (2,000 unit) cap 03/31/2021 ELIQUIS 5 mg tablet Take 5 mg by 0 mouth twice daily. gabapentin (NEURONTIN) Take 800 mg 0 800 mg tablet by mouth three times daily. 03/15/2021 isosorbide mononitrate ER Take one 90 tablet 1 (IMDUR) 30 mg tablet tablet by mouth every morning. levETIRAcetam (KEPPRA) Take 1,000 mg 0 1,000 mg tablet by mouth three times daily. linaclotide (LINZESS) 290 Take 290 mcg 0 mcg capsule by mouth daily. meclizine (ANTIVERT) 25 Take 25 mg by 0 mg tablet mouth three times daily as needed. omeprazole DR (PRILOSEC) Take 20 mg by 0 20 mg capsule mouth twice daily. 03/19/2021 potassium chloride SR Take one 90 tablet 3 (K-DUR) 20 mEq tablet by tabletIndications: mouth daily. Systolic heart failure, Take with a unspecified HF chronicity meal and a ([facility]) full glass of water. 03/04/2021 sacubitriL-valsartan Take one 180 tablet 3 (ENTRESTO) 49-51 mg tablet by tablet mouth twice daily. 03/08/2021 spironolactone Take one-half 45 tablet 3 (ALDACTONE) 50 mg tablet tablet by mouth daily. Take with food. traMADoL (ULTRAM) 50 mg Take 25 mg by 0 tablet mouth every 6 hours. Take 0.33 tablets every 6 hours as needed 04/09/2021 calcium carbonate Take 500 mg 0 (CALCIUM 500 PO) by mouth twice daily. 03/16/2021 04/09/2021 metoprolol XL (TOPROL XL) Take one-half 90 tablet 3 50 mg extended release tablet by tablet mouth at bedtime daily. 04/09/2021 ticagrelor (BRILINTA) 90 Take 90 mg by 0 mg tablet mouth twice daily. documented as of this encounter Discharge Disposition Code Departure Means Destination Disposition Home Home or Self Care documented in this encounter Plan of Treatment Not on filedocumented as of this encounter Procedures Comments Procedure Name Priority Date/Time Associated Diag nosis MRI CARD MORPH FXN WO/W Routine 04/08/2021 [place] artery disease 7:33 PM CDT of [place] artery [place] heart with stable angina pectoris (HCC) Essential (primary) hypertension documented in this encounter Results * MRI CARD MORPH FXN WO/W (04/08/2021 7:33 PM CDT) Specimen Impressions Performed At 1. No abnormal late gadolinium enhancement to sugge st infarct, scarring or [facility] infiltrative disorder. 2. Dilated left ventricle with global hypokinesis and a reduced LVEF of 22%. There is regional left ventricular jewel esis involving much of the anterior, septal and inferior campo. 3. Enhancing left upper lobe pulmonar y nodule, suspicious for malignancy. Recommend correlation with contrast-enh anced CT for further characterization. Indeterminate right adrenal gland nodul e could be evaluated with adrenal protocol imaging. 4. Indeterminate left breast nodule. Advise further evaluation with diagnostic mammography and targeted ultrasound. CRITICAL FINDINGS: The above impressions were verbally com municated by telephone to Dr. Nye by Dr. Becerril at 04/09/2021 11:29 AM. By my electronic signature, I attest th at I have personally reviewed the images for this examination and formulated the interpretations and opinions expressed in this report Finalized by Jesus Becerril M.D. o n 04/09/2021 11:35 AM. Dictated by Camron De La Rosa M.D. on 04/09/2021 8:54 AM. Narrative Performed At MRI CARD MORPH FXN WO/W [facility] INDICATION: heart failure with reduce d ejection fraction. Coronary artery disease status post PCI x2 in April 2020. Recent coronary angiogram 02/26/2021 demonstrated mild nonobstructive cantor ry disease. Patent proximal LAD stent. Comparison: None. Technique: In addition to the necessa ry localizers, cardiac MRI was performed before and after the administration of intravenous contrast with cardiac triggering with static and cine images in standard cardiac planes. Images were processed on a free standing workstatio n. 32 ml of MultiHance was given intravenously. Other cardiac studies: Left heart felipe terization 02/26/2021. Findings: MORPHOLOGY: Incidental note of lipomatous hypertrop hy of the interatrial septum which results in narrowing of the superior ve na cava. Diminished right ventricle size measuring up to 3.4 cm. The left ventri cular end diastolic dimension measures up to 6.1 cm (normal 3.7-5.3 cm). The left ventricular end systolic dimension measures 5.6 cm. End-diastolic left elizabeth tricular myocardial wall thickness is normal. The anteroseptal left ventricul ar wall measures 0.9 cm (normal 0.7-1.2 cm). The inferolateral left ventricular wall measures 0.8 cm (normal 0.7-1.2 cm). The left atrial dimension measures 3.4 cm (normal 1.9-4 cm). There is no evidence of myocardial edema. The aorta is normal in caliber. The aortic root measures 2.7 cm (normal 2.0-3.5 cm). Th e ascending aorta measures approximately 3 cm (normal 2.0-3.5 cm). There is no r egional pericardial thickening. Small pericardial effusion. FUNCTION: There is global LV hypokinesis with reg ional akinesis involving much of the anterior, septal and inferior campo wit h some diastolic septal bounce likely related to bundle branch block. Mitral regurgitation not well characterized. The right ventricle shows mild global hypok inesis without regional wall motion abnormality. Trileaflet aortic valve wi thout evidence of stenosis. The ejection fraction and ventricular volumes were c alculated through the Gusman's method in the short axis view, with the following values: LV end-diastolic volume index = 119 c c/m2 (normal 50-84 cc/m2) LV end-systolic volume index = 93 cc/ m2 (normal 17-37 cc/m2) LV stroke volume = 50 cc LVEF = 22% (normal 55-70%) LATE GADOLINIUM ENHANCEMENT: There is no evidence of abnormal late g adolinium enhancement in the ventricles to suggest fibrous changes/scarring. NON-CARDIAC FINDINGS: Enhancing posterior left upper lobe pul monary nodule measuring 1.6 cm (series 16 image 10). 2.1 cm nodule superior to th e right kidney probably an adrenal gland nodule. 1.9 cm nodule in the left breas t seen on coronal image 11 series 5. Procedure Note Interface, Radiant Results - 04/09/2021 11:38 AM CDT MRI CARD MORPH FXN WO/W INDICATION: heart failure with reduced ejection fraction. Coronary artery disease status post PCI x2 in April 2020. Recent coronary angiogram 02/26/2021 demonstrated mild nonobstructive coronary disease. Patent proximal LAD stent. Comparison: None. Technique: In addition to the necessary localizers, cardiac MRI was performed before and after the administration of intravenous contrast with cardiac triggering with static and cine images in standard cardiac planes. Images were processed on a free standing workstation. 32 ml of MultiHance was given intravenously. Other cardiac studies: Left heart catheterization 02/26/2021. Findings: MORPHOLOGY: Incidental note of lipomatous hypertrophy of the interatrial septum which results in narrowing of the superior vena cava. Diminished right ventricle size measuring up to 3.4 cm. The left ventricular end diastolic dimension measures up to 6.1 cm (normal 3.7-5.3 cm). The left ventricular end systolic dimension measures 5.6 cm. End-diastolic left ventricular myocardial wall thickness is normal. The anteroseptal left ventricular wall measures 0.9 cm (normal 0.7-1.2 cm). The inferolateral left ventricular wall measures 0.8 cm (normal 0.7-1.2 cm). The left atrial dimension measures 3.4 cm (normal 1.9-4 cm). There is no evidence of myocardial edema. The aorta is normal in caliber. The aortic root measures 2.7 cm (normal 2.0-3.5 cm). The ascending aorta measures approximately 3 cm (normal 2.0-3.5 cm). There is no regional pericardial thickening. Small pericardial effusion. FUNCTION: There is global LV hypokinesis with regional akinesis involving much of the anterior, septal and inferior campo with some diastolic septal bounce likely related to bundle branch block. Mitral regurgitation not well characterized. The right ventricle shows mild global hypokinesis without regional wall motion abnormality. Trileaflet aortic valve without evidence of stenosis. The ejection fraction and ventricular volumes were calculated through the Gusman's method in the short axis view, with the following values: LV end-diastolic volume index = 119 cc/m2 (normal 50-84 cc/m2) LV end-systolic volume index = 93 cc/m2 (normal 17-37 cc/m2) LV stroke volume = 50 cc LVEF = 22% (normal 55-70%) LATE GADOLINIUM ENHANCEMENT: There is no evidence of abnormal late gadolinium enhancement in the ventricles to suggest fibrous changes/scarring. NON-CARDIAC FINDINGS: Enhancing posterior left upper lobe pulmonary nodule measuring 1.6 cm (series 16 image 10). 2.1 cm nodule superior to the right kidney probably an adrenal gland nodule. 1.9 cm nodule in the left breast seen on coronal image 11 series 5. IMPRESSION 1. No abnormal late gadolinium enhancem ent to suggest infarct, scarring or infiltrative disorder. 2. Dilated left ventricle with global h ypokinesis and a reduced LVEF of 22%. There is regional left ventricular akinesis involving much of the anterior, septal and inferior campo. 3. Enhancing left upper lobe pulmonary nodule, suspicious for malignancy. Recommend correlation with contrast-enhanced CT for further characterization. Indeterminate right adrenal gland nodule could be evaluated with adrenal protocol imaging. 4. Indeterminate left breast nodule. Ad vise further evaluation with diagnostic mammography and targeted ultrasound. CRITICAL FINDINGS: The above impressions were verbally communicated by telephone to Dr. Nye by Dr. Becerril at 04/09/2021 11:29 AM. By my electronic signature, I attest that I have personally reviewed the images for this examination and formulated the interpretations and opinions expressed in this report Finalized by Jesus Becerril M.D. on 04/09/2021 11:35 AM. Dictated by Camron De La Rosa M.D. on 04/09/2021 8:54 AM. Performing Organization Address City/State/ZIP Code P [place] Number [facility] documented in this encounter Visit Diagnoses Diagnosis Coronary artery disease [place] arter [place] heart with stable angina pectoris (HCC) Essential (primary) hypertension Unspecified essential hypertension documented in this encounter Administered Medications Action Date Dose Rate Site Medication Order MAR Action 04/08/2021 7:03 PM CDT 32 mL gadobenate dimeglumine (MULTIHANCE) Given injection 32 mL 32 mL, Intravenous, ONCE, 1 dose, On Mo n 04/08/21 at 1915, NOTE: This is a HIGH ALERT Medication. 04/08/2021 7:03 PM CDT 20 mL sodium chloride PF 0.9% injection 20 mL Given 20 mL, Intravenous, ONCE, 1 dose, On Mo n 04/08/21 at 1915, Intra-procedure (IR) documented in this encounter Additional Health Concerns Assessment Noted Time A fall risk assessment has been completed for the pat ient 03/04/2021 2:10 PM CDT PHQ-2 Depression Total Score: 0 02/26/2021 8:22 AM CDT documented as of this encounter
--- OUTSIDE RECORDS SUMMARY | 2021-04-27 14:35 | XMS REPORT | Encounter Summary ---
Author Author [facility] Organization [facility] Address Unknown Phone Unavailable Care Team Providers Care Fire Support Man Name Role Phone Dudley Francis MD PCP Teddy Gray MD Unavailable Harjit Banegas DO Unavailable Pam Rowell MAINSPRING REVERSE WINDER-CARE COORDINATOR 7 Reason for Referral * Consult, Test & Treat (Routine) Referred By Contact Referred To Contact Status Reason Specialty Diagnoses / Procedures Gomez Nye MD [address] [facility] [address] [place] [address] New Request Procedures REQUEST FOR CARDIOLOGY APPOINTMENT Electronically signed by Gomez Nye MD at * Test (Routine) Referred By Contact Referred To Contact Status Reason Specialty Diagnoses / Procedures Gomez Nye MD [address] [facility] [address] [place] [address] New Request Diagnoses Chronic systolic heart failure (HCC) Nonrheumatic mitral valve regurgitation Coronary artery disease of [place] artery of [place] heart with stable angina pectoris (HCC) P rocedures 2D + DOPPLER ECHO Electronically signed by Gomez Nye MD at * Consult, Test & Treat (Urgent) Referred By Contact Referred To Contact Status Reason Specialty Diagnoses / Procedures Gomez Nye MD [address] [facility] [address] [place] [address] [facility] [address] [address] Authorized Specialty Services Pulmonology Diagnoses Required Chronic systolic heart failure (HCC) Nonrheumatic mitral valve regurgitation Coronary artery disease of [place] artery of [place] heart with stable angina pectoris (HCC) Answer Question Other What is the patient being referred for? nodulr oncardiac MRI What is the problem to be addressed? Comments Pulmonary nodule Electronically signed by Gomez Nye MD at Reason for Visit * Reason Comments Follow Up cardiac MRI yesterday 04/08 Encounter Details Care Team Description Date Type Department Gomez Nye MD [address] [facility] [address] [place] [address] Follow Up (cardiac MRI yesterday 1) 04/09/2021 Office Visit Cardiology: [facility] [address], [address] [place] [address] Social History Date Tobacco Use [...] Signs Reading Time Taken Comments Vital Sign 102/53 04/09/2021 11:54 AM CDT Blood Pressure 99 04/09/2021 11:54 AM CDT Pulse - - Temperature - - Respiratory Rate 100% 04/09/2021 11:54 AM CDT Oxygen Saturation - - Inhaled Oxygen Concentration 80.3 kg (177 lb) 04/09/2021 11:54 AM CDT Weight 165.1 cm (5' 5") 04/09/2021 11:54 AM CDT Height 29.45 04/09/2021 11:54 AM CDT Body Mass Index documented in [...] Instructions * Patient Instructions* Myesha Mike - 04/09/2021 12:00 PM CDT - Refer to pulmonary stat for lung mass on MRI, - Increase metoprolol XL 50mg BID, - START ASA 81MG - STOP TAKING BIRILINTA - ECHO IN 4 weeks - See me in 4 weeks. For up to date information on the [...] symptoms o In a medical emergency, call 252 or go to the nearest emergency room. If you wish to contact us, please call and leave a message for the heart failure nurses at [phone] during regular office hours Mon-Fri, 8am-4pm. After hours and on holidays and weekends, please call: [phone] to reach the biodiesel operations manager c ardiologist for non urgent questions or issues. To schedule or change an appointment call [phone]. MD Pam Doherty APRN Mary Beth Meier, RN Tamara Amick, RN [facility] at [facility] Your Heart Failure Symptom Awareness and Action [...] symptoms, please call the heart failure nurses: [phone] Increased shortness of breath with activity Weight gain of 3 pounds in one day or 5 pounds in a week Increased swelling in your ankles or legs Increased swelling in your stomach Increasing fatigue You may need an adjustment of your medications. Red Zone These are urgent symptoms. Please call the heart failure nurses: [phone] Shortness of breath at rest or waking up at night feeling short of breath or co ughing Increased number of pillows used or needing to sit upright to sleep Chest tightness at rest Dizziness, lightheadedness or feeling faint You need to schedule an appointme nt Emergency Zone call 184 Worsening chest tightness or pain that is not rel ieved by medication Severe shortness of breath and a cough with pink, frothy sputum documented in this encounter Ordered Prescriptions Start Date End Date Prescription Sig Dispensed Refills 04/09/2021 metoprolol XL (TOPROL XL) Take one 90 tablet 3 50 mg extended release tablet by tablet mouth twice daily. documented in this encounter Progress Notes * Gomez Nye MD - 04/09/2021 12:00 PM CDT Date of Service: 04/09/2021 Sary Paige (Debbie) is a 66 y.o. female. HPI I had opportunity of seeing Ambreen at [facility] cardiomyopathy/heart failure clinic. She is an [...] daily , spironolactone 50 mg daily and medium dose entresol for 1 Month now. She has b een tolerating them well. Blood pressure today is 102/53 mmHg and heart rate 99 bpm. From symptom standpoint of view she [...] using elevation when she is sleep ing. Vitals: 04/09/21 1154 BP: 102/53 BP Source: Arm, Right Upper Patient Position: Sitting Pulse: 99 SpO2: 100% Weight: 80.3 kg (177 lb) Height: 1.651 m (5' 5") PainSc: Zero Body mass index is 29.45 kg/m. Past Medical History Patient Active Problem List Diagnosis Date Noted Systolic heart failure (HCC) 03/15/2021 Anemia 03/15/2021 Hypokalemia 03/15/2021 Coronary artery disease of [place] artery of [place] heart with stable angina pectoris (HCC) 02/26/2021 Essential (primary) hypertension 02/26/2021 Dyslipidemia 02/26/2021 Nonrheumatic mitral valve regurgitation 02/26/2021 Nonischemic cardiomyopathy (HCC) 02/26/2021 Review of Systems Constitutional: Positive for malaise/fatigue. HENT: Negative. Eyes: Negative. Cardiovascular: Positive for chest pain and dyspnea on exertion. Front and back for chest pain Respiratory: Positive for shortness of breath. Endocrine: [...] Mood: appropriate and sustained affect Cardiovascular Studies Cardiovascular Health Factors Vitals BP Readings from Last 3 Encounters: 04/09/21 102/53 03/04/21 129/71 02/26/21 99/76 Wt Readings from Last 3 Encounters: 04/09/21 80.3 kg (177 lb) 04/08/21 80.3 kg (177 lb 0.5 oz) 03/04/21 80.3 kg (177 lb) BMI Readings from Last 3 Encounters: 04/09/21 29.45 kg/m 04/08/21 29.46 kg/m 03/04/21 29.45 kg/m Smoking Social History Tobacco Use Smoking Status Former Smoker Smokeless Tobacco Never Used Tobacco Comment quit several years ago Lipid Profile Cholesterol Date Value Ref Range Status 02/26/2021 187 <200 MG/DL Final HDL Date Value Ref Range Status 02/26/2021 45 >40 MG/DL Final LDL Date Value Ref Range Status 02/26/2021 103 (H) <100 mg/dL Final Triglycerides Date Value Ref Range Status 02/26/2021 271 (H) <150 MG/DL Final Blood Sugar No results found for: HGBA1C Glucose Date Value Ref Range Status 03/26/2021 107 (H) 65 - 99 Final 03/15/2021 111 (H) 65 - 99 Final 02/26/2021 97 70 - 100 MG/DL Final Problems Addressed Today Encounter Diagnoses Name Primary? Chronic systolic heart failure (HCC) Yes Assessment and Plan #1. Heart failure with [...] status post PCI x2 in April 2020. GDMT includes metoprolol XL 50 mg daily, spironolactone 50 mg daily and medium dose entresol for 1 Month now. She has been tolerating them well. Blood pressur e today is 102/53 mmHg and heart rate 99 bpm. Cardiac MRI done yesterday revealed LV end-diastolic volume index = 119 cc/m2 (normal 50-84 cc/m2) LV end-systolic volume index = 93 cc/m2 (normal 17-37 cc/m2) LV stroke volume = 50 cc LVEF = 22% (normal 55-70%) LATE GADOLINIUM ENHANCEMENT: There is no evidence of abnormal late gadolinium enhancement in the ventricles to suggest fibrous changes/scarring. The right ventricle shows mild global hypokinesis without regional wall motion abnormality. The MRI revealed incidental Enhancing left upper lobe pulmonary nodule, suspicio us for malignancy. Will increase metoprolol to 25mg in AM and 50mg at HS Refer to pulmonary ECHO in 4 weeks See me in 4 weeks D/C kavehilinta 60 minutes of time spent with patient and family. Greater than 30 minutes of th is time spent counseling regarding heart failure with reduced ejection fraction, need for cardiac MRI, GDMT, need to be active, medications and volume control. Gomez Nye M.D [facility] Switchboard Manager Current Medications (including today's revisions) aspirin 81 mg chewable tablet Chew 81 mg by mouth daily. Take with food. atorvastatin (LIPITOR) 80 mg tablet Take one tablet by mouth daily. Calcium Carbonate (CALCIUM 600) 600 mg calcium (1,500 mg) tab Take 600 mg by mouth twice daily. Cholecalciferol (Vitamin D3) (VITAMIN D-3) 50 mcg (2,000 unit) cap Take by mouth. ELIQUIS 5 mg tablet Take 5 mg by mouth twice daily. gabapentin (NEURONTIN) 800 mg tablet Take 800 mg by mouth three times daily. isosorbide mononitrate ER (IMDUR) 30 mg tablet Take one tablet by mouth ever y morning. levETIRAcetam (KEPPRA) 1,000 mg tablet Take 1,000 mg by mouth three times da leobardo. linaclotide (LINZESS) 290 mcg capsule Take 290 mcg by mouth daily. meclizine (ANTIVERT) 25 mg tablet Take 25 mg by mouth three times daily as n eeded. metoprolol XL (TOPROL XL) 50 mg extended release tablet Take one-half tablet by mouth at bedtime daily. omeprazole DR (PRILOSEC) 20 mg capsule Take 20 mg by mouth twice daily. potassium chloride SR (K-DUR) 20 mEq tablet Take one tablet by mouth daily. Take with a meal and a full glass of water. sacubitriL-valsartan (ENTRESTO) 49-51 mg tablet Take one [...] Name Type Priority Associated Diag noses Expected: 05/07/2021, Expires: 2 2D + DOPPLER ECHO ECHO Routine Chronic syst olic heart failure (HCC) Nonrheumatic mitral valve regurgitation Coronary artery disease of [place] artery of [place] heart with stable angina pectoris (HCC) Order Schedule Name Type Priority Associated Diag noses Ordered: 04/09/2021 AMB REFERRAL TO PULMONARY Outpatient STAT Inspector Multifocal Lens johanna systolic heart Referral failure (HCC) Nonrheumatic mitral valve regurgitation Coronary artery disease of [place] artery of [place] heart with stable angina pectoris (HCC) documented as of this encounter Visit Diagnoses Diagnosis Chronic systolic heart failure (HCC) - Primary Chronic systolic heart failure Nonrheumatic mitral valve regurgitation Coronary artery disease of [place] arter y of [place] heart with stable angina pectoris (HCC) documented in this encounter Discontinued Medications Start Date End Date Medication Sig Discontinue Reason 04/09/2021 calcium carbonate Take 500 mg Dose (CALCIUM 500 PO) by mouth adjustment twice daily. 03/16/2021 04/09/2021 metoprolol XL (TOPROL XL) Take 50 mg extended release one-half tablet tablet by mouth at bedtime daily. 04/09/2021 ticagrelor (BRILINTA) 90 Take 90 mg mg tablet by mouth twice daily. documented as of this encounter Historical Medications * This list may reflect changes made after this encounter. Start Date End Date Medication Sig Dispensed Refills 03/31/2021 ELIQUIS 5 mg tablet Take 5 mg by 0 mouth twice daily. Calcium Carbonate Take 600 mg 0 (CALCIUM 600) 600 mg by mouth calcium (1,500 mg) tab twice daily. added in this encounter Orders First Ordered Date Appointment Count Last Ordered Date REQUEST FOR CARDIOLOGY APPOINTMENT 1 documented in this encounter Additional Health Concerns Assessment Noted Time A fall risk assessment has been completed for the pat ient 04/09/2021 11:54 AM CDT PHQ-2 Depression Total Score: 0 02/26/2021 8:22 AM CDT documented as of this encounter
--- OUTSIDE RECORDS SUMMARY | 2021-04-27 14:35 | XMS REPORT | Encounter Summary ---
Author Author [facility] Organization [facility] Address Unknown Phone Unavailable Care Team Providers Care Lead Mechanical Engineer Name Role Phone Dudley Francis MD PCP Teddy Gray MD Unavailable Harjit Banegas DO Unavailable Pam Rowell UNDERWATER PHOTOGRAPHER-DATA MANAGER 7 Reason for Referral * Consult, Test & Treat (Routine) Referred By Contact Referred To Contact Status Reason Specialty Diagnoses / Procedures Alan Zepeda MD [address] [place], [place] [id number] [place] [address] Pending Review Diagnoses Nonrheumatic mitral valve regurgitation P rocedures REQUEST FOR CARDIOLOGY APPOINTMENT Electronically signed by Alan Zepeda MD at * Test (Routine) Referred By Contact Referred To Contact Status Reason Specialty Diagnoses / Procedures Alan Zepeda MD [address] [place] [id number] New Request Diagnoses Nonrheumatic mitral valve regurgitation P rocedures 2D + DOPPLER ECHO Electronically signed by Alan Zepeda MD at Reason for Visit * Reason Comments Navigation Assessment MR/MItraclip eval Encounter Details Care Team Description Date Type Department Magali Contreras RN Navigation Assessment (MR/MItraclip eval ) 03/04/2021 Patient Profile Cardiology: [facility] [address] [place] [address], [address] [place] [address] Social History Date Tobacco Use [...]
--- OUTSIDE RECORDS SUMMARY | 2021-04-27 14:35 | XMS REPORT | Encounter Summary ---
Author Author [facility] Organization [facility] Address Unknown Phone Unavailable Care Team Providers Care Legal Instructor Name Role Phone Dudley Francis MD PCP Teddy Gray MD Unavailable Harjit Banegas DO Unavailable Pam Rowell AUTOMOBILE DEALER-STRAWHAT INSPECTOR AND PACKER 7 Encounter Details Care Team Description Date Type Department 04/08/2021 Travel Social History Date Tobacco Use Types [...] month, have you been in contact with [facility] ble to assess someone who was confirmed [...]
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
--- OUTSIDE RECORDS SUMMARY | 2021-04-27 14:35 | XMS REPORT | Encounter Summary ---
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 Reason for Visit * Reason Comments Labs Only Encounter Details Care Team Description Date Type Department Anjelica Rouse MA Labs Only 04/03/2021 Documentation Cardiology: [facility] [address] [place] [address] Social History Date Tobacco Use [...] Procedure Name Priority Date/Time Associated Diag nosis COMPREHENSIVE METABOLIC Routine 03/26/2021 PANEL documented in this encounter Results * COMPREHENSIVE METABOLIC PANEL (03/26/2021) Sodium 137 [...] Non 39 (L) >OR=60 OTHER OUTSIDE LAB [place] eGFR 45 (L) >OR=60 OTHER OUTSIDE [place] LAB Anion Gap OTHER OUTSIDE LAB BUN/Creatinine [...]
--- OUTSIDE RECORDS SUMMARY | 2021-04-27 14:35 | XMS REPORT | Encounter Summary ---
Author Author [facility] Organization [facility] Address Unknown Phone Unavailable Care Team Providers Care Extension Specialist Name Role Phone Dudley Francis MD PCP Teddy Gray MD Unavailable Harjit Banegas DO Unavailable Pam Rowell REORDERING CLERK-MANAGER SOUND 7 Encounter Details Care Team Description Date Type Department 04/09/2021 Travel Social History Date Tobacco Use Types [...]
[2021-04-27] MEDS ORDERED: LACTATED RINGERS 1,000 ML IV SCH (14:45)
[2021-04-27] MEDS ORDERED: ONDANSETRON 4 MG/5 ML ORAL SOLN (ZOFRAN) 5 ML PO ONE (14:45)
[2021-04-27] MEDS ORDERED: SCOPOLAMINE 1.5 MG (TRANSDERM-SCOP) PATCH TD ONE (14:45)
[2021-04-27] MEDS ORDERED: ONDANSETRON 4 MG/2 ML (SDV) Z0FRAN ONE (14:46)
--- NOTE | 2021-04-27 14:46 | ED General ---
General Stated Complaint: N/V,DIZZINESS,WEAKNESS Source of Information: Patient Exam Limitations: No Limitations (SERAFIN ARREDONDO APRN) History of Present Illness Date Seen by Provider: Apr 27, 2021 Time Seen by Provider: 14:43 Initial Comments To ER by private vehicle by her with reports of severe dizziness nausea vomiting and chronic diarrhea. Her diarrhea is unchanged from baseline though the dizziness and nausea and vomiting are new since Thursday of this past week. No fevers. Diffuse upper abdominal pain. History of this and was admitted for hypovolemia hypophosphatemia hypomagnesemia and hypokalemia last month. She smokes marijuana 1-2 times per day but none since her last admission. Hot showers sometimes help her symptoms. Has had recurrent issues with n/v/d over the years. Timing/Duration: 1 Week Severity: Moderate Associated Systoms: Nausea/Vomiting (SERAFIN ARREDONDO APRN) Allergies and Home Medications Allergies Coded Allergies: Opioids - Morphine Analogues (Verified Allergy, Unknown, DEEP SLEEP, PURPLE BLOTCHES, 12/28/18) ciprofloxacin (Verified Allergy, Unknown, RASH/BUMPS/PAIN, 12/28/18) codeine (Verified Allergy, Unknown, 10/20/18) fentanyl (Verified Allergy, Unknown, Anaphylaxis, 10/20/18) hydrochlorothiazide (Verified Allergy, Unknown, 10/20/18) lisinopril (Verified Allergy, Unknown, 09/06/18) morphine (Verified Allergy, Unknown, 09/06/18) opium (anthroposophic) (Verified Allergy, Unknown, 10/20/18) Uncoded Allergies: "opiates" (Allergy, Unknown, 03/31/18) Patient Home Medication List Home Medication List Reviewed: Yes (SERAFIN ARREDONDO APRN) Apixaban (Eliquis) 5 Mg Tablet, 5 MG PO BID Prescribed by: BETTINA ZUNIGA on 03/31/21 1154 Atorvastatin Calcium (Atorvastatin Calcium) 80 Mg Tablet, 80 MG PO HS, (Reported) Entered as Reported by: AMAN MONTEZ on 03/30/21 1454 Calcium Carbonate (Calcium) 600 Mg Tablet, 600 MG PO BID, (Reported) Entered as Reported by: NICHO VO on 10/20/18 0916 Cholecalciferol (Vitamin D3) (Vitamin D3) 25 Mcg Tablet, 25 MCG PO DAILY, (Repor marion) Entered as Reported by: ZANDER CAMPBELL on 05/16/20 1304 Cyanocobalamin (Vitamin B-12) (B-12) 1,000 Mcg Tablet, 1,000 MCG PO DAILY, (Reported) Entered as Reported by: NICHO VO on 10/20/18 0916 Diphenhydramine HCl (Allergy) 25 Mg Tablet, 25 MG PO DAILY, (Reported) Entered as Reported by: WAYNE HUNTLEY on 12/28/18 0937 Gabapentin (Gabapentin) 800 Mg Tablet, 800 MG PO TID, (Reported) Entered as Reported by: NICHO VO on 10/20/18 0916 Isosorbide Mononitrate (Isosorbide Mononitrate ER) 30 Mg Tab.er.24h, 30 MG PO DAILY, (Reported) Entered as Reported by: AMAN MONTEZ on 03/30/21 1454 Levetiracetam (Levetiracetam) 1,000 Mg Tablet, 1,000 MG PO TID, (Reported) Entered as Reported by: ZANDER CAMPBELL on 05/16/20 1304 Linaclotide (Linzess) 290 Mcg Capsule, 290 MG PO HS, (Reported) Entered as Reported by: NICHO VO on 10/20/18 0916 Losartan Potassium (Losartan Potassium) 25 Mg Tablet, 25 MG PO DAILY, (Reported) Entered as Reported by: AMAN MONTEZ on 03/30/21 1454 Meclizine HCl (Meclizine HCl) 25 Mg Tablet, 25 MG PO Q6H PRN for DIZZINESS, (Reported) Entered as Reported by: AMAN MONTEZ on 03/30/21 1454 Metoprolol Succinate (Metoprolol Succinate) 50 Mg Tab.er.24h, 50 MG PO DAILY Prescribed by: BETTINA ZUNIGA on 03/31/21 1154 Omeprazole (Omeprazole) 20 Mg Capsule.dr, 20 MG PO BID, (Reported) Entered as Reported by: WAYNE HUNTLEY on 12/28/18 0924 Potassium Chloride (Potassium Chloride) 20 Meq Tab.er.prt, 20 MEQ PO DAILY, (Reported) Entered as Reported by: AMAN MONTEZ on 03/30/21 1454 Sacubitril/Valsartan (Entresto 49 mg-51 mg Tablet) 1 Each Tablet, 49-51 MG PO BID, (Reported) Entered as Reported by: AMAN MONTEZ on 03/30/21 1454 Spironolactone (Spironolactone) 50 Mg Tablet, 50 MG PO DAILY, (Reported) Entered as Reported by: AMAN MONTEZ on 03/30/21 1454 Ticagrelor (Brilinta) 90 Mg Tablet, 90 MG PO BID Prescribed by: LANE SIMONS on 05/17/20 0904 Tramadol HCl (Tramadol HCl) 50 Mg Tablet, 25-50 MG PO DAILY PRN for PAIN-MILD (1-4), (Reported) Entered as Reported by: AMAN MONTEZ on 03/30/21 1454 Review of Systems Review of Systems Constitutional: see HPI EENTM: see HPI Respiratory: no symptoms reported Cardiovascular: no symptoms reported Gastrointestinal: abdominal pain, diarrhea, nausea, vomiting Genitourinary: no symptoms reported Musculoskeletal: no symptoms reported Skin: no symptoms reported Psychiatric/Neurological: No Symptoms Reported Hematologic/Lymphatic: No Symptoms Reported (SERAFIN ARREDONDO APRN) Past [id number] Hx Seasonal Allergies Seasonal Allergies: No (SERAFIN ARREDONDO APRN) Past Medical History Surgeries: Yes Abdominal, Appendectomy, Gallbladder, Hysterectomy, Oophorectomy, Tubal Ligation Respiratory: No Cardiac: Yes Chronic Edema/Swelling, High Cholesterol, Hypertension Neurological: Yes Concussion, Neuropathy, Seizure Disorder Reproductive Disorders: Yes Female Reproductive Disorders: 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 ) HEENT: No Cancer: Yes (THESE ARE ALL SELF-REPORTED BY PT, WITH NO VERIFICATION OF ANY OF THESE) Skin, Cervical, Colon, Ovarian, Uterine Did You Recieve Any Treatments: Yes What Type of Treatment Did You: Surgical Intervention Psychosocial: No Integumentary: Yes (hx of skin ca) Blood Disorders: No (SERAFIN ARREDONDO APRN) Family Medical History Patient reports no known family medical history. No Pertinent Family Hx (SERAFIN ARREDONDO APRN) Physical Exam Vital Signs Vital Signs - First Documented 04/27/21 14:52 Temp 36.8 Pulse 84 Resp 18 B/P (MAP) 132/78 (96) Pulse Ox 98 (YANICK SANTIAGO MD) Vital Signs Capillary Refill : (SERAFIN ARREDONDO APRN) Height, Weight, BMI Height: 5'5.00" Weight: 158lbs. 4.0oz. 71.355111ol; 31.69 BMI Method:Stated General Appearance: Chronically ill, Thin, Other (keeps eyes closed) HEENT: PERRL/EOMI, TMs Normal Neck: Full Range of Motion, Normal Inspection Respiratory: No Accessory Muscle Use, No Respiratory Distress Cardiovascular: Regular Rate, Rhythm Gastrointestinal: Normal Bowel Sounds, Non Tender, Soft Extremity: Normal Capillary Refill, Normal Inspection Neurologic/Psychiatric: Alert, Oriented x3 Skin: Normal Color, Warm/Dry (SERAFIN ARREDONDO APRN) Progress/Results/Core Measures Suspected Sepsis SIRS Temperature: Pulse: Respiratory Rate: Laboratory Tests 04/27/21 14:42: White Blood Count 8.3 Blood Pressure / Mean: Laboratory Tests 04/27/21 14:42: Creatinine 0.92, Platelet Count 313, Total Bilirubin 0.6 (SERAFIN ARREDONDO APRN) Results/Orders Lab Results Laboratory Tests Test 04/27/21 14:42 04/27/21 15:38 Range/Units White Blood Count 8.3 4.3-11.0 10^3/uL Red Blood Count 3.92 3.80-5.11 10^6/uL Hemoglobin 12.2 11.5-16.0 g/dL Hematocrit 36 35-52 % Mean Corpuscular Volume 91 80-99 fL Mean Corpuscular Hemoglobin 31 25-34 pg Mean Corpuscular Hemoglobin Concent 34 32-36 g/dL Red Cell Distribution Width 12.0 10.0-14.5 % Platelet Count 313 130-400 10^3/uL Mean Platelet Volume 10.4 9.0-12.2 fL Immature Granulocyte % (Auto) 0 % Neutrophils (%) (Auto) 62 42-75 % Lymphocytes (%) (Auto) 31 12-44 % Monocytes (%) (Auto) 6 0-12 % Eosinophils (%) (Auto) 0 0-10 % Basophils (%) (Auto) 1 0-10 % Neutrophils # (Auto) 5.1 1.8-7.8 10^3/uL Lymphocytes # (Auto) 2.6 1.0-4.0 10^3/uL Monocytes # (Auto) 0.5 0.0-1.0 10^3/uL Eosinophils # (Auto) 0.0 0.0-0.3 10^3/uL Basophils # (Auto) 0.1 0.0-0.1 10^3/uL Immature Granulocyte # (Auto) 0.0 0.0-0.1 10^3/uL Sodium Level 140 135-145 MMOL/L Potassium Level 3.3 L 3.6-5.0 MMOL/L Chloride Level 109 H 98-107 MMOL/L Carbon Dioxide Level 13 L 21-32 MMOL/L Anion Gap 18 H 5-14 MMOL/L Blood Urea Nitrogen 17 7-18 MG/DL Creatinine 0.92 0.60-1.30 MG/DL Estimat Glomerular Filtration Rate 61 BUN/Creatinine Ratio 18 Glucose Level 106 H 70-105 MG/DL Calcium Level 8.8 8.5-10.1 MG/DL Corrected Calcium 8.5-10.1 MG/DL Phosphorus Level 2.3 2.3-4.7 MG/DL Magnesium Level < 0.6 *L 1.6-2.4 MG/DL Total Bilirubin 0.6 0.1-1.0 MG/DL Aspartate Amino Transf (AST/SGOT) 21 5-34 U/L Alanine Aminotransferase (ALT/SGPT) 15 0-55 U/L Alkaline Phosphatase 74 40-136 U/L Total Protein 7.4 6.4-8.2 GM/DL Albumin 4.6 H 3.2-4.5 GM/DL Lipase 19 8-78 U/L Urine Color YELLOW Urine Clarity CLEAR Urine pH 6.0 5-9 Urine Specific [place] >=1.030 1.016-1.022 Urine Protein 2+ H NEGATIVE Urine Glucose (UA) NEGATIVE NEGATIVE Urine Ketones 1+ H NEGATIVE Urine Nitrite NEGATIVE NEGATIVE Urine Bilirubin 1+ H NEGATIVE Urine Urobilinogen 0.2 < = 1.0 MG/DL Urine Leukocyte Esterase NEGATIVE NEGATIVE Urine RBC (Auto) 1+ H NEGATIVE Urine RBC 2-5 H /HPF Urine WBC 0-2 /HPF Urine Squamous Epithelial Cells 2-5 /HPF Urine Crystals NONE /LPF Urine Bacteria TRACE /HPF Urine Casts PRESENT /LPF Urine Hyaline Casts 2-5 H /LPF Urine Granular Casts 0-2 H /LPF Urine Mucus NEGATIVE /LPF Urine Culture Indicated NO Urine Opiates Screen NEGATIVE NEGATIVE Urine Oxycodone Screen NEGATIVE NEGATIVE Urine Methadone Screen NEGATIVE NEGATIVE Urine Propoxyphene Screen NEGATIVE NEGATIVE Urine Barbiturates Screen NEGATIVE NEGATIVE Ur Tricyclic Antidepressants Screen NEGATIVE NEGATIVE Urine Phencyclidine Screen NEGATIVE NEGATIVE Urine Amphetamines Screen NEGATIVE NEGATIVE Urine Methamphetamines Screen NEGATIVE NEGATIVE Urine Benzodiazepines Screen NEGATIVE NEGATIVE Urine Cocaine Screen NEGATIVE NEGATIVE Urine Cannabinoids Screen POSITIVE H NEGATIVE (YANICK SANTIAGO MD) Medications Given in ED Current Medications Medications Dose Ordered Sig/Suresh Route Start Time Stop Time Status Last Admin Dose Admin Ondansetron HCl 8 mg ONCE ONCE IVP 04/27/21 15:00 04/27/21 15:01 DC 04/27/21 14:49 8 MG Scopolamine 1.5 mg ONCE ONCE TD 04/27/21 14:45 04/27/21 14:46 DC 04/27/21 14:48 1.5 MG (YANICK SANTIAGO MD) Vital Signs/I&O 04/27/21 14:52 Temp 36.8 Pulse 84 Resp 18 B/P (MAP) 132/78 (96) Pulse Ox 98 (YANICK SANTIAGO MD) Vital Signs/I&O Capillary Refill : (SERAFIN ARREDONDO APRN) Departure Communication (Admissions) 1532-nausea is better. Given the risk of arrhythmias associated with hypomagnesemia this would warrant an overnight observation for magnesium replenishment as her QTC is slightly prolonged at 510 ms. Last EKG shows 441 ms last month. Will admit to Dr. Shanks, replace electrolytes, monitor for arrhythmias and avoid QT prolonging drugs (SERAFIN ARREDONDO APRN) Impression Primary Impression: Hypomagnesemia Additional Impression: Cannabinoid hyperemesis syndrome Disposition: ADMITTED INPATIENT Condition: Stable Admissions Decision to Admit Reason: Admit from ER (General) Decision to Admit/Date: Apr 27, 2021 Time/Decision to Admit Time: 15:38 (SERAFIN ARREDONDO APRN) Departure-Patient Inst. Referrals: JULES SNYDER MD (PCP/Family) Primary Care Physician ATTENDING PHYSICIAN NOTE: I was physically present as attending physician in the emergency department during the care of this patient, but I was not directly involved in the decision making or delivery of care for this patient. (YANICK SANTIAGO MD) SERAFIN ARREDONDO APRN Apr 27, 2021 14:46 YANICK SANTIAGO MD Apr 27, 2021 18:56
[2021-04-27 14:49] LABS: BASOPHILS # (AUTO) 0.1 10^3/uL (0.0-0.1); BASOPHILS % (AUTO) 1 % (0-10); EOSINOPHILS % (AUTO) 0 % (0-10); HEMATOCRIT 36 % (35-52); HEMOGLOBIN 12.2 g/dL (11.5-16.0); LYMPHOCYTES # (AUTO) 2.6 10^3/uL (1.0-4.0); LYMPHOCYTES % (AUTO) 31 % (12-44); MEAN CORPUSCULAR HEMOGLOBIN 31 pg (25-34); MEAN CORPUSCULAR HGB CONC 34 g/dL (32-36); MEAN CORPUSCULAR VOLUME 91 fL (80-99); MEAN PLATELET VOLUME 10.4 fL (9.0-12.2); MONOCYTES # (AUTO) 0.5 10^3/uL (0.0-1.0); MONOCYTES % (AUTO) 6 % (0-12); NEUTROPHILS # (AUTO) 5.1 10^3/uL (1.8-7.8); NEUTROPHILS % (AUTO) 62 % (42-75); PLATELET COUNT 313 10^3/uL (130-400); WHITE BLOOD COUNT 8.3 10^3/uL (4.3-11.0)
[2021-04-27] MEDS ORDERED: ONDANSETRON 4 MG/2 ML (SDV) Z0FRAN IVP ONE (15:00)
[2021-04-27 15:10] LABS: ALANINE AMINOTRANSFERASE 15 U/L (0-55); ALBUMIN 4.6 GM/DL (3.2-4.5); ALKALINE PHOSPHATASE 74 U/L (40-136); BILIRUBIN,TOTAL 0.6 MG/DL (0.1-1.0); BUN/CREATININE RATIO 18; CALCIUM 8.8 MG/DL (8.5-10.1); CARBON DIOXIDE 13 MMOL/L (21-32); CHLORIDE 109 MMOL/L (98-107); CREATININE SERUM 0.92 MG/DL (0.60-1.30); GFR ESTIMATED 61; GLUCOSE 106 MG/DL (70-105); PHOSPHORUS 2.3 MG/DL (2.3-4.7); POTASSIUM 3.3 MMOL/L (3.6-5.0); SODIUM 140 MMOL/L (135-145); TOTAL PROTEIN 7.4 GM/DL (6.4-8.2)
[2021-04-27 15:21] LABS: MAGNESIUM < 0.6 MG/DL (1.6-2.4)
[2021-04-27] MEDS: MAGNESIUM 1 GM/100 ML IVPB 100 ML IV SCH ×6 (15:31→22:08)
[2021-04-27 15:46] LABS: CLARITY,URINE CLEAR; COLOR,URINE YELLOW; GLUCOSE, URINE (UA) NEGATIVE (NEGATIVE); KETONES,URINE 1+ (NEGATIVE); LEUKOCYTE ESTERASE ,URINE NEGATIVE (NEGATIVE); NITRITE,URINE NEGATIVE (NEGATIVE); PROTEIN,URINE 2+ (NEGATIVE)
[2021-04-27 15:51] LABS: BILIRUBIN,URINE 1+ (NEGATIVE)
[2021-04-27 15:54] LABS: BACTERIA,URINE TRACE /HPF; GRANULAR CASTS,URINE 0-2 /LPF; WBC,URINE 0-2 /HPF
[2021-04-27 16:02] LABS: AMPHETAMINE SCREEN, URINE NEGATIVE (NEGATIVE); BARBITURATE SCREEN URINE NEGATIVE (NEGATIVE); BENZODIAZEPINES SCREEN URINE NEGATIVE (NEGATIVE); CANNABINOID SCREEN, URINE POSITIVE (NEGATIVE); COCAINE SCREEN URINE NEGATIVE (NEGATIVE); METHADONE STAT NEGATIVE (NEGATIVE); METHAMPHETAMINE SCREEN URINE S NEGATIVE (NEGATIVE); OPIATE SCREEN URINE NEGATIVE (NEGATIVE); OXYCODONE STAT NEGATIVE (NEGATIVE); PROPOXYPHENE STAT NEGATIVE (NEGATIVE); TRICYCLIC ANTIDEPRESSANTS SCRE NEGATIVE (NEGATIVE)
[2021-04-27] MEDS ORDERED: ACETAMINOPHEN 500 MG TAB (TYLENOL) PO PRN (17:00)
[2021-04-27] MEDS ORDERED: ENOXAPARIN 40 MG/0.4 ML (LOVENOX) SYR SC SCH (17:00)
[2021-04-27] MEDS ORDERED: MELATONIN 3 MG TABLET PO PRN (17:00)
[2021-04-27] MEDS ORDERED: CALCIUM CARBONATE 500 MG (TUMS) TAB.CHEW PO PRN (17:00)
[2021-04-27] MEDS ORDERED: LOPERAMIDE 2 MG (IMODIUM) TABLET PO PRN (17:00)
[2021-04-27] MEDS ORDERED: ALPRAZolam 0.25 MG (XANAX) TAB PO PRN (17:00)
[2021-04-27] MEDS ORDERED: diphenhydrAMINE 25 MG TAB (BENADRYL) PO PRN (17:00)
[2021-04-27] MEDS ORDERED: DOCUSATE SODIUM 100 MG (COLACE) CAP PO PRN (17:00)
[2021-04-27] MEDS ORDERED: MAGNESIUM 1 GM/100 ML IVPB 100 ML IV SCH (17:00)
[2021-04-27] MEDS ORDERED: ONDANSETRON 4 MG/2 ML (SDV) Z0FRAN IVP PRN (17:00)
[2021-04-27] MEDS ORDERED: PROMETHAZINE INJ 25 MG/ML (PHENERGAN) AMP IM PRN (17:00)
[2021-04-27] MEDS: NS IV 1000 ML 1,000 ML IV SCH (17:38)
[2021-04-27] MEDS: POTASSIUM CL 10MEQ/50ML IVPB 50 ML IV SCH ×4 (17:38→21:11)
[2021-04-27 18:19] VITALS: BP 132/78
[2021-04-27] MEDS ORDERED: RT-ALBUTEROL SULF 2.5 MG/3 ML PRE-MIX VIAL INH PRN (18:30)
[2021-04-27 19:53] VITALS: BP 100/65
[2021-04-27] MEDS: SENNA W/DOCUSATE (SENOKOT S) TABLET PO SCH (19:57)
[2021-04-27] MEDS ORDERED: ENOXAPARIN 40 MG/0.4 ML (LOVENOX) SYR ONE (20:17)
[2021-04-28] VITALS: BP 97/65
[2021-04-28] MEDS: NS IV 1000 ML 1,000 ML IV SCH ×3 (01:08→17:00)
[2021-04-28 03:46] VITALS: BP 109/65
[2021-04-28 06:33] LABS: BASOPHILS # (AUTO) 0.1 10^3/uL (0.0-0.1); BASOPHILS % (AUTO) 1 % (0-10); EOSINOPHILS # (AUTO) 0.1 10^3/uL (0.0-0.3); EOSINOPHILS % (AUTO) 1 % (0-10); HEMATOCRIT 32 % (35-52); HEMOGLOBIN 10.4 g/dL (11.5-16.0); LYMPHOCYTES # (AUTO) 2.2 10^3/uL (1.0-4.0); LYMPHOCYTES % (AUTO) 32 % (12-44); MEAN CORPUSCULAR HEMOGLOBIN 31 pg (25-34); MEAN CORPUSCULAR HGB CONC 33 g/dL (32-36); MEAN CORPUSCULAR VOLUME 94 fL (80-99); MEAN PLATELET VOLUME 11.4 fL (9.0-12.2); MONOCYTES # (AUTO) 0.4 10^3/uL (0.0-1.0); MONOCYTES % (AUTO) 6 % (0-12); NEUTROPHILS # (AUTO) 4.2 10^3/uL (1.8-7.8); NEUTROPHILS % (AUTO) 60 % (42-75); PLATELET COUNT 252 10^3/uL (130-400); WHITE BLOOD COUNT 6.9 10^3/uL (4.3-11.0)
[2021-04-28 07:05] LABS: ALBUMIN 3.7 GM/DL (3.2-4.5); BILIRUBIN,TOTAL 0.7 MG/DL (0.1-1.0); CALCIUM 7.7 MG/DL (8.5-10.1); CREATININE SERUM 0.79 MG/DL (0.60-1.30); POTASSIUM 3.2 MMOL/L (3.6-5.0); TOTAL PROTEIN 5.8 GM/DL (6.4-8.2)
[2021-04-28 07:53] VITALS: BP 101/66
[2021-04-28] MEDS: SENNA W/DOCUSATE (SENOKOT S) TABLET PO SCH (09:13)
--- NOTE | 2021-04-28 11:52 | Short Stay Summary-Hospitalist ---
History of Present Illness HPI/Chief Complaint Chief complaint: Nausea with dizziness and hypomagnesemia History of present illness: This is a 66-year-old white female clinic patient of Dr. Gray and [facility] who is in the midst of heart transplant [facility] who also sees Dr. Farfan at who presented to the ER with nausea and dizziness from vertigo and noted to have hypomagnesemia at 0.6. She had been admitted last month for chest pain and cardiology managed with the addition of multiple meds and those were continued. Magnesium level has been resolved at 2.0 today with 6 g IV x1. Source: patient Exam Limitations: no limitations Date Seen 04/28/21 Time Seen by a Provider: 12:00 Attending Physician Leola Ferrell DO PCP Dudley Francis MD Referring Physician Date of Admission Apr 27, 2021 at 15:41 Home Medications & Allergies Home Medications Reviewed patient Home Medication Reconciliation performed by pharmacy medication reconciliations costume technician and/or nursing. Patients Allergies have been reviewed. Allergies Allergies Coded Allergies Opioids - Morphine Analogues (Verified Allergy, Unknown, DEEP SLEEP, PURPLE BLOTCHES, 12/28/18) ciprofloxacin (Verified Allergy, Unknown, RASH/BUMPS/PAIN, 12/28/18) codeine (Verified Allergy, Unknown, 10/20/18) fentanyl (Verified Allergy, Unknown, Anaphylaxis, 10/20/18) hydrochlorothiazide (Verified Allergy, Unknown, 10/20/18) lisinopril (Verified Allergy, Unknown, 09/06/18) morphine (Verified Allergy, Unknown, 09/06/18) opium (anthroposophic) (Verified Allergy, Unknown, 10/20/18) Uncoded Allergies "opiates" ( Allergy, Unknown, 03/31/18) Past Ojgidet-Qxwrck-Nrlngp Hx Patient Social History Marrital Status: Employed/Student: unemployed Tobacco Use?: Yes Tobacco type used: Cigarettes Smoking Status: Former Smoker Substance use?: Yes Substance type: Marijuana Additional substance use comme: HASN'T USED SINCE LAST MONTH Substance frequency: Couple times a week Alcohol Use?: No Pt feels they are or have been: Yes Immunizations Up To Date First/Initial COVID19 Vaccinat: no Second COVID19 Vaccination Ortiz: NO Tetanus Booster (TDap): Less Than 5 Years Date of Pneumonia Vaccine: Apr 29, 2018 Seasonal Allergies Seasonal Allergies: No Current Status Advance Directives: No Communicates: Verbally Primary Language: [place] Preferred Spoken Language: [place] Is interpretation needed?: No Sensory deficits: Vision impairment Implanted or Applied Medical D: None Past Medical History Surgeries: Abdominal, Appendectomy, Gallbladder, Hysterectomy, Oophorectomy, Tubal Ligation Chronic Edema/Swelling, Coronary Artery Disease, High Cholesterol, Hypertension Concussion, Neuropathy, Seizure Disorder [employer] History: Hysterectomy Gastroesophageal Reflux, Liver Disease/Jaundice, Chronic Constipation, Polyps, Hiatal Hernia, Irritable Bowel Osteoporosis, Arthritis Skin, Cervical, Colon, Ovarian, Uterine Did You Recieve Any Treatments: Yes What Type of Treatment Did You: Surgical Intervention Blood Disorders: No COPD Family Medical History Patient reports no known family medical history. No Pertinent Family Hx Review of Systems Constitutional: see HPI EENTM: no symptoms reported Respiratory: no symptoms reported Cardiovascular: no symptoms reported Gastrointestinal: nausea Musculoskeletal: no symptoms reported Skin: no symptoms reported Psychiatric/Neurological: No Symptoms Reported All Other Systems Reviewed Negative Unless Noted: Yes Physical Exam Physical Exam Vital Signs Vital Signs - First Documented 04/27/21 04/27/21 04/27/21 14:52 17:56 18:19 Temp 36.8 Pulse 84 Resp 18 B/P (MAP) 132/78 (96) Pulse Ox 98 O2 Delivery Room Air FiO2 21 Capillary Refill : Less Than 3 Seconds Height, Weight, BMI Height: 5'5.00" Weight: 158lbs. 4.0oz. 71.000834hn; 27.98 BMI Method:Stated General Appearance: No Apparent Distress, Chronically ill, Thin, Other (keeps eyes closed) Eyes: Bilateral Eye Normal Inspection, Bilateral Eye PERRL HEENT: PERRL/EOMI, TMs Normal Neck: Full Range of Motion, Normal Inspection Respiratory: No Accessory Muscle Use, No Respiratory Distress Cardiovascular: Regular Rate, Rhythm Gastrointestinal: Normal Bowel Sounds, Non Tender, Soft Back: Normal Inspection, No CVA Tenderness, No Vertebral Tenderness Extremity: Normal Capillary Refill, Normal Inspection Neurologic/Psychiatric: Alert, Oriented x3 Skin: Normal Color, Warm/Dry Lymphatic: No Adenopathy Results Results/Procedures Labs Laboratory Tests 04/27/21 14:42 04/28/21 05:35 Patient resulted labs reviewed. Short Stay Diagnosis Discharge Diagnosis-Short Stay Admission Diagnosis Nausea Vertigo Hypomagnesemia CAD Valvular heart disease Final Discharge Diagnosis Nausea Vertigo Hypomagnesemia CAD Valvular heart disease Conclusion Plan Discharge if tolerating lunch LEOLA FERRELL DO Apr 28, 2021 11:52
[2021-04-28] MEDS ORDERED: MGX400T PO (12:00)
[2021-04-28] MEDS ORDERED: MECLIZINE 25 MG (ANTIVERT) TAB PO PRN (12:00)
[2021-04-28] MEDS ORDERED: KCL 20 MEQ TAB (K-DUR) PO NR (12:00)
[2021-04-28] MEDS ORDERED: PATIENT MAY USE OWN MEDS, ALL MC SCH (12:00)
[2021-04-28 12:13] VITALS: BP 114/73
[2021-04-28] MEDS ORDERED: NON-FORMULARY MEDICATION 1 EA EA (Gabapentin 800 MG) PO SCH (13:00)
[2021-04-28] MEDS ORDERED: GABAPENTIN 400 MG (NEURONTIN) CAP PO SCH (13:00)
[2021-04-28 16:00] VITALS: BP 100/66
[2021-04-28] MEDS ORDERED: CALCIUM CARBONATE 600 MG (CALCARB) TAB PO SCH (18:00)
[2021-04-28 18:08] VITALS: BP 100/66
[2021-04-28] MEDS ORDERED: PANTOPRAZOLE 20 MG TABLET (PROTONIX) PO SCH (21:00)
[2021-04-28] MEDS ORDERED: LINACLOTIDE 290 MG PO SCH (21:00)
[2021-04-28] MEDS ORDERED: OMEPRAZOLE 20 MG (PriLOSEC) CAP NON-FORMULARY PO SCH (21:00)
[2021-04-28] MEDS ORDERED: SACUBITRIL/VALSARTAN 24/26 MG (ENTRESTO) TABLET PO SCH (21:00)
[2021-04-28] MEDS ORDERED: [UNRECOGNIZED DRUG - OTHER] PO SCH (21:00)
[2021-04-28] MEDS ORDERED: VALSARTAN PO SCH (21:00)
[2021-04-28] MEDS ORDERED: TICAGRELOR 90 MG TABLET (BRILINTA) PO SCH (21:00)
[2021-04-28] MEDS ORDERED: APIXABAN 5 MG (ELIQUIS) TABLET PO SCH (21:00)
[2021-04-28] MEDS ORDERED: SACUBITRIL PO SCH (21:00)
[2021-04-29] MEDS ORDERED: KCL 20 MEQ TAB (K-DUR) PO SCH (08:00)
[2021-04-29] MEDS ORDERED: diphenhydrAMINE 25 MG TAB (BENADRYL) PO SCH (09:00)
[2021-04-29] MEDS ORDERED: NON-FORMULARY MEDICATION 1 EA EA (Spironolactone 50 MG) PO SCH (09:00)
[2021-04-29] MEDS ORDERED: SPIRONOLACTONE 25 MG (ALDACTONE) TAB PO SCH (09:00)
[2021-04-29] MEDS ORDERED: meTOproloL SUCCINATE 50 MG (TOPROL XL) TAB PO SCH (09:00)
[2021-04-29] MEDS ORDERED: LOSARTAN 25 MG (COZAAR) TAB PO SCH (09:00)
[2021-04-29] MEDS ORDERED: VITAMIN D3 25 MCG (1,000 UNITS) TABLET PO SCH (09:00)
[2021-04-29] MEDS ORDERED: ISOSORBIDE MONONITRATE 30 MG (IMDUR) TAB PO SCH (09:00)
[2021-04-29] MEDS ORDERED: CYANOCOBALAMIN 1,000 MCG (VITAMIN B-12) TABLET PO SCH (09:00)
== END 2021-04-28 18:18 | disposition home or self-care (01) ==
LOC: EDUNIT# 14:29 → ER 14:31 → 4TH 15:41
PROVIDERS: ADMIT Internal Medicine; ATTEND Internal Medicine
DX: E83.42 Hypomagnesemia (principal); E78.00 Pure hypercholesterolemia, unspecified; K52.9 Noninfective gastroenteritis and colitis, unspecified; I10 Essential (primary) hypertension; K21.9 Gastro-esophageal reflux disease without esophagitis; K59.09 Other constipation; M81.0 Age-related osteoporosis without current pathological fracture; M19.90 Unspecified osteoarthritis, unspecified site; I44.7 Left bundle-branch block, unspecified; I25.10 Atherosclerotic heart disease of native coronary artery without angina pectoris; I38 Endocarditis, valve unspecified; Z87.891 Personal history of nicotine dependence; Z79.01 Long term (current) use of anticoagulants; Z79.899 Other long term (current) drug therapy; Z79.891 Long term (current) use of opiate analgesic
CPT/HCPCS: 36415; 80053; 80306; 81000; 83690; 83735; 84100; 85025; 93005; 94760; G0378

== ENCOUNTER → 2021-04-30 | Outpatient (CLI) | payer BC ==
[~2021-04-30] MED LIST changes: +MGX400T PO
[2021-04-30 14:04] LABS: CALCIUM 8.5 MG/DL (8.5-10.1); CREATININE SERUM 0.86 MG/DL (0.60-1.30); MAGNESIUM 1.4 MG/DL (1.6-2.4); POTASSIUM 3.7 MMOL/L (3.6-5.0)
== END ==
LOC: LAB 13:04
PROVIDERS: ATTEND Internal Medicine
DX: E87.6 Hypokalemia (principal); E83.42 Hypomagnesemia
CPT/HCPCS: 36415; 80048; 83735

== ENCOUNTER → 2021-05-23 | Outpatient (CLI) | payer BC ==
[~2021-05-23] MED LIST changes: +DICY20TA PO; -DICY20TA10 PO; +POTA-179 PO; -POTA20TA15 PO
--- NOTE | 2021-05-23 09:58 | Diagnostic Imaging Report ---
PROCEDURE: MRI lumbar spine. TECHNIQUE: Multiplanar, multisequence MRI of the lumbar spine was performed without contrast. DATE: May 23, 2021. COMPARISON: CT abdomen pelvis March 10, 2019. INDICATION: 66-year-old female, back and hip pain. FINDINGS: There are motion limitations of the exam, especially in the axial sequence. There is grade 1 anterolisthesis of L4 on L5 measuring 4 mm. There is no visualized pars interarticularis defect. There is no evidence of a diffuse marrow infiltrating or replacing process. There is no identified focal concerning bone lesion. There is no identified compression deformity or fracture. There is Modic endplate degenerative related change in the anterior and inferior aspect of the L1 vertebral body. There is moderate disc height loss at L1-L2. There is mild disc height loss at L3-L4, L4-L5, and L5-S1. The visualized cord and conus medullaris is unremarkable and terminates at the L1 level. L1-L2: There is diffuse disc bulge. There is mild narrowing of the bilateral lateral recesses. The facet joints and ligamentum flavum are unremarkable. There is mild bilateral foraminal narrowing. There is no spinal canal stenosis. L2-L3: There is no disc bulge. The facet joints and ligamentum flavum are unremarkable. There is no foraminal narrowing. There is no spinal canal stenosis. L3-L4: There is mild diffuse disc bulge. The facet joints and ligamentum flavum are unremarkable. There is moderate to severe right and moderate left foraminal narrowing. There is no spinal canal stenosis. L4-L5: There is uncovering of the disc relating to the anterolisthesis. There is no superimposed disc protrusion or extrusion. There are advanced bilateral facet degenerative changes without ligamentum flavum hypertrophy. There is moderate bilateral foraminal narrowing. There is mild spinal canal stenosis. L5-S1: There is a small annular tear. There is mild diffuse disc bulge eccentric to the right. The facet joints and ligamentum flavum are unremarkable. There is mild right foraminal narrowing. There is no spinal canal stenosis. IMPRESSION: 1. Multilevel disc and facet degenerative changes of the lumbar spine as described in detail level by level above. 2. Grade 1 anterolisthesis of L4 on L5 relating to facet arthropathy. 3. No identified focal concerning bone lesion. Dictated by: Dictated on workstation # [id number]
== END ==
LOC: RAD 08:45
PROVIDERS: ATTEND Internal Medicine
DX: M43.16 Spondylolisthesis, lumbar region (principal); M51.17 Intervertebral disc disorders with radiculopathy, lumbosacral region; M48.07 Spinal stenosis, lumbosacral region; M47.26 Other spondylosis with radiculopathy, lumbar region
CPT/HCPCS: 72148

== ENCOUNTER → 2021-06-11 | Outpatient (CLI) | payer BC ==
[~2021-06-11] MED LIST changes: +RT-ALBUTEROL SULF 2.5 MG/3 ML PRE-MIX VIAL INH ONE
== END ==
LOC: RT 12:52
PROVIDERS: ATTEND Internal Medicine Critical Care Medicine
DX: R06.00 Dyspnea, unspecified (principal); R91.1 Solitary pulmonary nodule
CPT/HCPCS: 94060; 94726; 94729

== ENCOUNTER → 2021-07-23 | Outpatient (CLI) | payer BC ==
[~2021-07-23] MED LIST changes: +CATHETER FLUSH 10 ML SYR IV PRN; +HOLD METFORMIN - RECEIVED CONTRAST 20 ML VIAL IV SCH; +IOHEXOL 350 MG/ML 100 ML (OMNIPAQUE 350) VIAL IV ONE; +NS 100 ML (IVPB) BAG IV ONE; -RT-ALBUTEROL SULF 2.5 MG/3 ML PRE-MIX VIAL INH ONE
[2021-07-23 08:43] LABS: CREATININE SERUM 0.95 MG/DL (0.60-1.30)
--- NOTE | 2021-07-23 09:44 | Diagnostic Imaging Report ---
PROCEDURE: CT angiography of the head and CT angiography of the neck with and without contrast. TECHNIQUE: Contiguous noncontrast images were obtained from the skull base through the vertex. After intravenous contrast administration, helical CT angiography of the neck was performed. Source data was reformatted into 3D MIP projections. Delayed post contrast acquisition was also obtained. Auto Exposure Controls were utilized during the CT exam to meet ALARA standards for radiation dose reduction. INDICATION: Bilateral carotid artery stenosis. Follow-up. Comparison: 03/31/2020. FINDINGS: CTA Neck: The visualized portions of the aortic arch demonstrate atherosclerotic plaque without evidence of aneurysm or dissection. There is conventional branching pattern of the great vessels of the aorta. The brachiocephalic artery is normal in course and caliber. The right and left common carotid origins are unremarkable. The origin of the left subclavian artery is patent. The common carotid arteries and internal carotid arteries demonstrate a normal course. There is calcified atherosclerotic plaque in the bilateral carotid bulbs and proximal internal carotid arteries resulting in less than 50% stenosis. No evidence of dissection in the carotid systems. The external carotid arteries are patent and unremarkable. The vertebral arteries are codominant. The origin of the right vertebral artery is seen and is unremarkable. The origin of the left vertebral artery is seen and is unremarkable. There is no focal stenosis seen within the neck. There is no dissection. The vertebral arteries are well visualized to up to the level of the basilar artery. The osseous structures of the cervical spine are unremarkable. Nodules are seen in the thyroid, the largest measuring 1.2 cm. Included views through the lung apices demonstrate a focal solid nodule in the superior aspect of the left lower lobe measuring 2.1 cm. A smaller nodule just inferior to this measures 1.1 cm. Groundglass nodularity is seen in the right upper lobe measuring 1.5 cm. CTA brain: Atherosclerotic plaque is seen in the [place]o of the bilateral terminal internal carotid arteries without significant stenosis. Aneurysm is seen off the anterior communicating artery at its junction with the left JESSIKA measuring 2 mm. No stenosis is seen in the bilateral anterior, middle, and posterior cerebral arteries. In the posterior circulation, both of the vertebral arteries demonstrate normal opacification. Both the right and left PICA arteries are identified. The basilar artery is normal in course and caliber. The terminal branch vessels including the superior cerebellar arteries unremarkable. CT head: No large acute territorial ischemia, mass, or hemorrhage. No midline shift or mass effect. The ventricles, cortical sulci, and basilar cisterns are patent and unremarkable. The calvarium is intact. The visualized paranasal sinuses are clear. IMPRESSION: 1. No stenosis or large vessel occlusion in the [place]. 2. No stenosis or dissection the bilateral carotid and vertebral arteries. Atherosclerotic plaque in the bilateral carotid bulbs and proximal internal carotid arteries results in less than 50% stenosis. 3. 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 Consider further evaluation with cerebral catheter angiogram. 4. Solid nodules in the superior aspect of the left lower lobe, the largest measuring 2.1 cm. This is concerning for metastatic disease or primary lung malignancy and further evaluation with dedicated chest CT with contrast is recommended. PET/CT can also be considered to further evaluate. 5. Multinodular thyroid, with the largest nodule measuring 1.2 cm. Consider further evaluation with thyroid ultrasound and TSH levels. Dictated by: Dictated on workstation # [id number]
== END ==
LOC: RAD 09:15
PROVIDERS: ATTEND Physician Assistant
DX: I65.23 Occlusion and stenosis of bilateral carotid arteries (principal); E04.2 Nontoxic multinodular goiter; I72.8 Aneurysm of other specified arteries; R91.8 Other nonspecific abnormal finding of lung field
CPT/HCPCS: 36415; 70496; 70498; 82565; 84520

== ENCOUNTER → 2021-12-10 | Outpatient (CLI) | payer BC ==
[~2021-12-10] MED LIST changes: -CATHETER FLUSH 10 ML SYR IV PRN; -HOLD METFORMIN - RECEIVED CONTRAST 20 ML VIAL IV SCH; -IOHEXOL 350 MG/ML 100 ML (OMNIPAQUE 350) VIAL IV ONE; -NS 100 ML (IVPB) BAG IV ONE
--- NOTE | 2021-12-10 12:24 | Diagnostic Imaging Report ---
EXAMINATION: Magnetic resonance imaging of the right shoulder without contrast. DATE: December 10, 2021. COMPARISON: None. HISTORY: 66-year-old female, right shoulder pain. TECHNIQUE: Magnetic Resonance Imaging sequences were performed of the shoulder without contrast. FINDINGS: ROTATOR CUFF, LIGAMENTS, TENDONS, AND MUSCLES: The supraspinatus, infraspinatus, teres minor, and subscapularis tendons and muscles are intact. There is normal rotator cuff muscle bulk and signal. LONG HEAD OF BICEPS: The biceps labral attachment and long head of the biceps tendon are intact. The long head of the biceps tendon is normally positioned within the bicipital groove. GLENOHUMERAL JOINT: The humeral head is well positioned relative to the glenoid. The labrum is grossly intact. There is no identified paralabral cyst. The articular cartilage is grossly intact. There is no joint effusion. ACROMIOCLAVICULAR JOINT: The acromioclavicular joint is normally aligned. The coracoclavicular and coracoacromial ligaments are intact. There are mild acromioclavicular degenerative changes without large undersurface osteophyte. BONE: There is no os acromiale. There is no Hill-Sachs deformity. There is no acute fracture, bone contusion, or evidence of osteonecrosis. There is subcortical cystic change in the humeral head underlying the posterior aspect of the infraspinatus tendon insertion. BURSAE AND SOFT TISSUES: The bursae and soft tissue surrounding the shoulder are unremarkable. IMPRESSION: 1. Intact rotator cuff and proximal long head of the biceps tendon. 2. Grossly intact labrum and unremarkable additional glenohumeral joint assessment. 3. Mild acromioclavicular degenerative changes without undersurface osteophyte. 4. No acute fracture, bone contusion, or evidence of osteonecrosis. Dictated by: Dictated on workstation # [id number]
== END ==
LOC: RAD 09:55
PROVIDERS: ATTEND Internal Medicine
DX: M19.011 Primary osteoarthritis, right shoulder (principal)
CPT/HCPCS: 73221

== ENCOUNTER → 2022-05-09 | Outpatient (CLI) | payer BC, MEDICARE ==
[~2022-05-09] VITALS: Wt 76.2 kg
[~2022-05-09] MED LIST changes: +ZOLEDRONATE (RECLAST) 5 MG/100 ML IV ONE
[2022-05-09 09:37] VITALS: BP 91/56
== END ==
LOC: SDC 09:06
PROVIDERS: ATTEND Internal Medicine
DX: M81.0 Age-related osteoporosis without current pathological fracture (principal)
CPT/HCPCS: 96365

== ENCOUNTER 2022-11-06 11:43 | Emergency (ER) | payer MEDICARE ==
[~2022-11-06] VITALS: Ht 161 cm; Wt 63.5 kg
[~2022-11-06 11:43] MED LIST changes: -ZOLEDRONATE (RECLAST) 5 MG/100 ML IV ONE
--- NOTE | 2022-11-06 11:57 | ED Respiratory ---
General Chief Complaint: Respiratory Problems Stated Complaint: SOB Source: patient Exam Limitations: no limitations History of Present Illness Date Seen by Provider: November 06, 2022 Time Seen by Provider: 11:57 Initial Comments Patient is a 67-year-old female with a history of lung cancer and she tells me "a failing heart" who presents to the emergency room with a chief complaint of chest pain, diffuse chest pain that is worse with cough. She is also complainin g of shortness of breath. She states she has had these "episodes" over the last 2 months or so. Symptoms started again yesterday. She did see Dr. SNYDER at [facility] last week and he told her she had pleurisy. She was waiting on an appointment at with her oncologist for treatment plan. She has been taking 25 mg tramadol (half a tablet) for the pain. She states her cough is productive of "phlegm". No hemoptysis reported. She has had nausea and vomiting and decreased appetite. Decreased amounts of urination today. No abdominal pain, she has had some constipation in the last couple of days or as most of the time she has runny stools secondary to taking Linzess. She does still smoke cigarettes when her "vocal cord spasm". She also smokes marijuana when this happens. She states this helps to cut down on her amount of phlegm. She states Mucinex does not work for her it just makes the phlegm more congesting. She also states albuterol does not work as well. Patient is anticoagulated on eliquis. SHe states she missed a couple of doses last week. No reported fevers. No change really in sputum production. She does not wear oxygen at home. Timing/Duration: other (off and on 2 weeks) Severity: severe Prior Episodes/Possible Cause: occasional episodes Associated Symptoms: chest pain/soreness, cough, shortness of breath, other (generalized weakness; n/v) Allergies and Home Medications Allergies Coded Allergies: Opioids - Morphine Analogues (Verified Allergy, Unknown, DEEP SLEEP, PUR PLE BLOTCHES, 12/28/18) ciprofloxacin (Verified Allergy, Unknown, RASH/BUMPS/PAIN, 12/28/18) codeine (Verified Allergy, Unknown, 10/20/18) fentanyl (Verified Allergy, Unknown, Anaphylaxis, 10/20/18) hydrochlorothiazide (Verified Allergy, Unknown, 10/20/18) lisinopril (Verified Allergy, Unknown, 09/06/18) morphine (Verified Allergy, Unknown, 09/06/18) opium (anthroposophic) (Verified Allergy, Unknown, 10/20/18) Uncoded Allergies: "opiates" (Allergy, Unknown, 03/31/18) Patient Home Medication List Home Medication List Reviewed: Yes Apixaban (Eliquis) 5 Mg Tablet, 5 MG PO BID Prescribed by: BETTINA ZUNIGA on 03/31/21 1154 Atorvastatin Calcium (Atorvastatin Calcium) 80 Mg Tablet, 80 MG PO HS, (Reported) Entered as Reported by: AMAN MONTEZ on 03/30/21 1454 Calcium Carbonate (Calcium) 600 Mg Tablet, 600 MG PO BID, (Reported) Entered as Reported by: NICHO VO on 10/20/18 0916 Cholecalciferol (Vitamin D3) (Vitamin D3) 25 Mcg Tablet, 25 MCG PO DAILY, (Reported) Entered as Reported by: ZANDER CAMPBELL on 05/16/20 1304 Cyanocobalamin (Vitamin B-12) (B-12) 1,000 Mcg Tablet, 1,000 MCG PO DAILY, (Reported) Entered as Reported by: NICHO VO on 10/20/18 0916 Diphenhydramine HCl (Allergy) 25 Mg Tablet, 25 MG PO DAILY, (Reported) Entered as Reported by: WAYNE HUNTLEY on 12/28/18 0937 Gabapentin (Gabapentin) 800 Mg Tablet, 800 MG PO TID, (Reported) Entered as Reported by: NICHO VO on 10/20/18 0916 Isosorbide Mononitrate (Isosorbide Mononitrate ER) 30 Mg Tab.er.24h, 30 MG PO DAILY, (Reported) Entered as Reported by: AMAN MONTEZ on 03/30/21 1454 Levetiracetam (Levetiracetam) 1,000 Mg Tablet, 1,000 MG PO TID, (Reported) Entered as Reported by: ZANDER CAMPBELL on 05/16/20 1304 Linaclotide (Linzess) 290 Mcg Capsule, 290 MG PO HS, (Reported) Entered as Reported by: NICHO VO on 10/20/18 0916 Losartan Potassium (Losartan Potassium) 25 Mg Tablet, 25 MG PO DAILY, (Reported) Entered as Reported by: AMAN MONTEZ on 03/30/21 1454 Magnesium Oxide (Magnesium Oxide) 400 Mg Tablet, 400 MG PO DAILY Prescribed by: ESA FERRELL on 04/28/21 1200 Meclizine HCl (Meclizine HCl) 25 Mg Tablet, 25 MG PO Q6H PRN for DIZZINESS, (Reported) Entered as Reported by: AMAN MONTEZ on 03/30/21 145 Metoprolol Succinate (Metoprolol Succinate) 50 Mg Tab.er.24h, 50 MG PO DAILY Prescribed by: BETTINA ZUNIGA on 03/31/21 1154 Omeprazole (Omeprazole) 20 Mg Capsule.dr, 20 MG PO BID, (Reported) Entered as Reported by: WAYNE HUNTLEY on 12/28/18 0924 Potassium Chloride (Potassium Chloride) 20 Meq Tab.er.prt, 20 MEQ PO DAILY, (Reported) Entered as Reported by: AMAN MONTEZ on 03/30/21 145 Sacubitril/Valsartan (Entresto 49 mg-51 mg Tablet) 1 Each Tablet, 49-51 MG PO BID, (Reported) Entered as Reported by: AMAN MONTEZ on 03/30/21 1454 Spironolactone (Spironolactone) 50 Mg Tablet, 50 MG PO DAILY, (Reported) Entered as Reported by: AMAN MONTEZ on 03/30/21 1454 Ticagrelor (Brilinta) 90 Mg Tablet, 90 MG PO BID Prescribed by: LANE SIMONS on 05/17/20 0904 Tramadol HCl (Tramadol HCl) 50 Mg Tablet, 25-50 MG PO DAILY PRN for PAIN-MILD (1-4), (Reported) Entered as Reported by: AMAN MONTEZ on 03/30/21 1454 Review of Systems Review of Systems Constitutional: see HPI, malaise, weakness Respiratory: phlegm, short of breath Cardiovascular: chest pain Gastrointestinal: loss of appetite, nausea, vomiting Genitourinary: decreased output : No Musculoskeletal: other (body aches) Skin: no symptoms reported All Other Systems Reviewed Negative Unless Noted: Yes Past Datctqe-Eyxyis-Iyhvzi Hx Patient Social History Tobacco Use?: Yes Tobacco type used: Cigarettes Smoking Status: Current Someday Smoker Use of E-Cig and/or Vaping dev: No Substance use?: Yes Substance type: Marijuana Substance frequency: Daily Alcohol Use?: No Pt feels they are or have been: No Immunizations Up To Date Influenza Vaccine Up-to-Date: No; Not Current First/Initial COVID19 Vaccinat: no Second COVID19 Vaccination Ortiz: NO Third COVID19 Vaccination Date: no Seasonal Allergies Seasonal Allergies: No Past Medical History Surgery/Hospitalization HX: HEART CATH X3, APPY, MIGUEL, HYSTERECTOMY CHF, LUNG CA Surgeries: Yes Abdominal, Appendectomy, Gallbladder, Hysterectomy, Oophorectomy, Tubal Ligation Respiratory: No Cardiac: Yes Chronic Edema/Swelling, Coronary Artery Disease, High Cholesterol, Hypertension Neurological: Yes Concussion, Neuropathy, Seizure Disorder Reproductive Disorders: Yes Female Reproductive Disorders: Endometriosis 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 ) HEENT: No Cancer: Yes (THESE ARE ALL SELF-REPORTED BY PT, WITH NO VERIFICATION OF ANY OF THESE) Skin, Cervical, Colon, Ovarian, Uterine Did You Recieve Any Treatments: Yes What Type of Treatment Did You: Surgical Intervention Psychosocial: No Integumentary: Yes (hx of skin ca) Blood Disorders: No Family Medical History Patient reports no known family medical history. No Pertinent Family Hx Physical Exam Vital Signs - First Documented 11/06/22 11:46 Temp 36.6 Pulse 86 Resp 19 B/P (MAP) 122/72 (89) Pulse Ox 95 O2 Delivery Room Air Capillary Refill : Height: 5'5.00" Weight: 158lbs. 4.0oz. [id number]; 27.98 BMI Method:Stated General Appearance: no apparent distress, thin Eyes: Bilateral Eye Normal Inspection, Bilateral Eye PERRL, Bilateral Eye EOMI Respiratory: other (occasional ronchi right base with faint exp wheeze; overall clear; lying on right side room air sats 100%; no increased WOB or distress) Gastrointestinal: normal bowel sounds, soft, tenderness (LUQ) Extremities: normal range of motion, non-tender, normal inspection, no pedal edema, no calf tenderness, normal capillary refill Neurologic/Psychiatric: alert, oriented x 3, other (flat affect, depressed appearing mood) Progress/Results/Core Measures Suspected Sepsis SIRS Temperature: Pulse: Respiratory Rate: Laboratory Tests 11/06/22 12:27: White Blood Count 8.1 Blood Pressure / Mean: Laboratory Tests 11/06/22 12:27: Creatinine 1.03, Platelet Count 347, Total Bilirubin 0.5 Results/Orders Lab Results Laboratory Tests Test 11/06/22 12:27 Range/Units White Blood Count 8.1 4.3-11.0 10^3/uL Red Blood Count 3.80 3.80-5.11 10^6/uL Hemoglobin 11.9 11.5-16.0 g/dL Hematocrit 35 35-52 % Mean Corpuscular Volume 92 80-99 fL Mean Corpuscular Hemoglobin 31 25-34 pg Mean Corpuscular Hemoglobin Concent 34 32-36 g/dL Red Cell Distribution Width 11.9 10.0-14.5 % Platelet Count 347 130-400 10^3/uL Mean Platelet Volume 9.7 9.0-12.2 fL Immature Granulocyte % (Auto) 0 % Neutrophils (%) (Auto) 73 42-75 % Lymphocytes (%) (Auto) 19 12-44 % Monocytes (%) (Auto) 7 0-12 % Eosinophils (%) (Auto) 0 0-10 % Basophils (%) (Auto) 0 0-10 % Neutrophils # (Auto) 5.9 1.8-7.8 10^3/uL Lymphocytes # (Auto) 1.6 1.0-4.0 10^3/uL Monocytes # (Auto) 0.6 0.0-1.0 10^3/uL Eosinophils # (Auto) 0.0 0.0-0.3 10^3/uL Basophils # (Auto) 0.0 0.0-0.1 10^3/uL Immature Granulocyte # (Auto) 0.0 0.0-0.1 10^3/uL D-Dimer 0.34 0.00-0.49 UG/ML Sodium Level 137 135-145 MMOL/L Potassium Level 4.0 3.6-5.0 MMOL/L Chloride Level 102 98-107 MMOL/L Carbon Dioxide Level 23 21-32 MMOL/L Anion Gap 12 5-14 MMOL/L Blood Urea Nitrogen 11 7-18 MG/DL Creatinine 1.03 0.60-1.30 MG/DL Estimat Glomerular Filtration Rate 60 BUN/Creatinine Ratio 11 Glucose Level 106 H 70-105 MG/DL Calcium Level 10.0 8.5-10.1 MG/DL Corrected Calcium 9.8 8.5-10.1 MG/DL Magnesium Level 1.5 L 1.6-2.4 MG/DL Total Bilirubin 0.5 0.1-1.0 MG/DL Aspartate Amino Transf (AST/SGOT) 9 5-34 U/L Alanine Aminotransferase (ALT/SGPT) 7 0-55 U/L Alkaline Phosphatase 79 40-136 U/L Total Protein 6.9 6.4-8.2 GM/DL Albumin 4.2 3.2-4.5 GM/DL My Orders Orders - ALEX LEHMAN MD Ed Iv/Invasive Line Start (11/06/22 12:10) Cbc With Automated Diff (11/06/22 12:10) Comprehensive Metabolic Panel (11/06/22 12:10) Magnesium (11/06/22 12:10) Chest 1 View, Ap/Pa Only (11/06/22 12:10) Ekg Tracing (11/06/22 12:10) Ns Iv 500 Ml (Sodium Chloride 0.9%) (11/06/22 12:10) Fibrin Degradation Products (11/06/22 12:59) Magnesium 1 Gm/100 Ml Ivpb (Magnesium Soler (11/06/22 13:15) Tramadol Tablet (Ultram Tablet) (11/06/22 13:45) Medications Given in ED Current Medications Medications Dose Ordered Sig/Suresh Route Start Time Stop Time Status Last Admin Dose Admin Tramadol HCl 50 mg ONCE ONCE PO 11/06/22 13:45 11/06/22 13:46 DC 11/06/22 14:40 50 MG Vital Signs/I&O 11/06/22 11:46 Temp 36.6 Pulse 86 Resp 19 B/P (MAP) 122/72 (89) Pulse Ox 95 O2 Delivery Room Air Capillary Refill : Progress Note : Time: 14:51 Progress Note Patient seen and evaluated by me. Evaluation today includes physical exam, CBC, chemistry, chest x-ray, D-dimer. Pertinent physical exam findings well- developed well-nourished female in mild distress due to cough/shortness of breath/chest pain. She has regular heart rate, mild crackles in the right base with scant expiratory wheeze, soft abdomen. No lower extremity edema. No focal neurologic deficits. Vital signs are stable. Differential diagnosis based on history and physical exam musculoskeletal chest wall pain, pleurisy, pulmonary embolism, pneumonia, sepsis. Patient labs reviewed, patient CBC is completely normal. Her Chem-12 is remarkable for magnesium of 1.5 otherwise normal. D-dimer 0.34. Patient is treated in the emergency department with 2 g of mag. I discussed her chest x- ray results which does not show any evidence of an effusion or infiltrate. I discussed COVID testing the patient and she declines, states that she has been tested to many times to count and does not believe that she has COVID. She requested pain medication, she specifically wanted Toradol however she cannot have it because of her anticoagulation on Eliquis. After explaining this to her I offered a full-strength tramadol which she accepted. Patient has no clinical or objective findings to warrant admission to the hospital at this time. No concerning findings for pneumonia. Low clinical suspicion for pulmonary embolism. She does not meet any type of sepsis criteria. Would recommend to the patient that she continue hydrating at home, decrease her smoking is much as possible, follow-up with her oncologist as scheduled next week. ECG Initial ECG Impression Date: November 06, 2022 Initial ECG Impression Time: 12:25 Initial ECG Rate: 75 Initial ECG Rhythm: Normal Sinus Initial ECG Impression: Nonspecific Changes Comment Poor R wave progression over the precordium, nonspecific ST-T wave changes anteriorly Diagnostic Imaging Diagonstic Imaging: Xray Plain Films/CT/US/NM/MRI: chest Comments [facility] [place], [place] NAME: SUGEY SOTO [facility] REC#: [id number] PT STATUS: REG ER : 1955 PHYSICIAN: ALEX LEHMAN MD ADMIT DATE: 11/06/22/ER Draft Date of Exam:11/06/22 CHEST 1 VIEW, AP/PA ONLY Indication: Congestive heart failure and history of lung cancer. Ongoing shortness of breath and pain, now vomiting. Comparison: 03/30/2021 Findings: No acute failure pattern is found. The heart size is normal. No overt vascular congestion or pulmonary edema. No effusion or pneumothorax. No free air beneath the diaphragms. Hilar and mediastinal contours unremarkable. Impression: No failure pattern or acute-appearing abnormalities identified. Dictated on workstation # [id number] Dict: 11/06/22 1243 Trans: 11/06/22 1248 CV [id number] Interpreted by: ANH CALIX Electronically signed by: Counseling-Symptomatic: 3-10 Minutes Follow-up with PCP to: Discuss Further Options Departure Impression Primary Impression: Shortness of breath Additional Impression: Hypomagnesemia Disposition: 01 HOME, SELF-CARE Condition: Stable Departure-Patient Inst. Decision time for Depature: 14:55 Referrals: REBECCA NOONAN DO (PCP/Family) Primary Care Physician Patient Instructions: Low Magnesium Level (DC), Shortness of Breath (Dyspnea) (DC) Add. Discharge Instructions: Continue your daily medications as prescribed. Try and decrease your smoking as much as possible. Watch your salt intake so you are not retaining fluids which can affect your breathing. You can use [id number] medications such as Robitussin for cough. Take your tramadol 1/2 to 1 tablet every 6 hours as needed for pain. Drink plenty of fluids to stay well-hydrated and try to eat small frequent meals throughout the day. Return to the emergency department for any worsening symptoms or fever, worsening cough/shortness of breath or any other emergent, concerns. Please keep your appointment with your oncologist at next week. Copy Copies To 1: REBECCA NOONAN KATHRYN M MD November 06, 2022 11:57
[2022-11-06] MEDS ORDERED: NS IV 500 ML 500 ML IV STA (12:10)
[2022-11-06 12:34] LABS: BASOPHILS % (AUTO) 0 % (0-10); EOSINOPHILS % (AUTO) 0 % (0-10); HEMATOCRIT 35 % (35-52); HEMOGLOBIN 11.9 g/dL (11.5-16.0); LYMPHOCYTES # (AUTO) 1.6 10^3/uL (1.0-4.0); LYMPHOCYTES % (AUTO) 19 % (12-44); MEAN CORPUSCULAR HEMOGLOBIN 31 pg (25-34); MEAN CORPUSCULAR HGB CONC 34 g/dL (32-36); MEAN CORPUSCULAR VOLUME 92 fL (80-99); MEAN PLATELET VOLUME 9.7 fL (9.0-12.2); MONOCYTES # (AUTO) 0.6 10^3/uL (0.0-1.0); MONOCYTES % (AUTO) 7 % (0-12); NEUTROPHILS # (AUTO) 5.9 10^3/uL (1.8-7.8); NEUTROPHILS % (AUTO) 73 % (42-75); PLATELET COUNT 347 10^3/uL (130-400); WHITE BLOOD COUNT 8.1 10^3/uL (4.3-11.0)
[2022-11-06 12:44] LABS: ALBUMIN 4.2 GM/DL (3.2-4.5)
[2022-11-06 12:47] LABS: TOTAL PROTEIN 6.9 GM/DL (6.4-8.2)
--- NOTE | 2022-11-06 12:48 | Diagnostic Imaging Report ---
Indication: Congestive heart failure and history of lung cancer. Ongoing shortness of breath and pain, now vomiting. Comparison: 03/30/2021 Findings: No acute failure pattern is found. The heart size is normal. No overt vascular congestion or pulmonary edema. No effusion or pneumothorax. No free air beneath the diaphragms. Hilar and mediastinal contours unremarkable. Impression: No failure pattern or acute-appearing abnormalities identified. Dictated by: Dictated on workstation # [id number]
[2022-11-06 12:49] LABS: BILIRUBIN,TOTAL 0.5 MG/DL (0.1-1.0)
[2022-11-06 12:50] LABS: CREATININE SERUM 1.03 MG/DL (0.60-1.30)
[2022-11-06 12:54] LABS: MAGNESIUM 1.5 MG/DL (1.6-2.4)
[2022-11-06] MEDS: MAGNESIUM 1 GM/100 ML IVPB 100 ML IV SCH ×2 (13:35→14:40)
[2022-11-06 16:16] VITALS: BP 102/65
== END 2022-11-06 16:16 | disposition home or self-care (01) ==
LOC: EDUNIT# 11:43 → ER 11:45
DX: R06.02 Shortness of breath (principal); E83.42 Hypomagnesemia; F17.210 Nicotine dependence, cigarettes, uncomplicated; Z98.61 Coronary angioplasty status; Z88.5 Allergy status to narcotic agent; Z79.01 Long term (current) use of anticoagulants; Z28.310 Unvaccinated for COVID-19
CPT/HCPCS: 36415; 71045; 80053; 83735; 85025; 85379; 93005

== ENCOUNTER → 2022-11-24 | Outpatient (CLI) | payer MEDICARE ==
[~2022-11-24] MED LIST changes: +CATHETER FLUSH 10 ML SYR IVP PRN
--- NOTE | 2022-11-24 12:54 | Diagnostic Imaging Report ---
INDICATION: Lung carcinoma, subsequent staging. TECHNIQUE: Serum blood glucose level at the time injection was 125 mg/dL. Patient was administered 9.9 mCi of F-18 FDG intravenously in the left antecubital location and PET imaging was performed from the top of the skull to the mid thighs. Noncontrast CT was also performed for attenuation correction and anatomic correlation. COMPARISON: No prior PET/CT study is available for comparison. Correlation is made with an outside CT chest study from [facility] performed on 11/11/2022. FINDINGS: There is symmetric activity throughout the brain. Soft tissues of the neck are unremarkable. There is a hypermetabolic mass in the left hilum corresponding with the soft tissue mass-like density noted on CT. This demonstrates an SUV max of 15.6. The right hilum is unremarkable. No other mediastinal areas of hypermetabolism are identified. No pulmonary parenchymal hypermetabolism is detected. The abdomen and pelvis are unremarkable apart from physiologic activity throughout the GI and tracts. IMPRESSION: Hypermetabolic mass in the left hilum is consistent with the patient's known lung malignancy. No other abnormal foci of hypermetabolism are identified. Dictated by: Dictated on workstation # [id number]
== END ==
LOC: RAD 11-20 08:15
PROVIDERS: ATTEND Internal Medicine Hematology & Oncology
DX: C34.90 Malignant neoplasm of unspecified part of unspecified bronchus or lung (principal)
CPT/HCPCS: 78815; 82947; A9552

== ENCOUNTER 2022-11-28 16:49 | Observation (INO) | payer MEDICARE ==
[~2022-11-28] VITALS: Ht 160 cm; Wt 63.6 kg
[~2022-11-28 16:49] MED LIST changes: -CATHETER FLUSH 10 ML SYR IVP PRN
[2022-11-28 17:13] LABS: BASOPHILS % (AUTO) 0 % (0-10); EOSINOPHILS % (AUTO) 0 % (0-10); HEMATOCRIT 37 % (35-52); HEMOGLOBIN 12.4 g/dL (11.5-16.0); LYMPHOCYTES # (AUTO) 2.9 X 10^3 (1.0-4.0); LYMPHOCYTES % (AUTO) 32 % (12-44); MEAN CORPUSCULAR HEMOGLOBIN 31 pg (25-34); MEAN CORPUSCULAR HGB CONC 34 g/dL (32-36); MEAN CORPUSCULAR VOLUME 91 fL (80-99); MEAN PLATELET VOLUME 9.4 fL (9.0-12.2); MONOCYTES # (AUTO) 0.5 X 10^3 (0.0-1.0); MONOCYTES % (AUTO) 5 % (0-12); NEUTROPHILS # (AUTO) 5.5 X 10^3 (1.8-7.8); NEUTROPHILS % (AUTO) 62 % (42-75); PLATELET COUNT 373 10^3/uL (130-400); WHITE BLOOD COUNT 8.9 10^3/uL (4.3-11.0)
[2022-11-28 17:23] LABS: ALBUMIN 4.1 GM/DL (3.2-4.5); CHLORIDE 105 MMOL/L (98-107)
[2022-11-28 17:24] LABS: POTASSIUM 3.4 MMOL/L (3.6-5.0); SODIUM 139 MMOL/L (135-145)
[2022-11-28 17:25] LABS: CALCIUM 8.5 MG/DL (8.5-10.1)
[2022-11-28 17:26] LABS: GLUCOSE 99 MG/DL (70-105); TOTAL PROTEIN 6.7 GM/DL (6.4-8.2)
[2022-11-28 17:27] LABS: CARBON DIOXIDE 20 MMOL/L (21-32)
[2022-11-28 17:28] LABS: BILIRUBIN,TOTAL 0.6 MG/DL (0.1-1.0)
[2022-11-28 17:29] LABS: ALKALINE PHOSPHATASE 59 U/L (40-136); CREATININE SERUM 0.92 MG/DL (0.60-1.30); GFR ESTIMATED 69
[2022-11-28 17:30] LABS: BUN/CREATININE RATIO 18
[2022-11-28 17:32] LABS: ALANINE AMINOTRANSFERASE 7 U/L (0-55)
[2022-11-28 17:34] LABS: MAGNESIUM < 0.6 MG/DL (1.6-2.4)
[2022-11-28] MEDS ORDERED: MAGNESIUM 1 GM/100 ML IVPB 100 ML IV ONE ×2 (17:45→18:45)
[2022-11-28 17:49] LABS: INR 1.2 (0.8-1.4); PROTHROMBIN TIME PATIENT 15.1 SEC (12.2-14.7)
[2022-11-28] MEDS ORDERED: NS IV 500 ML 500 ML IV ONE (18:00)
[2022-11-28] MEDS ORDERED: ONDANSETRON 4 MG/2 ML (SDV) Z0FRAN IVP ONE (18:00)
[2022-11-28 18:05] LABS: CREATINE KINASE 50 U/L (29-168)
--- NOTE | 2022-11-28 18:05 | ED General ---
General Chief Complaint: General Problems/Pain Stated Complaint: VOMITING/UNABLE TO WALK/DIZZY Nursing Triage Note: PT TO ROOM 07 VIA W/C WITH C/O SWEATING, CANNOT EAT OR DRINK, WHOLE BODY PAIN. PT REFUSED TO ANSWER ANY MORE QUESTIONS STATING "IT'S ALL IN MY CHART". Source of Information: Patient, Family, Old Records Exam Limitations: No Limitations History of Present Illness Date Seen by Provider: Nov 28, 2022 Time Seen by Provider: 16:56 Initial Comments This 67-year-old woman presents to the emergency room via private vehicle with complaints of diffuse body pains, diaphoresis, nausea, and irritability. She presumes to have hypomagnesemia or hypokalemia based on prior episodes. She has a significant health history that includes history of lung cancer, severe electrolyte disturbances, coronary artery disease, atrial fibrillation for which she is anticoagulated, and heart failure. Her local physician is Dr. Noonan. Her local webbing weaver is Dr. Gray. She also sees specialists at [facility] because she is being evaluated for possible cardiac transplant. 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 Blood pressure and oxygen saturations are stable. Recent PET scan in the chart was reviewed and is consistent with a single mass in the chest suggestive of neoplastic disease. Allergies and Home Medications Allergies Coded Allergies: Opioids - Morphine Analogues (Verified Allergy, Unknown, DEEP SLEEP, PURPLE BLOTCHES, 12/28/18) ciprofloxacin (Verified Allergy, Unknown, RASH/BUMPS/PAIN, 12/28/18) codeine (Verified Allergy, Unknown, 10/20/18) fentanyl (Verified Allergy, Unknown, Anaphylaxis, 10/20/18) hydrochlorothiazide (Verified Allergy, Unknown, 10/20/18) lisinopril (Verified Allergy, Unknown, 09/06/18) morphine (Verified Allergy, Unknown, 09/06/18) opium (anthroposophic) (Verified Allergy, Unknown, 10/20/18) Uncoded Allergies: "opiates" (Allergy, Unknown, 03/31/18) Patient Home Medication List Home Medication List Reviewed: Yes Apixaban (Eliquis) 5 Mg Tablet, 5 MG PO BID Prescribed by: BETTINA ZUNIGA on 03/31/21 1154 Atorvastatin Calcium (Atorvastatin Calcium) 80 Mg Tablet, 80 MG PO HS, (Reported) Entered as Reported by: AMAN MONTEZ on 03/30/21 1454 Calcium Carbonate (Calcium) 600 Mg Tablet, 600 MG PO BID, (Reported) Entered as Reported by: NICHO VO on 10/20/18 09 Cholecalciferol (Vitamin D3) (Vitamin D3) 25 Mcg Tablet, 25 MCG PO DAILY, (Reported) Entered as Reported by: ZANDER CAMPBELL on 05/16/20 1304 Cyanocobalamin (Vitamin B-12) (B-12) 1,000 Mcg Tablet, 1,000 MCG PO DAILY, (Reported) Entered as Reported by: NICHO VO on 10/20/18 09 Diphenhydramine HCl (Allergy) 25 Mg Tablet, 25 MG PO DAILY, (Reported) Entered as Reported by: WAYNE HUNTLEY on 12/28/18 0937 Gabapentin (Gabapentin) 800 Mg Tablet, 800 MG PO TID, (Reported) Entered as Reported by: NICHO VO on 10/20/18 09 Isosorbide Mononitrate (Isosorbide Mononitrate ER) 30 Mg Tab.er.24h, 30 MG PO DAILY, (Reported) Entered as Reported by: AMAN MONTEZ on 03/30/21 1454 Levetiracetam (Levetiracetam) 1,000 Mg Tablet, 1,000 MG PO TID, (Reported) Entered as Reported by: ZANDER CAMPBELL on 05/16/20 1304 Linaclotide (Linzess) 290 Mcg Capsule, 290 MG PO HS, (Reported) Entered as Reported by: NICHO VO on 10/20/18 09 Losartan Potassium (Losartan Potassium) 25 Mg Tablet, 25 MG PO DAILY, (Reported) Entered as Reported by: AMAN MONTEZ on 03/30/21 1454 Magnesium Oxide (Magnesium Oxide) 400 Mg Tablet, 400 MG PO DAILY Prescribed by: ESA FERRELL on 04/28/21 1200 Meclizine HCl (Meclizine HCl) 25 Mg Tablet, 25 MG PO Q6H PRN for DIZZINESS, (Reported) Entered as Reported by: AMAN MONTEZ on 03/30/21 1454 Metoprolol Succinate (Metoprolol Succinate) 50 Mg Tab.er.24h, 50 MG PO DAILY Prescribed by: BETTINA ZUNIGA on 03/31/21 1154 Omeprazole (Omeprazole) 20 Mg Capsule.dr, 20 MG PO BID, (Reported) Entered as Reported by: WAYNE HUNTLEY on 12/28/18 0924 Potassium Chloride (Potassium Chloride) 20 Meq Tab.er.prt, 20 MEQ PO DAILY, (Reported) Entered as Reported by: AMAN MONTEZ on 03/30/21 1454 Sacubitril/Valsartan (Entresto 49 mg-51 mg Tablet) 1 Each Tablet, 49-51 MG PO BID, (Reported) Entered as Reported by: AMAN MONTEZ on 03/30/21 1454 Spironolactone (Spironolactone) 50 Mg Tablet, 50 MG PO DAILY, (Reported) Entered as Reported by: AMAN MONTEZ on 03/30/21 1454 Ticagrelor (Brilinta) 90 Mg Tablet, 90 MG PO BID Prescribed by: LANE GRAY on 05/17/20 0904 Tramadol HCl (Tramadol HCl) 50 Mg Tablet, 25-50 MG PO DAILY PRN for PAIN-MILD (1-4), (Reported) Entered as Reported by: AMAN MONTEZ on 03/30/21 1454 Review of Systems Review of Systems Constitutional: see HPI EENTM: no symptoms reported Respiratory: other (Tachypnea) Gastrointestinal: see HPI Genitourinary: no symptoms reported : No Musculoskeletal: see HPI Skin: no symptoms reported Psychiatric/Neurological: See HPI Hematologic/Lymphatic: No Symptoms Reported Immunological/Allergic: no symptoms reported Past Ymirqtv-Zmzmnl-Fgtpbq Hx Patient Social History Tobacco Use?: Yes Tobacco type used: Cigarettes Smoking Status: Current Everyday Smoker Use of E-Cig and/or Vaping dev: Unable to obtain Use of E-Cig and/or Vaping Suman: Unknown if Ever Used Substance use?: Yes Substance type: Marijuana Alcohol Use?: Unable to obtain Pt feels they are or have been: Unable to obtain Immunizations Up To Date First/Initial COVID19 Vaccinat: no Second COVID19 Vaccination Ortiz: NO Third COVID19 Vaccination Date: no Seasonal Allergies Seasonal Allergies: No Past Medical History Surgery/Hospitalization HX: HEART CATH X3, APPY, MIGUEL, HYSTERECTOMY CHF, LUNG CA Surgeries: Yes Abdominal, Appendectomy, Gallbladder, Hysterectomy, Oophorectomy, Tubal Ligation Respiratory: No Cardiac: Yes Cardiomyopathy (CHF), Chronic Edema/Swelling, Coronary Artery Disease, High Cholesterol, Hypertension Neurological: Yes Concussion, Neuropathy, Seizure Disorder Reproductive Disorders: Yes Female Reproductive Disorders: Endometriosis 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 ) HEENT: No Cancer: Yes (ALL SELF-REPORTED BY PT, WITH NO VERIFICATION, except lung CA on PET 11/2022) Lung (Confirmed on PET scan November 2022), Skin, Cervical, Colon, Ovarian, Uterine Did You Recieve Any Treatments: Yes What Type of Treatment Did You: Surgical Intervention Psychosocial: No Integumentary: Yes (hx of skin ca) Blood Disorders: No Family Medical History Patient reports no known family medical history. No Pertinent Family Hx Physical Exam Vital Signs Vital Signs - First Documented 11/28/22 17:00 Temp 33.9 Pulse 66 Resp 14 B/P (MAP) 109/72 (84) O2 Delivery Room Air Capillary Refill : Less Than 3 Seconds Height, Weight, BMI Height: 5'5.00" Weight: 158lbs. 4.0oz. 71.179967mz; 24.00 BMI Method:Stated General Appearance: WD/WN, Moderate Distress, Thin HEENT: Normal ENT Inspection, Other (Dry oropharynx) Neck: Normal Inspection; No JVD Respiratory: Lungs Clear, Normal Breath Sounds, No Accessory Muscle Use Cardiovascular: No Edema, No Murmur, Irregularly Irregular, Tachycardia Gastrointestinal: Non Tender, Soft Extremity: Normal Inspection, No Pedal Edema Neurologic/Psychiatric: Alert, Oriented x3, No Motor/Sensory Deficits, Other (Moderately agitated) Skin: Warm/Dry, Pallor Progress/Results/Core Measures Suspected Sepsis SIRS Temperature: Pulse: 66 Respiratory Rate: 14 Laboratory Tests 11/28/22 17:04: White Blood Count 8.9 Blood Pressure 109 /72 Mean: 84 Laboratory Tests 11/28/22 17:04: Creatinine 0.92, INR Comment 1.2, Platelet Count 373, Total Bilirubin 0.6 Results/Orders Lab Results Laboratory Tests Test 11/28/22 17:04 11/28/22 17:45 Range/Units White Blood Count 8.9 4.3-11.0 10^3/uL Red Blood Count 4.03 3.80-5.11 10^6/uL Hemoglobin 12.4 11.5-16.0 g/dL Hematocrit 37 35-52 % Mean Corpuscular Volume 91 80-99 fL Mean Corpuscular Hemoglobin 31 25-34 pg Mean Corpuscular Hemoglobin Concent 34 32-36 g/dL Red Cell Distribution Width 12.3 10.0-14.5 % Platelet Count 373 130-400 10^3/uL Mean Platelet Volume 9.4 9.0-12.2 fL Immature Granulocyte % (Auto) 0 % Neutrophils (%) (Auto) 62 42-75 % Lymphocytes (%) (Auto) 32 12-44 % Monocytes (%) (Auto) 5 0-12 % Eosinophils (%) (Auto) 0 0-10 % Basophils (%) (Auto) 0 0-10 % Neutrophils # (Auto) 5.5 1.8-7.8 X 10^3 Lymphocytes # (Auto) 2.9 1.0-4.0 X 10^3 Monocytes # (Auto) 0.5 0.0-1.0 X 10^3 Eosinophils # (Auto) 0.0 0.0-0.3 10^3/uL Basophils # (Auto) 0.0 0.0-0.1 10^3/uL Immature Granulocyte # (Auto) 0.0 0.0-0.1 10^3/uL Prothrombin Time 15.1 H 12.2-14.7 SEC INR Comment 1.2 0.8-1.4 Activated Partial Thromboplast Time 31 24-35 SEC Sodium Level 139 135-145 MMOL/L Potassium Level 3.4 L 3.6-5.0 MMOL/L Chloride Level 105 98-107 MMOL/L Carbon Dioxide Level 20 L 21-32 MMOL/L Anion Gap 14 5-14 MMOL/L Blood Urea Nitrogen 17 7-18 MG/DL Creatinine 0.92 0.60-1.30 MG/DL Estimat Glomerular Filtration Rate 69 BUN/Creatinine Ratio 18 Glucose Level 99 70-105 MG/DL Calcium Level 8.5 8.5-10.1 MG/DL Corrected Calcium 8.4 L 8.5-10.1 MG/DL Magnesium Level < 0.6 *L 1.6-2.4 MG/DL Total Bilirubin 0.6 0.1-1.0 MG/DL Aspartate Amino Transf (AST/SGOT) 15 5-34 U/L Alanine Aminotransferase (ALT/SGPT) 7 0-55 U/L Alkaline Phosphatase 59 40-136 U/L C-Reactive Protein High Sensitivity 0.03 0.00-0.50 MG/DL B-Type Natriuretic Peptide 26.5 <100.0 PG/ML Total Protein 6.7 6.4-8.2 GM/DL Albumin 4.1 3.2-4.5 GM/DL Lipase 14 8-78 U/L Total Creatine Kinase 50 29-168 U/L Myoglobin 37.2 10.0-92.0 NG/ML Troponin I < 0.028 <0.028 NG/ML My Orders Orders - YANICK SANTIAGO MD Cbc With Automated Diff (11/28/22 16:56) Comprehensive Metabolic Panel (11/28/22 16:56) Magnesium (11/28/22 16:56) Ua Culture If Indicated (11/28/22 16:56) Ed Iv/Invasive Line Start (11/28/22 16:56) Ekg-Prn For Chest Pain Or Rhyt (11/28/22 17:23) Ekg Tracing (11/28/22 17:26) Monitor-Rhythm Ecg Trace Only (11/28/22 17:26) Covid 19 Inhouse Test (11/28/22 17:26) Influenza A And B By Pcr (11/28/22 17:26) Chest 1 View, Ap/Pa Only (11/28/22 17:27) Hs C Reactive Protein (11/28/22 17:29) Lipase (11/28/22 17:30) Bnp Dane (11/28/22 17:35) Magnesium 1 Gm/100 Ml Ivpb (Magnesium Soler (11/28/22 17:45) Myoglobin Serum (11/28/22 17:39) Protime With Inr (11/28/22 17:39) Partial Thromboplastin Time (11/28/22 17:39) Lipid Panel (11/29/22 06:00) Troponin I [place] (11/28/22 17:39) Creatine Kinase (11/28/22 17:43) Ondansetron Injection (Zofran Injectio (11/28/22 18:00) Ns Iv 500 Ml (Sodium Chloride 0.9%) (11/28/22 18:00) Arterial Blood Gas (11/28/22 18:31) Magnesium 1 Gm/100 Ml Ivpb (Magnesium Soler (11/28/22 18:45) Medications Given in ED Current Medications Medications Dose Ordered Sig/Suresh Route Start Time Stop Time Status Last Admin Dose Admin Magnesium Sulfate/ Dextrose 100 ml @ 100 mls/hr ONCE ONCE IV 11/28/22 17:45 11/28/22 18:44 DC 11/28/22 17:59 100 MLS/HR Magnesium Sulfate/ Dextrose 100 ml @ 100 mls/hr ONCE ONCE IV 11/28/22 18:45 11/28/22 19:44 11/28/22 18:51 100 MLS/HR Ondansetron HCl 4 mg ONCE ONCE IVP 11/28/22 18:00 11/28/22 18:01 DC 11/28/22 17:59 4 MG Sodium Chloride 500 ml @ 0 mls/hr Q0M ONCE IV 11/28/22 18:00 11/28/22 18:01 DC 11/28/22 17:59 999 MLS/HR Vital Signs/I&O 11/28/22 17:00 Temp 33.9 Pulse 66 Resp 14 B/P (MAP) 109/72 (84) O2 Delivery Room Air Capillary Refill : Less Than 3 Seconds Blood Pressure Mean: 84 Progress Note #1: Time: 18:14 Progress Note Extensive work-up is being performed. Labs have been obtained, reviewed, and interpreted by me including CBC, CMP, magnesium, CK, myoglobin, troponin, BNP, and lipase. She has severe hypomagnesemia measured at less than 0.6. Potassium is slightly low at 3.4. All other labs are unremarkable by my interpretation. EKG demonstrates atrial fibrillation with no ST elevation by my interpretation. There is subtle ST depression. Chest x-ray was viewed by me and radiologist's report reviewed. There was perihilar fullness suggested consistent with her known neoplastic disease. Prior ER notes and pet imaging were reviewed. Patient is presently being treated with a 500 mL normal saline bolus and a gram of magnesium. She will need continued careful hydration due to her history of heart failure as well as continued electrolyte replacement. Admission to the ICU is being pursued. I discussed pain management with the patient. Unfortunately she is not able to take any opioids due to allergy. She should not take Ultram (tramadol) due to her seizure history. I offered a benzodiazepine which she declined. Zofran was given for nausea. Progress Note #2: Time: 18:38 Progress Note Patient's extreme hypomagnesemia is currently being repleted with 2 g over [address] Ferrell, hospitalist on duty, will manage to the electrolyte replacement in the ICU from there. Her atrial fibrillation has remained stable with occasional tachycardia. Blood pressure has remained stable. Dr. Ferrell has presented to the emergency room to evaluate the patient and place admission orders. I have consulted Dr. Gray, her primary webbing weaver. eICU will be given report. I discussed CODE STATUS with patient, and she would like to remain full code. The cause of her severe hypomagnesemia is uncertain but may be related to neoplastic disorder or a medication effect. In researching some of her medications and her medical history, I have not determined a definitive cause. Progress Note #3: Time: 19:07 Progress Note Report was given to eICU. Dr. CURIEL was made aware of the patient's presence and admission. Patient should transfer to the ICU shortly. The first gram of magnesium infused at a rate of 2 g/h. The second gram had to be slowed down to 1 g/h as it was causing burning at the IV site. Patient has finished her 500 mL normal saline bolus infusion. ECG Initial ECG Impression Date: Nov 28, 2022 Initial ECG Impression Time: 17:26 Initial ECG Rate: 108 Initial ECG Rhythm: A Fib/Flutter Comment Atrial fibrillation with intermittent RVR. No ST elevation. Mild ST depression noted in multiple leads. No other abnormal intervals or axis deviation noted. Diagnostic Imaging Diagonstic Imaging: Xray Plain Films/CT/US/NM/MRI: chest Comments NAME: SUGEY SOTO [facility] REC#: [id number] PT STATUS: REG ER : 1955 PHYSICIAN: YANICK SANTIAGO MD ADMIT DATE: 06/09/23/ER Draft Date of Exam:11/28/22 CHEST 1 VIEW, AP/PA ONLY CLINICAL INDICATIONS: Patient with lung cancer 1B. EXAM: Portable chest x-ray upright view. COMPARISON: Chest x-ray dated 11/06/2022. Whole-body PET/CT scan dated 11/24/2022. FINDINGS: Lungs/pleura: Lungs are clear. There is no pneumothorax. There is no pleural effusion. Mediastinum: There is prominence of the left perihilar region which correlates with no mass seen on the whole body PET CT scan. Pulmonary vasculature: Unremarkable. Heart: Unremarkable. Bones/extrathoracic soft tissue: Unremarkable. IMPRESSION: 1: There is prominence of the left perihilar region related to the known mass seen on the comparison whole-body PET/CT scan. 2: Otherwise, there is no radiographic evidence of acute cardiopulmonary process. Dictated on workstation # [id number] Dict: 11/28/22 1802 Trans: 11/28/22 1804 [facility] [id number] Interpreted by: SANTOS OROZCO MD Departure Communication (Admissions) Time/Spoke to Admitting Phy: 18:18 Dr. Ferrell Time/Spoke to Consulting Phy: 18:35 Dr. Gray Impression Primary Impression: Hypomagnesemia Additional Impressions: Atrial fibrillation Qualified Codes: I48.91 - Unspecified atrial fibrillation Lung cancer Qualified Codes: C34.02 - Malignant neoplasm of left main bronchus Nausea & vomiting Qualified Codes: R11.2 - Nausea with vomiting, unspecified Disposition: ADMITTED INPATIENT Condition: Stable Admissions Decision to Admit Reason: Admit from ER (General) Decision to Admit/Date: Nov 28, 2022 Time/Decision to Admit Time: 18:18 Departure-Patient Inst. Referrals: REBECCA NOONAN DO (PCP/Family) Primary Care Physician Copy Copies To 1: REBECCA NOONAN JOSHUA T MD Nov 28, 2022 18:05
--- NOTE | 2022-11-28 18:34 | History & Physical ---
History of Present Illness HPI/Chief Complaint CC: Severe hypogonadism HPI: This is a 67-year-old female who has a past medical history of lung cancer and a history of low magnesium of unknown source who presented to the ER with pain in multiple areas of her body and weakness. Patient was found to have a severely low magnesium level meeting criteria for admission with close monitoring in the ICU due to high risk for cardiac arrhythmia. Aggressive supplementation will be ordered. Source: patient Exam Limitations: clinical condition Date Seen 11/28/22 Time Seen by a Provider: 18:00 Attending Physician Kalpesh Bee DO PCP Admitting Physician: Attending Physician: Referring Physician Date of Admission Home Medications & Allergies Home Medications Reviewed patient Home Medication Reconciliation performed by pharmacy medication reconciliations reactor technician and/or nursing. Patients Allergies have been reviewed. Allergies Allergies Coded Allergies Opioids - Morphine Analogues (Verified Allergy, Unknown, DEEP SLEEP, PURPLE BLOTCHES, 12/28/18) ciprofloxacin (Verified Allergy, Unknown, RASH/BUMPS/PAIN, 12/28/18) codeine (Verified Allergy, Unknown, 10/20/18) fentanyl (Verified Allergy, Unknown, Anaphylaxis, 10/20/18) hydrochlorothiazide (Verified Allergy, Unknown, 10/20/18) lisinopril (Verified Allergy, Unknown, 09/06/18) morphine (Verified Allergy, Unknown, 09/06/18) opium (anthroposophic) (Verified Allergy, Unknown, 10/20/18) Uncoded Allergies "opiates" ( Allergy, Unknown, 03/31/18) Past Qelmwha-Zbzvqq-Xkoesg Hx Past Med/Social Hx: Reviewed Nursing Past Med/Soc Hx, Reviewed and Corrections made Patient Social History Marrital Status: single Employed/Student: retired Alcohol Use: Denies Use Smoking Status: Current Everyday Smoker Type Used: Cigarettes Recent Foreign Travel: No Contact w/other who traveled: No Recent Hopitalizations: No Immunizations Up To Date Date of Pneumonia Vaccine: Apr 29, 2018 Seasonal Allergies Seasonal Allergies: No Past Medical History Surgeries: Abdominal, Appendectomy, Gallbladder, Hysterectomy, Oophorectomy, Tubal Ligation Cardiac: Cardiomyopathy (CHF), Chronic Edema/Swelling, Coronary Artery Disease, High Cholesterol, Hypertension Neurological: Concussion, Neuropathy, Seizure Disorder Reproductive: Yes Female Reproductive Disorders: Endometriosis Hysterectomy Gastrointestinal: Gastroesophageal Reflux, Liver Disease/Jaundice, Chronic Constipation, Polyps, Hiatal Hernia, Irritable Bowel Musculoskeletal: Osteoporosis, Arthritis Cancer: Lung (Confirmed on PET scan November 2022), Skin, Cervical, Colon, Ovarian, Uterine Did You Recieve Any Treatments: Yes What Type of Treatment Did You: Surgical Intervention History of Blood Disorders: No Family History Patient reports no known family medical history. No Pertinent Family Hx Review of Systems Constitutional: see HPI, malaise, weakness Physical Exam Physical Exam Vital Signs Vital Signs - First Documented 11/28/22 11/28/22 17:00 19:30 Temp 33.9 Pulse 66 Resp 14 B/P (MAP) 109/72 (84) Pulse Ox 98 O2 Delivery Room Air Capillary Refill : Less Than 3 Seconds Height, Weight, BMI Height: 5'5.00" Weight: 158lbs. 4.0oz. 71.609817yc; 24.00 BMI Method:Stated General Appearance: WD/WN, Chronically ill, Moderate Distress, Thin HEENT: Normal ENT Inspection, Other (Dry oropharynx) Neck: Normal Inspection; No JVD Respiratory: Lungs Clear, Normal Breath Sounds, No Accessory Muscle Use Cardiovascular: No Edema, No Murmur, Irregularly Irregular, Tachycardia Gastrointestinal: Non Tender, Soft Extremity: Normal Inspection, No Pedal Edema Neurologic/Psychiatric: Alert, Oriented x3, No Motor/Sensory Deficits, Other (Moderately agitated) Skin: Warm/Dry, Pallor Results Results/Procedures Labs Laboratory Tests 11/28/22 17:04 11/29/22 04:29 Patient resulted labs reviewed. Assessment/Plan Admission Diagnosis Assessment: Severe weakness from severe hypomagnesemia Lung cancer COPD Current smoker Hypertension Plan: IV magnesium supplement ICU monitoring due to high risk for cardiac arrhythmia from low magnesium Supportive care Admission Status: Observation Clinical Quality Measures Smoking Cessation Counseling: Counseling-Symptomatic: 3-10 Minutes ESA FERRELL DO Nov 28, 2022 18:34
[2022-11-28 19:18] LABS: ABG BASE EXCESS -5.7 MMOL/L (-2.5-2.5); ABG OXYGEN SATURATION 99 % (94-100); ABG PH 7.55 (7.37-7.43); ABG PO2 131 MMHG (79-93); ABG TCO2 17.7 MMOL/L (21.0-31.0); ALLENS TEST YES-POS
[2022-11-28 19:19] LABS: INSPIRED O2 0; PATIENT TEMP 33.9; VENTILATOR NO
[2022-11-28 19:21] LABS: ABG PCO2 19 MMHG (35-45)
[2022-11-28] MEDS ORDERED: diphenhydrAMINE 25 MG TAB (BENADRYL) PO PRN (20:00)
[2022-11-28] MEDS ORDERED: BISACODYL 10 MG SUPP (DULCOLAX) PR PRN (20:00)
[2022-11-28] MEDS ORDERED: ENOXAPARIN 40 MG/0.4 ML (LOVENOX) SYR SC SCH (20:00)
[2022-11-28] MEDS ORDERED: CALCIUM CARBONATE 500 MG (TUMS) TAB.CHEW PO PRN (20:00)
[2022-11-28] MEDS ORDERED: LACTULOSE SYRUP 10GM/15ML (ENULOSE) 30ML UDC PO PRN (20:00)
[2022-11-28] MEDS ORDERED: diphenhydrAMINE 50 MG/ML INJ (BENADRYL) IVP PRN (20:00)
[2022-11-28] MEDS ORDERED: ONDANSETRON 4 MG (ZOFRAN) ORAL DISSOLVE TAB PO PRN (20:00)
[2022-11-28] MEDS ORDERED: MELATONIN 3 MG TABLET PO PRN (20:00)
[2022-11-28] MEDS ORDERED: polyethylene glycoL POWDER 17 GM (MIRALAX) PACK PO PRN (20:00)
[2022-11-28] MEDS ORDERED: ANTACID SUSP 30 ML UDC (MYLANTA) PO PRN (20:00)
[2022-11-28] MEDS ORDERED: ONDANSETRON 4 MG/2 ML (SDV) Z0FRAN IV PRN (20:00)
[2022-11-28] MEDS ORDERED: NS IV 500 ML 500 ML IV PRN (20:00)
[2022-11-28] MEDS ORDERED: MILK OF MAGNESIA 400 MG/5 ML 30 ML UDC PO PRN (20:00)
[2022-11-28] MEDS: DOCUSATE SODIUM 100 MG (COLACE) CAP PO SCH (20:04)
[2022-11-28] MEDS: SENNOSIDES 8.6 MG (SENOKOT) TAB PO SCH (20:04)
[2022-11-28] MEDS ORDERED: NS IV 1000 ML 1,000 ML ONE (20:14)
[2022-11-28 20:15] VITALS: BP 117/71
[2022-11-28] MEDS ORDERED: MAGNESIUM 1 GM/100 ML IVPB 600 ML IV ONE (20:15)
[2022-11-28] MEDS ORDERED: RT-ALBUTEROL SULF 2.5 MG/3 ML PRE-MIX VIAL INH PRN (20:30)
[2022-11-28] MEDS ORDERED: ACETAMINOPHEN 325 MG TABLET ONE (20:39)
[2022-11-28] MEDS: NS IV 1000 ML 1,000 ML IV SCH (20:42)
[2022-11-28] MEDS: ACETAMINOPHEN 325 MG TABLET PO PRN (20:42)
[2022-11-28] MEDS: MAGNESIUM 1 GM/100 ML IVPB 100 ML IV SCH ×4 (20:43→23:32)
[2022-11-28] MEDS: APIXABAN 5 MG (ELIQUIS) TABLET PO SCH (22:28)
[2022-11-29] MEDS: MAGNESIUM 1 GM/100 ML IVPB 100 ML IV SCH ×2 (00:33→01:42)
[2022-11-29] MEDS: ACETAMINOPHEN 325 MG TABLET PO PRN ×3 (00:44→10:16)
[2022-11-29 04:55] LABS: BASOPHILS % (AUTO) 0 % (0-10); EOSINOPHILS # (AUTO) 0.1 10^3/uL (0.0-0.3); EOSINOPHILS % (AUTO) 1 % (0-10); HEMATOCRIT 33 % (35-52); HEMOGLOBIN 11.3 g/dL (11.5-16.0); LYMPHOCYTES # (AUTO) 2.9 10^3/uL (1.0-4.0); LYMPHOCYTES % (AUTO) 35 % (12-44); MEAN CORPUSCULAR HEMOGLOBIN 31 pg (25-34); MEAN CORPUSCULAR HGB CONC 34 g/dL (32-36); MEAN CORPUSCULAR VOLUME 90 fL (80-99); MONOCYTES # (AUTO) 0.5 10^3/uL (0.0-1.0); MONOCYTES % (AUTO) 6 % (0-12); NEUTROPHILS # (AUTO) 4.8 10^3/uL (1.8-7.8); NEUTROPHILS % (AUTO) 58 % (42-75); PLATELET COUNT 335 10^3/uL (130-400); WHITE BLOOD COUNT 8.3 10^3/uL (4.3-11.0)
[2022-11-29 05:18] LABS: ALBUMIN 3.5 GM/DL (3.2-4.5); BILIRUBIN,TOTAL 0.4 MG/DL (0.1-1.0); CALCIUM 7.7 MG/DL (8.5-10.1); CREATININE SERUM 0.82 MG/DL (0.60-1.30); MAGNESIUM 3.2 MG/DL (1.6-2.4); PHOSPHORUS 3.2 MG/DL (2.3-4.7); POTASSIUM 4.1 MMOL/L (3.6-5.0); TOTAL PROTEIN 5.7 GM/DL (6.4-8.2)
[2022-11-29] MEDS ORDERED: KCL 20 MEQ TAB (K-DUR) PO SCH (06:00)
[2022-11-29] MEDS ORDERED: MAGNESIUM 1 GM/100 ML IVPB 100 ML IV SCH (06:00)
[2022-11-29] MEDS ORDERED: POTASSIUM CL 10MEQ/50ML IVPB 50 ML IV SCH (06:00)
[2022-11-29] MEDS: APIXABAN 5 MG (ELIQUIS) TABLET PO SCH (08:34)
[2022-11-29] MEDS: DOCUSATE SODIUM 100 MG (COLACE) CAP PO SCH (08:35)
[2022-11-29] MEDS: SENNOSIDES 8.6 MG (SENOKOT) TAB PO SCH (08:35)
[2022-11-29] MEDS: NS IV 1000 ML 1,000 ML IV SCH (08:46)
--- NOTE | 2022-11-29 09:57 | Diagnostic Imaging Report ---
INDICATION: Hypoxia. Time of Exam: 4:13 AM Correlation is made with prior chest from one day earlier. Heart size is normal. There are areas of perihilar atelectasis bilaterally. Otherwise, the lungs appear clear. No effusion or pneumothorax is detected. IMPRESSION: Stable chest with bilateral perihilar atelectasis since exam one day earlier. Dictated by: Dictated on workstation # [id number]
--- NOTE | 2022-11-29 10:26 | Physical Therapy Evaluation ---
PT Evaluation-General Medical Diagnosis Admission Date Nov 28, 2022 at 19:46 Medical Diagnosis: a-fib, hyponatremia Onset Date: Nov 28, 2022 Therapy Diagnosis Therapy Diagnosis: decreased mobility Height/Weight Height (Feet): 5 Height (Inches): 5.00 Weight (Pounds): 158 Weight (Ounces): 4.0 Precautions Precautions/Isolations: Fall Prevention, Standard Precautions Weight Bear Status Right Lower Extremity: Right Full Weight Bearing Left Lower Extremity: Left Full Weight Bearing Referral Physician: Dimitris Reason for Referral: Evaluation/Treatment Medical History Pertinent Medical History: Atrial Fib, CAD, Heart Failure Additional Medical History lung CA Current History Presented to ER with body pains, diaphoresis, nausea, irritability. Reviewed History: Yes Social History Home: Single Level Current Living Status: Spouse Prior Prior Level of Function SCALE: Activities may be completed with or without assistive devices. 0-Tneihsoane-mluvwkf completes the activity by him/herself with no assistance from a helper. 5-Set-up or Clean-up Assistance-helper sets up or cleans up; patient completes activity. Sidney assists only prior to or following the activity. 4-Supervision or Touching Assistance-helper provides verbal cues and/or touching/steadying and/or contact guard assistance as patient completes activity. Assistance may be provided throughout the activity or intermittently. 3-Partial/Moderate Assistance-helper does LESS THAN HALF the effort. Sidney li fts, holds or supports trunk or limbs, but provides less than half the effort. 2-Substantial/Maximal Assistance-helper does MORE THAN HALF the effort. Sidney lifts or holds trunk or limbs and provides more than half the effort. 0-Lmztcrvgn-apkwlu does ALL the effort. Patient does none of the effort to complete the activity. Or, the assistance of 2 or more helpers is required for the patient to complete the activity. If activity was not attempted, code reason: 7-Patient Refused. 9-Not Applicable-not attempted and the patient did not perform the activity before the current illness, exacerbation or injury. 10-Not Attempted due to Environmental Limitations-(lack of equipment, weather restraints, etc.). 88-Not Attempted due to Medical Conditions or Safety Concerns. Bed Mobility: 6 Transfers (B,C,W/C): 6 Gait: 6 Indoor Mobility (Ambulation): Independent Prior Devices Use: None PT Evaluation-Current Subjective Pt. states she is still having R-sided chest pain, no objective pain rating given. Pt. agrees to sit up in chair but states "I probably can't do it by myself." Pt/Family Goals home with spouse Objective Patient Orientation: Person, Place, Time, Situation Attachments: IV ROM/Strength ROM Upper Extremities WNL ROM Lower Extremities WNL Strength Upper Extremities WFL Strength Lower Extremities Grossly 4/5 Integumentary/Posture Integumentary grossly intact Bowel Incontinence: No Bladder Incontinence: No Posture kyphotic Neuromuscular (Tone, Coordination, Reflexes) intact Sensory Vision: Wears Glasses Hearing: Functional Sensation Right Upper Extremit: Intact Sensation Left Upper Extremity: Intact Sensation Right Lower Extremit: Intact Sensation Left Lower Extremity: Intact Transfers Lying to Sitting/Side of Bed(Q: 4 Sit to Stand (QC): 4 Chair/Fru-ja-Ivwyb Xfer(QC): 4 Gait Does the Patient Walk?: Yes Mode of Locomotion: Walk Anticipated Mode of Locomotion: Walk Distance: 5 ft Gait Assistive Device: FWW Comments/Gait Description close CGA with patient using FWW Balance Sitting Static: Good Sitting Dynamic: Good Standing Static: Fair Standing Dynamic: Fair Assessment/Needs Pt. is a 67 y.o. female with decreased mobility. Pt. is currently CGA with transfers but unsteady with walking using FWW. Pt. would benefit from skilled PT to improve safe mobility and functional strength to return home with spouse. 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 PT Senior Living Goals Time Frame: Dec 13, 2022 Roll Left & Right (QC): 6 Sit to Lying (QC): 6 Lying-Sitting on Side/Bed(QC): 6 Sit to Stand (QC): 6 Chair/Gwl-du-Dbqsd Xfer(QC): 6 Does the Patient Walk: Yes Walk 10 feet (QC): 4 Walk 50ft with 2 Turns (QC): 4 PT Plan Problem List Problem List: Activity Tolerance, Functional Strength, Safety, Balance, Gait, Transfer, Bed Mobility, ROM Treatment/Plan Treatment Plan: Continue Plan of Care Treatment Plan: Bed Mobility, Concurrent Therapy, Education, Functional Activity Alyssa, Functional Strength, Gait, Safety, Therapeutic Exercise, Transfers Treatment Duration: Dec 13, 2022 Frequency: 6 times per week Estimated Hrs Per Day: .25 hour per day Patient and/or Family Agrees t: Yes Time Time In: 935 Time Out: 949 DATE: Nov 29, 2022 Total Billed Treatment Time: 14 Total Billed Treatment 1, EVL 14' TIM LION PT Nov 29, 2022 10:26
[2022-11-29] MEDS ORDERED: MAGN400T7 PO (11:20)
[2022-11-29] MEDS ORDERED: NF-MAG64T PO (11:21)
--- NOTE | 2022-11-29 11:21 | Discharge Summary ---
Diagnosis/Chief Complaint Date of Admission Nov 28, 2022 at 19:46 Date of Discharge Discharge Date: Nov 29, 2022 Discharge Diagnosis Severe hypomagnesemia Lung cancer Heart transplant list candidate Smoker Discharge Summary Discharge Physical Examination Allergies: Coded Allergies: Opioids - Morphine Analogues (Verified Allergy, Unknown, DEEP SLEEP, PURPLE BLOTCHES, 12/28/18) ciprofloxacin (Verified Allergy, Unknown, RASH/BUMPS/PAIN, 12/28/18) codeine (Verified Allergy, Unknown, 10/20/18) fentanyl (Verified Allergy, Unknown, Anaphylaxis, 10/20/18) hydrochlorothiazide (Verified Allergy, Unknown, 10/20/18) lisinopril (Verified Allergy, Unknown, 09/06/18) morphine (Verified Allergy, Unknown, 09/06/18) opium (anthroposophic) (Verified Allergy, Unknown, 10/20/18) Uncoded Allergies: "opiates" (Allergy, Unknown, 03/31/18) Vitals & I&Os Vital Signs Date Time Temp Pulse Resp B/P (MAP) Pulse Ox O2 Delivery O2 Flow Rate FiO2 11/29/22 12:00 98 Room Air 11/29/22 11:49 36.5 11/29/22 11:00 85 15 113/79 (88) 11/29/22 08:16 0.00 General Appearance: Alert, Oriented X3, Cooperative Respiratory: Clear to Auscultation Cardiovascular: Regular Rate Hospital Course Was the Problem List Reviewed?: Yes Patient had a brief hospital course after she was admitted for severe hypomagnesemia that was replaced aggressively and I did add Slow-Mag to her 800 mg of Mag-Ox she takes twice a day. Overall she had no other issues PT and OT was consulted and she remains at baseline weakness and she was discharged home. Labs (last 24 hrs) Laboratory Tests 11/28/22 17:04: White Blood Count 8.9, Red Blood Count 4.03, Hemoglobin 12.4, Hematocrit 37, Mean Corpuscular Volume 91, Mean Corpuscular Hemoglobin 31, Mean Corpuscular Hemoglobin Concent 34, Red Cell Distribution Width 12.3, Platelet Count 373, Mean Platelet Volume 9.4, Immature Granulocyte % (Auto) 0, Neutrophils (%) (Auto) 62, Lymphocytes (%) (Auto) 32, Monocytes (%) (Auto) 5, Eosinophils (%) (Auto) 0, Basophils (%) (Auto) 0, Neutrophils # (Auto) 5.5, Lymphocytes # (Auto) 2.9, Monocytes # (Auto) 0.5, Eosinophils # (Auto) 0.0, Basophils # (Auto) 0.0, Immature Granulocyte # (Auto) 0.0, Prothrombin Time 15.1H, INR Comment 1.2, Activated Partial Thromboplast Time 31, Sodium Level 139, Potassium Level 3.4L, Chloride Level 105, Carbon Dioxide Level 20L, Anion Gap 14, Blood Urea Nitrogen 17, Creatinine 0.92, Estimat Glomerular Filtration Rate 69, BUN/Creatinine Ratio 18, Glucose Level 99, Calcium Level 8.5, Corrected Calcium 8.4L, Magnesium Level < 0.6*L, Total Bilirubin 0.6, Aspartate Amino Transf (AST/SGOT) 15, Alanine Aminotransferase (ALT/SGPT) 7, Alkaline Phosphatase 59, C-Reactive Protein High Sensitivity 0.03, B-Type Natriuretic Peptide 26.5, Total Protein 6.7, Albumin 4.1, Lipase 14 11/28/22 17:45: Total Creatine Kinase 50, Myoglobin 37.2, Troponin I < 0.028 11/28/22 19:08: Blood Gas Puncture Site LEFT RADIAL, Blood Gas Patient Temperature 33.9, Arterial Blood pH 7.55H, Arterial Blood Partial Pressure CO2 19*L, Arterial Blood Partial Pressure O2 131H, Arterial Blood HCO3 17*L, Arterial Blood Total CO2 17.7L, Arterial Blood Oxygen Saturation 99, Arterial Blood Base Excess -5.7L , Santo Test YES-POS, Blood Gas Ventilator Setting NO, Blood Gas Inspired Oxygen 0 11/29/22 04:29: White Blood Count 8.3, Red Blood Count 3.66L, Hemoglobin 11.3L, Hematocrit 33L, Mean Corpuscular Volume 90, Mean Corpuscular Hemoglobin 31, Mean Corpuscular Hemoglobin Concent 34, Red Cell Distribution Width 12.1, Platelet Count 335, Mean Platelet Volume 10.0, Immature Granulocyte % (Auto) 0, Neutrophils (%) (Auto) 58, Lymphocytes (%) (Auto) 35, Monocytes (%) (Auto) 6, Eosinophils (%) (Auto) 1, Basophils (%) (Auto) 0, Neutrophils # (Auto) 4.8, Lymphocytes # (Auto) 2.9, Monocytes # (Auto) 0.5, Eosinophils # (Auto) 0.1, Basophils # (Auto) 0.0, Immature Granulocyte # (Auto) 0.0, Sodium Level 137, Potassium Level 4.1, Chloride Level 106, Carbon Dioxide Level 20L, Anion Gap 11, Blood Urea Nitrogen 14, Creatinine 0.82, Estimat Glomerular Filtration Rate 79, BUN/Creatinine Ratio 17, Glucose Level 98, Calcium Level 7.7L, Corrected Calcium 8.1L, Magnesium Level 3.2H, Total Bilirubin 0.4, Aspartate Amino Transf (AST/SGOT) 15, Alanine Aminotransferase (ALT/SGPT) 7, Alkaline Phosphatase 49, Total Protein 5.7L, Al bumin 3.5, Phosphorus Level 3.2, Triglycerides Level 118, Cholesterol Level 104, LDL Cholesterol Direct 43, VLDL Cholesterol 24, HDL Cholesterol 36L Microbiology 11/28/22 MRSA Screen - Final, Complete MRSA not isolated Pending Labs Microbiology Date/Time Source Procedure Growth Status 11/28/22 19:52 Nasal MRSA Screen - Final MRSA not isolated Complete Laboratory Tests 11/28/22 17:04: White Blood Count 8.9, Red Blood Count 4.03, Hemoglobin 12.4, Hematocrit 37, Mean Corpuscular Volume 91, Mean Corpuscular Hemoglobin 31, Mean Corpuscular Hemoglobin Concent 34, Red Cell Distribution Width 12.3, Platelet Count 373, Mean Platelet Volume 9.4, Immature Granulocyte % (Auto) 0, Neutrophils (%) (Auto) 62, Lymphocytes (%) (Auto) 32, Monocytes (%) (Auto) 5, Eosinophils (%) (Auto) 0, Basophils (%) (Auto) 0, Neutrophils # (Auto) 5.5, Lymphocytes # (Auto) 2.9, Monocytes # (Auto) 0.5, Eosinophils # (Auto) 0.0, Basophils # (Auto) 0.0, Immature Granulocyte # (Auto) 0.0, Prothrombin Time 15.1, INR Comment 1.2, Activated Partial Thromboplast Time 31, Sodium Level 139, Potassium Level 3.4, Chloride Level 105, Carbon Dioxide Level 20, Anion Gap 14, Blood Urea Nitrogen 17, Creatinine 0.92, Estimat Glomerular Filtration Rate 69, BUN/Creatinine Ratio 18, Glucose Level 99, Calcium Level 8.5, Corrected Calcium 8.4, Magnesium Level < 0.6, Total Bilirubin 0.6, Aspartate Amino Transf (AST/SGOT) 15, Alanine Aminotransferase (ALT/SGPT) 7, Alkaline Phosphatase 59, C-Reactive Protein High Sensitivity 0.03, B-Type Natriuretic Peptide 26.5, Total Protein 6.7, Albumin 4.1, Lipase 14 11/28/22 17:45: Total Creatine Kinase 50, Myoglobin 37.2, Troponin I < 0.028 11/28/22 19:08: Blood Gas Puncture Site LEFT RADIAL, Blood Gas Patient Temperature 33.9, Arterial Blood pH 7.55, Arterial Blood Partial Pressure CO2 19, Arterial Blood Partial Pressure O2 131, Arterial Blood HCO3 17, Arterial Blood Total CO2 17.7, Arterial Blood Oxygen Saturation 99, Arterial Blood Base Excess -5.7, Santo Test YES-POS, Blood Gas Ventilator Setting NO, Blood Gas Inspired Oxygen 0 11/29/22 04:29: White Blood Count 8.3, Red Blood Count 3.66, Hemoglobin 11.3, Hematocrit 33, Mean Corpuscular Volume 90, Mean Corpuscular Hemoglobin 31, Mean Corpuscular Hemoglobin Concent 34, Red Cell Distribution Width 12.1, Platelet Count 335, Mean Platelet Volume 10.0, Immature Granulocyte % (Auto) 0, Neutrophils (%) (Auto) 58, Lymphocytes (%) (Auto) 35, Monocytes (%) (Auto) 6, Eosinophils (%) (Auto) 1, Basophils (%) (Auto) 0, Neutrophils # (Auto) 4.8, Lymphocytes # (Auto) 2.9, Monocytes # (Auto) 0.5, Eosinophils # (Auto) 0.1, Basophils # (Auto) 0.0, Immature Granulocyte # (Auto) 0.0, Sodium Level 137, Potassium Level 4.1, Chloride Level 106, Carbon Dioxide Level 20, Anion Gap 11, Blood Urea Nitrogen 1 4, Creatinine 0.82, Estimat Glomerular Filtration Rate 79, BUN/Creatinine Ratio 17, Glucose Level 98, Calcium Level 7.7, Corrected Calcium 8.1, Magnesium Level 3.2, Total Bilirubin 0.4, Aspartate Amino Transf (AST/SGOT) 15, Alanine Aminotransferase (ALT/SGPT) 7, Alkaline Phosphatase 49, Total Protein 5.7, Albumin 3.5, Phosphorus Level 3.2, Triglycerides Level 118, Cholesterol Level 104, LDL Cholesterol Direct 43, VLDL Cholesterol 24, HDL Cholesterol 36 Discharge Home Medications: Active Scripts Active Slow-Mag (Magnesium Chloride) 71.5 Mg Tab 64 Mg PO BID Magnesium Oxide 400 Mg Tablet 800 Mg PO BID Metoprolol Succinate 50 Mg Tab.er.24h 50 Mg PO DAILY 30 Days Eliquis (Apixaban) 5 Mg Tablet 5 Mg PO BID 30 Days Brilinta (Ticagrelor) 90 Mg Tablet 90 Mg PO BID Reported Tramadol HCl 50 Mg Tablet 25-50 Mg PO DAILY PRN Losartan Potassium 25 Mg Tablet 25 Mg PO DAILY Spironolactone 50 Mg Tablet 50 Mg PO DAILY Atorvastatin Calcium 80 Mg Tablet 80 Mg PO HS Potassium Chloride 20 Meq Tab.er.prt 20 Meq PO DAILY Meclizine HCl 25 Mg Tablet 25 Mg PO Q6H PRN Isosorbide Mononitrate ER (Isosorbide Mononitrate) 30 Mg Tab.er.24h 30 Mg PO DAILY Entresto 49 mg-51 mg Tablet (Sacubitril/Valsartan) 1 Each Tablet 49-51 Mg PO BID Vitamin D3 (Cholecalciferol (Vitamin D3)) 25 Mcg Tablet 25 Mcg PO DAILY Levetiracetam 1,000 Mg Tablet 1,000 Mg PO TID Allergy (Diphenhydramine HCl) 25 Mg Tablet 25 Mg PO DAILY Omeprazole 20 Mg Capsule.dr 20 Mg PO BID Calcium (Calcium Carbonate) 600 Mg Tablet 600 Mg PO BID B-12 (Cyanocobalamin (Vitamin B-12)) 1,000 Mcg Tablet 1,000 Mcg PO DAILY Gabapentin 800 Mg Tablet 800 Mg PO TID Linzess (Linaclotide) 290 Mcg Capsule 290 Mg PO HS Instructions to patient/family Please see electronic discharge instructions given to patient. Clinical Quality Measures Smoking Cessation Counseling: Counseling-Symptomatic: 3-10 Minutes ESA FERRELL DO Nov 29, 2022 11:21
== END 2022-11-29 13:15 | disposition home or self-care (01) ==
LOC: EDUNIT# 16:49 → ER 16:51 → ICU 19:46 → INTOOBSV 19:46
PROVIDERS: ADMIT Internal Medicine; ATTEND Internal Medicine
DX: E83.42 Hypomagnesemia (principal); I48.91 Unspecified atrial fibrillation; C34.02 Malignant neoplasm of left main bronchus; I25.10 Atherosclerotic heart disease of native coronary artery without angina pectoris; I11.0 Hypertensive heart disease with heart failure; I50.9 Heart failure, unspecified; F17.210 Nicotine dependence, cigarettes, uncomplicated; F12.90 Cannabis use, unspecified, uncomplicated; Z79.01 Long term (current) use of anticoagulants; Z79.899 Other long term (current) drug therapy; Z88.1 Allergy status to other antibiotic agents; Z88.5 Allergy status to narcotic agent; Z91.09 Other allergy status, other than to drugs and biological substances
CPT/HCPCS: 36415; 36600; 71045; 80053; 80061; 82550; 82805; 83690; 83735; 83874; 83880; 84100; 84484; 85025; 85610; 85730; 86141; 87081; 93005; 93041; 96366

== ENCOUNTER 2023-04-09 08:13 | Outpatient (CLI) | payer MEDICARE ==
[~2023-04-09] VITALS: Ht 160 cm; Wt 63.6 kg
[2023-04-09] VITALS (7 sets, daily range): BP systolic 79–96; BP diastolic 43–54
[~2023-04-09 08:13] MED LIST changes: +DICY-11 PO; -DICY10CA12 PO; +MAGN400T7 PO; -MECL-149 PO; +MECL-291 PO; +NF-MAG64T PO
[2023-04-09] MEDS ORDERED: NS IV 500 ML 500 ML ONE (08:47)
[2023-04-09 08:51] LABS: HEMOGLOBIN 6.8 g/dL (11.5-16.0)
[2023-04-09] MEDS ORDERED: NS IV 500 ML 500 ML IV ONE (09:15)
== END 2023-04-09 12:30 ==
LOC: SDC 08:13
PROVIDERS: ATTEND Internal Medicine Hematology & Oncology
DX: C34.92 Malignant neoplasm of unspecified part of left bronchus or lung (principal); D75.9 Disease of blood and blood-forming organs, unspecified
CPT/HCPCS: 36430; 85014; 85018; 86850; 86900; 86901; 86920; P9016; 36415